=== PATIENT | male | born 1950 | race Caucasian/White ===

== ENCOUNTER 2019-04-22 17:09 | Inpatient (IN) | payer MEDICARE ==
[2019-04-22] MEDS ORDERED: ALBUTEROL NEBULIZED 2.5 MG/3 ML INHALATION STA (18:20)
[2019-04-22] MEDS ORDERED: IPRATROPIUM 0.5 MG/2.5 ML NEBU INHALATION STA (18:20)
[2019-04-22] MEDS ORDERED: methylPREDNISolone SOD SUCCI 125 MG/2 ML VIAL IV STA (18:20)
[2019-04-22] MEDS ORDERED: SODIUM CHLORIDE 0.9% 500 ML 500 ML IV STA (18:20)
--- NOTE | 2019-04-22 18:49 | ED ---
SOB HPI - General Chief Complaint: Shortness of Breath Stated Complaint: congestion Time Seen by Provider: 04/22/19 18:09 Source: patient Mode of arrival: ambulatory Limitations: no limitations - History of Present Illness Initial Comments: 68-year-old male patient presents to the emergency department today for evaluation of shortness of breath and congestion. Patient states his been sick with Thursday with cough, congestion, and nasal drainage. Patient states that he was seen and evaluated at urgent care on Thursday and was given prescriptions for Augmentin, prednisone, and Pro Air inhaler. Patient states that he has been taking the medications that he seems to be worsening. Patient states he is unable to ambulate without becoming extremely winded. States he is coughing up green sputum which was blood-tinged this afternoon. He denies any fever or chills. Denies any chest pain. Denies any dizziness or weakness. Patient has been smoking for 50 years. Has a pacer/defibrillator. Only daily medication is pacerone. Patient denies any recent rash, abdominal pain, nausea, vomiting, diarrhea, constipation, back pain, numbness, tingling, hematuria, dysuria, urinary urgency, urinary frequency, headache, visual changes, or any other complaints. Patient denies any recent travel, leg swelling, or history of DVT. - Related Data Home Medications Medication Instructions Recorded Confirmed Albuterol Inhaler [Ventolin Hfa 2 puff INHALATION RT-Q6H PRN 04/22/19 04/22/19 Inhaler] Amiodarone HCl [Pacerone] 100 mg PO DAILY 04/22/19 04/22/19 Amoxicillin/Potassium Clav 1 tab PO Q12HR 04/22/19 04/22/19 [Augmentin 875-125 Tablet] Ascorbic Acid [Vitamin C] 500 mg PO DAILY 04/22/19 04/22/19 Benzonatate [Tessalon Perles] 100 mg PO TID PRN 04/22/19 04/22/19 Calcium Carbonate [Calcium] 600 mg PO DAILY 04/22/19 04/22/19 Multivitamins, Thera [Multivitamin 1 tab PO DAILY 04/22/19 04/22/19 (formulary)] Vitamin E 100 unit PO DAILY 04/22/19 04/22/19 Zinc 50 mg PO DAILY 04/22/19 04/22/19 predniSONE 10 mg PO BID 04/22/19 04/22/19 Allergies Allergy/AdvReac Type Severity Reaction Status Date / Time No Known Allergies Allergy Verified 04/23/19 00:30 Review of Systems ROS Statement: Those systems with pertinent positive or pertinent negative responses have been documented in the HPI. ROS Other: All systems not noted in ROS Statement are negative. Past Medical History Past Medical History: Myocardial Infarction ([place]) History of Any Multi-Drug Resistant Organisms: None Reported Past Surgical History: Heart Catheterization, Hernia Repair, Pacemaker Additional Past Surgical History / Comment(s): defib 2001 Past Psychological History: No Psychological Hx Reported Smoking Status: Current every day smoker Past Alcohol Use History: Daily Past Drug Use History: None Reported - Past Family History Father Family Medical History: Congestive Heart Failure (CHF) General Exam Limitations: no limitations General appearance: alert, in no apparent distress, other (This is a well- developed, well-nourished elderly male patient in no acute distress. Vital signs upon presentation are temperature 97.9F, pulse 88, respirations 18, blood pressure 109/75, pulse ox 93% on room air.) Eye exam: Present: normal appearance, PERRL, EOMI. Absent: scleral icterus, conjunctival injection, periorbital swelling ENT exam: Present: normal exam, normal oropharynx, mucous membranes moist Respiratory exam: Present: wheezes (Tight expiratory wheezing in the posterior lung hendrix), accessory muscle use. Absent: normal lung sounds bilaterally, respiratory distress, rales, rhonchi, stridor Cardiovascular Exam: Present: regular rate, normal rhythm, normal heart sounds. Absent: systolic murmur, diastolic murmur, rubs, gallop, clicks GI/Abdominal exam: Present: soft, normal bowel sounds. Absent: distended, tenderness, guarding, rebound, rigid Neurological exam: Present: alert, oriented X3, CN II-XII intact Psychiatric exam: Present: normal affect, normal mood Skin exam: Present: warm, dry, intact, normal color. Absent: rash Course Vital Signs 04/22/19 04/22/19 04/22/19 17:14 18:20 19:37 Temperature 97.9 F Pulse Rate 88 88 Respiratory 18 23 Rate Blood Pressure 109/75 O2 Sat by Pulse 93 L Oximetry 04/22/19 04/22/19 04/22/19 19:51 20:07 21:42 Temperature Pulse Rate 86 84 84 Respiratory 18 Rate Blood Pressure 110/69 O2 Sat by Pulse 96 Oximetry 04/22/19 23:33 Temperature 98 F Pulse Rate 76 Respiratory 18 Rate Blood Pressure 104/67 O2 Sat by Pulse 96 Oximetry Medical Decision Making - Medical Decision Making 68-year-old male patient presents to the emergency department today for evaluation of shortness of breath or cough. Physical examination did reveal diffuse expiratory wheezing in the posterior lung hendrix. Oxygen saturation was decreased between 88 and 93% on room air. Labs reviewed and are unremarkable. A chest x-ray showed masslike density in the right upper lobe. CT with contrast was obtained and redemonstrated the masslike density, recommended follow-up tissue sampling her PET scan. Patient will be admitted for COPD exacerbation of evaluation of a mass. We will continue breathing treatments and steroid injections. We'll consult pulmonology. - Lab Data Result diagrams: 04/22/19 19:20 04/22/19 19:20 Lab Results 04/22/19 04/22/19 04/22/19 Range/Units 19:20 19:20 19:20 WBC 9.9 (3.8-10.6) k/uL RBC 5.07 (4.30-5.90) m/uL Hgb 15.7 (13.0-17.5) gm/dL Hct 47.4 (39.0-53.0) % MCV 93.4 (80.0-100.0) fL MCH 31.0 (25.0-35.0) pg MCHC 33.2 (31.0-37.0) g/dL RDW 15.4 (11.5-15.5) % Plt Count 145 L (150-450) k/uL Neutrophils % 82 % Lymphocytes % 10 % Monocytes % 4 % Eosinophils % 0 % Basophils % 2 % Neutrophils # 8.1 H (1.3-7.7) k/uL Lymphocytes # 1.0 (1.0-4.8) k/uL Monocytes # 0.4 (0-1.0) k/uL Eosinophils # 0.0 (0-0.7) k/uL Basophils # 0.2 (0-0.2) k/uL PT 10.3 (9.0-12.0) sec INR 1.0 (<1.2) APTT 27.5 (22.0-30.0) sec Sodium 139 (137-145) mmol/L Potassium 4.4 (3.5-5.1) mmol/L Chloride 103 (98-107) mmol/L Carbon Dioxide 27 (22-30) mmol/L Anion Gap 9 mmol/L BUN 14 (9-20) mg/dL Creatinine 0.76 (0.66-1.25) mg/dL Est GFR (CKD-EPI)AfAm >90 (>60 ml/min/1.73 sqM) Est GFR (CKD-EPI)NonAf >90 (>60 ml/min/1.73 sqM) Glucose 91 (74-99) mg/dL Calcium 9.1 (8.4-10.2) mg/dL Magnesium 2.2 (1.6-2.3) mg/dL Total Bilirubin 0.6 (0.2-1.3) mg/dL AST 36 (17-59) U/L ALT 38 (21-72) U/L Alkaline Phosphatase 130 H (38-126) U/L Troponin I (0.000-0.034) ng/mL Total Protein 6.8 (6.3-8.2) g/dL Albumin 3.9 (3.5-5.0) g/dL 04/22/19 Range/Units 19:20 WBC (3.8-10.6) k/uL RBC (4.30-5.90) m/uL Hgb (13.0-17.5) gm/dL Hct (39.0-53.0) % MCV (80.0-100.0) fL MCH (25.0-35.0) pg MCHC (31.0-37.0) g/dL RDW (11.5-15.5) % Plt Count (150-450) k/uL Neutrophils % % Lymphocytes % % Monocytes % % Eosinophils % % Basophils % % Neutrophils # (1.3-7.7) k/uL Lymphocytes # (1.0-4.8) k/uL Monocytes # (0-1.0) k/uL Eosinophils # (0-0.7) k/uL Basophils # (0-0.2) k/uL PT (9.0-12.0) sec INR (<1.2) APTT (22.0-30.0) sec Sodium (137-145) mmol/L Potassium (3.5-5.1) mmol/L Chloride (98-107) mmol/L Carbon Dioxide (22-30) mmol/L Anion Gap mmol/L BUN (9-20) mg/dL Creatinine (0.66-1.25) mg/dL Est GFR (CKD-EPI)AfAm (>60 ml/min/1.73 sqM) Est GFR (CKD-EPI)NonAf (>60 ml/min/1.73 sqM) Glucose (74-99) mg/dL Calcium (8.4-10.2) mg/dL Magnesium (1.6-2.3) mg/dL Total Bilirubin (0.2-1.3) mg/dL AST (17-59) U/L ALT (21-72) U/L Alkaline Phosphatase (38-126) U/L Troponin I 0.025 (0.000-0.034) ng/mL Total Protein (6.3-8.2) g/dL Albumin (3.5-5.0) g/dL - EKG Data -: EKG Interpreted by Vt EKG Comments: EKG obtained at 1908 shows sinus rhythm with occasional PVCs. Left bundle branch block. Ventricular rate is 82, MD interval 170, QRS duration 156, QT 458 , QTC 535. No evidence of ST elevation or depression. - Radiology Data Radiology results: report reviewed, image reviewed Two-view x-ray of the chest is obtained. Report was reviewed in its entirety. Impression by Dr. Lares shows right lower lobe masslike opacity, further evaluation with CT is recommended. Computed tomography scan of the chest with contrast was obtained. Report was reviewed in its entirety. Impression by Dr. Lares shows superior segment right upper lobe masslike lesion. Both neoplastic nonneoplastic considerations are in the differential, nonneoplastic including cystic lesion/mucoid impaction. Further workup was recommended, either pet/CT or tissue sampling. Disposition Clinical Impression: COPD exacerbation, Mass of right lung Disposition: ADMITTED IP TO THIS [facility] Condition: Serious Decision to Admit Reason: Admit from EC Decision Date: 04/22/19 Decision Time: 21:28
[2019-04-22 20:10] LABS: Basophils # (A) 0.2 k/uL (0-0.2); Basophils % (A) 2 %; Eosinophils % (A) 0 %; HCT 47.4 % (39.0-53.0); HGB 15.7 gm/dL (13.0-17.5); Lymphocytes % (A) 10 %; MCHC 33.2 g/dL (31.0-37.0); MCV 93.4 fL (80.0-100.0); Mean Platelet Volume 8.2; Monocytes # (A) 0.4 k/uL (0-1.0); Monocytes % (A) 4 %; Neutrophils # (A) 8.1 k/uL (1.3-7.7); Neutrophils % (A) 82 %; Platelet Count 145 k/uL (150-450); RBC 5.07 m/uL (4.30-5.90); RDW 15.4 % (11.5-15.5); WBC 9.9 k/uL (3.8-10.6)
[2019-04-22 20:16] LABS: ALT 38 U/L (21-72); AST 36 U/L (17-59); African American GFR (CKD) >90 (>60 ml/min/1.73 sqM); Albumin 3.9 g/dL (3.5-5.0); Alkaline Phosphatase 130 U/L (38-126); Anion Gap 9 mmol/L; Blood Urea Nitrogen 14 mg/dL (9-20); Calcium 9.1 mg/dL (8.4-10.2); Carbon Dioxide 27 mmol/L (22-30); Chloride 103 mmol/L (98-107); Glucose 91 mg/dL (74-99); Magnesium 2.2 mg/dL (1.6-2.3); Potassium 4.4 mmol/L (3.5-5.1); Sodium 139 mmol/L (137-145); Total Bilirubin 0.6 mg/dL (0.2-1.3); Total Protein 6.8 g/dL (6.3-8.2)
[2019-04-22 20:29] LABS: Partial Thromboplastin Time 27.5 sec (22.0-30.0); Prothrombin Time 10.3 sec (9.0-12.0)
[2019-04-22] MEDS ORDERED: RX INFO: IV CONTRAST WAS GIVEN 1 EACH MISC MISCELLANE PRN (21:11)
[2019-04-22] MEDS ORDERED: IPRATROPIUM-ALBUTEROL 3 ML NEB INHALATION PRN (21:25)
--- NOTE | 2019-04-22 23:19 | CT ---
EXAMINATION TYPE: CT chest w con DATE OF EXAM: 04/22/2019 COMPARISON: None HISTORY: Lung mass, c/o chest congestion CT DLP: 256.2 mGycm Automated exposure control for dose reduction was used. CONTRAST: CT scan of the chest is performed with IV Contrast, patient injected with 100 mL of Isovue 300. FINDINGS: Circumscribed superior segment right lower lobe mass measures 6.9 x 4.8 x 4.9 cm TR by AP by luzmaria shaji. The internal attenuation is 19 HU with areas of nodular wall thickening along its superior and lateral aspects with calcification present laterally. Possible a impacted bronchus is associated with the mass. There are centrilobular emphysematous changes, apical predominant. No focal airspace consolidation. N o pleural effusion or pneumothorax. No mediastinal adenopathy. Left ventricular enlargement noted. No pericardial effusion. Aorta is of normal course and caliber. No osseous destructive lesion. IMPRESSION: Superior segment right upper lobe masslike lesion. Both neoplastic and nonneoplastic considerations a re in the differential, nonneoplastic including cystic lesion/mucoid impaction. Further workup is rec ommended, either PET/CT or tissue sampling.
--- NOTE | 2019-04-22 23:43 | XR ---
EXAMINATION TYPE: XR chest 2V DATE OF EXAM: 04/22/2019 COMPARISON: NONE HISTORY: Difficulty breathing TECHNIQUE: Frontal and lateral views of the chest are obtained. FINDINGS: Superior segment right lower lobe circumscribed opacity spanning approximately 7.8 cm doran sverse by 5.7 cm cc dimension. Atelectasis or scarring at the lung bases bilaterally. Emphysematous c hanges present. Cardiac silhouette is within normal limits of size. Dual-lead cardiac AICD device present. IMPRESSION: Right lower lobe mass like opacity, further evaluation with CT is recommended.
[2019-04-23 00:44] VITALS: BMI 19.8
[2019-04-23] MEDS: methylPREDNISolone SOD SUCCI 125 MG/2 ML VIAL IV SCH ×3 (00:51→21:21)
[2019-04-23 08:28] LABS: Glucose,Whole Blood 273 mg/dL (75-99)
[2019-04-23] MEDS: INSULIN ASPART (NovoLOG) 100 UNIT/ML VIAL SQ SCH ×5 (08:38→21:23)
[2019-04-23] MEDS: IPRATROPIUM-ALBUTEROL 3 ML NEB INHALATION SCH ×4 (08:50→20:26)
[2019-04-23 12:24] LABS: Glucose,Whole Blood 58 mg/dL (75-99)
[2019-04-23] MEDS: AMIODARONE 100 MG TAB PO SCH (12:51)
--- NOTE | 2019-04-23 13:17 | P.CNPUL ---
History of Present Illness Consult date: 04/23/19 Requesting physician: Yumi Knapp Reason for consult: dyspnea, abnormal CXR/CT Chief complaint: Shortness of breath, dyspnea on exertion History of present illness: This is a pleasant 68-year-old gentleman who follows with Dr. Holbrook as his primary care physician. He has a history of myocardial infarction with ischemic cardiomyopathy status post AICD placement in 2001. He has a 50+ pack per day smoking history. Daily alcohol use. He presented here to the emergency room yesterday with increasing shortness of breath, cough and congestion. He had recently been seen at an urgent care and started on Augmentin prednisone and pro-air without much improvement. Had a productive cough of green blood-tinged sputum. No fever, chills or night sweats. No chest pain or palpitations. Chest x-ray revealed a right lower lobe masslike opacity. Some atelectasis or scarring in the lung bases. Emphysematous changes noted. Computed tomography scan reveals a circumscribed superior segment right lower lobe mass measuring 6.9 x 4.8 x 4.9. Possible impacted bronchus associated with the mass. Centrilobular emphysematous changes. No mediastinal adenopathy. Patient is seen in consultation on the regular medical floor. Currently he is awake and alert in no acute distress. He is breathing a bit easier today as compared to yesterday. No worsening shortness of breath, cough or congestion. No hemoptysis. States he has been having some gradual weight loss. No recent travels. White count 9.9. Hemoglobin 15.7. Creatinine 0.76. He's been initiated on DuoNeb inhalations, IV Solu-Medrol. Review of Systems REVIEW OF SYSTEMS: CONSTITUTIONAL: Positive for gradual weight loss. EYES: Denies change in vision. EARS, NOSE, MOUTH, THROAT: Denies headaches, denies sore throat. CARDIOVASCULAR: Denies chest pain, palpitations or syncopal episodes. RESPIRATORY: Positive for shortness of breath, cough, congestion no hemoptysis. GASTROINTESTINAL: Denies change in appetite, denies abdominal pain GENITOURINARY: Denies hematuria, denies infections. MUSKULOSKELETAL: Denies pain, denies swelling. INTEGUMENTARY: Denies rash, denies eczema. NEUROLOGICAL: Denies recent memory loss, no recent seizure activity. PSYCHIATRIC: Denies anxiety, denies depression. HEMATOLOGIC/LYMPHATIC: Denies anemia, denies enlarged lymph nodes. Past Medical History Past Medical History: Myocardial Infarction ([place]) Last Myocardial Infarction Date:: 2001 History of Any Multi-Drug Resistant Organisms: None Reported Past Surgical History: Heart Catheterization, Hernia Repair, Pacemaker Additional Past Surgical History / Comment(s): beverly 2001 Type of Cardiac Device: AICD Device Placement Date:: 2015 Past Psychological History: No Psychological Hx Reported Smoking Status: Current every day smoker Past Alcohol Use History: Daily Past Drug Use History: None Reported - Past Family History Father Family Medical History: Congestive Heart Failure (CHF), Diabetes Mellitus Medications and Allergies Home Medications Medication Instructions Recorded Confirmed Type Albuterol Inhaler [Ventolin Hfa 2 puff INHALATION RT-Q6H PRN 04/22/19 04/22/19 History Inhaler] Amiodarone HCl [Pacerone] 100 mg PO DAILY 04/22/19 04/22/19 History Amoxicillin/Potassium Clav 1 tab PO Q12HR 04/22/19 04/22/19 History [Augmentin 875-125 Tablet] Ascorbic Acid [Vitamin C] 500 mg PO DAILY 04/22/19 04/22/19 History Benzonatate [Tessalon Perles] 100 mg PO TID PRN 04/22/19 04/22/19 History Calcium Carbonate [Calcium] 600 mg PO DAILY 04/22/19 04/22/19 History Multivitamins, Thera [Multivitamin 1 tab PO DAILY 04/22/19 04/22/19 History (formulary)] Vitamin E 100 unit PO DAILY 04/22/19 04/22/19 History Zinc 50 mg PO DAILY 04/22/19 04/22/19 History predniSONE 10 mg PO BID 04/22/19 04/22/19 History Allergies Allergy/AdvReac Type Severity Reaction Status Date / Time No Known Allergies Allergy Verified 04/23/19 00:30 Physical Exam Vitals: Vital Signs Temp Pulse Pulse Resp BP BP Pulse Ox 04/23/19 11:51 97.6 F 83 17 111/70 95 04/23/19 09:01 78 04/23/19 08:50 80 94 L 04/23/19 04:31 97.5 F L 81 18 101/65 96 04/23/19 00:38 97.6 F 94 22 102/70 92 L 04/22/19 23:33 98 F 76 18 104/67 96 04/22/19 21:42 84 18 110/69 96 04/22/19 20:07 84 04/22/19 19:51 86 04/22/19 19:37 88 04/22/19 18:20 23 04/22/19 17:14 97.9 F 88 18 109/75 93 L Intake and Output 04/22/19 04/23/19 04/23/19 22:59 06:59 14:59 Other: Voiding Method Toilet Toilet # Voids 1 Weight 52.39 kg GENERAL EXAM: Pleasant 68-year-old gentleman. Alert, comfortable in no apparent distress. On 2 L nasal cannula. HEAD: Normocephalic. EYES: Normal reaction of pupils, equal size. NOSE: Clear with pink turbinates. THROAT: Poor dentition. No erythema or exudates. NECK: No masses, no JVD. CHEST: No chest wall deformity. LUNGS: Equal air entry with bilateral end expiratory wheeze, diminished. CVS: S1 and S2 normal with no audible murmur, regular rhythm. ABDOMEN: No hepatosplenomegaly, normal bowel sounds, no guarding or rigidity. SPINE: No scoliosis or deformity SKIN: No rashes CENTRAL NERVOUS SYSTEM: No focal deficits, tone is normal in all 4 extremities. EXTREMITIES: There is no peripheral edema. No clubbing, no cyanosis. Peripheral pulses are intact. Results - Laboratory Findings CBC and BMP: 04/22/19 19:20 04/22/19 19:20 PT/INR, D-dimer PT 10.3 sec (9.0-12.0) 04/22/19 19:20 INR 1.0 (<1.2) 04/22/19 19:20 Abnormal lab findings: Abnormal Labs 04/22/19 04/22/19 04/23/19 19:20 19:20 08:22 Plt Count 145 L Neutrophils # 8.1 H POC Glucose (mg/dL) 273 H Alkaline Phosphatase 130 H 04/23/19 12:23 Plt Count Neutrophils # POC Glucose (mg/dL) 58 L Alkaline Phosphatase - Diagnostic Findings Chest x-ray: image reviewed CT scan - chest: image reviewed Assessment and Plan Assessment: Impression: #1 Acute exacerbation of suspected chronic obstructive pulmonary disease. Pulmonary embolism ruled out. There is a 6.9 x 4.8 x 4.9 cm mass in the superi or segment of the right upper lobe. Neoplastic versus nonneoplastic which could include cystic lesion/mucoid impaction. #2 Chronic and ongoing tobacco dependence of greater than 50 years at 1 pack per day. #3 Daily alcohol use. #4 History of myocardial infarction. #5 Ischemic cardiomyopathy status post AICD placement in 2001. Plan: The patient was seen and evaluated by Dr. Ferrer. Chest x-ray, CAT scan and labs reviewed. He is recommended a CT-guided biopsy of the right lung mass and possibly bronchoscopy with BAL and biopsy. He would benefit from an outpatient workup including full pulmonary function testing to the [place] severity of his suspected COPD. We'll continue with IV Solu-Medrol and DuoNeb inhalations, add Pulmicort and Perforomist inhalations and empiric antibiotics in the form of azithromycin. He is educated regarding the importance of complete smoking cessation. NicoDerm patch will be offered. The patient will be observed for any signs of alcohol withdrawal as well. We will continue to follow and make further recommendations based on his clinical status. I, the cosigning physician, performed a history & physical examination of the patient. Lungs sounds with bilateral end expiratory wheeze, diminished Maintaining good O2 saturations in the 90s on 2 L/m per nasal cannula. I discussed the assessment and plan of care with my nurse practitioner, Cait Ye. I attest to the above consultation as dictated by her. Time with Patient: Greater than 30
--- NOTE | 2019-04-23 13:24 | P.HPIM ---
History of Present Illness 68-year-old pleasant gentleman with known history of COPD still smokes about one pack of cigarette per day came in with complains of shortness of breath has been going on for last 34 days and the patient is coughing unable to bring up anything patient has significant wheezing and exam was on oral prednisone at home was subsequently admitted here for COPD exacerbation was started on systemic steroids inhalational treatments. CAT scan of the chest was opted which showed a masslike lesion with in the right upper lobe. Pulmonology was consult.. May require a biopsy. patient is still wheezing on examThe patient and her and if you're just doesn't have any leukocytosis, patient has been losing weight for years but not more than usual recently. doesn't use any oxygen at home Review of Systems REVIEW OF SYSTEMS: CONSTITUTIONAL: No fever, no malaise, no fatigue. HEENT: No recent visual problems or hearing problems. Denied any sore throat. CARDIOVASCULAR: No chest pain, orthopnea, PND, no palpitations, no syncope. PULMONARY: no hemoptysis. GASTROINTESTINAL: No diarrhea, no nausea, no vomiting, no abdominal pain. NEUROLOGICAL: No headaches, no weakness, no numbness. HEMATOLOGICAL: Denies any bleeding or petechiae. GENITOURINARY: Denies any burning micturition, frequency, or urgency. MUSCULOSKELETAL/RHEUMATOLOGICAL: Denies any joint pain, swelling, or any muscle pain. ENDOCRINE: Denies any polyuria or polydipsia. The rest of the 14-point review of systems is negative. Past Medical History Past Medical History: Myocardial Infarction ([place]) Last Myocardial Infarction Date:: 2001 History of Any Multi-Drug Resistant Organisms: None Reported Past Surgical History: Heart Catheterization, Hernia Repair, Pacemaker Additional Past Surgical History / Comment(s): defib 2001 Type of Cardiac Device: AICD Device Placement Date:: 2015 Past Psychological History: No Psychological Hx Reported Smoking Status: Current every day smoker Past Alcohol Use History: Daily Past Drug Use History: None Reported - Past Family History Father Family Medical History: Congestive Heart Failure (CHF) Medications and Allergies Home Medications Medication Instructions Recorded Confirmed Type Albuterol Inhaler [Ventolin Hfa 2 puff INHALATION RT-Q6H PRN 04/22/19 04/22/19 History Inhaler] Amiodarone HCl [Pacerone] 100 mg PO DAILY 04/22/19 04/22/19 History Amoxicillin/Potassium Clav 1 tab PO Q12HR 04/22/19 04/22/19 History [Augmentin 875-125 Tablet] Ascorbic Acid [Vitamin C] 500 mg PO DAILY 04/22/19 04/22/19 History Benzonatate [Tessalon Perles] 100 mg PO TID PRN 04/22/19 04/22/19 History Calcium Carbonate [Calcium] 600 mg PO DAILY 04/22/19 04/22/19 History Multivitamins, Thera [Multivitamin 1 tab PO DAILY 04/22/19 04/22/19 History (formulary)] Vitamin E 100 unit PO DAILY 04/22/19 04/22/19 History Zinc 50 mg PO DAILY 04/22/19 04/22/19 History predniSONE 10 mg PO BID 04/22/19 04/22/19 History Allergies Allergy/AdvReac Type Severity Reaction Status Date / Time No Known Allergies Allergy Verified 04/23/19 00:30 Physical Exam Vitals: Vital Signs Temp Pulse Pulse Resp BP BP Pulse Ox 04/23/19 13:11 84 04/23/19 11:51 97.6 F 83 17 111/70 95 04/23/19 09:01 78 04/23/19 08:50 80 94 L 04/23/19 04:31 97.5 F L 81 18 101/65 96 04/23/19 00:38 97.6 F 94 22 102/70 92 L 04/22/19 23:33 98 F 76 18 104/67 96 04/22/19 21:42 84 18 110/69 96 04/22/19 20:07 84 04/22/19 19:51 86 04/22/19 19:37 88 04/22/19 18:20 23 04/22/19 17:14 97.9 F 88 18 109/75 93 L Intake and Output 04/22/19 04/23/19 04/23/19 22:59 06:59 14:59 Other: Voiding Method Toilet Toilet # Voids 1 Weight 52.39 kg PHYSICAL EXAMINATION: GENERAL: The patient is alert and oriented x3, not in any acute distress. Well developed, well nourished. HEENT: Pupils are round and equally reacting to light. EOMI. No scleral icterus. No conjunctival pallor. Normocephalic, atraumatic. No pharyngeal erythema. No thyromegaly. CARDIOVASCULAR: S1 and S2 present. No murmurs, rubs, or gallops. PULMONARY: Significant x-ray wheezing on exam fairly good air entry into bilateral lung hendrix.. ABDOMEN: Soft, nontender, nondistended, normoactive bowel sounds. No palpable organomegaly. MUSCULOSKELETAL: No joint swelling or deformity. EXTREMITIES: No cyanosis, clubbing, or pedal edema. NEUROLOGICAL: Gross neurological examination did not reveal any focal deficits. SKIN: No rashes. Results CBC & Chem 7: 04/22/19 19:20 04/22/19 19:20 Labs: Abnormal Lab Results - Last 24 Hours (Table) 04/22/19 04/22/19 04/23/19 Range/Units 19:20 19:20 08:22 Plt Count 145 L (150-450) k/uL Neutrophils # 8.1 H (1.3-7.7) k/uL POC Glucose (mg/dL) 273 H (75-99) mg/dL Alkaline Phosphatase 130 H (38-126) U/L 04/23/19 Range/Units 12:23 Plt Count (150-450) k/uL Neutrophils # (1.3-7.7) k/uL POC Glucose (mg/dL) 58 L (75-99) mg/dL Alkaline Phosphatase (38-126) U/L Thrombosis Risk Factor Assmnt - Choose All That Apply Any of the Below Risk Factors Present?: Yes Each Factor Represents 1 point: Abnormal pulmonary function (COPD) Other Risk Factors: No Other congenital or acquired thrombophilia - If yes, enter type in comment: No Thrombosis Risk Factor Assessment Total Risk Factor Score: 1 Thrombosis Risk Factor Assessment Level: Low Risk Assessment and Plan Plan: -Shortness of breath: Seconded to COPD exacerbation and uses some steroids inhalational treatments -Possible masslike lesion in the right upper lobe for which pulmonology evaluated the patient patient may need a biopsy -Continued nicotine use: Counseling was provided -History of what appears like ventricular arrhythmia in the past patient has a pacemaker and is on amiodarone which will be continued -Carotid disease -Alcohol abuse: Counseling was provided patient will watch for withdrawals Due to prophylaxis with subcutaneous heparin GI prophylaxis with Pepcid
[2019-04-23] MEDS ORDERED: AZITHROMYCIN 500 MG TAB PO SCH (13:30)
[2019-04-23] MEDS: DOXYCYCLINE 100 MG CAP PO SCH ×2 (14:58→21:25)
[2019-04-23 15:04] LABS: Glucose,Whole Blood 170 mg/dL (75-99)
[2019-04-23 17:30] LABS: Glucose,Whole Blood 159 mg/dL (75-99)
[2019-04-23] MEDS: BUDESONIDE 1 MG/2 ML NEBU INHALATION SCH (20:26)
[2019-04-23] MEDS: FORMOTEROL FUMARATE 20 MCG/2 ML NEBU INHALATION SCH (20:26)
[2019-04-23 21:10] LABS: Glucose,Whole Blood 123 mg/dL (75-99)
[2019-04-23] MEDS: FAMOTIDINE 20 MG TAB PO SCH (21:24)
[2019-04-23] MEDS: HEPARIN SODIUM,PORCINE 5,000 UNIT/ML 1 ML VIAL SQ SCH (21:27)
[2019-04-23] MEDS: methylPREDNISolone SOD SUCCI 40 MG/ML 1 ML VIAL IV SCH (21:27)
[2019-04-23] MEDS: BENZONATATE 100 MG CAP PO PRN (22:38)
[2019-04-24 07:13] LABS: Glucose,Whole Blood 113 mg/dL (75-99)
[2019-04-24] MEDS: INSULIN ASPART (NovoLOG) 100 UNIT/ML VIAL SQ SCH ×4 (07:14→21:10)
[2019-04-24] MEDS: AMIODARONE 100 MG TAB PO SCH (07:40)
[2019-04-24] MEDS: DOXYCYCLINE 100 MG CAP PO SCH ×2 (07:40→21:10)
[2019-04-24] MEDS: HEPARIN SODIUM,PORCINE 5,000 UNIT/ML 1 ML VIAL SQ SCH ×2 (07:41→21:10)
[2019-04-24] MEDS: methylPREDNISolone SOD SUCCI 40 MG/ML 1 ML VIAL IV SCH ×2 (07:41→17:20)
[2019-04-24] MEDS: FAMOTIDINE 20 MG TAB PO SCH ×2 (07:41→21:07)
[2019-04-24 07:47] LABS: Anisocytosis Slight; HCT 40.1 % (39.0-53.0); HGB 13.4 gm/dL (13.0-17.5); MCH 31.7 pg (25.0-35.0); MCHC 33.5 g/dL (31.0-37.0); MCV 94.7 fL (80.0-100.0); Mean Platelet Volume 8.1; Platelet Count 143 k/uL (150-450); RBC 4.24 m/uL (4.30-5.90); WBC 15.2 k/uL (3.8-10.6)
[2019-04-24] MEDS: IPRATROPIUM-ALBUTEROL 3 ML NEB INHALATION SCH ×4 (07:55→19:52)
[2019-04-24] MEDS: BUDESONIDE 1 MG/2 ML NEBU INHALATION SCH ×2 (07:55→19:52)
[2019-04-24] MEDS: FORMOTEROL FUMARATE 20 MCG/2 ML NEBU INHALATION SCH ×2 (07:55→19:52)
[2019-04-24 08:07] LABS: Calcium 9.3 mg/dL (8.4-10.2); Potassium 4.2 mmol/L (3.5-5.1)
--- NOTE | 2019-04-24 10:49 | P.PN ---
Subjective Progress Note Date: 04/24/19 Principal diagnosis: Acute exacerbation of suspected COPD On 04/24/2017 patient seen in follow-up on medical surgical floor. He is awake and alert, in no acute distress, denies any dyspnea, denies any cough or congestion, lung sounds are clear to auscultation, no rhonchi, no wheezing, room air pulse ox is 91% patient has been ambulating to the bathroom, tolerating activity well, no further episodes of unresponsiveness, vital signs have been stable, no acute events overnight, today's labs have been reviewed, showing white blood cell count of 15.2, hemoglobin of 13.4 electrolytes were within normal limits, BUN is 24 creatinine 0.99. No fever or chills. Objective - Vital Signs Vital signs: Vital Signs Temp 97.5 F L 04/24/19 04:46 Pulse 92 04/24/19 08:20 Resp 18 04/24/19 04:46 BP 98/65 04/24/19 04:46 Pulse Ox 91 L 04/24/19 07:55 Intake & Output 04/23/19 04/24/19 04/24/19 18:59 06:59 18:59 Intake Total 600 790 Balance 600 790 Weight 52.39 kg Intake: Oral 600 790 Other: Voiding Method Toilet Toilet Toilet # Voids 2 1 - Exam GENERAL EXAM: Alert, pleasant, 68-year-old white male dyspneic at rest, has just returned from the bathroom, moderate conversational dyspnea HEAD: Normocephalic/atraumatic. EYES: Normal reaction of pupils, equal size. Conjunctiva pink, sclera white. NOSE: Clear with pink turbinates. THROAT: No erythema or exudates. NECK: No masses, no JVD, no thyroid enlargement, no adenopathy. CHEST: No chest wall deformity. Symmetrical expansion. LUNGS: Equal air entry with diminished breath sounds and tight wheezes, and his respiratory crackles over right mid and lower lobes CVS: Regular rate and rhythm, normal S1 and S2, no gallops, no murmurs, no rubs ABDOMEN: Soft, nontender. No hepatosplenomegaly, normal bowel sounds, no guarding or rigidity. EXTREMITIES: No clubbing, no edema, no cyanosis, 2+ pulses and upper and lower extremities. MUSCULOSKELETAL: Muscle strength and tone normal. SPINE: No scoliosis or deformity SKIN: No rashes CENTRAL NERVOUS SYSTEM: Alert and oriented -3. No focal deficits, tone is normal in all 4 extremities. PSYCHIATRIC: Alert and oriented -3. Appropriate affect. Intact judgment and insight. - Labs CBC & Chem 7: 04/24/19 07:13 04/24/19 07:13 Labs: Abnormal Lab Results - Last 24 Hours (Table) 04/23/19 04/23/19 04/23/19 Range/Units 12:23 15:03 17:25 WBC (3.8-10.6) k/uL RBC (4.30-5.90) m/uL RDW (11.5-15.5) % Plt Count (150-450) k/uL BUN (9-20) mg/dL Glucose (74-99) mg/dL POC Glucose (mg/dL) 58 L 170 H 159 H (75-99) mg/dL 04/23/19 04/24/19 04/24/19 Range/Units 21:08 07:12 07:13 WBC 15.2 H (3.8-10.6) k/uL RBC 4.24 L (4.30-5.90) m/uL RDW 17.0 H (11.5-15.5) % Plt Count 143 L (150-450) k/uL BUN (9-20) mg/dL Glucose (74-99) mg/dL POC Glucose (mg/dL) 123 H 113 H (75-99) mg/dL 04/24/19 Range/Units 07:13 WBC (3.8-10.6) k/uL RBC (4.30-5.90) m/uL RDW (11.5-15.5) % Plt Count (150-450) k/uL BUN 24 H (9-20) mg/dL Glucose 117 H (74-99) mg/dL POC Glucose (mg/dL) (75-99) mg/dL Assessment and Plan Plan: Assessment: #1 Acute exacerbation of suspected chronic obstructive pulmonary disease. Pulmonary embolism ruled out. There is a 6.9 x 4.8 x 4.9 cm mass in the superior segment of the right upper lobe. Neoplastic versus nonneoplastic which could include cystic lesion/mucoid impaction. #2 Chronic and ongoing tobacco dependence of greater than 50 years at 1 pack per day. #3 Daily alcohol use. #4 History of myocardial infarction. #5 Ischemic cardiomyopathy status post AICD placement in 2001. Plan: Continue with current treatment, continue IV Medrol, nebulized bronchodilators, Pulmicort, Perforomist, and empiric antibiotics, we'll consult interventional radiology for CT-guided biopsy of the right lung mass. Still quite dyspneic and bronchospastic, continue current inpatient treatment I performed a history & physical examination of the patient and discussed their management with my nurse practitioner, Sally Conway. I reviewed the nurse practitioner's note and agree with the documented findings and plan of care. Lung sounds are positive for diffuse wheezes throughout the lung hendrix. The findings and the impression was discussed with the patient. I attest to the documentation by the nurse practitioner. Time with Patient: Less than 30
[2019-04-24 11:21] LABS: Glucose,Whole Blood 133 mg/dL (75-99)
--- NOTE | 2019-04-24 11:47 | P.PN ---
Subjective 68-year-old gentleman was admitted secondary to COPD exacerbation patient is on doxycycline and the systemic steroids inhalational treatments. Patient also has a right-sided cyst in the lung for which patient will undergo drainage and biopsy by interventional radiology. Pulmonology evaluated the patient. Patient has elevated white blood cell count due to systemic steroids. Patient respiratory status improved looks better today still have some wheezing and decreased air entry. Constitutional: Denied any fatigue denied any fever. Cardio vascular: denied any chest pain, palpitations Gastrointestinal denied any nausea vomiting Pulmonary: Denied any shortness of breath cough Neurologic denied any new focal deficits All inpatient medications were reviewed and appropriate changes in these medications as dictated in the interval history and assessment and plan. Objective - Vital Signs Vital signs: Vital Signs Temp 97.5 F L 04/24/19 04:46 Pulse 92 04/24/19 08:20 Resp 18 04/24/19 04:46 BP 98/65 04/24/19 04:46 Pulse Ox 91 L 04/24/19 07:55 Intake & Output 04/23/19 04/24/19 04/24/19 18:59 06:59 18:59 Intake Total 600 790 Balance 600 790 Weight 52.39 kg Intake: Oral 600 790 Other: Voiding Method Toilet Toilet Toilet # Voids 2 1 - Exam PHYSICAL EXAMINATION: GENERAL: The patient is alert and oriented x3, not in any acute distress. Well developed, well nourished. HEENT: Pupils are round and equally reacting to light. EOMI. No scleral icterus. No conjunctival pallor. Normocephalic, atraumatic. No pharyngeal erythema. No thyromegaly. CARDIOVASCULAR: S1 and S2 present. No murmurs, rubs, or gallops. PULMONARY: Decreased air entry wheezing did improve ABDOMEN: Soft, nontender, nondistended, normoactive bowel sounds. No palpable organomegaly. MUSCULOSKELETAL: No joint swelling or deformity. EXTREMITIES: No cyanosis, clubbing, or pedal edema. NEUROLOGICAL: Gross neurological examination did not reveal any focal deficits. SKIN: No rashes. - Labs CBC & Chem 7: 04/24/19 07:13 04/24/19 07:13 Labs: Abnormal Lab Results - Last 24 Hours (Table) 04/23/19 04/23/19 04/23/19 Range/Units 12:23 15:03 17:25 WBC (3.8-10.6) k/uL RBC (4.30-5.90) m/uL RDW (11.5-15.5) % Plt Count (150-450) k/uL BUN (9-20) mg/dL Glucose (74-99) mg/dL POC Glucose (mg/dL) 58 L 170 H 159 H (75-99) mg/dL 04/23/19 04/24/19 04/24/19 Range/Units 21:08 07:12 07:13 WBC 15.2 H (3.8-10.6) k/uL RBC 4.24 L (4.30-5.90) m/uL RDW 17.0 H (11.5-15.5) % Plt Count 143 L (150-450) k/uL BUN (9-20) mg/dL Glucose (74-99) mg/dL POC Glucose (mg/dL) 123 H 113 H (75-99) mg/dL 04/24/19 04/24/19 Range/Units 07:13 11:19 WBC (3.8-10.6) k/uL RBC (4.30-5.90) m/uL RDW (11.5-15.5) % Plt Count (150-450) k/uL BUN 24 H (9-20) mg/dL Glucose 117 H (74-99) mg/dL POC Glucose (mg/dL) 133 H (75-99) mg/dL Assessment and Plan Plan: -Shortness of breath: Seconded to COPD exacerbation and uses some steroids inhalational treatments -Possible cyst in the right lung intervention guided drainage and biopsy -Continued nicotine use: Counseling was provided -History of what appears like ventricular arrhythmia in the past patient has a pacemaker and is on amiodarone which will be continued -Carotid disease -Alcohol abuse: Counseling was provided patient, so far no alcohol withdrawals DVT prophylaxis with subcutaneous heparin GI prophylaxis with Pepcid
[2019-04-24] MEDS ORDERED: methylPREDNISolone SOD SUCCI 125 MG/2 ML VIAL IV SCH (12:00)
[2019-04-24] MEDS: BENZONATATE 100 MG CAP PO PRN ×2 (12:16→21:49)
[2019-04-24 18:06] LABS: Glucose,Whole Blood 134 mg/dL (75-99)
[2019-04-24 19:46] LABS: Glucose,Whole Blood 122 mg/dL (75-99)
[2019-04-25] MEDS: methylPREDNISolone SOD SUCCI 40 MG/ML 1 ML VIAL IV SCH ×4 (00:45→23:46)
[2019-04-25] MEDS: BUDESONIDE 1 MG/2 ML NEBU INHALATION SCH ×2 (07:07→21:19)
[2019-04-25] MEDS: IPRATROPIUM-ALBUTEROL 3 ML NEB INHALATION SCH ×4 (07:07→21:20)
[2019-04-25] MEDS: FORMOTEROL FUMARATE 20 MCG/2 ML NEBU INHALATION SCH ×2 (07:07→21:19)
[2019-04-25 07:08] LABS: Glucose,Whole Blood 112 mg/dL (75-99)
[2019-04-25] MEDS: INSULIN ASPART (NovoLOG) 100 UNIT/ML VIAL SQ SCH ×4 (08:39→20:30)
[2019-04-25] MEDS: HEPARIN SODIUM,PORCINE 5,000 UNIT/ML 1 ML VIAL SQ SCH ×2 (08:40→20:31)
[2019-04-25] MEDS: FAMOTIDINE 20 MG TAB PO SCH ×2 (08:42→20:30)
[2019-04-25] MEDS: DOXYCYCLINE 100 MG CAP PO SCH ×2 (08:42→20:30)
[2019-04-25] MEDS: AMIODARONE 100 MG TAB PO SCH (08:43)
[2019-04-25] MEDS: BENZONATATE 100 MG CAP PO PRN ×2 (09:21→20:32)
--- NOTE | 2019-04-25 11:54 | XR ---
EXAMINATION TYPE: XR chest 1V portable DATE OF EXAM: 04/25/2019 Comparison: 04/22/2019 Clinical History: 68-year-old male post right lung biopsy, pneumothorax Findings: Left anterior chest wall AICD generator with right atrial and right ventricular leads. Heart is mildl y enlarged. Mild hyperinflation. Redemonstrated right midlung mass at 7.6 x 5.8 cm. There is a small right apical pneumothorax measuring 1.2 cm. No pleural effusion. Impression: 1. Small right apical pneumothorax measuring 1.2 cm. 2. Mild cardiomegaly and COPD. 3. Known 7.6 cm right midlung mass.
[2019-04-25 11:56] LABS: Glucose,Whole Blood 100 mg/dL (75-99)
--- NOTE | 2019-04-25 12:05 | CT ---
EXAMINATION TYPE: CT biopsy lung RT DATE OF EXAM: 04/25/2019 HISTORY: Lung mass COMPARISON: CT 04/22/2019 Maximal barrier technique was utilized. The skin overlying a suitable path to the lesion was localiz ed using CT and the overlying skin was prepped and draped. Lidocaine used for local anesthesia. A s kin cynthia made with a scalpel. Using CT guidance, access was gained to the lesion with a 20-gauge cor e biopsy needle. Core specimen submitted to cytology. Single fine-needle aspiration performed with a 21-gauge needle. 4 passes were performed in all. Following the procedure minimal pneumothorax noted. The patient is discharged in stable condition. Hemostasis achieved. IMPRESSION: SUCCESSFUL CT GUIDED CORE AND FINE-NEEDLE ASPIRATION BIOPSY. PATHOLOGY PENDING. THIS PROCEDURE WAS PERFORMED BY THE UNDERSIGNED. Postprocedure chest x-ray is pending.
[2019-04-25] MEDS ORDERED: IBUPROFEN 600 MG TAB PO STA (14:07)
--- NOTE | 2019-04-25 14:24 | XR ---
EXAMINATION TYPE: XR chest 1V portable DATE OF EXAM: 04/25/2019 COMPARISON: Prior chest x-ray 04/25/2019 at earlier time HISTORY: Pneumothorax post lung biopsy TECHNIQUE: Single frontal view of the chest is obtained. FINDINGS: There is no significant interval change present. Minimal right apical pneumothorax persist s. Right lung mass again noted. No pleural effusion. IMPRESSION: Stable minimal right apical pneumothorax.
--- NOTE | 2019-04-25 15:54 | P.PN ---
Subjective Progress Note Date: 04/25/19 Principal diagnosis: Acute exacerbation of suspected COPD On 04/24/2019 patient seen in follow-up on medical surgical floor. He is awake and alert, in no acute distress, denies any dyspnea, denies any cough or congestion, lung sounds are clear to auscultation, no rhonchi, no wheezing, room air pulse ox is 91% patient has been ambulating to the bathroom, tolerating activity well, no further episodes of unresponsiveness, vital signs have been stable, no acute events overnight, today's labs have been reviewed, showing white blood cell count of 15.2, hemoglobin of 13.4 electrolytes were within normal limits, BUN is 24 creatinine 0.99. No fever or chills. On 04/25/2019 patient seen in follow-up. Today he underwent successful CT- guided core and fine-needle aspiration biopsy, pathology is pending. Follow-up chest x-ray showed minimal right apical pneumothorax, clinically patient is completely asymptomatic. He seen in follow-up on medical surgical floor, currently on 2 L of oxygen his pulse ox is 91%, he denies dyspnea. He states his breathing is actually better compared to yesterday, his lung sounds are diminished, with end expiratory wheezing, no rhonchi or rales. He is on IV steroids at 40 mg every 8 hours, nebulized bronchodilators, Pulmicort and Perforomist, and empiric antibiotics, clinically improving, awaiting final pathology results Objective - Vital Signs Vital signs: Vital Signs Temp 97.5 F L 04/25/19 15:12 Pulse 66 04/25/19 15:12 Resp 16 04/25/19 15:12 BP 97/62 04/25/19 15:12 Pulse Ox 97 04/25/19 15:12 Intake & Output 04/24/19 04/25/19 04/25/19 18:59 06:59 18:59 Intake Total 350 Balance 350 Intake: Oral 350 Other: Voiding Method Toilet Toilet Toilet # Voids 1 1 3 - Exam GENERAL EXAM: Alert, pleasant, 68-year-old white male on 3 L of oxygen with a pulse ox of 91% HEAD: Normocephalic/atraumatic. EYES: Normal reaction of pupils, equal size. Conjunctiva pink, sclera white. NOSE: Clear with pink turbinates. THROAT: No erythema or exudates. NECK: No masses, no JVD, no thyroid enlargement, no adenopathy. CHEST: No chest wall deformity. Symmetrical expansion. LUNGS: Equal air entry with diminished breath sounds and tight wheezes, and his insspiratory crackles over right mid and lower lobes CVS: Regular rate and rhythm, normal S1 and S2, no gallops, no murmurs, no rubs ABDOMEN: Soft, nontender. No hepatosplenomegaly, normal bowel sounds, no guarding or rigidity. EXTREMITIES: No clubbing, no edema, no cyanosis, 2+ pulses and upper and lower extremities. MUSCULOSKELETAL: Muscle strength and tone normal. SPINE: No scoliosis or deformity SKIN: No rashes CENTRAL NERVOUS SYSTEM: Alert and oriented -3. No focal deficits, tone is normal in all 4 extremities. PSYCHIATRIC: Alert and oriented -3. Appropriate affect. Intact judgment and insight. - Labs CBC & Chem 7: 04/24/19 07:13 04/24/19 07:13 Labs: Abnormal Lab Results - Last 24 Hours (Table) 04/24/19 04/24/19 04/25/19 Range/Units 17:14 19:45 07:07 POC Glucose (mg/dL) 134 H 122 H 112 H (75-99) mg/dL 04/25/19 Range/Units 11:54 POC Glucose (mg/dL) 100 H (75-99) mg/dL Microbiology - Last 24 Hours (Table) 04/24/19 21:00 Sputum Culture - Preliminary Sputum Assessment and Plan Plan: Assessment: #1 Acute exacerbation of suspected chronic obstructive pulmonary disease. Pulmonary embolism ruled out. There is a 6.9 x 4.8 x 4.9 cm mass in the superior segment of the right upper lobe. Neoplastic versus nonneoplastic which could include cystic lesion/mucoid impaction. #2 Chronic and ongoing tobacco dependence of greater than 50 years at 1 pack per day. #3 Daily alcohol use. #4 History of myocardial infarction. #5 Ischemic cardiomyopathy status post AICD placement in 2001. #6 tiny right apical pneumothorax, post procedural, secondary to CT-guided fine- needle biopsy of the right upper lobe mass, clinically stable, we'll obtain follow-up chest x-ray in the morning Plan: Continue with IV steroids, nebulized bronchodilators, empiric antibiotics, will await the final results of the pathology of the right upper lobe mass. We'll obtain a follow-up chest x-ray in the morning to follow-up on the tiny right ap ical pneumothorax, clinically patient is stable. Continue to follow I performed a history & physical examination of the patient and discussed their management with my nurse practitioner, Sally Conway. I reviewed the nurse practitioner's note and agree with the documented findings and plan of care. Lung sounds are positive for diffuse wheezes throughout the lung hendrix. The findings and the impression was discussed with the patient. I attest to the documentation by the nurse practitioner. Time with Patient: Less than 30
[2019-04-25 16:59] LABS: Glucose,Whole Blood 145 mg/dL (75-99)
[2019-04-25 20:18] LABS: Glucose,Whole Blood 138 mg/dL (75-99)
[2019-04-25] MEDS: IBUPROFEN 600 MG TAB PO PRN (20:33)
[2019-04-26 07:00] LABS: Glucose,Whole Blood 120 mg/dL (75-99)
[2019-04-26] MEDS: INSULIN ASPART (NovoLOG) 100 UNIT/ML VIAL SQ SCH ×4 (07:10→21:37)
[2019-04-26] MEDS: BUDESONIDE 1 MG/2 ML NEBU INHALATION SCH ×2 (07:15→21:41)
[2019-04-26] MEDS: FORMOTEROL FUMARATE 20 MCG/2 ML NEBU INHALATION SCH ×2 (07:15→21:37)
[2019-04-26] MEDS: IPRATROPIUM-ALBUTEROL 3 ML NEB INHALATION SCH ×4 (07:15→21:37)
[2019-04-26] MEDS: DOXYCYCLINE 100 MG CAP PO SCH ×2 (07:54→21:40)
[2019-04-26] MEDS: methylPREDNISolone SOD SUCCI 40 MG/ML 1 ML VIAL IV SCH ×3 (07:54→23:51)
[2019-04-26] MEDS: HEPARIN SODIUM,PORCINE 5,000 UNIT/ML 1 ML VIAL SQ SCH ×2 (07:54→21:36)
[2019-04-26] MEDS: FAMOTIDINE 20 MG TAB PO SCH ×2 (07:55→21:41)
[2019-04-26] MEDS: AMIODARONE 100 MG TAB PO SCH (07:55)
[2019-04-26] MEDS: IBUPROFEN 600 MG TAB PO PRN ×3 (08:46→23:53)
--- NOTE | 2019-04-26 09:25 | XR ---
EXAMINATION TYPE: XR chest 1V DATE OF EXAM: 04/26/2019 COMPARISON: 04/25/2019 HISTORY: 68-year-old male follow-up right pneumothorax TECHNIQUE: Single frontal view of the chest is obtained. FINDINGS: Heart upper limits of normal in size. Left anterior chest wall ICD generator with right at rial and right ventricular leads. Hyperinflation with interstitial prominence compatible with COPD. K nown right midlung mass. A small right apical pneumothorax enlarged in the interval currently measuri ng 2.2 cm versus 6 mm, previously. IMPRESSION: 1. Enlarging small right apical pneumothorax measuring 2.2 cm versus 6 mm, previously. 2. COPD and known right midlung mass.
[2019-04-26 11:11] LABS: Glucose,Whole Blood 124 mg/dL (75-99)
--- NOTE | 2019-04-26 14:15 | P.PN ---
Subjective Progress Note Date: 04/26/19 Principal diagnosis: Right midlung mass On 04/24/2019 patient seen in follow-up on medical surgical floor. He is awake and alert, in no acute distress, denies any dyspnea, denies any cough or congestion, lung sounds are clear to auscultation, no rhonchi, no wheezing, room air pulse ox is 91% patient has been ambulating to the bathroom, tolerating activity well, no further episodes of unresponsiveness, vital signs have been stable, no acute events overnight, today's labs have been reviewed, showing white blood cell count of 15.2, hemoglobin of 13.4 electrolytes were within normal limits, BUN is 24 creatinine 0.99. No fever or chills. On 04/25/2019 patient seen in follow-up. Today he underwent successful CT- guided core and fine-needle aspiration biopsy, pathology is pending. Follow-up chest x-ray showed minimal right apical pneumothorax, clinically patient is com pletely asymptomatic. He seen in follow-up on medical surgical floor, currently on 2 L of oxygen his pulse ox is 91%, he denies dyspnea. He states his breathing is actually better compared to yesterday, his lung sounds are diminished, with end expiratory wheezing, no rhonchi or rales. He is on IV steroids at 40 mg every 8 hours, nebulized bronchodilators, Pulmicort and Perforomist, and empiric antibiotics, clinically improving, awaiting final pathology results The patient is seen today 04/26/2019 in follow-up on the regular medical floor. He is currently awake and alert in no acute distress. He is maintaining O2 saturations in the 90s on 3 L/m per nasal cannula. He is afebrile. Hemod ynamically stable. Sputum cultures pending. He did undergo a successful CT- guided core and fine-needle aspiration biopsy yesterday. Pathology is pending. Today's chest x-ray reveals an enlarging small right apical pneumothorax measuring 2.2 cm versus 6 mm previously. He is maintained on DuoNeb inhalations, Pulmicort and Perforomist inhalations, IV Solu-Medrol. Objective - Vital Signs Vital signs: Vital Signs Temp 97.6 F 04/26/19 11:19 Pulse 80 04/26/19 13:25 Resp 16 04/26/19 11:19 BP 103/68 04/26/19 11:19 Pulse Ox 93 L 04/26/19 11:19 Intake & Output 04/25/19 04/26/19 04/26/19 18:59 06:59 18:59 Intake Total 1020 Balance 1020 Intake: Oral 1020 Other: Voiding Method Toilet Toilet # Voids 3 1 - Exam GENERAL EXAM: Alert, pleasant, 68-year-old white male on 3 L of oxygen with a pulse ox of 93% HEAD: Normocephalic/atraumatic. EYES: Normal reaction of pupils, equal size. Conjunctiva pink, sclera white. NOSE: Clear with pink turbinates. THROAT: No erythema or exudates. NECK: No masses, no JVD, no thyroid enlargement, no adenopathy. CHEST: No chest wall deformity. Symmetrical expansion. LUNGS: Equal air entry with diminished breath sounds and inspiratory crackles over right mid and lower lobes CVS: Regular rate and rhythm, normal S1 and S2, no gallops, no murmurs, no rubs ABDOMEN: Soft, nontender. No hepatosplenomegaly, normal bowel sounds, no guarding or rigidity. EXTREMITIES: No clubbing, no edema, no cyanosis, 2+ pulses and upper and lower extremities. MUSCULOSKELETAL: Muscle strength and tone normal. SPINE: No scoliosis or deformity SKIN: No rashes CENTRAL NERVOUS SYSTEM: No focal deficits, tone is normal in all 4 extremities. PSYCHIATRIC: Alert and oriented -3. Appropriate affect. Intact judgment and insight. - Labs CBC & Chem 7: 04/24/19 07:13 04/24/19 07:13 Labs: Abnormal Lab Results - Last 24 Hours (Table) 04/25/19 04/25/19 04/26/19 Range/Units 16:57 20:17 06:58 POC Glucose (mg/dL) 145 H 138 H 120 H (75-99) mg/dL 04/26/19 Range/Units 11:09 POC Glucose (mg/dL) 124 H (75-99) mg/dL Microbiology - Last 24 Hours (Table) 04/24/19 21:00 Gram Stain - Preliminary Sputum Sputum Culture - Preliminary Assessment and Plan Assessment: Impression: #1 Acute exacerbation of suspected chronic obstructive pulmonary disease. Pulmonary embolism ruled out. There is a 6.9 x 4.8 x 4.9 cm mass in the superior segment of the right upper lobe. Neoplastic versus nonneoplastic which could include cystic lesion/mucoid impaction. Status post fine-needle aspirate, CT-guided performed on 04/25/2019. Pathology pending. #2 Chronic and ongoing tobacco dependence of greater than 50 years at 1 pack per day. #3 Daily alcohol use. #4 History of myocardial infarction. #5 Ischemic cardiomyopathy status post AICD placement in 2001. Plan: The patient was seen and evaluated by Dr. Ugarte. Chest x-ray reviewed. Slightly enlarging right apical pneumothorax. Repeat chest x-ray in the a.m. We'll continue with IV Solu-Medrol and DuoNeb inhalations, Pulmicort and Perforomist inhalations and empiric antibiotics in the form of azithromycin. He is educated regarding the importance of complete smoking cessation. We will co david to follow and make further recommendations based on his clinical status. I, the cosigning physician, performed a history & physical examination of the patient. Lungs sounds with inspiratory crackles in the right lung, diminished Maintaining good O2 saturations in the 90s on 3 L/m per nasal cannula. I discussed the assessment and plan of care with my nurse practitioner, Cait Ye. I attest to the above consultation as dictated by her.
[2019-04-26 17:33] LABS: Glucose,Whole Blood 125 mg/dL (75-99)
[2019-04-26 20:16] LABS: Glucose,Whole Blood 146 mg/dL (75-99)
[2019-04-26] MEDS: BENZONATATE 100 MG CAP PO PRN (21:40)
--- NOTE | 2019-04-26 23:31 | P.PN ---
Subjective Progress Note Date: 04/25/19 Principal diagnosis: Acute COPD duration Lung mass status post biopsy. 68-year-old gentleman was admitted secondary to COPD exacerbation patient is on doxycycline and the systemic steroids inhalational treatments. Patient also has a right-sided cyst in the lung for which patient will undergo drainage and biopsy by interventional radiology. Pulmonology evaluated the patient. Patient has elevated white blood cell count due to systemic steroids. Patient respiratory status improved looks better today still have some wheezing and decreased air entry. 04/25/2019 Patient is status post lung CT-guided biopsy today. Complaining of right-sided chest pain and requesting Motrin. No complaints of shortness of breath. Breathing status is much improved. No nausea vomiting or abdominal pain. Chest x-ray showed mild pneumothorax. Repeat chest x-ray tomorrow. Pulmonary is following. Constitutional: Denied any fatigue denied any fever. Cardio vascular: denied any chest pain, palpitations Gastrointestinal denied any nausea vomiting Pulmonary: Denied any shortness of breath cough Neurologic denied any new focal deficits All inpatient medications were reviewed and appropriate changes in these medications as dictated in the interval history and assessment and plan. Objective - Vital Signs Vital signs: Vital Signs Temp 97.5 F L 04/25/19 21:07 Pulse 84 04/25/19 21:42 Resp 18 04/25/19 21:07 BP 106/70 04/25/19 21:07 Pulse Ox 95 04/25/19 21:07 Intake & Output 04/25/19 04/25/19 04/26/19 06:59 18:59 06:59 Intake Total 350 Balance 350 Intake: Oral 350 Other: Voiding Method Toilet Toilet # Voids 1 3 - Exam PHYSICAL EXAMINATION: GENERAL: The patient is alert and oriented x3, not in any acute distress. Well developed, well nourished. HEENT: Pupils are round and equally reacting to light. EOMI. No scleral icterus. No conjunctival pallor. Normocephalic, atraumatic. No pharyngeal erythema. No thyromegaly. CARDIOVASCULAR: S1 and S2 present. No murmurs, rubs, or gallops. PULMONARY: Decreased air entry wheezing did improve ABDOMEN: Soft, nontender, nondistended, normoactive bowel sounds. No palpable organomegaly. MUSCULOSKELETAL: No joint swelling or deformity. EXTREMITIES: No cyanosis, clubbing, or pedal edema. NEUROLOGICAL: Gross neurological examination did not reveal any focal deficits. SKIN: No rashes. - Labs CBC & Chem 7: 04/24/19 07:13 04/24/19 07:13 Labs: Abnormal Lab Results - Last 24 Hours (Table) 04/25/19 04/25/19 04/25/19 Range/Units 07:07 11:54 16:57 POC Glucose (mg/dL) 112 H 100 H 145 H (75-99) mg/dL 04/25/19 Range/Units 20:17 POC Glucose (mg/dL) 138 H (75-99) mg/dL Microbiology - Last 24 Hours (Table) 04/24/19 21:00 Sputum Culture - Preliminary Sputum Assessment and Plan Assessment: -Shortness of breath: Seconded to COPD exacerbation . Patient is being continued on IV steroids and Pulmicort and DuoNeb's. -Possible cyst in the right lung. Status post intervention guided drainage and biopsy. -Small right-sided pneumothorax post biopsy -Continued nicotine use: Counseling was provided -History of what appears like ventricular arrhythmia in the past patient has a pacemaker and is on amiodarone which will be continued -Carotid disease -Alcohol abuse: Counseling was provided patient, so far no alcohol withdrawals DVT prophylaxis with subcutaneous heparin GI prophylaxis with Pepcid Time with Patient: Greater than 30
--- NOTE | 2019-04-26 23:34 | P.PN ---
Subjective Progress Note Date: 04/26/19 Principal diagnosis: Acute COPD duration Lung mass status post biopsy. 68-year-old gentleman was admitted secondary to COPD exacerbation patient is on doxycycline and the systemic steroids inhalational treatments. Patient also has a right-sided cyst in the lung for which patient will undergo drainage and biopsy by interventional radiology. Pulmonology evaluated the patient. Patient has elevated white blood cell count due to systemic steroids. Patient respiratory status improved looks better today still have some wheezing and decreased air entry. 04/25/2019 Patient is status post lung CT-guided biopsy today. Complaining of right-sided chest pain and requesting Motrin. No complaints of shortness of breath. Breathing status is much improved. No nausea vomiting or abdominal pain. Chest x-ray showed mild pneumothorax. Repeat chest x-ray tomorrow. Pulmonary is following. 04/26/2019 Patient denied any complaints of shortness of breath, which is improving. Chest pain right-sided breath cough. Otherwise patient is saturating well on nasal cannula oxygen. Patient has been afebrile. Currently being continued on IV steroids and breathing treatments. Repeat chest x-ray showed enlarging small right apical pneumothorax measuring 2.2 cm versus 6 mm previously. COPD and right mid lung mass. Patient is status post biopsy and report is pending. Constitutional: Denied any fatigue denied any fever. Cardio vascular: denied any chest pain, palpitations Gastrointestinal denied any nausea vomiting Pulmonary: Denied any shortness of breath cough Neurologic denied any new focal deficits All inpatient medications were reviewed and appropriate changes in these medications as dictated in the interval history and assessment and plan. Objective - Vital Signs Vital signs: Vital Signs Temp 97.7 F 04/26/19 20:12 Pulse 79 04/26/19 20:12 Resp 16 04/26/19 20:12 BP 105/71 04/26/19 20:12 Pulse Ox 93 L 04/26/19 11:19 Intake & Output 04/26/19 04/26/19 04/27/19 06:59 18:59 06:59 Intake Total 1020 Balance 1020 Intake: Oral 1020 Other: Voiding Method Toilet # Voids 1 3 - Exam PHYSICAL EXAMINATION: GENERAL: The patient is alert and oriented x3, not in any acute distress. Well developed, well nourished. HEENT: Pupils are round and equally reacting to light. EOMI. No scleral icterus. No conjunctival pallor. Normocephalic, atraumatic. No pharyngeal erythema. No thyromegaly. CARDIOVASCULAR: S1 and S2 present. No murmurs, rubs, or gallops. PULMONARY: Decreased air entry wheezing did improve ABDOMEN: Soft, nontender, nondistended, normoactive bowel sounds. No palpable organomegaly. MUSCULOSKELETAL: No joint swelling or deformity. EXTREMITIES: No cyanosis, clubbing, or pedal edema. NEUROLOGICAL: Gross neurological examination did not reveal any focal deficits. SKIN: No rashes. - Labs CBC & Chem 7: 04/24/19 07:13 04/24/19 07:13 Labs: Abnormal Lab Results - Last 24 Hours (Table) 04/26/19 04/26/19 04/26/19 Range/Units 06:58 11:09 17:24 POC Glucose (mg/dL) 120 H 124 H 125 H (75-99) mg/dL 04/26/19 Range/Units 20:14 POC Glucose (mg/dL) 146 H (75-99) mg/dL Microbiology - Last 24 Hours (Table) 04/24/19 21:00 Gram Stain - Preliminary Sputum Sputum Culture - Preliminary Assessment and Plan Assessment: -Shortness of breath secondary to COPD exacerbation . Patient is being continued on IV steroids and Pulmicort and DuoNeb's. -Right mid lung mass. Status post intervention guided drainage and biopsy. P athology Report pending. -Small apical pneumothorax post biopsy -Continued nicotine use: Counseling was provided -History of what appears like ventricular arrhythmia in the past patient has a pacemaker and is on amiodarone which will be continued -Carotid disease -Alcohol abuse: Counseling was provided patient, so far no alcohol withdrawals DVT prophylaxis with subcutaneous heparin GI prophylaxis with Pepcid Time with Patient: Greater than 30
[2019-04-27] MEDS: IPRATROPIUM-ALBUTEROL 3 ML NEB INHALATION SCH ×3 (06:56→15:41)
[2019-04-27] MEDS: BUDESONIDE 1 MG/2 ML NEBU INHALATION SCH (06:58)
[2019-04-27] MEDS: FORMOTEROL FUMARATE 20 MCG/2 ML NEBU INHALATION SCH (06:58)
[2019-04-27 07:05] LABS: Glucose,Whole Blood 109 mg/dL (75-99)
[2019-04-27] MEDS: INSULIN ASPART (NovoLOG) 100 UNIT/ML VIAL SQ SCH ×2 (07:37→12:33)
[2019-04-27] MEDS: methylPREDNISolone SOD SUCCI 40 MG/ML 1 ML VIAL IV SCH (07:42)
[2019-04-27] MEDS: DOXYCYCLINE 100 MG CAP PO SCH (07:42)
[2019-04-27] MEDS: HEPARIN SODIUM,PORCINE 5,000 UNIT/ML 1 ML VIAL SQ SCH (07:43)
[2019-04-27] MEDS: IBUPROFEN 600 MG TAB PO PRN (07:43)
[2019-04-27] MEDS: FAMOTIDINE 20 MG TAB PO SCH (07:43)
--- NOTE | 2019-04-27 07:49 | XR ---
EXAMINATION TYPE: XR chest 2V DATE OF EXAM: 04/27/2019 COMPARISON: Chest x-ray from yesterday and older studies. CT chest April 22, 2019.. HISTORY: Right apical pneumothorax after biopsy. TECHNIQUE: Frontal and lateral views of the chest are obtained. FINDINGS: There is fairly stable small right apical pneumothorax. Stable right lower lobe mass. Back ground chronic emphysematous change. Left lung remains clear. No mediastinal shift is present. The ca rdiac silhouette size remains enlarged with dual lead pacemaker/AICD. The osseous structures are in tact. IMPRESSION: Stable small right apical pneumothorax on background chronic emphysematous change with k nown right lower lobe mass/neoplasm.
[2019-04-27] MEDS: AMIODARONE 100 MG TAB PO SCH (08:15)
[2019-04-27 11:41] LABS: Glucose,Whole Blood 173 mg/dL (75-99)
[2019-04-27 12:54] VITALS: BP 96/62; TEMP 97.6
--- NOTE | 2019-04-27 13:19 | P.PN ---
Subjective Progress Note Date: 04/27/19 Principal diagnosis: Right midlung mass On 04/24/2019 patient seen in follow-up on medical surgical floor. He is awake and alert, in no acute distress, denies any dyspnea, denies any cough or congestion, lung sounds are clear to auscultation, no rhonchi, no wheezing, room air pulse ox is 91% patient has been ambulating to the bathroom, tolerating activity well, no further episodes of unresponsiveness, vital signs have been stable, no acute events overnight, today's labs have been reviewed, showing white blood cell count of 15.2, hemoglobin of 13.4 electrolytes were within normal limits, BUN is 24 creatinine 0.99. No fever or chills. On 04/25/2019 patient seen in follow-up. Today he underwent successful CT- guided core and fine-needle aspiration biopsy, pathology is pending. Follow-up chest x-ray showed minimal right apical pneumothorax, clinically patient is com pletely asymptomatic. He seen in follow-up on medical surgical floor, currently on 2 L of oxygen his pulse ox is 91%, he denies dyspnea. He states his breathing is actually better compared to yesterday, his lung sounds are diminished, with end expiratory wheezing, no rhonchi or rales. He is on IV steroids at 40 mg every 8 hours, nebulized bronchodilators, Pulmicort and Perforomist, and empiric antibiotics, clinically improving, awaiting final pathology results The patient is seen today 04/26/2019 in follow-up on the regular medical floor. He is currently awake and alert in no acute distress. He is maintaining O2 saturations in the 90s on 3 L/m per nasal cannula. He is afebrile. Hemod ynamically stable. Sputum cultures pending. He did undergo a successful CT- guided core and fine-needle aspiration biopsy yesterday. Pathology is pending. Today's chest x-ray reveals an enlarging small right apical pneumothorax measuring 2.2 cm versus 6 mm previously. He is maintained on DuoNeb inhalations, Pulmicort and Perforomist inhalations, IV Solu-Medrol. The patient is seen today 04/27/2019 in follow-up on the regular medical floor. He is awake and alert in no acute distress. Resting quite comfortably in bed. No worsening shortness of breath, cough or congestion. Maintaining O2 saturations in the mid 90s on 2 L/m per nasal cannula. He is afebrile. Hemodynamic stable. Sputum culture reveals no growth. Fine-needle aspirate of the right upper lung mass is unsatisfactory for diagnosis due to lack of viable lesional material. Core biopsy is pending. Objective - Vital Signs Vital signs: Vital Signs Temp 97.6 F 04/27/19 12:54 Pulse 52 L 04/27/19 12:54 Resp 20 04/27/19 12:54 BP 96/62 04/27/19 12:54 Pulse Ox 95 04/27/19 12:54 Intake & Output 04/26/19 04/27/19 04/27/19 18:59 06:59 18:59 Intake Total 1070 Balance 1070 Intake: Oral 1070 Other: Voiding Method Toilet Toilet # Voids 3 2 2 # Bowel Movements 1 - Exam GENERAL EXAM: Alert, pleasant, 68-year-old gentleman on 2 L of oxygen with a pulse ox of 95% HEAD: Normocephalic/atraumatic. EYES: Normal reaction of pupils, equal size. Conjunctiva pink, sclera white. NOSE: Clear with pink turbinates. THROAT: No erythema or exudates. NECK: No masses, no JVD, no thyroid enlargement, no adenopathy. CHEST: No chest wall deformity. Symmetrical expansion. LUNGS: Equal air entry with diminished breath sounds and inspiratory crackles over right mid and lower lobes CVS: Regular rate and rhythm, normal S1 and S2, no gallops, no murmurs, no rubs ABDOMEN: Soft, nontender. No hepatosplenomegaly, normal bowel sounds, no guarding or rigidity. EXTREMITIES: No clubbing, no edema, no cyanosis, 2+ pulses and upper and lower extremities. MUSCULOSKELETAL: Muscle strength and tone normal. SPINE: No scoliosis or deformity SKIN: No rashes CENTRAL NERVOUS SYSTEM: No focal deficits, tone is normal in all 4 extremities. PSYCHIATRIC: Alert and oriented -3. Appropriate affect. Intact judgment and insight. - Labs CBC & Chem 7: 04/24/19 07:13 04/24/19 07:13 Labs: Abnormal Lab Results - Last 24 Hours (Table) 04/26/19 04/26/19 04/27/19 Range/Units 17:24 20:14 07:04 POC Glucose (mg/dL) 125 H 146 H 109 H (75-99) mg/dL 04/27/19 Range/Units 11:39 POC Glucose (mg/dL) 173 H (75-99) mg/dL Microbiology - Last 24 Hours (Table) 04/24/19 21:00 Gram Stain - Final Sputum Sputum Culture - Final Assessment and Plan Assessment: Impression: #1 Acute exacerbation of suspected chronic obstructive pulmonary disease. Pulmonary embolism ruled out. There is a 6.9 x 4.8 x 4.9 cm mass in the superior segment of the right upper lobe. Neoplastic versus nonneoplastic which could include cystic lesion/mucoid impaction. Status post fine-needle aspirate, CT-guided performed on 04/25/2019. FNA sample inadequate. Core biopsy results pending. #2 Chronic and ongoing tobacco dependence of greater than 50 years at 1 pack per day. #3 Daily alcohol use. #4 History of myocardial infarction. #5 Ischemic cardiomyopathy status post AICD placement in 2001. Plan: The patient was seen and evaluated by Dr. Ugarte. He is cleared for discharge from the pulmonary standpoint. He'll follow-up in our office in 1 week to review the biopsy results. He'll need full pulmonary function testing to evaluate the severity of his COPD. Home oxygen. Complete course of diuretics in the form of doxycycline. Home on DuoNeb inhalations, albuterol HFA, Symbicort. Complete a prednisone burst and taper starting at 40 mg daily for 4 days. He is educated regarding the importance of complete smoking cessation. We will continue to follow and make further recommendations based on his clinical status. I, the cosigning physician, performed a history & physical examination of the patient. Lungs sounds with inspiratory crackles in the right lung, diminished Maintaining good O2 saturations in the 90s on 2 L/m per nasal cannula. I discussed the assessment and plan of care with my nurse practitioner, Cait Ye. I attest to the above consultation as dictated by her.
[2019-04-27] MEDS ORDERED: predniSONE 20 MG TAB PO STA (14:44)
[2019-04-27 15:44] VITALS: RESP 16
[2019-04-27 15:55] VITALS: PULSE 90
== END 2019-04-27 16:45 | disposition home or self-care (01) | DRG 191 ==
LOC: EC 17:09 → 3NMEDONC 22:15
PROVIDERS: ADMIT Hospitalist; ATTEND Hospitalist
PROC: 0BBK3ZX Excision of Right Lung, Percutaneous Approach, Diagnostic (ICD-10-PCS; principal; 2019-04-25)
DX: J43.2 Centrilobular emphysema (principal); J93.9 Pneumothorax, unspecified; I25.5 Ischemic cardiomyopathy; I44.7 Left bundle-branch block, unspecified; I49.3 Ventricular premature depolarization; R91.8 Other nonspecific abnormal finding of lung field; F10.10 Alcohol abuse, uncomplicated; D72.829 Elevated white blood cell count, unspecified; T38.0X5A Adverse effect of glucocorticoids and synthetic analogues, initial encounter; I25.2 Old myocardial infarction; F17.210 Nicotine dependence, cigarettes, uncomplicated; Z71.6 Tobacco abuse counseling; Z79.52 Long term (current) use of systemic steroids; Z79.899 Other long term (current) drug therapy; Z95.810 Presence of automatic (implantable) cardiac defibrillator; Z98.890 Other specified postprocedural states; Z82.49 Family history of ischemic heart disease and other diseases of the circulatory system; Z83.3 Family history of diabetes mellitus
CPT/HCPCS: 10010; 36415; 71045; 71046; 71260; 77012; 80048; 80053; 83735; 84484; 85025; 85027; 85610; 85730; 87070; 87205; 88305; 93005; 94640; 94644; 94760; 96361; 96374; 99285

== ENCOUNTER → 2019-07-01 | Outpatient (CLI) | payer MEDICARE ==
--- NOTE | 2019-07-04 11:12 | PE ---
Nuclear medicine PET/CT HISTORY: Solitary pulmonary nodule Patient received 9.5 mCi F-18 FDG intravenously in delayed scanning was performed from skull base to the mid thighs. Localization and attenuation correction CT scan was performed. Correlation to chest CT 04/22/2019 Neck and chest: There is abnormal increased attenuation that has developed in the right upper lobe ex tending towards the pleural surface posteriorly from the hilum, there is associated hypermetabolic up take, SUVs 3.3. There is interval development of a right pleural effusion. The right lower lobe lung mass has increased in size and now measures approximately 7.8 cm in transverse dimension. There is ex tension from the pleural margin towards the right hilum. The hypermetabolic uptake is noted centrally towards the right hilum, SUV 9.6, the bulk of the lesion does not show associated hypermetabolic upt [place]. The heart is enlarged, intracardiac leads are present. There is no mediastinal, axillary, or hilar up take evident. No pericardial effusion. ABDOMEN: No evident adrenal mass or liver mass. No retroperitoneal adenopathy. The bladder shows a th ickened wall and is enlarged. Suspect there is a large Hutch diverticulum posterior laterally on the left. Prostate is enlarged, correlate for chronic bladder outlet obstruction. Osseous structures are within normal limits. IMPRESSION: Hypermetabolic uptake has developed in the interval, the hypermetabolic uptake is primari ly primarily centrally at the level of the patient's mass as described. Interval development of a rig ht pleural effusion.
== END | disposition home or self-care (01) ==
LOC: RADPETMAIN 13:53
PROVIDERS: ATTEND Internal Medicine Sleep Medicine
DX: J90 Pleural effusion, not elsewhere classified (principal); R91.8 Other nonspecific abnormal finding of lung field
CPT/HCPCS: 78815; A9552

== ENCOUNTER → 2019-08-18 | Outpatient (CLI) | payer MEDICARE ==
[2019-08-18 15:21] LABS: Basophils # (A) 0.1 k/uL (0-0.2); Basophils % (A) 1 %; Eosinophils # (A) 0.2 k/uL (0-0.7); Eosinophils % (A) 2 %; HCT 44.7 % (39.0-53.0); HGB 14.5 gm/dL (13.0-17.5); Lymphocytes # (A) 1.3 k/uL (1.0-4.8); Lymphocytes % (A) 12 %; MCH 30.8 pg (25.0-35.0); MCHC 32.4 g/dL (31.0-37.0); Monocytes # (A) 0.5 k/uL (0-1.0); Monocytes % (A) 4 %; Neutrophils # (A) 8.4 k/uL (1.3-7.7); Neutrophils % (A) 78 %; Platelet Count 181 k/uL (150-450); RBC 4.71 m/uL (4.30-5.90); RDW 14.4 % (11.5-15.5); WBC 10.7 k/uL (3.8-10.6)
[2019-08-18 15:25] LABS: African American GFR (CKD) >90 (>60 ml/min/1.73 sqM); Anion Gap 6 mmol/L; Blood Urea Nitrogen 16 mg/dL (9-20); Carbon Dioxide 28 mmol/L (22-30); Chloride 107 mmol/L (98-107); Glucose 104 mg/dL (74-99); Non-African American GFR(CKD) 81 (>60 ml/min/1.73 sqM); Potassium 4.8 mmol/L (3.5-5.1); Sodium 141 mmol/L (137-145)
[2019-08-18 16:05] LABS: Appearance,Urine Clear (Clear); Bilirubin,Urine Negative (Negative); Blood,Urine Negative (Negative); Color,Urine Yellow; Glucose,Urine (UA) Negative (Negative); Hyaline Casts,Urine 1 /lpf (0-2); Ketones,Urine Negative (Negative); Leukocyte Esterase,Urine Trace (Negative); Mucus,Urine Rare /hpf; Nitrite,Urine Negative (Negative); Protein,Urine Negative (Negative); RBC,Urine 1 /hpf (0-5); Specific Gravity,Urine 1.009 (1.001-1.035); Urobilinogen,Urine <2.0 mg/dL (<2.0); WBC,Urine 8 /hpf (0-5)
[2019-08-18 17:19] LABS: Partial Thromboplastin Time 27.1 sec (22.0-30.0); Prothrombin Time 10.3 sec (9.0-12.0)
== END ==
LOC: LABPAT 14:49
PROVIDERS: ATTEND Thoracic Surgery (Cardiothoracic Vascular Surgery)
DX: Z01.818 Encounter for other preprocedural examination (principal); C34.31 Malignant neoplasm of lower lobe, right bronchus or lung; E87.8 Other disorders of electrolyte and fluid balance, not elsewhere classified; R58 Hemorrhage, not elsewhere classified
CPT/HCPCS: 36415; 80051; 81001; 82565; 82947; 84520; 85025; 85610; 85730; 87086

== ENCOUNTER 2019-08-25 05:37 | Inpatient (IN) | payer MEDICARE ==
[2019-08-23 14:48] VITALS: BMI 20.7
[2019-08-25] MEDS ORDERED: MIDAZOLAM 2 MG/2 ML VIAL IV PRN (05:53)
[2019-08-25] MEDS ORDERED: DEXAMETHASONE SOD PHOSPHATE 10 MG/ML 1 ML VIAL IV ONE (05:53)
[2019-08-25] MEDS ORDERED: ONDANSETRON 4 MG/2 ML VIAL IVP ONE (05:53)
[2019-08-25] MEDS: LACTATED RINGERS 1,000 ML IV SCH ×2 (06:42→06:43)
[2019-08-25] MEDS ORDERED: LIDOCAINE 1% (10MG/ML) FOR IV START INTRADERMA ONE ×2 (06:43)
[2019-08-25] MEDS ORDERED: fentaNYL (PF) 50 MCG/ML 2 ML AMP ONE (07:28)
[2019-08-25] MEDS ORDERED: PROPOFOL 10 MG/ML 20 ML VIAL IV ONE (07:28)
[2019-08-25] MEDS ORDERED: GLYCOPYRROLATE 0.2 MG/ML 2 ML VIAL ONE (07:28)
[2019-08-25] MEDS ORDERED: SUCCINYLCHOLINE CHLORIDE 100 MG/5 ML SYR IV ONE (07:28)
[2019-08-25] MEDS ORDERED: ESMOLOL 100 MG/10 ML VIAL ONE (07:28)
[2019-08-25] MEDS ORDERED: MIDAZOLAM 2 MG/2 ML VIAL ONE (07:28)
[2019-08-25] MEDS ORDERED: HYDROmorphone (PF) 1 MG/ML ONE (07:28)
[2019-08-25] MEDS ORDERED: ROCURONIUM BROMIDE 10 MG/ML 5 ML VIAL IV ONE (07:28)
[2019-08-25] MEDS ORDERED: LIDOCAINE 1% INJ 10MG/ML (20 ML MDV) ONE (07:28)
[2019-08-25] MEDS ORDERED: NEOSTIGMINE 1 MG/ML 10 ML VIAL ONE (07:28)
[2019-08-25] MEDS ORDERED: BUPIVACAINE (PF) 0.5% 30 ML VIAL SQ ONE ×2 (08:34)
--- NOTE | 2019-08-25 11:30 | P.OP ---
Date of Procedure: 08/25/19 Preoperative Diagnosis: Right lower lobe mass, presumed carcinoma Postoperative Diagnosis: Same Procedure(s) Performed: Robotic-assisted thoracoscopic right lower lobectomy with mediastinal lymph node dissection Anesthesia: TOM Surgeon: Paco Mayfield Attendant [employer]: Adrian Stark Estimated Blood Loss (ml): 100 IV fluids (ml): 800 Urine output (ml): 200 Pathology: other (Right lower lobe for frozen section of primary tumor and of the bronchial margin. Bronchial margin was negative. 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 Lymph node stations R4, level 7, R8, R9, R 11 all for permanent section.) Condition: stable Disposition: PACU Indications for Procedure: 68-year-old male with 8 cm mass in the superior segment of the right lower lobe. PET scan was positive in a portion of the tumor well portion was negative. There was no evidence of metastasis. Needle biopsy showed necrotic tissue consistent with necrotic tumor. Patient was staged as T3 N0 and recommended to undergo lobectomy. Robotic approach was planned. Patient has a history of cardiomyopathy and cardiology clearance was obtained. Careful monitoring is warranted. Operative Findings: Fissures were incomplete. There is a large tumor in the right lower lobe. Hilar and mediastinal adenopathy was anthracotic in appearance. Frozen sections as noted above. Description of Procedure: Patient was brought to the operating room, placed supine on the operating table, anesthetized and intubated. Double lumen endotracheal tube was positioned with fiberoptic bronchoscopy. No endobronchial lesions were noted. Tube was secured and the patient turned in the left lateral decubitus position. He was appropriately positioned for robotic lobectomy. Right chest was sterilely prepped and draped. Initial incision was made in the ninth interspace in the anterior axillary line. An 8 mm robotic port was placed here. After confirming presence in the oral space CO2 insufflation was begun. A 12 port was placed in the 10th interspace in the posterior axillary line a second 12 port was placed in the eighth interspace anteriorly and a second 8 mm port was placed in the sixth interspace posteriorly. Working port was placed in the ninth interspace anteriorly. Dissection was begun in the inferior pulmonary ligament. The inferior pulmonary ligament was taken down. R8 and R9 lymph nodes were resected and sent for permanent section. The inferior pulmonary vein was encircled ligated and divided with a robotic stapler. Dissection was carried onto the bronchus. R 11 lymph nodes were resected in part and in part sent in continuity with the specimen. The lower lobe bronchus was encircled and ligated and divided with a robotic stapler. Then began dissection on the pulmonary artery. Branches of the pulmonary artery leading to the lower lobe were dissected out. Main portion of this was taken with a single firing of the robotic stapler and 2 smaller branches leading to the superior segment were then subsequently taken with 2 more firings of the robotic stapler. We now completed the fissure with several firings of a robotic medium stapler. Lobectomy specimen was now placed in an Endo Catch bag and retracted inferiorly. The level VII lymph nodes and R4 lymph nodes were now resected. The area of the R 10 lymph nodes was explored and no adenopathy was noted here. We now undocked the robot. The working port incision was extended posteriorly into the initial incision in the anterior axillary line and the intercostal muscles split at this level. This allowed us to safely remove the Endo Catch bag with the tumor intact. The tumor was sent for frozen section of the bronchial margin and frozen section of the primary tumor with findings as noted above. Chest was irrigated out with warm water. No air leak was noted from the bronchial stump. A 28-Czech chest tube was placed through the anteriormost incision and positioned posterior apically. Was secured with an 0 Ethibond suture. Incisions were then closed with layers of Vicryl suture. Skin glue and dry sterile dressings were applied. Patient was turned supine and extubated in the OR and transferred to recovery in stable hemodynamic condition. He did remain stable throughout.
--- NOTE | 2019-08-25 11:33 | XR ---
EXAMINATION TYPE: XR chest 1V portable DATE OF EXAM: 08/25/2019 Comparison: 04/27/2019 Clinical History: 68-year-old male status post RL lobectomy Findings: Left anterior chest wall AICD generator with right atrial and right ventricular leads. Heart is mildl y enlarged. Mild interstitial prominence and hyperinflation is unchanged. There seems to be a small r ight-sided pneumothorax with 5 mm apical component and trace basilar components. Corresponding trace right effusion and mild patchy right basilar opacity. Right-sided chest tube remains in place. Impression: 1. Mild cardiomegaly and COPD. 2. Right-sided chest tube in place status post right lower lobectomy. Very small right-sided pneumoth orax is suggested with trace 5 mm apical component and very small basilar component as well. Trace ri ght effusion.
[2019-08-25 11:58] LABS: Allen Test Performed? Yes
[2019-08-25 12:07] LABS: ABG Base Excess -6.7 mmol/L; ABG HCO3 24 mmol/L (21-25); ABG Oxygen Saturation 97.7 % (94-97); ABG PO2 147 mmHg (83-108)
[2019-08-25 12:13] LABS: ABG PCO2 73 mmHg (35-45); ABG PH 7.14 (7.35-7.45)
[2019-08-25] MEDS: HYDROmorphone 0.5 MG/0.5 ML SYRINGE IVP PRN ×2 (12:33→13:21)
[2019-08-25] MEDS ORDERED: ONDANSETRON 4 MG/2 ML VIAL IVP PRN (14:41)
[2019-08-25] MEDS ORDERED: ACETAMINOPHEN TAB 500 MG TAB PO PRN (14:41)
[2019-08-25] MEDS ORDERED: DEXTROSE 5%-0.45% NACL 1,000 ML IV SCH (14:41)
[2019-08-25] MEDS ORDERED: IPRATROPIUM-ALBUTEROL 3 ML NEB IH PRN (14:41)
[2019-08-25 14:58] LABS: Glucose,Whole Blood 150 mg/dL (75-99)
[2019-08-25 15:13] LABS: ABG Base Excess -3.4 mmol/L; ABG HCO3 24 mmol/L (21-25); ABG Oxygen Saturation 97.3 % (94-97); ABG PCO2 56 mmHg (35-45); ABG PH 7.24 (7.35-7.45); ABG PO2 108 mmHg (83-108); ABG TCO2 26 mmol/L (19-24)
[2019-08-25 15:22] LABS: Allen Test Performed? no
[2019-08-25] MEDS: traMADol 50 MG TAB PO PRN (16:37)
[2019-08-25] MEDS: HEPARIN SODIUM,PORCINE 5,000 UNIT/ML 1 ML VIAL SQ SCH (16:41)
[2019-08-25] MEDS: IPRATROPIUM-ALBUTEROL 3 ML NEB IH SCH ×2 (17:00→20:29)
--- NOTE | 2019-08-25 17:35 | P.CONS ---
History of Present Illness - Reason for Consult Consult date: 08/25/19 Medical management Requesting physician: Paco Mayfield - Chief Complaint Right lung lower lobe resection - History of Present Illness Consultation: This is a 68-year-old patient of Dr. Salazar. Long-standing smoker. Patient back in May [address]-guided biopsy and drainage of right lung mass. Pathology showed only necrotic tissue. A tissue diagnosis could not be obtained. Patient is continued to smoke. Patient did have a PET scan and June 2019. That showed hypermetabolic uptake centrally around the area of the mass. It also showed a right pleural effusion. Also showed enlarged prostate. Right pleural effusion. Patient long-standing smoker. Has a AICD/permanent pacemaker. Underlying COPD. Previous EKG showed left bulbar block. Patient today underwent right lower lobe resection. Post surgery patient was extubated. Did require a BiPAP. Blood gases did show elevated pCO2. Patient was sleepy lethargic. Patient was then brought to the ICU. at the bedside. Patient did not want to wear his BiPAP. Repeat blood gases were done. PCO2 is coming down. Patient more awake though sleepy. On a nasal cannula 3 L. Telemetry shows sinus rhythm. Denies any chest pain. Review of systems: GEN.: Tired sleepy EYES: None HEENT: None NECK: None RESPIRATORY: Baseline some shortness of breath and wheezing CARDIOVASCULAR: None GASTROINTESTINAL: None GENITOURINARY: None MUSCULOSKELETAL: Questionable joint pains LYMPHATICS: None HEMATOLOGICAL: None PSYCHIATRY: None NEUROLOGICAL: None Past medical history to include: AICD permanent pacemaker for arrhythmia, COPD, left bundle-branch block, smoker Social history: , smoked a pack a day for many is down to a few cigarettes a day. Was also drinking alcohol before. Physical examination: VITAL SIGNS: 96 8, 83, 20, 104/70, 97% on 3 L GENERAL: [BMI 20.2, sitting up tired sleepy but arousable. EYES: Pupils equal. Conjunctiva normal. HEENT: External appearance of nose and ears normal, oral cavity grossly normal. NECK: JVD not raised; masses not palpable. HEART: First and second heart sounds are normal; no edema. LUNGS: Respiratory rate increased, decreased breath sounds some wheezing. ABDOMEN: Soft, nontender, liver spleen not palpable, no masses palpable. PSYCH: Lethargic sleepy but arousable does answer questionsl. NEUROLOGICAL: Cranial nerves grossly intact; no facial asymmetry, power and sensation grossly intact. LYMPHATICS: No lymph nodes palpable in the axilla and neck MUSCULOSKELETAL evidence of some osteoarthritis in the hands INVESTIGATIONS, reviewed in the clinical context: EKG from previous admission shows left bundle-branch block, checks x-ray hyperinflation Previous PET scan showed increased activity in the area of the lung mass or pleural effusion, enlarged prostate Labs from 08/18/2019 White count 10.7 hemoglobin 14.5 platelet 187 potassium 4.8 creatinine 0.95 ABGs from earlier today showed a pH of 7.14 and a pCO2 73 and a pO2 of 147 Assessment: -Right lower lobe lung lobectomy for lung mass suspicious for underlying malignancy that was actually necrotic on previous biopsy -COPD in a current smoker -Nonicteric: Dependence patient cigarette smoker -Left bundle-branch block -AICD -Acute respiratory failure type II, with CO2 retention including that from decreased respiratory drive probably from anesthesia patient was requiring BiPAP now does not want to use the same on nasal cannula. Blood gases are improving -BPH -History of arrhythmia type unknown patient is on amiodarone. Plan: Care was discussed with the patient at the bedside. Patient is on bronchodilators. We will add a nicotine patch. Subcu heparin for DVT prophylaxis. Continue nasal cannula. Patient may require a BiPAP again. Patient be closely monitored for the same. Amiodarone to be continued. Thank you Dr. Mayfield Past Medical History Past Medical History: Myocardial Infarction ([place]) Additional Past Medical History / Comment(s): right lung mass Last Myocardial Infarction Date:: 2001 History of Any Multi-Drug Resistant Organisms: None Reported Past Surgical History: AICD, Heart Catheterization, Hernia Repair, Pacemaker Additional Past Surgical History / Comment(s): lung bx, defib 2001, has had total of 3 Past Anesthesia/Blood Transfusion Reactions: No Reported Reaction Type of Cardiac Device: AICD Device Placement Date:: 2015 Smoking Status: Current every day smoker - Past Family History Father Family Medical History: Congestive Heart Failure (CHF) Medications and Allergies Home Medications Medication Instructions Recorded Confirmed Type Albuterol Inhaler [Ventolin Hfa 2 puff INHALATION RT-Q6H PRN 04/22/19 08/25/19 History Inhaler] Amiodarone HCl [Pacerone] 100 mg PO DAILY 04/22/19 08/25/19 History Multivitamins, Thera [Multivitamin 1 tab PO DAILY 04/22/19 08/25/19 History (formulary)] Vitamin E 100 unit PO DAILY 04/22/19 08/25/19 History Budesonide-Formot 160-4.5 Mcg 2 puff INHALATION RT-BID PRN 08/23/19 08/25/19 History [Symbicort 160-4.5 Mcg Inhaler (Bulk)] Ipratropium-Albuterol Nebulize 3 ml INHALATION RT-QID PRN 08/23/19 08/25/19 History [Duoneb 0.5 mg-3 mg/3 ml Soln] Allergies Allergy/AdvReac Type Severity Reaction Status Date / Time No Known Allergies Allergy Verified 08/25/19 06:22 Physical Exam Vitals: Vital Signs Temp Pulse Pulse Resp BP Pulse Ox 08/25/19 14:00 83 12 104/70 98 08/25/19 13:30 77 14 104/71 97 08/25/19 13:01 82 12 103/69 97 08/25/19 12:31 83 12 102/68 96 08/25/19 12:16 83 12 119/68 99 08/25/19 12:01 94 12 128/68 97 08/25/19 11:46 82 10 L 152/80 94 L 08/25/19 11:31 88 8 L 138/82 100 08/25/19 11:15 94 8 L 137/85 89 L 08/25/19 10:55 96.8 F L 89 8 L 131/81 92 L 08/25/19 06:15 98.2 F 94 16 101/67 93 L Intake and Output 08/25/19 08/25/19 08/25/19 06:59 14:59 22:59 Intake Total 500 1350 Output Total 500 Balance 500 850 Intake: IV 500 1350 Output: Urine 400 Estimated Blood Loss 100 Other: Weight 55 kg Results Labs: Abnormal Lab Results - Last 24 Hours (Table) 08/25/19 08/25/19 08/25/19 Range/Units 11:50 14:56 15:07 ABG pH 7.14 L* 7.24 L (7.35-7.45) ABG pCO2 73 H* 56 H (35-45) mmHg ABG pO2 147 H (83-108) mmHg ABG Total CO2 26 H (19-24) mmol/L ABG O2 Saturation 97.7 H 97.3 H (94-97) % POC Glucose (mg/dL) 150 H (75-99) mg/dL
[2019-08-25] MEDS: NICOTINE 14MG/24HR PATCH TRANSDERM SCH (18:04)
[2019-08-25] MEDS: KETOROLAC 30 MG/ML 1 ML VIAL IVP SCH (18:04)
[2019-08-26] MEDS: KETOROLAC 30 MG/ML 1 ML VIAL IVP SCH ×5 (00:45→23:23)
[2019-08-26] MEDS: HEPARIN SODIUM,PORCINE 5,000 UNIT/ML 1 ML VIAL SQ SCH ×4 (00:47→23:23)
[2019-08-26] MEDS: traMADol 50 MG TAB PO PRN (02:41)
[2019-08-26 05:46] LABS: Basophils # (A) 0.2 k/uL (0-0.2); Basophils % (A) 1 %; Eosinophils % (A) 0 %; HCT 38.3 % (39.0-53.0); HGB 12.4 gm/dL (13.0-17.5); Lymphocytes # (A) 0.5 k/uL (1.0-4.8); Lymphocytes % (A) 3 %; MCH 31.1 pg (25.0-35.0); MCHC 32.4 g/dL (31.0-37.0); Mean Platelet Volume 8.6; Monocytes % (A) 6 %; Neutrophils # (A) 13.7 k/uL (1.3-7.7); Neutrophils % (A) 88 %; Platelet Count 141 k/uL (150-450); RBC 3.99 m/uL (4.30-5.90); RDW 14.4 % (11.5-15.5); WBC 15.6 k/uL (3.8-10.6)
[2019-08-26 05:49] LABS: Calcium 8.4 mg/dL (8.4-10.2); Potassium 5.5 mmol/L (3.5-5.1)
[2019-08-26] MEDS: PANTOPRAZOLE 40 MG TABLET PO SCH (07:17)
[2019-08-26] MEDS: IPRATROPIUM-ALBUTEROL 3 ML NEB IH SCH ×4 (07:25→21:37)
--- NOTE | 2019-08-26 08:28 | XR ---
EXAMINATION TYPE: XR chest 1V DATE OF EXAM: 08/26/2019 COMPARISON: 08/25/2019 INDICATION: Right upper lobectomy TECHNIQUE: Single frontal view of the chest is obtained. FINDINGS: The heart size is normal. The pulmonary vasculature is normal. Subcutaneous emphysema is present on the right. There is a right-sided chest tube present. Previous r ight apical pneumothorax is not as well visualized on the current exam. Minimal pneumothorax with ove rlying subcutaneous emphysematous change would be difficult to exclude. Right lower lobe infiltrate i s present. Previous right basilar pneumothorax is not clearly identified. Pacemaker overlies left chest. Left lung appears clear. IMPRESSION: 1. Post right upper lobectomy changes. Subcutaneous emphysema remains present. No sizable pneumothora x is identified. 2. Small infiltrate likely atelectasis at the right base.
[2019-08-26] MEDS: NICOTINE 14MG/24HR PATCH TRANSDERM SCH (09:02)
[2019-08-26] MEDS: MULTIVITAMINS, THERA 1 EACH TAB PO SCH (09:02)
[2019-08-26] MEDS: VITAMIN E (DL,TOCOPHERYL ACET) 400 UNIT CAP PO SCH (09:02)
[2019-08-26] MEDS: AMIODARONE 100 MG TAB PO SCH (09:03)
--- NOTE | 2019-08-26 14:36 | CDI ---
Documentation Clarification Form Date: 08/26/2019 02:26:53 PM From: Alejandrina Donald CCS, CCDS Admit Date: 08/25/2019 05:37:00 AM Patient Name: Javier Paniagua Visit Number: [id number] Discharge Date: ATTENTION: The Clinical Documentation Specialists (CDI) and [facility] Coding Staff appreciate your assistance in clarifying documentation. Please respond to the clarification below the line at the bottom and electronically sign. The CDI & [facility] Coding staff will review the response and follow-up if needed. Please note: Queries are made part of the Legal Health Record. If you have any questions, please contact the author of this message via ITS. Dr. Oscar Carroll: Per the 08/25 Medical Management consult on POD #0 status post right lower lobectomy for suspected malignancy: "Acute respiratory failure type II, with CO2 retention including that from decreased respiratory drive probably from anesthesia patient was requiring BiPAP now does not want to use the same on nasal cannula." History/Risk Factors: Long time smoker (cigarettes), COPD, LBBB per EKG, AICD & BPH. Clinical Indicators: Presented 08/25 for elective RLL lobectomy as above. Postop recovery in ICU. Vital signs: 08/25: RR 16 - 8 - 10 (labored) - 12 - 14 - 15 - 20 - 18; PO 93 RA - 92 8L - 89 8L - 100 8L - 94 4L - 97 3L - 98 BiPAP 40% - 93 3Lnc 0 95 3L. 08/25 ABG/CBG: pH 7/14 - 7.24*; pO2 147^ - (108); pCO2 73^^ - 56^; 08/25 Postop Treatment: IV Kefzol, IV Decadron, IV Dilaudid, IV lactated ringers rate 20, IV Zofran, INH Albuterol, Heparin sq, IV Toradol, (requires Bipap: refused) on O2 nc 4L. In your professional opinion, can you please clarify if these findings signify one of the following conditions? Acute Respiratory Failure o With: Hypoxia Hypercapnia Other, please specify: Unable to determine Specificity: If known, further specify (if known): With hypercapnia? (pCO2 >50 and pH <7.35) With hypoxia? (pO2 <60 mm Hg or SpO2 <91% on room air) (Last Query Form Revision: April 2019) MTDD
--- NOTE | 2019-08-26 14:42 | P.PN ---
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 Past medical history significant for myocardial infarction, nonischemic dilated cardiomyopathy, class C, stage II to III, status post AICD placement in 2001, daily alcohol use, chronic ongoing nicotine abuse with a 50+ pack per year smoking history and chronic obstructive lung disease. POD #1 robotic-assisted thoracoscopic right lower lobectomy with mediastinal lymph node dissection. The patient is laying in bed in the intensive care unit and is in no acute distress. He is complaining of surgical type pain to his chest tube insertion site. Denies any complaints of shortness of breath. Oxygen saturations are 96% on 3 L nasal cannula and he is achieving 1000 mL on his incentive spirometry. Right chest tube remains in place to low continuous wall suction -20 cm H2O with an intermittent air leak present. Draining thin serosanguineous drainage with 330 mL output in the last 8 hours, and 1000 mL out since surgery. He is alert and oriented 3 and remains hemodynamically stable. He has been afebrile in the last 24 hours. Objective - Vital Signs Vital signs: Vital Signs Temp 97.8 F 08/26/19 12:00 Pulse 86 08/26/19 12:00 Resp 29 H 08/26/19 12:00 BP 96/63 08/26/19 12:00 Pulse Ox 94 L 08/26/19 12:00 Intake & Output 08/25/19 08/26/19 08/26/19 18:59 06:59 18:59 Intake Total 2520 1570 490 Output Total 560 1090 395 Balance 1960 480 95 Weight 56.7 kg Intake: IV 1520 570 240 Dextrose 5%-0.45% NaCl 1, 120 520 240 000 ml @ 40 mls/hr IV . Q24H [facility] Rx#:[id number] ceFAZolin 2 gm In Sodium 50 50 Chloride 0.9% 50 ml @ 100 mls/hr IVPB ONCE ONE Rx# :[id number] Oral 1000 1000 250 Output: Chest Tube Drainage 620 60 Chest Tube Right Right 620 60 Pleural/Mediastinal Urine 460 470 335 Estimated Blood Loss 100 Other: Voiding Method Indwelling Catheter Indwelling Catheter Indwelling Catheter - Constitutional General appearance: Present: cooperative, no acute distress, thin - Respiratory Details: Lung sounds with coarse rhonchi throughout. Diminished to his right lower lobe. Respirations are symmetrical and nonlabored. Oxygen saturation are 96% on 3 L nasal cannula. Achieving 1000 mL on his incentive spirometry. Right pleural chest tube remains in place to low continuous wall suction -20 cm H2O. Intermittent air leak is present. Draining thin serosanguineous drainage. - Cardiovascular Details: Regular rhythm and rate. S1 and S2 present, negative for S3, gallop or murmur. Bedside telemetry showing normal sinus rhythm with bundle branch block heart rate 81. No edema present. Sequential compression devices in place to his bilateral lower extremities. - Gastrointestinal Gastrointestinal Comment(s): Abdomen is soft, nontender and nondistended. Hypoactive bowel sounds present in all 4 abdominal quadrants. No guarding or rigidity. No organomegaly appreciated. - Genitourinary Genitourinary Comment(s): Henson catheter for accurate I&O. Draining clear yellow urine. 335 mL output in the last 8 hours. - Integumentary Integumentary Comment(s): Skin is warm and dry. No clubbing or cyanosis is present. No rash or abnormal pigmentation is present. Dressings clean dry and intact to his right chest incisions. No drainage present. - Neurologic Neurologic Comment(s): No focal neurological deficits present. Neurologic: Present: CNII-XII intact - Musculoskeletal Musculoskeletal: Present: gait normal, generalized weakness, strength equal bilaterally - Psychiatric Psychiatric: Present: A&O x's 3, appropriate affect, intact judgment & insight - Allied health notes Allied health notes reviewed: nursing - Labs CBC & Chem 7: 08/26/19 04:57 08/26/19 04:57 Labs: Abnormal Lab Results - Last 24 Hours (Table) 08/25/19 08/25/19 08/26/19 Range/Units 14:56 15:07 04:57 WBC 15.6 H (3.8-10.6) k/uL RBC 3.99 L (4.30-5.90) m/uL Hgb 12.4 L (13.0-17.5) gm/dL Hct 38.3 L (39.0-53.0) % Plt Count 141 L (150-450) k/uL Neutrophils # 13.7 H (1.3-7.7) k/uL Lymphocytes # 0.5 L (1.0-4.8) k/uL ABG pH 7.24 L (7.35-7.45) ABG pCO2 56 H (35-45) mmHg ABG Total CO2 26 H (19-24) mmol/L ABG O2 Saturation 97.3 H (94-97) % Sodium (137-145) mmol/L Potassium (3.5-5.1) mmol/L Glucose (74-99) mg/dL POC Glucose (mg/dL) 150 H (75-99) mg/dL 08/26/19 Range/Units 04:57 WBC (3.8-10.6) k/uL RBC (4.30-5.90) m/uL Hgb (13.0-17.5) gm/dL Hct (39.0-53.0) % Plt Count (150-450) k/uL Neutrophils # (1.3-7.7) k/uL Lymphocytes # (1.0-4.8) k/uL ABG pH (7.35-7.45) ABG pCO2 (35-45) mmHg ABG Total CO2 (19-24) mmol/L ABG O2 Saturation (94-97) % Sodium 132 L (137-145) mmol/L Potassium 5.5 H (3.5-5.1) mmol/L Glucose 125 H (74-99) mg/dL POC Glucose (mg/dL) (75-99) mg/dL - Imaging and Cardiology Chest x-ray: report reviewed, image reviewed Assessment and Plan Assessment: 1. 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 History of myocardial infarction 3. Nonischemic dilated cardiomyopathy, class C, stage II to III, status post AICD placement in 2001 4. Daily alcohol use 5. Chronic ongoing nicotine abuse with a 50+ pack year smoking history 6. Chronic obstructive pulmonary disease Plan: 1. We will place his right pleural chest tube to waterseal and remove the wall suction. We will continue to monitor for resolution of his air leak. 2. Encourage use of his incentive spirometry every hour while awake. 3. Surgical pathology results remain pending. 4. We will transfer him to the cardiac stepdown unit when a bed is available. 5. Continue to monitor daily labs and chest x-rays. 6. Discussed with the patient the importance of smoking cessation. 7. Saline lock IV. 8. Discontinue Henson catheter. 9. Increase activity as tolerated. Out of bed for all meals. Physical therapy and occupational therapy have been consulted. 10. Pain control per current when necessary orders. 11. More recommendations to follow based on patient's clinical course. Time with Patient: Greater than 30
[2019-08-27] MEDS: PANTOPRAZOLE 40 MG TABLET PO SCH (06:15)
[2019-08-27] MEDS: KETOROLAC 30 MG/ML 1 ML VIAL IVP SCH ×4 (06:15→23:15)
[2019-08-27 06:23] LABS: Basophils % (A) 0 %; Eosinophils # (A) 0.1 k/uL (0-0.7); Eosinophils % (A) 1 %; HCT 34.5 % (39.0-53.0); HGB 11.6 gm/dL (13.0-17.5); Lymphocytes # (A) 0.7 k/uL (1.0-4.8); Lymphocytes % (A) 7 %; MCH 31.9 pg (25.0-35.0); MCHC 33.7 g/dL (31.0-37.0); MCV 94.8 fL (80.0-100.0); Mean Platelet Volume 8.4; Monocytes # (A) 0.5 k/uL (0-1.0); Monocytes % (A) 5 %; Neutrophils # (A) 9.6 k/uL (1.3-7.7); Neutrophils % (A) 86 %; Platelet Count 117 k/uL (150-450); RBC 3.64 m/uL (4.30-5.90); RDW 14.5 % (11.5-15.5); WBC 11.2 k/uL (3.8-10.6)
[2019-08-27 06:36] LABS: Calcium 8.9 mg/dL (8.4-10.2); Potassium 4.9 mmol/L (3.5-5.1)
--- NOTE | 2019-08-27 07:14 | XR ---
EXAMINATION TYPE: XR chest 1V portable DATE OF EXAM: 08/27/2019 HISTORY: Postoperative right lower lobectomy. REFERENCE: Previous study dated 08/26/2019. FINDINGS: There is a bipolar pacemaker place there is a mediastinal drain in place. There is worsening subcutaneous emphysema on the right. The heart is mildly enlarged. There is appare nt elevation right hemidiaphragm. There is atelectasis or consolidation at the right lung base. There is a right-sided effusion. No definite pneumothorax is seen. IMPRESSION: 1. MILD CARDIOMEGALY. 2. WORSENING SUBCUTANEOUS EMPHYSEMA. 3. WORSENING RIGHT BASILAR AIRSPACE DISEASE WITH A SMALL, CONCOMITANT EFFUSION.
[2019-08-27] MEDS: NICOTINE 14MG/24HR PATCH TRANSDERM SCH (08:25)
[2019-08-27] MEDS: VITAMIN E (DL,TOCOPHERYL ACET) 400 UNIT CAP PO SCH (08:25)
[2019-08-27] MEDS: AMIODARONE 100 MG TAB PO SCH (08:25)
[2019-08-27] MEDS: MULTIVITAMINS, THERA 1 EACH TAB PO SCH (08:25)
[2019-08-27] MEDS: HEPARIN SODIUM,PORCINE 5,000 UNIT/ML 1 ML VIAL SQ SCH ×3 (08:26→23:16)
[2019-08-27] MEDS: IPRATROPIUM-ALBUTEROL 3 ML NEB IH SCH ×4 (09:13→20:14)
--- NOTE | 2019-08-27 10:56 | P.PN ---
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 Past medical history significant for myocardial infarction, nonischemic dilated cardiomyopathy, class C, stage II to III, status post AICD placement in 2001, daily alcohol use, chronic ongoing nicotine abuse with a 50+ pack per year smoking history and chronic obstructive lung disease. POD #2 robotic-assisted thoracoscopic right lower lobectomy with mediastinal lymph node dissection. The patient is laying in bed on the cardiac stepdown unit and is in no acute distress. He currently denies any complaints of pain or shortness of breath. Oxygen saturations are 96% on 2 L nasal cannula and he is achieving 1000 mL on his incentive spirometry. Right chest tube remains in place to waterseal with no air leak present. Draining thin serosanguineous drainage with 600 mL output in the last 24 hours. He is alert and oriented 3 and remains hemodynamically stable. He has been afebrile in the last 24 hours. His surgical pathology results remain pending. Laboratory results this morning show a WBC count 11.2, hemoglobin 11.6, platelets 117, BUN 23, creatinine 1.12. He ambulated in the cardiac stepdown unit hallway this morning tolerating well and completing the craig of the cardiac stepdown unit. Objective - Vital Signs Vital signs: Vital Signs Temp 97.4 F L 08/27/19 08:00 Pulse 91 08/27/19 08:00 Resp 16 08/27/19 08:00 BP 87/51 08/27/19 08:00 Pulse Ox 88 L 08/27/19 08:00 Intake & Output 08/26/19 08/27/19 08/27/19 18:59 06:59 18:59 Intake Total 490 Output Total 595 1725 Balance -105 -1725 Weight 56.7 kg Intake: IV 240 Dextrose 5%-0.45% NaCl 1, 240 000 ml @ 40 mls/hr IV . Q24H [facility] Rx#:[id number] Oral 250 Output: Chest Tube Drainage 60 Chest Tube Right Right 60 Pleural/Mediastinal Urine 535 1725 Other: Voiding Method Indwelling Catheter Indwelling Catheter # Voids 1 - Constitutional General appearance: Present: cooperative, no acute distress, thin - Respiratory Details: Lung sounds with scattered rhonchi throughout, diminished to his bilateral bases right greater than left. Respirations are symmetrical and nonlabored. Oxygen saturation 96% on 2 L nasal cannula. Achieving 1000 mL on his incentive sp irometry with encouragement. Right pleural chest tube remains in place to water seal. No air leak is present. Draining thin serosanguineous drainage with 600 mL output in the last 24 hours. - Cardiovascular Details: Regular rhythm and rate. S1 and S2 present, negative for S3, gallop or murmur. No edema present. Remote telemetry showing normal sinus rhythm with bundle branch block heart rate 82. Knee-high sequential compression devices in place to his bilateral lower extremities. - Gastrointestinal Gastrointestinal Comment(s): Abdomen is soft, nontender and nondistended. Active bowel sounds present in all 4 abdominal quadrants. No guarding or rigidity. No organomegaly appreciated. - Genitourinary Genitourinary Comment(s): Voiding clear yellow urine. - Integumentary Integumentary Comment(s): Skin is warm and dry. No clubbing or cyanosis is present. Right chest incisions clean, dry and intact. Dressing is clean, dry and in place. No drainage or redness present. - Neurologic Neurologic: Present: CNII-XII intact - Musculoskeletal Musculoskeletal: Present: gait normal, generalized weakness, strength equal bilaterally - Psychiatric Psychiatric: Present: A&O x's 3, appropriate affect, intact judgment & insight - Allied health notes Allied health notes reviewed: nursing - Labs CBC & Chem 7: 08/27/19 05:51 08/27/19 05:51 Labs: Abnormal Lab Results - Last 24 Hours (Table) 08/27/19 08/27/19 Range/Units 05:51 05:51 WBC 11.2 H (3.8-10.6) k/uL RBC 3.64 L (4.30-5.90) m/uL Hgb 11.6 L (13.0-17.5) gm/dL Hct 34.5 L (39.0-53.0) % Plt Count 117 L (150-450) k/uL Neutrophils # 9.6 H (1.3-7.7) k/uL Lymphocytes # 0.7 L (1.0-4.8) k/uL BUN 23 H (9-20) mg/dL - Imaging and Cardiology Chest x-ray: report reviewed, image reviewed Assessment and Plan Assessment: 1. 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 History of myocardial infarction 3. Nonischemic dilated cardiomyopathy, class C, stage II to III, status post AICD placement in 2001 4. Daily alcohol use 5. Chronic ongoing nicotine abuse with a 50+ pack year smoking history 6. Chronic obstructive pulmonary disease Plan: 1. We keep his right pleural chest tube to waterseal for another 24 hours. 2. Encourage use of his incentive spirometry every hour while awake. 3. Surgical pathology results remain pending. 4. Continue to monitor daily labs and chest x-rays. 5. Continue to discuss and reinforce with the patient the importance of smoking cessation. 6. Increase activity as tolerated. Out of bed for all meals. Physical therapy and occupational therapy following. 7. Pain control per current when necessary orders. 8. More recommendations to follow based on patient's clinical course. Time with Patient: Greater than 30
[2019-08-27] MEDS ORDERED: FUROSEMIDE 10 MG/ML 2 ML VIAL IV ONE (13:24)
--- NOTE | 2019-08-27 22:41 | P.PN ---
Progress Note - Text Progress Note Date: 08/27/19 - Chief Complaint Right lung lower lobe resection Interval history: This is a 68-year-old patient of Dr. Salazar. Long-standing smoker. Patient back in May [address]-guided biopsy and drainage of right lung mass. Pathology showed only necrotic tissue. A tissue diagnosis could not be obtained. Patient is continued to smoke. Patient did have a PET scan and June 2019. That showed hypermetabolic uptake centrally around the area of the mass. It also showed a right pleural effusion. Also showed enlarged prostate. Right pleural effusion. Patient long-standing smoker. Has a AICD/permanent pacemaker. Underlying COPD. Previous EKG showed left bulbar block. underwent right lower lobe resection. Right-sided chest tube. Today-sitting up in bed. Chest tube to drain. Walking hallway. Did tolerate her diet. Has not had a bowel movement. Feels well otherwise. Review of systems: Was done for constitutional, cardiovascular, GI, pulmonary. relevant finding as above Active Medications Acetaminophen (Tylenol Tab) 1,000 mg PO Q6HR PRN PRN Reason: Fever and/ or Pain Last Admin: 08/26/19 04:19 Dose: 1,000 mg Documented by: Albuterol/Ipratropium (Duoneb 0.5 Mg-3 Mg/3 Ml Soln) 3 ml IH RT-Q1H PRN PRN Reason: Shortness Of Breath Or Wheezing Albuterol/Ipratropium (Duoneb 0.5 Mg-3 Mg/3 Ml Soln) 3 ml IH RT-QID [facility] Last Admin: 08/27/19 20:14 Dose: Not Given Documented by: Amiodarone HCl (Cordarone) 100 mg PO DAILY [facility] Last Admin: 08/27/19 08:25 Dose: 100 mg Documented by: Heparin Sodium (Porcine) (Heparin) 5,000 unit SQ Q8HR [facility] Last Admin: 08/27/19 17:06 Dose: 5,000 unit Documented by: Ketorolac Tromethamine (Toradol) 15 mg IVP Q6HR [facility] Stop: 08/30/19 18:01 Last Admin: 08/27/19 17:07 Dose: 15 mg Documented by: Multivitamins (Theragran) 1 each PO DAILY [facility] Last Admin: 08/27/19 08:25 Dose: 1 each Documented by: Nicotine (Habitrol 14mg/24hr Patch) 1 patch TRANSDERM DAILY [facility] Last Admin: 08/27/19 08:25 Dose: 1 patch Documented by: Ondansetron HCl (Zofran) 4 mg IVP Q8HR PRN PRN Reason: Nausea And Vomiting Pantoprazole Sodium (Protonix) 40 mg PO AC-BRKFST [facility] Last Admin: 08/27/19 06:15 Dose: 40 mg Documented by: Sodium Chloride (Saline Flush) 10 ml IV Q12H [facility] Last Admin: 08/27/19 20:01 Dose: Not Given Documented by: Tramadol HCl (Ultram) 50 mg PO QID PRN PRN Reason: Pain Last Admin: 08/26/19 02:41 Dose: 50 mg Documented by: Vitamin E (Vitamin E) 400 unit PO DAILY [facility] Last Admin: 08/27/19 08:25 Dose: 400 unit Documented by: Physical examination: VITAL SIGNS: 97.4, 91, 16, 1 11/62, 96% on 3 L GENERAL: Sitting on the bed, comfortable awake EYES: Pupils equal. Conjunctiva normal. HEENT: External appearance of nose and ears normal, oral cavity grossly normal. NECK: JVD not raised; masses not palpable. HEART: First and second heart sounds are normal; no edema. LUNGS: Respiratory rate increased, decreased breath sounds, chest tube on the right chest wall. ABDOMEN: Soft, nontender, liver spleen not palpable, no masses palpable. PSYCH: A ordered [place] affect normal MUSCULOSKELETAL evidence of some osteoarthritis in the hands INVESTIGATIONS, reviewed in the clinical context: White count 11.2 hemoglobin 11.6 platelets 17 progression 4.9 creatinine 1.12 Previous testing EKG from previous admission shows left bundle-branch block, checks x-ray hyperinflation Previous PET scan showed increased activity in the area of the lung mass or pleural effusion, enlarged prostate Labs from 08/18/2019 White count 10.7 hemoglobin 14.5 platelet 187 potassium 4.8 creatinine 0.95 ABGs from earlier today showed a pH of 7.14 and a pCO2 73 and a pO2 of 147 Assessment: -Right lower lobe lung lobectomy for lung mass suspicious for underlying malignancy that was actually necrotic on previous biopsy -COPD in a current smoker -Nicotine Dependence patient cigarette smoker -Left bundle-branch block -AICD -Acute respiratory failure type II, with CO2 retention including that from decreased respiratory drive probably from anesthesia patient was requiring BiPAP now does not want to use the same on nasal cannula. Blood gases are improving -BPH -History of arrhythmia type unknown patient is on amiodarone. Plan: Care discussed with the patient. No new issues. Continue current medication treatment plan. Thank you Dr. Mayfield
[2019-08-28] MEDS: KETOROLAC 30 MG/ML 1 ML VIAL IVP SCH ×4 (05:19→23:13)
[2019-08-28] MEDS: PANTOPRAZOLE 40 MG TABLET PO SCH (05:20)
[2019-08-28 06:36] LABS: HCT 34.5 % (39.0-53.0); HGB 11.5 gm/dL (13.0-17.5); MCH 31.5 pg (25.0-35.0); MCHC 33.4 g/dL (31.0-37.0); MCV 94.1 fL (80.0-100.0); Platelet Count 130 k/uL (150-450); RBC 3.66 m/uL (4.30-5.90); RDW 14.6 % (11.5-15.5); WBC 9.5 k/uL (3.8-10.6)
[2019-08-28 06:42] LABS: Calcium 8.6 mg/dL (8.4-10.2); Magnesium 2.1 mg/dL (1.6-2.3); Potassium 4.4 mmol/L (3.5-5.1)
--- NOTE | 2019-08-28 07:04 | XR ---
EXAMINATION TYPE: XR chest 1V portable DATE OF EXAM: 08/28/2019 HISTORY: postoperative right lower lobectomy. REFERENCE: Previous study dated 08/27/2019. FINDINGS: There is a bipolar pacemaker place on the left. There is been a previous right lower lobectomy. There is a right pleural drain in place. There is wor sening right-sided subcutaneous emphysema. There continues be some right basilar atelectasis or pneum onia. There is a small right effusion. Heart size is obscured. The left lung is clear. IMPRESSION: CONTINUING POSTOPERATIVE CHANGE.
[2019-08-28] MEDS: IPRATROPIUM-ALBUTEROL 3 ML NEB IH SCH ×4 (08:31→20:34)
[2019-08-28] MEDS: MULTIVITAMINS, THERA 1 EACH TAB PO SCH (08:35)
[2019-08-28] MEDS: VITAMIN E (DL,TOCOPHERYL ACET) 400 UNIT CAP PO SCH (08:35)
[2019-08-28] MEDS: NICOTINE 14MG/24HR PATCH TRANSDERM SCH (08:35)
[2019-08-28] MEDS: HEPARIN SODIUM,PORCINE 5,000 UNIT/ML 1 ML VIAL SQ SCH ×3 (08:36→23:13)
--- NOTE | 2019-08-28 09:57 | P.PN ---
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 Past medical history significant for myocardial infarction, nonischemic dilated cardiomyopathy, class C, stage II to III, status post AICD placement in 2001, daily alcohol use, chronic ongoing nicotine abuse with a 50+ pack per year smoking history and chronic obstructive lung disease. POD #3 robotic-assisted thoracoscopic right lower lobectomy with mediastinal lymph node dissection. The patient is laying in bed on the cardiac stepdown unit and is in no acute distress. He denies any complaints of pain or shortness of breath. Oxygen saturations are 95% on 2 L nasal cannula and he is achieving 1000 mL on his incentive spirometry. Right chest tube remains in place to waterseal with no air leak present. Draining thin serosanguineous drainage with 470 mL output in the last 24 hours. He is alert and oriented 3 and remains hemodynamically stable. He has been afebrile in the last 24 hours. His surgical pathology results remain pending. Laboratory results this morning show a WBC count 9.5, hemoglobin 11.5, platelets 130, BUN 24, creatinine 1.04. He reporsts ambulated in the cardiac stepdown unit hallway yesterday 3 times with minimal assistance from his . Objective - Vital Signs Vital signs: Vital Signs Temp 98 F 08/28/19 03:10 Pulse 90 08/28/19 03:10 Resp 18 08/28/19 03:10 BP 95/52 08/28/19 03:10 Pulse Ox 95 08/28/19 03:10 Intake & Output 08/27/19 08/28/19 08/28/19 18:59 06:59 18:59 Intake Total 1200 Output Total 1840 950 Balance -640 -950 Weight 54.3 kg Intake: Oral 1200 Output: Chest Tube Drainage 190 Chest Tube Right Right 190 Pleural/Mediastinal Urine 1650 950 Other: Voiding Method Indwelling Catheter # Voids 1 1 - Constitutional General appearance: Present: cooperative, no acute distress, thin - Respiratory Details: Lung sounds diminished to his right lower lobe, scattered expiratory wheezes throughout. Respirations are symmetrical and nonlabored. Oxygen saturation is 95% on 2 L nasal cannula. Achieving 1000 mL on his incentive spirometry. Right pleural chest tube remains to water seal. No air leak is present. Draining thin serosanguineous drainage. - Cardiovascular Details: Regular rhythm and rate. S1 and S2 present, negative for S3, gallop or murmur. No edema present. Remote telemetry showing normal sinus rhythm with bundle branch block heart rate 80. - Gastrointestinal Gastrointestinal Comment(s): Abdomen is soft, nontender and nondistended. Active bowel sounds present in all 4 abdominal quadrants. No guarding or rigidity. No organomegaly appreciated. Tolerating oral intake. - Genitourinary Genitourinary Comment(s): Voiding clear yellow urine. - Integumentary Integumentary Comment(s): Skin is warm and dry. No clubbing or cyanosis is present. Right chest thorascopic incisions clean, dry and approximated. Dressings are clean and dry. - Neurologic Neurologic: Present: CNII-XII intact - Musculoskeletal Musculoskeletal: Present: gait normal, generalized weakness, strength equal bilaterally - Psychiatric Psychiatric: Present: A&O x's 3, appropriate affect, intact judgment & insight - Allied health notes Allied health notes reviewed: nursing - Labs CBC & Chem 7: 08/28/19 05:30 08/28/19 05:30 Labs: Abnormal Lab Results - Last 24 Hours (Table) 08/28/19 08/28/19 Range/Units 05:30 05:30 RBC 3.66 L (4.30-5.90) m/uL Hgb 11.5 L (13.0-17.5) gm/dL Hct 34.5 L (39.0-53.0) % Plt Count 130 L (150-450) k/uL Carbon Dioxide 31 H (22-30) mmol/L BUN 24 H (9-20) mg/dL - Imaging and Cardiology Chest x-ray: report reviewed, image reviewed Assessment and Plan Assessment: 1. 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 History of myocardial infarction 3. Nonischemic dilated cardiomyopathy, class C, stage II to III, status post AICD placement in 2001 4. Daily alcohol use 5. Chronic ongoing nicotine abuse with a 50+ pack year smoking history 6. Chronic obstructive pulmonary disease Plan: 1. We discontinue his right pleural chest tube. 2. Continue to encourage use of his incentive spirometry every hour while awake. 3. Surgical pathology results remain pending. 4. Continue to monitor daily labs and chest x-rays. 5. Continue to discuss and reinforce with the patient the importance of smoking cessation. 6. Increase activity as tolerated. Out of bed for all meals. Physical therapy and occupational therapy following. 7. Pain control per current when necessary orders. 8. Lasix 20 mg IV 1 now. 9. More recommendations to follow based on patient's clinical course. Time with Patient: Greater than 30
[2019-08-28] MEDS ORDERED: FUROSEMIDE 10 MG/ML 2 ML VIAL IV ONE (09:58)
--- NOTE | 2019-08-28 16:21 | P.PN ---
Subjective Progress Note Date: 08/26/19 08/26/2019, Patient seen and evaluated examined during the rounds remains on suction status post to right lower lobe resection hemodynamically he remains stable still intermittent cough and congestion he is afebrile This patient was admitted for large right-sided necrotic mass involving the lower lobe, patient underwent robotic thoracoscopic right lower lobe resection with mediastinal lymph node, successfully weaned and extubated patient has some component of respiratory acidosis likely related to anesthesia and respiratory depression however repeat blood gas at shows a slow improvement of acidosis we'll keep on nasal cannula and use BiPAP as needed Objective - Vital Signs Vital signs: Vital Signs Temp 97.8 F 08/26/19 12:00 Pulse 82 08/26/19 15:54 Resp 23 08/26/19 15:00 BP 91/62 08/26/19 15:00 Pulse Ox 92 L 08/26/19 15:00 Intake & Output 08/25/19 08/26/19 08/26/19 18:59 06:59 18:59 Intake Total 2520 1570 490 Output Total 560 1090 595 Balance 1960 480 -105 Weight 56.7 kg Intake: IV 1520 570 240 Dextrose 5%-0.45% NaCl 1, 120 520 240 000 ml @ 40 mls/hr IV . Q24H LATRICIA Rx#:[id number] ceFAZolin 2 gm In Sodium 50 50 Chloride 0.9% 50 ml @ 100 mls/hr IVPB ONCE ONE Rx# :[id number] Oral 1000 1000 250 Output: Chest Tube Drainage 620 60 Chest Tube Right Right 620 60 Pleural/Mediastinal Urine 460 470 535 Estimated Blood Loss 100 Other: Voiding Method Indwelling Catheter Indwelling Catheter Indwelling Catheter - Exam - Constitutional General appearance: average body habitus, cooperative, disheveled - EENT Eyes: PERRLA, poor dentition Ears: bilateral: normal - Neck Neck: normal ROM Carotids: bilateral: upstroke normal Thyroid: bilateral: normal size - Respiratory Respiratory: bilateral: diminished, negative: dullness, rales, rhonchi, wheezing - Cardiovascular Rhythm: regular Heart sounds: normal: S1, S2 - Gastrointestinal General gastrointestinal: decreased bowel sounds, soft - Neurologic Neurologic: CNII-XII intact - Musculoskeletal Musculoskeletal: gait normal, generalized weakness, strength equal bilaterally - Psychiatric Psychiatric: A&O x's 3, appropriate affect, intact judgment & insight - Labs CBC & Chem 7: 08/28/19 05:30 08/28/19 05:30 Labs: Abnormal Lab Results - Last 24 Hours (Table) 08/26/19 08/26/19 Range/Units 04:57 04:57 WBC 15.6 H (3.8-10.6) k/uL RBC 3.99 L (4.30-5.90) m/uL Hgb 12.4 L (13.0-17.5) gm/dL Hct 38.3 L (39.0-53.0) % Plt Count 141 L (150-450) k/uL Neutrophils # 13.7 H (1.3-7.7) k/uL Lymphocytes # 0.5 L (1.0-4.8) k/uL Sodium 132 L (137-145) mmol/L Potassium 5.5 H (3.5-5.1) mmol/L Glucose 125 H (74-99) mg/dL Assessment and Plan Assessment: Large right-sided necrotic mass status post thoracoscopic resection Small residual right-sided pneumothorax Respiratory acidosis likely postoperative COPD Plan: Continue deep breathing sense incentive spirometry DVT and peptic ulcer disease prophylaxis Follow-up surgical pathology Okay with Hep-Lock and discontinuing Henson's catheter Increase activity as tolerated Time with Patient: Greater than 30
--- NOTE | 2019-08-28 16:24 | P.PN ---
Subjective Progress Note Date: 08/28/19 Principal diagnosis: End-stage COPD, right lower lobe mass uterus post resection 2019, patient seen eval reexamined during the rounds labs reviewed medications reviewed surgical path report still pending, today is postop day #3 of thoracoscopic right lower lobe biopsy and lymph node dissection, some discomfort at the operative site is present breathing well on 2 L oxygen, bob serrano is doing deep breathing sense incentive spirometry, IVS is more than liter, no air leak is present through the chest tube Ammann chest x-ray today revealed no pneumothorax, some right basal atelectasis small effusions seen 08/26/2019, Patient seen and evaluated examined during the rounds remains on suction status post to right lower lobe resection hemodynamically he remains stable still intermittent cough and congestion he is afebrile This patient was admitted for large right-sided necrotic mass involving the lower lobe, patient underwent robotic thoracoscopic right lower lobe resection with mediastinal lymph node, successfully weaned and extubated patient has some component of respiratory acidosis likely related to anesthesia and respiratory depression however repeat blood gas at shows a slow improvement of acidosis we'll keep on nasal cannula and use BiPAP as needed Objective - Vital Signs Vital signs: Vital Signs Temp 98 F 08/28/19 03:10 Pulse 90 08/28/19 12:00 Resp 16 08/28/19 14:24 BP 85/53 08/28/19 12:00 Pulse Ox 96 08/28/19 12:00 Intake & Output 08/27/19 08/28/19 08/28/19 18:59 06:59 18:59 Intake Total 1200 660 Output Total 3709 787 9162 Balance -640 -950 -740 Weight 54.3 kg Intake: Oral 1200 660 Output: Chest Tube Drainage 190 Chest Tube Right Right 190 Pleural/Mediastinal Urine 4688 620 3757 Other: Voiding Method Indwelling Catheter Indwelling Catheter # Voids 1 1 1 - Exam - Constitutional General appearance: average body habitus, cooperative, disheveled - EENT Eyes: PERRLA, poor dentition Ears: bilateral: normal - Neck Neck: normal ROM Carotids: bilateral: upstroke normal Thyroid: bilateral: normal size - Respiratory Respiratory: bilateral: diminished, negative: dullness, rales, rhonchi, wheezing - Cardiovascular Rhythm: regular Heart sounds: normal: S1, S2 - Gastrointestinal General gastrointestinal: decreased bowel sounds, soft - Neurologic Neurologic: CNII-XII intact - Musculoskeletal Musculoskeletal: gait normal, generalized weakness, strength equal bilaterally - Psychiatric Psychiatric: A&O x's 3, appropriate affect, intact judgment & insight - Labs CBC & Chem 7: 08/28/19 05:30 08/28/19 05:30 Labs: Abnormal Lab Results - Last 24 Hours (Table) 08/28/19 08/28/19 Range/Units 05:30 05:30 RBC 3.66 L (4.30-5.90) m/uL Hgb 11.5 L (13.0-17.5) gm/dL Hct 34.5 L (39.0-53.0) % Plt Count 130 L (150-450) k/uL Carbon Dioxide 31 H (22-30) mmol/L BUN 24 H (9-20) mg/dL Assessment and Plan Assessment: Large right-sided necrotic mass status post thoracoscopic resection Small residual right-sided pneumothorax Respiratory acidosis likely postoperative Right basal atelectasis Right-sided pleural effusion small COPD Plan: Continue deep breathing sense incentive spirometry DVT and peptic ulcer disease prophylaxis Follow-up surgical pathology Agree with discontinuing the chest tube Increase activity as tolerated Time with Patient: Greater than 30
[2019-08-28] MEDS: AMIODARONE 100 MG TAB PO SCH (16:59)
--- NOTE | 2019-08-28 20:25 | P.PN ---
Progress Note - Text Progress Note Date: 08/28/19 - Chief Complaint Right lung lower lobe resection Interval history: This is a 68-year-old patient of Dr. Salazar. Long-standing smoker. Patient back in May [address]-guided biopsy and drainage of right lung mass. Pathology showed only necrotic tissue. A tissue diagnosis could not be obtained. Patient is continued to smoke. Patient did have a PET scan and June 2019. That showed hypermetabolic uptake centrally around the area of the mass. It also showed a right pleural effusion. Also showed enlarged prostate. Right pleural effusion. Patient long-standing smoker. Has a AICD/permanent pacemaker. Underlying COPD. Previous EKG showed left bulbar block. underwent right lower lobe resection. Right-sided chest tube. Today-sitting up in bed. Chest tube taken out today. Breathing well. Up and about. Review of systems: Was done for constitutional, cardiovascular, GI, pulmonary. relevant finding as above Active Medications Acetaminophen (Tylenol Tab) 1,000 mg PO Q6HR PRN PRN Reason: Fever and/ or Pain Last Admin: 08/26/19 04:19 Dose: 1,000 mg Documented by: Albuterol/Ipratropium (Duoneb 0.5 Mg-3 Mg/3 Ml Soln) 3 ml IH RT-Q1H PRN PRN Reason: Shortness Of Breath Or Wheezing Albuterol/Ipratropium (Duoneb 0.5 Mg-3 Mg/3 Ml Soln) 3 ml IH RT-QID [facility] Last Admin: 08/28/19 16:19 Dose: 3 ml Documented by: Amiodarone HCl (Cordarone) 100 mg PO DAILY [facility] Last Admin: 08/28/19 16:59 Dose: 100 mg Documented by: Heparin Sodium (Porcine) (Heparin) 5,000 unit SQ Q8HR [facility] Last Admin: 08/28/19 17:00 Dose: 5,000 unit Documented by: Ketorolac Tromethamine (Toradol) 15 mg IVP Q6HR [facility] Stop: 08/30/19 18:01 Last Admin: 08/28/19 17:00 Dose: 15 mg Documented by: Multivitamins (Theragran) 1 each PO DAILY [facility] Last Admin: 08/28/19 08:35 Dose: 1 each Documented by: Nicotine (Habitrol 14mg/24hr Patch) 1 patch TRANSDERM DAILY [facility] Last Admin: 08/28/19 08:35 Dose: 1 patch Documented by: Ondansetron HCl (Zofran) 4 mg IVP Q8HR PRN PRN Reason: Nausea And Vomiting Pantoprazole Sodium (Protonix) 40 mg PO AC-BRKFST [facility] Last Admin: 08/28/19 05:20 Dose: Not Given Documented by: Sodium Chloride (Saline Flush) 10 ml IV Q12H [facility] Last Admin: 08/28/19 19:30 Dose: Not Given Documented by: Tramadol HCl (Ultram) 50 mg PO QID PRN PRN Reason: Pain Last Admin: 08/26/19 02:41 Dose: 50 mg Documented by: Vitamin E (Vitamin E) 400 unit PO DAILY [facility] Last Admin: 08/28/19 08:35 Dose: 400 unit Documented by: Physical examination: VITAL SIGNS: 98, 85, 18, 95/52, 95% on 2 L GENERAL: Sitting on the bed, comfortable EYES: Pupils equal. Conjunctiva normal. HEENT: External appearance of nose and ears normal, oral cavity grossly normal. NECK: JVD not raised; masses not palpable. HEART: First and second heart sounds are normal; no edema. LUNGS: Respiratory rate increased, decreased breath sounds, ABDOMEN: Soft, nontender, liver spleen not palpable, no masses palpable. PSYCH: A ordered [place] affect normal MUSCULOSKELETAL evidence of some osteoarthritis in the hands INVESTIGATIONS, reviewed in the clinical context: White count 11.2 hemoglobin 11.6 platelets 17 progression 4.9 creatinine 1.12 Previous testing EKG from previous admission shows left bundle-branch block, checks x-ray hyperinflation Previous PET scan showed increased activity in the area of the lung mass or pleural effusion, enlarged prostate Labs from 08/18/2019 White count 10.7 hemoglobin 14.5 platelet 187 potassium 4.8 creatinine 0.95 ABGs from earlier today showed a pH of 7.14 and a pCO2 73 and a pO2 of 147 Assessment: -Right lower lobe lung lobectomy for lung mass suspicious for underlying malignancy that was necrotic on previous biopsy -COPD in a current smoker -Nicotine Dependence patient cigarette smoker -Left bundle-branch block -AICD -Acute respiratory failure type II, with CO2 retention including that from decreased respiratory drive probably from anesthesia patient was requiring BiPAP now does not want to use the same on nasal cannula. Blood gases are improving -BPH -History of arrhythmia type unknown patient is on amiodarone. Plan: Chest tube removed today. Repeat checks x-ray in the morning. Other medications to continue. Patient is ambulating. Hopefully home tomorrow. Thank you Dr. Mayfield
[2019-08-29 03:56] VITALS: TEMP 97.9
[2019-08-29 05:49] LABS: HCT 35.4 % (39.0-53.0); HGB 11.9 gm/dL (13.0-17.5); MCH 31.5 pg (25.0-35.0); MCHC 33.5 g/dL (31.0-37.0); MCV 93.8 fL (80.0-100.0); Mean Platelet Volume 8.8; Platelet Count 151 k/uL (150-450); RBC 3.77 m/uL (4.30-5.90); RDW 14.6 % (11.5-15.5); WBC 9.6 k/uL (3.8-10.6)
[2019-08-29] MEDS: KETOROLAC 30 MG/ML 1 ML VIAL IVP SCH (05:53)
[2019-08-29] MEDS: PANTOPRAZOLE 40 MG TABLET PO SCH (05:54)
[2019-08-29 05:59] LABS: Calcium 8.6 mg/dL (8.4-10.2); Potassium 4.5 mmol/L (3.5-5.1)
--- NOTE | 2019-08-29 07:48 | XR ---
EXAMINATION TYPE: XR chest 2V DATE OF EXAM: 08/29/2019 COMPARISON: Chest x-ray from yesterday and older studies. CT chest April 22, 2019. HISTORY: Postoperative right-sided partial pneumonectomy progress study. TECHNIQUE: Frontal and lateral views of the chest are obtained. FINDINGS: The osseous structures remain demineralized. Cardiac silhouette size remains enlarged with multilead pacemaker/AICD. Overlying EKG leads redemonstrated. Background chronic emphysematous santana e with right-sided volume loss and persistent small right pleural effusion. Extensive right-sided sub cutaneous emphysema redemonstrated. No definitive pneumothorax. No new mediastinal shift. Interval re moval of right-sided chest tube noted. IMPRESSION: Interval removal of right-sided chest tube. No pneumothorax identified. Background chron ic emphysematous change and cardiomegaly with right-sided postsurgical change, small right pleural fl uid collection and associated right basilar atelectasis and/or infiltrate are all redemonstrated.
[2019-08-29] MEDS ORDERED: IBUPROFEN 600 MG TAB PO PRN (07:56)
[2019-08-29] MEDS: HEPARIN SODIUM,PORCINE 5,000 UNIT/ML 1 ML VIAL SQ SCH (08:11)
[2019-08-29] MEDS: VITAMIN E (DL,TOCOPHERYL ACET) 400 UNIT CAP PO SCH (08:12)
[2019-08-29] MEDS: NICOTINE 14MG/24HR PATCH TRANSDERM SCH (08:12)
[2019-08-29] MEDS: MULTIVITAMINS, THERA 1 EACH TAB PO SCH (08:12)
[2019-08-29] MEDS: AMIODARONE 100 MG TAB PO SCH (08:12)
--- NOTE | 2019-08-29 08:13 | CDI ---
Documentation Clarification Form Date: 08/29/2019 07:53:51 AM From: Alejandrina Donald CCS, CCDS Admit Date: 08/25/2019 05:37:00 AM Patient Name: Javier Paniagua Visit Number: [id number] Discharge Date: ATTENTION: The Clinical Documentation Specialists (CDI) and [facility] Coding Staff appreciate your assistance in clarifying documentation. Please respond to the clarification below the line at the bottom and electronically sign. The CDI & [facility] Coding staff will review the response and follow-up if needed. Please note: Queries are made part of the Legal Health Record. If you have any questions, please contact the author of this message via ITS. Dr. Oscar Carroll: Per the pulmonary progress notes on 08/26 & 08/28: "Small residual right-sided pneumothorax." and also "small basal atelectasis." Patients Admitting Diagnosis: Right lower lobe mass, presumed carcinoma Post-Operative Diagnosis 08/25: Same Procedure performed: Robotic assisted thoracoscopic right lower lobectomy with mediastinal lymph node dissection. History/Risk Factors: Long standing smoker, CT guided biopsy & drainage of the right lung mass in May 2019. PET scan in June 2019: right pleural effusion. AICD/permanent pacemaker, COPD, [place]. Clinical Indicators: Presented for elective lobectomy as above. RAD: 08/25 CXR: Right-sided chest tube in place. Very small right-sided pneumothorax with trace 5 mm apical component and very small basilar component as well. Trace right effusion. 08/26 CXR: No sizable pneumothorax is identified. Small infiltrate likely atelectasis at the right base. 08/27 CXR: Worsening right basilar airspace disease with a small, concomitant effusion. 08/28 CXR: continues be some right basilar atelectasis or pneumonia. small right effusion. Treatment: Right CT placed during surgery, removed on 08/28. Postop: IV Lasix, po Motrin. In order to accurately reflect this patients severity of illness, please clarify if the post-operative diagnoses of pneumothorax & atelectasis is: An expected post-procedural or post-surgical condition An unexpected post-procedural or post-surgical condition related to surgical care (a complication of care) An unexpected post-procedural or post-surgical condition, related to the patients underlying medical comorbidities Other, please specify ____ Unable to determine (Last Revision: November 2018) MTDD
[2019-08-29 08:21] VITALS: RESP 16
[2019-08-29] MEDS: IPRATROPIUM-ALBUTEROL 3 ML NEB IH SCH ×2 (10:14→10:17)
[2019-08-29 12:11] VITALS: BP 88/62; PULSE 87
--- NOTE | 2019-08-29 14:23 | P.DS ---
Providers Date of admission: 08/25/19 05:37 Expected date of discharge: 08/29/19 Attending physician: Paco Mayfield Consults: 08/25/19 14:33 Consult Physician Routine Consulting Provider: Oscar Carroll Consult Reason/Comments: post lobectomy Do you want consulting provider notified?: Yes 08/25/19 14:41 Consult Physician Routine Consulting Provider: Delano Cedeño Consult Reason/Comments: [facility] [place] patient Do you want consulting provider notified?: Yes Primary care physician: Kashif Salazar Hospital Course: FINAL DIAGNOSIS: 1. 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 History of myocardial infarction 3. Nonischemic dilated cardiomyopathy, class C, stage II to III, status post AICD placement in 2001 4. Daily alcohol use 5. Chronic ongoing nicotine abuse with 50+-pack-year smoking history 6. COPD PRINCIPAL PROCEDURE: 1. Robotic-assisted thoracoscopic right lower lobectomy with mediastinal lymph node dissection HISTORY OF PRESENT ILLNESS: This is a 68-year-old gentleman who follows on an outpatient basis with Dr. Salazar and Dr. Carroll. He has been followed on an outpatient basis for a large right lower lobe mass which had been increasing in size. He had a needle biopsy completed in April which was negative for viable tumor but which did show necrotic tissue consistent with probable necrotic tumor. Subsequently he had a bronchoscopy with resultant atypical cells in the bronchial washings, and PET scan which showed significant uptake in the large tumor with a large necrotic portion of it without uptake. There was some atelectatic changes in the posterior right upper lobe with mild uptake. There was no evidence of metastatic disease. A small pleural effusion was noted. There was no uptake in the pleural effusion or pleural. The patient was referred to Dr. Mayfield from cardiothoracic surgery. He was recommended to undergo robotic-assisted right lower lobectomy with mediastinal lymph node di ssection. The usual perioperative course was discussed in detail with the patient and his family, all risks and benefits were explained, all questions were answered, and consent was obtained to proceed with surgery. The patient was scheduled at the earliest possible date after obtaining cardiac clearance. He was encouraged to quit smoking. HOSPITAL COURSE: The patient was brought to the hospital on 08/25/2019, taken to the preoperative area, prepared in the usual fashion, and subsequently taken to the operating room where Dr. Mayfield performed a robotic-assisted thoracoscopic right lower lobectomy and mediastinal lymph node dissection. Upon completion of surgery the patient was extubated and taken to the recovery room for further monitoring. Eventually he was transferred to the cardiovascular intensive care unit for closer monitoring due to his cardiac history. He continued to recover, his oxygen was titrated down, he was tolerating oral diet, his pain was controlled, and he was transferred to [address] [place] [address] for further monitoring and recovery. His chest tube was ready to be discontinued on postoperative day #3, and follow-up chest x-ray was stable. He was ready to be discharged to home with [facility] on postoperative day #4. He received written and verbal instruction regarding his medications, activity restrictions, signs and symptoms requiring physician notification, and follow-up appointments. COMPLICATIONS: The patient experienced no postoperative complications. Patient Condition at Discharge: Stable Plan - Discharge Summary Discharge Rx Participant: Yes New Discharge Prescriptions: New Nicotine 14Mg/24Hr Patch [Habitrol] 1 patch TRANSDERM DAILY #7 patch Ibuprofen [Motrin] 600 mg PO Q6HR PRN tab PRN Reason: Mild Pain Acetaminophen Tab [Tylenol] 1,000 mg PO Q6HR PRN tab PRN Reason: Fever And/ Or Pain Continue Albuterol Inhaler [Ventolin Hfa Inhaler] 2 puff INHALATION RT-Q6H PRN PRN Reason: Shortness Of Breath Multivitamins, Thera [Multivitamin (formulary)] 1 tab PO DAILY Amiodarone HCl [Pacerone] 100 mg PO DAILY Vitamin E 100 unit PO DAILY Ipratropium-Albuterol Nebulize [Duoneb 0.5 mg-3 mg/3 ml Soln] 3 ml INHALATION RT-QID PRN PRN Reason: Shortness Of Breath Budesonide-Formot 160-4.5 Mcg [Symbicort 160-4.5 Mcg Inhaler (Bulk)] 2 puff INHALATION RT-BID PRN PRN Reason: Shortness Of Breath Discharge Medication List Albuterol Inhaler [Ventolin Hfa Inhaler] 2 puff INHALATION RT-Q6H PRN 04/22/19 [History] Amiodarone HCl [Pacerone] 100 mg PO DAILY 04/22/19 [History] Multivitamins, Thera [Multivitamin (formulary)] 1 tab PO DAILY 04/22/19 [History] Vitamin E 100 unit PO DAILY 04/22/19 [History] Budesonide-Formot 160-4.5 Mcg [Symbicort 160-4.5 Mcg Inhaler (Bulk)] 2 puff INHALATION RT-BID PRN 08/23/19 [History] Ipratropium-Albuterol Nebulize [Duoneb 0.5 mg-3 mg/3 ml Soln] 3 ml INHALATION RT-QID PRN 08/23/19 [History] Acetaminophen Tab [Tylenol] 1,000 mg PO Q6HR PRN tab 08/29/19 [Rx] Ibuprofen [Motrin] 600 mg PO Q6HR PRN tab 08/29/19 [Rx] Nicotine 14Mg/24Hr Patch [Habitrol] 1 patch TRANSDERM DAILY #7 patch 08/29/19 [Rx] Follow up Appointment(s)/Referral(s): Kashif Salazar MD [Primary Care Provider] - 08/31/19 12:00 pm (Thursday) Paco Mayfield MD [STAFF PHYSICIAN] - 09/01/19 1:00 pm () Oscar Carroll MD [STAFF PHYSICIAN] - 1 Week (Office is closed. Please call to schedule appointment) [facility] Nurse, [NON-STAFF] - 1-2 Days Patient Instructions/Handouts: Lung Lobectomy (DC) Activity/Diet/Wound Care/Special Instructions: DISCHARGE INSTRUCTIONS: 1. No driving for 2 weeks, or until physician gives their ok. 2. No lifting, pushing, or pulling more than 10 pounds for 2 weeks. The physician will advise of any restriction changes. 3. Continue pain control per as needed orders. Alternate acetaminophen (Tylenol) and ibuprofen (Motrin/Advil) for pain. 4. Continue with incentive spirometry and splinting until otherwise directed by the physician. 5. Leave chest tube dressing for 48 hours. After that, remove all dressings and shower daily. 6. Routine incision care. No powders, lotions, ointments on incisions. 7. Please call surgeon/TISSUE INSERTER for temp greater than 101 F or purulent drainage from incisions. For any questions or concerns please call TISSUE INSERTER's Keren @ or Don @ Discharge Disposition: HOME WITH HOME HEALTH SERVICES
--- NOTE | 2019-08-30 00:12 | P.PN ---
Progress Note - Text Progress Note Date: 08/29/19 - Chief Complaint Right lung lower lobe resection Interval history: This is a 68-year-old patient of Dr. Salazar. Long-standing smoker. Patient back in May [address]-guided biopsy and drainage of right lung mass. Pathology showed only necrotic tissue. A tissue diagnosis could not be obtained. Patient is continued to smoke. Patient did have a PET scan and June 2019. That showed hypermetabolic uptake centrally around the area of the mass. It also showed a right pleural effusion. Also showed enlarged prostate. Right pleural effusion. Patient long-standing smoker. Has a AICD/permanent pacemaker. Underlying COPD. Previous EKG showed left bulbar block. underwent right lower lobe resection. Right-sided chest tube. Today-Chest tube was pulled out yesterday. Feeling well. Breathing stable. Up and about.. Review of systems: Was done for constitutional, cardiovascular, GI, pulmonary. relevant finding as above Current medications are reviewed and today's electronic records Physical examination: VITAL SIGNS: 97.9, 86, 18, 88/62, 91% room air GENERAL: Sitting on the bed, comfortable EYES: Pupils equal. Conjunctiva normal. HEENT: External appearance of nose and ears normal, oral cavity grossly normal. NECK: JVD not raised; masses not palpable. HEART: First and second heart sounds are normal; no edema. LUNGS: Respiratory rate increased, decreased breath sounds, ABDOMEN: Soft, nontender, liver spleen not palpable, no masses palpable. PSYCH: A ordered [place] affect normal MUSCULOSKELETAL evidence of some osteoarthritis in the hands INVESTIGATIONS, reviewed in the clinical context: White count 11.2 hemoglobin 11.6 platelets 17 progression 4.9 creatinine 1.12 Previous testing EKG from previous admission shows left bundle-branch block, checks x-ray hyperinflation Previous PET scan showed increased activity in the area of the lung mass or pleural effusion, enlarged prostate Labs from 08/18/2019 White count 10.7 hemoglobin 14.5 platelet 187 potassium 4.8 creatinine 0.95 ABGs from earlier today showed a pH of 7.14 and a pCO2 73 and a pO2 of 147 Assessment: -Right lower lobe lung lobectomy for lung mass suspicious for underlying malignancy that was necrotic on previous biopsy -COPD in a current smoker -Nicotine Dependence patient cigarette smoker -Left bundle-branch block -AICD -Acute respiratory failure type II, with CO2 retention including that from decreased respiratory drive probably from anesthesia patient was requiring BiPAP . Status post-improved -BPH -History of arrhythmia type unknown patient is on amiodarone. Plan: Patient told to take a laxative. Other medications to continue. Follow with his PCP. Otherwise patient doing well. Thank you Dr. Mayfield
== END 2019-08-29 13:07 | disposition home health service (06) | DRG 163 ==
LOC: 2ORMAIN 05:37 → 2SICU 11:30 → 3SCARD 08-26 17:58
PROVIDERS: ADMIT Thoracic Surgery (Cardiothoracic Vascular Surgery); ATTEND Thoracic Surgery (Cardiothoracic Vascular Surgery)
PROC: 5A09457 Assistance with Respiratory Ventilation, 24-96 Consecutive Hours, Continuous Positive Airway Pressure (ICD-10-PCS; 2019-08-25)
PROC: 8E0W4CZ Robotic Assisted Procedure of Trunk Region, Percutaneous Endoscopic Approach (ICD-10-PCS; principal; 2019-08-25 07:30)
PROC: 07B74ZX Excision of Thorax Lymphatic, Percutaneous Endoscopic Approach, Diagnostic (ICD-10-PCS; principal; 2019-08-25 07:30)
PROC: 0BTF4ZZ Resection of Right Lower Lung Lobe, Percutaneous Endoscopic Approach (ICD-10-PCS; principal; 2019-08-25 07:30)
DX: C34.31 Malignant neoplasm of lower lobe, right bronchus or lung (principal); J96.02 Acute respiratory failure with hypercapnia; J96.01 Acute respiratory failure with hypoxia; I42.0 Dilated cardiomyopathy; J93.9 Pneumothorax, unspecified; E87.2 Acidosis; J98.11 Atelectasis; T88.59XA Other complications of anesthesia, initial encounter; F17.210 Nicotine dependence, cigarettes, uncomplicated; I44.7 Left bundle-branch block, unspecified; J44.9 Chronic obstructive pulmonary disease, unspecified; N40.0 Benign prostatic hyperplasia without lower urinary tract symptoms; Z82.49 Family history of ischemic heart disease and other diseases of the circulatory system; I25.2 Old myocardial infarction; Z95.810 Presence of automatic (implantable) cardiac defibrillator; Z79.899 Other long term (current) drug therapy; Z79.51 Long term (current) use of inhaled steroids
CPT/HCPCS: 71045; 71046; 80048; 82805; 83735; 85025; 85027; 86850; 86900; 86901; 88305; 88309; 88331; 88332; 88341; 88342; 94640; 94660; 94760

== ENCOUNTER 2019-09-12 11:57 | Emergency (ER) | payer MEDICARE ==
[2019-09-12 12:08] VITALS: TEMP 97.8
[2019-09-12] MEDS ORDERED: IPRATROPIUM-ALBUTEROL 3 ML NEB INHALATION STA (12:20)
--- NOTE | 2019-09-12 12:22 | ED ---
General Adult HPI - General Chief complaint: Shortness of Breath Stated complaint: SOB, post surgery Time Seen by Provider: 09/12/19 12:14 Source: patient, RN notes reviewed Mode of arrival: ambulatory Limitations: no limitations - History of Present Illness Initial comments: Patient is a pleasant 68-year-old male presenting to the emergency Department with difficulty in breathing. Onset of symptoms was yesterday. Patient does have cough with yellow sputum. Patient does have some mild discomfort right lower chest however states that is postoperative discomfort and is not getting any worse. Patient is 2 weeks postop right lower lung removal. Patient states they removed approximately one third of the lung. Patient denies any fever. No leg pain or leg swelling. - Related Data Home Medications Medication Instructions Recorded Confirmed Albuterol Inhaler [Ventolin Hfa 2 puff INHALATION RT-Q6H PRN 04/22/19 08/25/19 Inhaler] Amiodarone HCl [Pacerone] 100 mg PO DAILY 04/22/19 08/25/19 Multivitamins, Thera [Multivitamin 1 tab PO DAILY 04/22/19 08/25/19 (formulary)] Vitamin E 100 unit PO DAILY 04/22/19 08/25/19 Budesonide-Formot 160-4.5 Mcg 2 puff INHALATION RT-BID PRN 08/23/19 08/25/19 [Symbicort 160-4.5 Mcg Inhaler (Bulk)] Ipratropium-Albuterol Nebulize 3 ml INHALATION RT-QID PRN 08/23/19 08/25/19 [Duoneb 0.5 mg-3 mg/3 ml Soln] Previous Rx's Medication Instructions Recorded Acetaminophen Tab [Tylenol] 1,000 mg PO Q6HR PRN tab 08/29/19 Ibuprofen [Motrin] 600 mg PO Q6HR PRN tab 08/29/19 Nicotine 14Mg/24Hr Patch [Habitrol] 1 patch TRANSDERM DAILY #7 patch 08/29/19 Allergies Allergy/AdvReac Type Severity Reaction Status Date / Time No Known Allergies Allergy Verified 09/12/19 12:05 Review of Systems ROS Statement: Those systems with pertinent positive or pertinent negative responses have been documented in the HPI. ROS Other: All systems not noted in ROS Statement are negative. Constitutional: Denies: fever Eyes: Denies: eye pain ENT: Denies: ear pain Respiratory: Reports: cough, dyspnea Cardiovascular: Reports: as per HPI Endocrine: Denies: fatigue Gastrointestinal: Denies: abdominal pain Genitourinary: Denies: dysuria Musculoskeletal: Denies: back pain Skin: Denies: rash Neurological: Denies: weakness Past Medical History Past Medical History: Myocardial Infarction (DE) Additional Past Medical History / Comment(s): right lung mass Last Myocardial Infarction Date:: 2001 History of Any Multi-Drug Resistant Organisms: None Reported Past Surgical History: Heart Catheterization, Hernia Repair, Pacemaker Additional Past Surgical History / Comment(s): defib 2001 Past Anesthesia/Blood Transfusion Reactions: No Reported Reaction Type of Cardiac Device: AICD Device Placement Date:: 2015 Past Psychological History: No Psychological Hx Reported Smoking Status: Current some day smoker Past Alcohol Use History: None Reported Past Drug Use History: None Reported - Past Family History Father Family Medical History: Congestive Heart Failure (CHF) General Exam Limitations: no limitations General appearance: alert, in no apparent distress Head exam: Present: normocephalic Eye exam: Present: normal appearance, PERRL ENT exam: Present: normal oropharynx Neck exam: Present: normal inspection Respiratory exam: Present: wheezes, rhonchi Cardiovascular Exam: Present: tachycardia GI/Abdominal exam: Present: soft. Absent: tenderness Extremities exam: Present: normal inspection. Absent: pedal edema, calf tenderness Neurological exam: Present: alert Psychiatric exam: Present: normal affect, normal mood Skin exam: Present: normal color Course Vital Signs 09/12/19 09/12/19 09/12/19 12:06 12:27 12:43 Temperature 97.8 F Pulse Rate 107 H 101 H 101 H Respiratory 22 20 Rate Blood Pressure 112/70 116/82 O2 Sat by Pulse 97 95 Oximetry 09/12/19 13:52 Temperature 97.8 F Pulse Rate 96 Respiratory 18 Rate Blood Pressure 100/70 O2 Sat by Pulse 93 L Oximetry EKG Findings - EKG Comments: EKG Findings:: Normal sinus rhythm 96. [place] 160. QRS 158. QT 426. QTc 538. Left axis. Left bundle branch block. Nonspecific ST-T. Medical Decision Making - Medical Decision Making Patient seen by practitioner Keren with cardiothoracic surgery who felt comfortable with discharge of patient and states they can follow-up with him. Patient reevaluated and is resting comfortably in bed. Patient is requesting discharge home. Patient and family updated on results and need for follow-up. Pulse ox is 96% on room air - Lab Data Result diagrams: 09/12/19 12:37 09/12/19 12:37 Lab Results 09/12/19 09/12/19 09/12/19 Range/Units 12:37 12:37 13:10 WBC 12.7 H (3.8-10.6) k/uL RBC 4.42 (4.30-5.90) m/uL Hgb 13.4 (13.0-17.5) gm/dL Hct 41.2 (39.0-53.0) % MCV 93.1 (80.0-100.0) fL MCH 30.4 (25.0-35.0) pg MCHC 32.7 (31.0-37.0) g/dL RDW 15.3 (11.5-15.5) % Plt Count 322 D (150-450) k/uL Neutrophils % 87 % Lymphocytes % 5 % Monocytes % 3 % Eosinophils % 2 % Basophils % 2 % Neutrophils # 11.0 H (1.3-7.7) k/uL Lymphocytes # 0.7 L (1.0-4.8) k/uL Monocytes # 0.4 (0-1.0) k/uL Eosinophils # 0.2 (0-0.7) k/uL Basophils # 0.2 (0-0.2) k/uL PT 10.1 (9.0-12.0) sec INR 1.0 (<1.2) APTT 23.4 (22.0-30.0) sec Sodium 139 (137-145) mmol/L Potassium 4.7 (3.5-5.1) mmol/L Chloride 105 (98-107) mmol/L Carbon Dioxide 24 (22-30) mmol/L Anion Gap 10 mmol/L BUN 14 (9-20) mg/dL Creatinine 0.88 (0.66-1.25) mg/dL Est GFR (CKD-EPI)AfAm >90 (>60 ml/min/1.73 sqM) Est GFR (CKD-EPI)NonAf 87 (>60 ml/min/1.73 sqM) Glucose 98 (74-99) mg/dL Calcium 9.5 (8.4-10.2) mg/dL Total Bilirubin 0.6 (0.2-1.3) mg/dL AST 27 (17-59) U/L ALT 21 (4-49) U/L Alkaline Phosphatase 157 H (38-126) U/L Total Protein 6.5 (6.3-8.2) g/dL Albumin 3.7 (3.5-5.0) g/dL - Radiology Data Radiology results: image reviewed (Chest x-ray shows small right effusion and at electasis with improving aeration at the right lung base.) Disposition Clinical Impression: COPD exacerbation Disposition: HOME SELF-CARE Condition: Stable Is patient prescribed a controlled substance at d/c from ED?: No Referrals: Kashif Salazar MD [Primary Care Provider] - 1-2 days Paco Mayfield MD [STAFF PHYSICIAN] - 09/22/19 1:00 pm Oscar Carroll MD [STAFF PHYSICIAN] - 1-2 days Time of Disposition: 14:00
[2019-09-12 13:18] LABS: ALT 21 U/L (4-49); AST 27 U/L (17-59); African American GFR (CKD) >90 (>60 ml/min/1.73 sqM); Albumin 3.7 g/dL (3.5-5.0); Alkaline Phosphatase 157 U/L (38-126); Anion Gap 10 mmol/L; Blood Urea Nitrogen 14 mg/dL (9-20); Calcium 9.5 mg/dL (8.4-10.2); Carbon Dioxide 24 mmol/L (22-30); Chloride 105 mmol/L (98-107); Glucose 98 mg/dL (74-99); Non-African American GFR(CKD) 87 (>60 ml/min/1.73 sqM); Potassium 4.7 mmol/L (3.5-5.1); Sodium 139 mmol/L (137-145); Total Bilirubin 0.6 mg/dL (0.2-1.3); Total Protein 6.5 g/dL (6.3-8.2)
[2019-09-12 13:23] LABS: Basophils # (A) 0.2 k/uL (0-0.2); Basophils % (A) 2 %; Eosinophils # (A) 0.2 k/uL (0-0.7); Eosinophils % (A) 2 %; HCT 41.2 % (39.0-53.0); HGB 13.4 gm/dL (13.0-17.5); Lymphocytes # (A) 0.7 k/uL (1.0-4.8); Lymphocytes % (A) 5 %; MCH 30.4 pg (25.0-35.0); MCHC 32.7 g/dL (31.0-37.0); MCV 93.1 fL (80.0-100.0); Mean Platelet Volume 8.7; Monocytes # (A) 0.4 k/uL (0-1.0); Monocytes % (A) 3 %; Neutrophils % (A) 87 %; RBC 4.42 m/uL (4.30-5.90); RDW 15.3 % (11.5-15.5); WBC 12.7 k/uL (3.8-10.6)
[2019-09-12 13:26] LABS: Platelet Count 322 k/uL (150-450)
--- NOTE | 2019-09-12 13:26 | XR ---
EXAMINATION TYPE: XR chest 2V DATE OF EXAM: 09/12/2019 COMPARISON: 08/29/2019 HISTORY: Shortness of breath TECHNIQUE: Frontal and lateral views of the chest are obtained. FINDINGS: Scattered senescent parenchymal changes noted. Hyperinflation compatible with COPD. Right basilar small pleural effusions and linear atelectasis with improving aeration noted at the rig ht lung base. Heart size is stable. Mediastinal structures are stable and grossly unremarkable. No evidence for hilar prominence. Degenerative changes dorsal spine. IMPRESSION: 1. Small Right basilar small pleural effusions and linear atelectasis with improving aeration noted a t the right lung base.
[2019-09-12 13:39] LABS: Partial Thromboplastin Time 23.4 sec (22.0-30.0); Prothrombin Time 10.1 sec (9.0-12.0)
[2019-09-12 13:54] VITALS: BP 100/70; PULSE 96; RESP 18
== END 2019-09-12 14:16 | disposition home or self-care (01) ==
LOC: EC 11:57
DX: J44.1 Chronic obstructive pulmonary disease with (acute) exacerbation (principal); I25.2 Old myocardial infarction; F17.200 Nicotine dependence, unspecified, uncomplicated; Z79.899 Other long term (current) drug therapy; Z95.0 Presence of cardiac pacemaker
CPT/HCPCS: 36415; 71046; 80053; 85025; 85610; 85730; 87040; 93005; 94640; 99285

== ENCOUNTER 2019-11-03 21:21 | Inpatient (IN) | payer MEDICARE ==
[2019-11-03] MEDS ORDERED: SODIUM CHLORIDE 0.9% 1,000 ML IV STA ×2 (21:32)
--- NOTE | 2019-11-03 21:57 | ED ---
SOB HPI - General Chief Complaint: Shortness of Breath Stated Complaint: SOB-had partial lung removal Time Seen by Provider: 11/03/19 21:30 Source: patient, RN notes reviewed, old records reviewed Mode of arrival: wheelchair Limitations: no limitations - History of Present Illness Initial Comments: This is a 68-year-old male DF for evaluation, patient has known COPD and breathing treatments with hospital admissions in the past for COPD. Denying current chest pain, no fevers no travel history patient states he never leave his house. Patient states that he does have cough and congestion no runny nose no sore throat and again denies leaving his house and quite some time. is at bedside has no complaints feels fine. MD Complaint: shortness of breath, cough -: days(s) Severity: moderate Severity scale (1-10): 4 Quality: other (no pain) Consistency: constant Improves With: oxygen Worsens With: exertion Known History Of: COPD, asthma Context: recent URI Associated Symptoms: cough, sputum production Treatments Prior to Arrival: none - Related Data Home Medications Medication Instructions Recorded Confirmed Albuterol Inhaler [Ventolin Hfa 2 puff INHALATION RT-Q6H PRN 04/22/19 11/04/19 Inhaler] Amiodarone HCl [Pacerone] 100 mg PO DAILY 04/22/19 11/04/19 Multivitamins, Thera [Multivitamin 1 tab PO DAILY 04/22/19 11/04/19 (formulary)] Vitamin E 100 unit PO DAILY 04/22/19 11/04/19 Budesonide-Formot 160-4.5 Mcg 2 puff INHALATION RT-BID PRN 08/23/19 11/04/19 [Symbicort 160-4.5 Mcg Inhaler (Bulk)] Ipratropium-Albuterol Nebulize 3 ml INHALATION RT-QID PRN 08/23/19 11/04/19 [Duoneb 0.5 mg-3 mg/3 ml Soln] Ibuprofen [Motrin Ib] 600 mg PO Q8H PRN 11/04/19 11/04/19 Levothyroxine Sodium 25 mcg PO DAILY 11/04/19 11/04/19 Previous Rx's Medication Instructions Recorded Nicotine 14Mg/24Hr Patch [Habitrol] 1 patch TRANSDERM DAILY #7 patch 08/29/19 Allergies Allergy/AdvReac Type Severity Reaction Status Date / Time No Known Allergies Allergy Verified 11/04/19 09:19 Review of Systems ROS Statement: Those systems with pertinent positive or pertinent negative responses have been documented in the HPI. ROS Other: All systems not noted in ROS Statement are negative. 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 defib 2001 Past Anesthesia/Blood Transfusion Reactions: No Reported Reaction Type of Cardiac Device: AICD Device Placement Date:: 2015 Past Psychological History: No Psychological Hx Reported Smoking Status: Former smoker Past Alcohol Use History: None Reported Past Drug Use History: None Reported - Past Family History Father Family Medical History: Congestive Heart Failure (CHF) General Exam Limitations: no limitations General appearance: alert, in no apparent distress, anxious Head exam: Present: atraumatic, normocephalic, normal inspection Eye exam: Present: normal appearance, PERRL, EOMI. Absent: scleral icterus, conjunctival injection, periorbital swelling ENT exam: Present: normal exam, mucous membranes moist Neck exam: Present: normal inspection. Absent: tenderness, meningismus, lymphadenopathy Respiratory exam: Present: respiratory distress, wheezes, accessory muscle use, decreased breath sounds, prolonged expiratory. Absent: rales, rhonchi, stridor Cardiovascular Exam: Present: regular rate, normal rhythm, normal heart sounds. Absent: systolic murmur, diastolic murmur, rubs, gallop, clicks GI/Abdominal exam: Present: soft, normal bowel sounds. Absent: distended, tenderness, guarding, rebound, rigid Extremities exam: Present: normal inspection, full ROM, normal capillary refill. Absent: tenderness, pedal edema, joint swelling, calf tenderness Back exam: Present: normal inspection Neurological exam: Present: alert, oriented X3, CN II-XII intact Psychiatric exam: Present: normal affect, normal mood Skin exam: Present: warm, dry, intact, normal color. Absent: rash Course Vital Signs 11/03/19 11/03/19 11/03/19 21:23 21:56 22:30 Temperature 97.3 F L 98.0 F Pulse Rate 55 L 96 97 Pulse Rate [ Pulse Oximetery ] Respiratory 18 18 22 Rate Blood Pressure 88/50 100/86 103/55 Blood Pressure [Right Arm] O2 Sat by Pulse 94 L 98 98 Oximetry 11/03/19 11/03/19 11/04/19 22:58 23:50 00:00 Temperature 97.3 F L 97.2 F L Pulse Rate 96 94 Pulse Rate [ 98 Pulse Oximetery ] Respiratory 24 22 20 Rate Blood Pressure 89/76 109/82 Blood Pressure 112/69 [Right Arm] O2 Sat by Pulse 96 94 L 97 Oximetry - Reevaluation(s) Reevaluation #1: Medical record is reviewed Patient's feels minimal improvement here in the ER but is complaining of chest pain and anxiety oxygenation has improved Patient's family updated and results, questions answered Medical Decision Making - Medical Decision Making 68 male DF for evaluation patient with us today for evaluation regards to severe shortness of breath cough and congestion patient has history of COPD showing also comorbid CHF currently. Patient placed on diaphoresis breathing treatments and steroids, admitted for cardiopulmonary resuscitation - Lab Data Result diagrams: 11/04/19 06:37 11/04/19 06:37 Lab Results 11/03/19 11/03/19 11/03/19 Range/Units 21:55 21:55 21:55 WBC 10.8 H (3.8-10.6) k/uL RBC 4.23 L (4.30-5.90) m/uL Hgb 13.1 (13.0-17.5) gm/dL Hct 39.5 (39.0-53.0) % MCV 93.4 (80.0-100.0) fL MCH 31.0 (25.0-35.0) pg MCHC 33.2 (31.0-37.0) g/dL RDW 14.7 (11.5-15.5) % Plt Count 172 (150-450) k/uL Neutrophils % 85 % Lymphocytes % 7 % Monocytes % 4 % Eosinophils % 1 % Basophils % 0 % Neutrophils # 9.1 H (1.3-7.7) k/uL Lymphocytes # 0.7 L (1.0-4.8) k/uL Monocytes # 0.5 (0-1.0) k/uL Eosinophils # 0.2 (0-0.7) k/uL Basophils # 0.0 (0-0.2) k/uL PT 10.8 (9.0-12.0) sec INR 1.1 (<1.2) APTT 24.1 (22.0-30.0) sec Sample Site ABG pH (7.35-7.45) ABG pCO2 (35-45) mmHg ABG pO2 (83-108) mmHg ABG HCO3 (21-25) mmol/L ABG Total CO2 (19-24) mmol/L ABG O2 Saturation (94-97) % ABG Base Excess mmol/L Julius Test FiO2 % Sodium 131 L (137-145) mmol/L Potassium 4.2 (3.5-5.1) mmol/L Chloride 96 L (98-107) mmol/L Carbon Dioxide 25 (22-30) mmol/L Anion Gap 10 mmol/L BUN 10 (9-20) mg/dL Creatinine 0.92 (0.66-1.25) mg/dL Est GFR (CKD-EPI)AfAm >90 (>60 ml/min/1.73 sqM) Est GFR (CKD-EPI)NonAf 84 (>60 ml/min/1.73 sqM) Glucose 111 H (74-99) mg/dL POC Glucose (mg/dL) (75-99) mg/dL POC Glu Fingerprint Expert ID Calcium 9.5 (8.4-10.2) mg/dL Magnesium 1.9 (1.6-2.3) mg/dL Total Bilirubin 0.9 (0.2-1.3) mg/dL AST 62 H (17-59) U/L ALT 54 H (4-49) U/L Alkaline Phosphatase 98 (38-126) U/L Creatine Kinase 471 H (55-170) U/L Troponin I (0.000-0.034) ng/mL NT-Pro-B Natriuret Pep pg/mL Total Protein 6.5 (6.3-8.2) g/dL Albumin 3.9 (3.5-5.0) g/dL 11/03/19 11/03/19 11/04/19 Range/Units 21:55 21:55 02:58 WBC (3.8-10.6) k/uL RBC (4.30-5.90) m/uL Hgb (13.0-17.5) gm/dL Hct (39.0-53.0) % MCV (80.0-100.0) fL MCH (25.0-35.0) pg MCHC (31.0-37.0) g/dL RDW (11.5-15.5) % Plt Count (150-450) k/uL Neutrophils % % Lymphocytes % % Monocytes % % Eosinophils % % Basophils % % Neutrophils # (1.3-7.7) k/uL Lymphocytes # (1.0-4.8) k/uL Monocytes # (0-1.0) k/uL Eosinophils # (0-0.7) k/uL Basophils # (0-0.2) k/uL PT (9.0-12.0) sec INR (<1.2) APTT (22.0-30.0) sec Sample Site ABG pH (7.35-7.45) ABG pCO2 (35-45) mmHg ABG pO2 (83-108) mmHg ABG HCO3 (21-25) mmol/L ABG Total CO2 (19-24) mmol/L ABG O2 Saturation (94-97) % ABG Base Excess mmol/L Julius Test FiO2 % Sodium (137-145) mmol/L Potassium (3.5-5.1) mmol/L Chloride (98-107) mmol/L Carbon Dioxide (22-30) mmol/L Anion Gap mmol/L BUN (9-20) mg/dL Creatinine (0.66-1.25) mg/dL Est GFR (CKD-EPI)AfAm (>60 ml/min/1.73 sqM) Est GFR (CKD-EPI)NonAf (>60 ml/min/1.73 sqM) Glucose (74-99) mg/dL POC Glucose (mg/dL) 219 H (75-99) mg/dL POC Glu Fingerprint Expert ID Belle Vasquez Calcium (8.4-10.2) mg/dL Magnesium (1.6-2.3) mg/dL Total Bilirubin (0.2-1.3) mg/dL AST (17-59) U/L ALT (4-49) U/L Alkaline Phosphatase (38-126) U/L Creatine Kinase (55-170) U/L Troponin I 0.053 H* (0.000-0.034) ng/mL NT-Pro-B Natriuret Pep 6790 pg/mL Total Protein (6.3-8.2) g/dL Albumin (3.5-5.0) g/dL 11/04/19 11/04/19 Range/Units 05:39 06:02 WBC (3.8-10.6) k/uL RBC (4.30-5.90) m/uL Hgb (13.0-17.5) gm/dL Hct (39.0-53.0) % MCV (80.0-100.0) fL MCH (25.0-35.0) pg MCHC (31.0-37.0) g/dL RDW (11.5-15.5) % Plt Count (150-450) k/uL Neutrophils % % Lymphocytes % % Monocytes % % Eosinophils % % Basophils % % Neutrophils # (1.3-7.7) k/uL Lymphocytes # (1.0-4.8) k/uL Monocytes # (0-1.0) k/uL Eosinophils # (0-0.7) k/uL Basophils # (0-0.2) k/uL PT (9.0-12.0) sec INR (<1.2) APTT (22.0-30.0) sec Sample Site Right Radial ABG pH 7.25 L (7.35-7.45) ABG pCO2 49 H (35-45) mmHg ABG pO2 52 L* (83-108) mmHg ABG HCO3 21 (21-25) mmol/L ABG Total CO2 23 (19-24) mmol/L ABG O2 Saturation 79.5 L (94-97) % ABG Base Excess -6.1 mmol/L Julius Test Yes FiO2 50 % Sodium (137-145) mmol/L Potassium (3.5-5.1) mmol/L Chloride (98-107) mmol/L Carbon Dioxide (22-30) mmol/L Anion Gap mmol/L BUN (9-20) mg/dL Creatinine (0.66-1.25) mg/dL Est GFR (CKD-EPI)AfAm (>60 ml/min/1.73 sqM) Est GFR (CKD-EPI)NonAf (>60 ml/min/1.73 sqM) Glucose (74-99) mg/dL POC Glucose (mg/dL) 146 H (75-99) mg/dL POC Glu Fingerprint Expert ID Lorenza Mattson Calcium (8.4-10.2) mg/dL Magnesium (1.6-2.3) mg/dL Total Bilirubin (0.2-1.3) mg/dL AST (17-59) U/L ALT (4-49) U/L Alkaline Phosphatase (38-126) U/L Creatine Kinase (55-170) U/L Troponin I (0.000-0.034) ng/mL NT-Pro-B Natriuret Pep pg/mL Total Protein (6.3-8.2) g/dL Albumin (3.5-5.0) g/dL - EKG Data -: EKG Interpreted by Me (EKG shows sinus tachycardia 104, WA 142, QRS 158, QTC 526) - Radiology Data Radiology results: report reviewed (CXR shows pulm edema,chf), image reviewed Critical Care Time Critical Care Time: Yes Total Critical Care Time: 31 Disposition Clinical Impression: COPD exacerbation, Congestive heart failure, Hypoxia, Acute pulmonary edema Narrative: s/p Lung Resection Disposition: ADMITTED IP TO THIS HOSP Condition: Fair Is patient prescribed a controlled substance at d/c from ED?: No
[2019-11-03 22:12] LABS: Basophils % (A) 0 %; Eosinophils # (A) 0.2 k/uL (0-0.7); Eosinophils % (A) 1 %; HCT 39.5 % (39.0-53.0); HGB 13.1 gm/dL (13.0-17.5); Lymphocytes # (A) 0.7 k/uL (1.0-4.8); Lymphocytes % (A) 7 %; MCHC 33.2 g/dL (31.0-37.0); MCV 93.4 fL (80.0-100.0); Mean Platelet Volume 8.2; Monocytes # (A) 0.5 k/uL (0-1.0); Monocytes % (A) 4 %; Neutrophils # (A) 9.1 k/uL (1.3-7.7); Neutrophils % (A) 85 %; Platelet Count 172 k/uL (150-450); RBC 4.23 m/uL (4.30-5.90); RDW 14.7 % (11.5-15.5); WBC 10.8 k/uL (3.8-10.6)
[2019-11-03 22:18] LABS: INR 1.1 (<1.2); Partial Thromboplastin Time 24.1 sec (22.0-30.0); Prothrombin Time 10.8 sec (9.0-12.0)
[2019-11-03 22:27] LABS: ALT 54 U/L (4-49); AST 62 U/L (17-59); African American GFR (CKD) >90 (>60 ml/min/1.73 sqM); Albumin 3.9 g/dL (3.5-5.0); Alkaline Phosphatase 98 U/L (38-126); Anion Gap 10 mmol/L; Blood Urea Nitrogen 10 mg/dL (9-20); Calcium 9.5 mg/dL (8.4-10.2); Carbon Dioxide 25 mmol/L (22-30); Chloride 96 mmol/L (98-107); Creatine Kinase 471 U/L (55-170); Glucose 111 mg/dL (74-99); Magnesium 1.9 mg/dL (1.6-2.3); Non-African American GFR(CKD) 84 (>60 ml/min/1.73 sqM); Potassium 4.2 mmol/L (3.5-5.1); Sodium 131 mmol/L (137-145); Total Bilirubin 0.9 mg/dL (0.2-1.3); Total Protein 6.5 g/dL (6.3-8.2)
--- NOTE | 2019-11-03 22:53 | XR ---
EXAMINATION TYPE: XR chest 2V DATE OF EXAM: 11/03/2019 COMPARISON: 09/12/2019 HISTORY: Short of breath TECHNIQUE: FINDINGS: There is blunting right costophrenic angle. Heart is enlarged. There is mild congestion. Th ere is left axillary pacemaker. The bony thorax is intact. IMPRESSION: Right pleural effusion slightly increased compared to last exam. There is mild pulmonary congestion but no overt heart failure. Pulmonary congestion increased slightly compared to last exam.
[2019-11-03] MEDS ORDERED: IPRATROPIUM 0.5 MG/2.5 ML NEBU INHALATION STA (23:01)
[2019-11-03] MEDS ORDERED: methylPREDNISolone SOD SUCCI 125 MG/2 ML VIAL IV STA (23:01)
[2019-11-03] MEDS ORDERED: ALBUTEROL NEBULIZED 2.5 MG/3 ML INHALATION STA (23:01)
[2019-11-03] MEDS ORDERED: LORazepam 2 MG/ML INJ IV STA (23:39)
[2019-11-03] MEDS ORDERED: LORazepam 2 MG/ML INJ IV PRN (23:39)
[2019-11-03] MEDS: FUROSEMIDE 10 MG/ML 4 ML VIAL IV SCH (23:53)
[2019-11-03] MEDS: SODIUM CHLORIDE 0.9% 1,000 ML IV SCH (23:53)
[2019-11-04] MEDS: methylPREDNISolone SOD SUCCI 125 MG/2 ML VIAL IV SCH ×5 (00:42→23:06)
[2019-11-04] MEDS ORDERED: FLUMAZENIL 0.1 MG/ML 5 ML VIAL IVP PRN (03:03)
[2019-11-04 03:05] LABS: Glucose,Whole Blood 219 mg/dL (75-99)
[2019-11-04 05:50] LABS: ABG Base Excess -6.1 mmol/L; ABG HCO3 21 mmol/L (21-25); ABG Oxygen Saturation 79.5 % (94-97); ABG PCO2 49 mmHg (35-45); ABG PH 7.25 (7.35-7.45); ABG TCO2 23 mmol/L (19-24); Allen Test Performed? Yes
[2019-11-04 05:53] LABS: ABG PO2 52 mmHg (83-108)
[2019-11-04 06:03] LABS: Glucose,Whole Blood 146 mg/dL (75-99)
[2019-11-04 07:10] LABS: Calcium 8.9 mg/dL (8.4-10.2); Potassium 4.9 mmol/L (3.5-5.1)
[2019-11-04 07:12] LABS: Basophils % (A) 0 %; Eosinophils % (A) 0 %; HCT 41.5 % (39.0-53.0); HGB 13.7 gm/dL (13.0-17.5); Lymphocytes # (A) 0.3 k/uL (1.0-4.8); Lymphocytes % (A) 2 %; MCH 31.1 pg (25.0-35.0); MCHC 32.9 g/dL (31.0-37.0); MCV 94.4 fL (80.0-100.0); Mean Platelet Volume 8.8; Monocytes # (A) 0.3 k/uL (0-1.0); Monocytes % (A) 2 %; Neutrophils # (A) 11.6 k/uL (1.3-7.7); Neutrophils % (A) 95 %; Platelet Count 165 k/uL (150-450); RDW 14.7 % (11.5-15.5); WBC 12.2 k/uL (3.8-10.6)
[2019-11-04] MEDS: IPRATROPIUM-ALBUTEROL 3 ML NEB INHALATION SCH ×4 (07:38→19:08)
--- NOTE | 2019-11-04 08:28 | XR ---
EXAMINATION TYPE: XR chest 1V DATE OF EXAM: 11/04/2019 COMPARISON: 11/03/2019 HISTORY: Shortness of breath. Follow-up exam. TECHNIQUE: Single frontal view of the chest is obtained. FINDINGS: Slightly worsened right mabvx-av-zhlyvizz pleural effusion and right basilar airspace dise ase. Worsening right midlung airspace disease. Underlying COPD. Multilead left-sided cardiac device w ith enlarged cardiac mediastinal silhouette. Diffuse osseous demineralization. Diffuse interstitial p rominence appears unchanged. IMPRESSION: 1. Worsening small to moderate right pleural effusion and associated right basilar airspace disease. 2. Worsening multifocal right midlung airspace disease concerning for pneumonia. 3. Background COPD.
[2019-11-04 09:00] VITALS: BMI 21.6
--- NOTE | 2019-11-04 10:46 | ECHOF ---
Referral Reason:Heart Failure MEASUREMENTS -------- HEIGHT: 165.1 cm WEIGHT: 59.0 kg BP: 108/82 IVSd: 1.1 cm (0.6 - 1.1) LVIDd: 8.0 cm (3.9 - 5.3) LVPWd: 1.1 cm (0.6 - 1.1) IVSs: 1.0 cm LVIDs: 8.1 cm LVPWs: 1.0 cm LAESV Index (A-L): 36.79 ml/m Ao Diam: 2.9 cm (2.0 - 3.7) AV Cusp: 1.3 cm (1.5 - 2.6) MV EXCURSION: 10.738 mm (> 18.000) MV EF SLOPE: 39 mm/s (70 - 150) EPSS: 2.8 cm RAP: 20.00 mmHg RVSP: 83.85 mmHg FINDINGS -------- Sinus rhythm. This was a technically difficult study with suboptimal views. The left ventricle is severely dilated. Left ventricular wall thickness is normal. There is sever e global hypokinesis of LV . Overall left ventricular systolic function is severely impaired with, an EF < 20%. Mitral Doppler inflow pattern suggests diastolic filling abnormality {E/E'}. The right ventricle is normal in size. LA is moderately dilated 34-39 ml/m2 The right atrium was not well visualized. Electronic pacemaker lead seen in the right atrial cavity . Interatrial and interventricular septum intact. The aortic valve was not well visualized. There is no evidence of aortic regurgitation. There is no evidence of aortic stenosis. Mild mitral annular calcification present. Jbzexmym-tb-loztec mitral regurgitation is present. Severe tricuspid regurgitation present. There is severe pulmonary hypertension. The right ventric ular systolic pressure, as measured by Doppler, is 83.85mmHg. The pulmonic valve was not well visualized. The aortic root size is normal. The inferior vena cava is dilated with poor inspiratory collapse which is consistent with estimated r ight atrial pressure of 20 mmHg. There is no pericardial effusion. CONCLUSIONS -------- 1. Sinus rhythm. 2. This was a technically difficult study with suboptimal views. 3. The left ventricle is severely dilated. 4. Left ventricular wall thickness is normal. 5. There is severe global hypokinesis of LV . 6. Overall left ventricular systolic function is severely impaired with, an EF < 20%. 7. Mitral Doppler inflow pattern suggest diastolic filling abnormality {E/E'}. 8. The right ventricle is normal in size. 9. LA is moderately dilated 34-39 ml/m2 10. The right atrium was not well visualized. 11. Electronic pacemaker lead seen in the right atrial cavity. 12. Interatrial and interventricular septum intact. 13. The aortic valve was not well visualized. 14. There is no evidence of aortic regurgitation. 15. There is no evidence of aortic stenosis. 16. Mild mitral annular calcification present. 17. Xtmurrrs-hg-lddkqg mitral regurgitation is present. 18. Severe tricuspid regurgitation present. 19. There is severe pulmonary hypertension. 20. The right ventricular systolic pressure, as measured by Doppler, is 83.85mmHg. 21. The pulmonic valve was not well visualized. 22. The aortic root size is normal. 23. The inferior vena cava is dilated with poor inspiratory collapse which is consistent with estimat ed right atrial pressure of 20 mmHg. 24. There is no pericardial effusion. [employer]: Karis Ramírez RDCS
--- NOTE | 2019-11-04 11:50 | CONS ---
CONSULTATION PULMONARY/CRITICAL CARE CONSULTATION: DATE OF CONSULTATION: November 04, 2019 REASON FOR CONSULTATION: Shortness of breath. This is a 68-year-old male who apparently was seen in the emergency department on November 02 at 21:21. He apparently came in because of increasing shortness of breath and difficulty breathing. The patient apparently has had multiple admissions in the past for COPD exacerbations. He apparently denied any chest pain or chest discomfort. There was no fever or chills. No travel history. The patient apparently did complain of a cough and congestion, but no evidence of sore throat or runny nose. The patient apparently has been home quarantine for some time. He has not had any recent travel. Has not been around anybody with a known case of COVID-19 infection. The patient was admitted to the floor for COPD exacerbation. Initially, apparently the patient was quite agitated and he received a couple doses of Ativan. An A-team was called. Initially we kept him on the floor and gave him some Romazicon to reverse the benzodiazepine and it seemed to help. Eventually, though, his gases deteriorated. He became more short of breath and I gave the order for our night nurse on the A-team, Suzanne Hartman, to move the patient to the ICU. We placed him on BiPAP therapy at 12 and 5 and 40% FiO2. Doing much better. He is awake and alert. The patient is able to respond appropriately. In addition to the BiPAP at the above settings, he is getting saline at 10 mL an hour. We discontinued the Ativan. His gases showed a pO2 of 52, a pCO2 of 49, and a pH of 7.25. This is consistent with alveolar hypoventilation. Chest x-ray showed changes of mild CHF and a loculated right-sided effusion. We told the nurses that they could pivel his IV. Again, currently doing much better. MEDICATIONS: His home medications are reviewed. He is currently on albuterol inhaler, amiodarone, multivitamins, vitamin E, Symbicort, and DuoNeb. Also takes Tylenol, ibuprofen and a nicotine patch. ALLERGIES: Allergies are denied. MEDICAL HISTORY: His medical history is positive for COPD and previous myocardial infarction. He apparently also has a history of right lung mass. SURGICAL HISTORY: His surgical history includes hernia repair, pacemaker insertion, and heart catheterization. The patient also had a tumor removed from the right lung in the lower lobe. His device is actually a defibrillator pacemaker. SOCIAL HISTORY: Positive for previous tobacco use. He denies currently smoking. Denies any alcohol use or illicit drug use. FAMILY HISTORY: Positive for a father with heart failure. REVIEW OF SYSTEMS: CONSTITUTIONAL: Negative. NEUROLOGIC: Negative. HEENT: Negative. CARDIOVASCULAR: Negative. PULMONARY: Shortness of breath, nonproductive cough, chest congestion, chest tightness and wheezing. GI: Negative. : Negative. RHEUMATOLOGIC: Negative. IMMUNOLOGIC: Negative. ENDOCRINOLOGIC: Negative. DERMATOLOGIC: Negative. PHYSICAL EXAMINATION: VITAL SIGNS: Current vital signs are reviewed. Temperature is 98.5, heart rate 92, respiratory rate 17, blood pressure 113/85, mean 94 and saturations are 97% on the BiPAP at 12, 5 and 40%. GENERAL: He appears in no acute distress. He is awake and alert. BiPAP mask in place. HEENT: Examination is grossly unremarkable. NECK: Supple. Full range of motion. No adenopathy or thyromegaly. Neck veins are flat. CARDIOVASCULAR: Examination reveals regular rhythm and rate. S1, S2 normal. LUNGS: Reveal expiratory wheezes and rhonchi. Breath sounds are diminished throughout. Slight prolongation. No crackles. ABDOMEN: Soft. Bowel sounds are heard. EXTREMITIES: Are intact. No cyanosis, clubbing, or significant edema. SKIN: Without rash. NEUROLOGIC: Examination is brief but nonfocal. LABS: Labs are reviewed. White count 12.2, hemoglobin 13.7, hematocrit 41.5, platelet count 165,000. Blood gases have been noted. Sodium 133, potassium 4.9, chloride 102, CO2 of 21. Anion gap is 10. BUN and creatinine were 14 and 1.0. Troponins were 0.053 and 0.052. N terminal proBNP 6790. Microbiologic studies are negative. Chest x-ray done on the suggests a small to moderate right-sided pleural effusion with right basilar airspace disease and worsening multifocal right mid lung airspace abnormalities consistent with pneumonia. MEDICATIONS: Medications are reviewed. From the pulmonary standpoint, he is on Zithromax, DuoNeb, Solu-Medrol, and usual medications. ASSESSMENT: 1. Chronic obstructive pulmonary disease exacerbation complicated by possible right- sided pneumonia. 2. Loculated right-sided effusion. 3. History of underlying chronic obstructive pulmonary disease. 4. Mental status changes with alveolar hypoventilation, likely related to underlying Ativan administration. 5. Previous history of lung mass, status post surgery to the right lower lobe. 6. Status post AICD placement. 7. History of myocardial infarction. 8. History of previous heavy tobacco use. 9. History of multiple other medical problems and comorbidities. PLAN: Currently, the patient seems to be doing relatively well on the BiPAP therapy. I will review his medications. We will likely add back some Pulmicort and Perforomist. Additional recommendations and suggestions are forthcoming. Prognosis is guarded. Will discontinue any additional benzodiazepines. MMODL / IJN: [id number] /
[2019-11-04] MEDS: FUROSEMIDE 10 MG/ML 4 ML VIAL IV SCH ×2 (11:55→23:07)
[2019-11-04] MEDS: AZITHROMYCIN 500 MG TAB PO SCH (11:55)
[2019-11-04] MEDS ORDERED: IBUPROFEN 200 MG TAB PO PRN (18:19)
[2019-11-04] MEDS ORDERED: BUDESONIDE FORMOT INHALATION PRN (18:19)
--- NOTE | 2019-11-04 18:44 | P.HPIM ---
History of Present Illness H&P Date: 11/04/19 Chief Complaint: Short of breath, cough History of presenting complaint This is a 68-year-old patient of Dr. Salazar. Chronic stable medical conditions include (left bundle branch block, AICD, BPH, right lower lobe lobectomy. Patient stopped smoking in August of this year. 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 Small amount of sputum a bit yellow. No fever slight headache. Decreased appetite. Was rather significant short of breath and had report of BiPAP and moved to the ICU. This morning breathing is a bit better. Still short of breath slight cough. Decreased appetite. Review of systems: GEN.: Tired EYES: None HEENT: None NECK: None RESPIRATORY: Baseline some shortness of breath and wheezing CARDIOVASCULAR: None GASTROINTESTINAL: None GENITOURINARY: None MUSCULOSKELETAL: Some joint pains LYMPHATICS: None HEMATOLOGICAL: None PSYCHIATRY: None NEUROLOGICAL: None Past medical history to include: AICD permanent pacemaker for arrhythmia, COPD, left bundle-branch block, smoker- adenocarcinoma of the lung with right lower lobe lobectomy Social history: , smoked a pack a day for many years, stopped in August 2019 Was also drinking alcohol before. Physical examination: VITAL SIGNS: 97.3, 55, 18, 88/50, 94% on room air GENERAL: [BMI 21.6, propped up in bed, tired is the short of breath at rest EYES: Pupils equal. Conjunctiva normal. HEENT: External appearance of nose and ears normal, oral cavity grossly normal. NECK: JVD not raised; masses not palpable. HEART: First and second heart sounds are normal; no edema. LUNGS: Respiratory rate increased, some accessory muscles overworking: Not able to speak in full sentences, diminished breath sounds prolonged expiration ABDOMEN: Soft, nontender, liver spleen not palpable, no masses palpable. PSYCH: AAO 3, motor factor bit anxious NEUROLOGICAL: Cranial nerves grossly intact; no facial asymmetry, power and sensation grossly intact. 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 -History of Right lower lobe lobectomy, biopsy showing adenocarcinoma. Plan: Patient started on nebulized bronchodilators, IV Solu-Medrol, inhaled steroids and long-acting beta agonist. Home medications resumed. Pulmonary was consulted. Patient required BiPAP overnight. Now nasal cannula. Care was disc ussed with the patient. Past Medical History Past Medical History: Myocardial Infarction ([place]) Additional Past Medical History / Comment(s): right lung mass Last Myocardial Infarction Date:: 2001 History of Any Multi-Drug Resistant Organisms: None Reported Past Surgical History: Heart Catheterization, Hernia Repair, Pacemaker Additional Past Surgical History / Comment(s): reomoval of tumor from right lung, lower lobe removed. defib 2001 Past Anesthesia/Blood Transfusion Reactions: No Reported Reaction Type of Cardiac Device: AICD Device Placement Date:: 2015 Past Psychological History: No Psychological Hx Reported Smoking Status: Former smoker Past Alcohol Use History: None Reported Additional Past Alcohol Use History / Comment(s): 1 pack a day Past Drug Use History: None Reported - Past Family History Father Family Medical History: Congestive Heart Failure (CHF) Medications and Allergies Home Medications Medication Instructions Recorded Confirmed Type Albuterol Inhaler [Ventolin Hfa 2 puff INHALATION RT-Q6H PRN 04/22/19 11/04/19 History Inhaler] Amiodarone HCl [Pacerone] 100 mg PO DAILY 04/22/19 11/04/19 History Multivitamins, Thera [Multivitamin 1 tab PO DAILY 04/22/19 11/04/19 History (formulary)] Vitamin E 100 unit PO DAILY 04/22/19 11/04/19 History Budesonide-Formot 160-4.5 Mcg 2 puff INHALATION RT-BID PRN 08/23/19 11/04/19 History [Symbicort 160-4.5 Mcg Inhaler (Bulk)] Ipratropium-Albuterol Nebulize 3 ml INHALATION RT-QID PRN 08/23/19 11/04/19 History [Duoneb 0.5 mg-3 mg/3 ml Soln] Nicotine 14Mg/24Hr Patch [Habitrol] 1 patch TRANSDERM DAILY #7 patch 08/29/19 0 11/04/19 Rx Ibuprofen [Motrin Ib] 600 mg PO Q8H PRN 11/04/19 11/04/19 History Levothyroxine Sodium 25 mcg PO DAILY 11/04/19 11/04/19 History Allergies Allergy/AdvReac Type Severity Reaction Status Date / Time No Known Allergies Allergy Verified 11/04/19 09:19 Physical Exam Vitals: Vital Signs Temp Pulse Pulse Resp BP BP Pulse Ox 11/04/19 10:00 92 12 113/85 97 11/04/19 09:00 93 17 101/70 96 11/04/19 08:00 98.5 F 90 12 101/74 98 11/04/19 07:50 93 11/04/19 07:39 91 11/04/19 07:00 93 12 108/82 97 11/04/19 06:30 95 11 L 108/82 98 11/04/19 06:06 96 11/04/19 04:00 96.4 F L 106 H 26 H 133/58 93 L 11/04/19 00:00 97.2 F L 98 20 112/69 97 11/03/19 23:50 97.3 F L 94 22 109/82 94 L 11/03/19 22:58 96 24 89/76 96 11/03/19 22:30 97 22 103/55 98 11/03/19 21:56 98.0 F 96 18 100/86 98 11/03/19 21:23 97.3 F L 55 L 18 88/50 94 L Intake and Output 11/03/19 11/04/19 11/04/19 22:59 06:59 14:59 Intake Total 30 Output Total 400 185 Balance -400 -155 Intake: IV 30 Sodium Chloride 0.9% 1, 30 000 ml @ 20 mls/hr IV . Q24H [facility] Rx#:[id number] Output: Urine 400 185 Other: Voiding Method Indwelling Catheter # Voids 1 Weight 56.699 kg 59 kg 59 kg Results CBC & Chem 7: 11/04/19 06:37 11/04/19 06:37 Labs: Abnormal Lab Results - Last 24 Hours (Table) 11/03/19 11/03/19 11/03/19 Range/Units 21:55 21:55 21:55 WBC 10.8 H (3.8-10.6) k/uL RBC 4.23 L (4.30-5.90) m/uL Neutrophils # 9.1 H (1.3-7.7) k/uL Lymphocytes # 0.7 L (1.0-4.8) k/uL ABG pH (7.35-7.45) ABG pCO2 (35-45) mmHg ABG pO2 (83-108) mmHg ABG O2 Saturation (94-97) % Sodium 131 L (137-145) mmol/L Chloride 96 L (98-107) mmol/L Carbon Dioxide (22-30) mmol/L Glucose 111 H (74-99) mg/dL POC Glucose (mg/dL) (75-99) mg/dL AST 62 H (17-59) U/L ALT 54 H (4-49) U/L Creatine Kinase 471 H (55-170) U/L Troponin I 0.053 H* (0.000-0.034) ng/mL 11/04/19 11/04/19 11/04/19 Range/Units 02:58 05:39 06:02 WBC (3.8-10.6) k/uL RBC (4.30-5.90) m/uL Neutrophils # (1.3-7.7) k/uL Lymphocytes # (1.0-4.8) k/uL ABG pH 7.25 L (7.35-7.45) ABG pCO2 49 H (35-45) mmHg ABG pO2 52 L* (83-108) mmHg ABG O2 Saturation 79.5 L (94-97) % Sodium (137-145) mmol/L Chloride (98-107) mmol/L Carbon Dioxide (22-30) mmol/L Glucose (74-99) mg/dL POC Glucose (mg/dL) 219 H 146 H (75-99) mg/dL AST (17-59) U/L ALT (4-49) U/L Creatine Kinase (55-170) U/L Troponin I (0.000-0.034) ng/mL 11/04/19 11/04/19 11/04/19 Range/Units 06:37 06:37 06:37 WBC 12.2 H (3.8-10.6) k/uL RBC (4.30-5.90) m/uL Neutrophils # 11.6 H (1.3-7.7) k/uL Lymphocytes # 0.3 L (1.0-4.8) k/uL ABG pH (7.35-7.45) ABG pCO2 (35-45) mmHg ABG pO2 (83-108) mmHg ABG O2 Saturation (94-97) % Sodium 133 L (137-145) mmol/L Chloride (98-107) mmol/L Carbon Dioxide 21 L (22-30) mmol/L Glucose 132 H (74-99) mg/dL POC Glucose (mg/dL) (75-99) mg/dL AST (17-59) U/L ALT (4-49) U/L Creatine Kinase (55-170) U/L Troponin I 0.052 H* (0.000-0.034) ng/mL Thrombosis Risk Factor Assmnt - Choose All That Apply Each Factor Represents 1 point: Medical pt on bed rest Each Risk Factor Represents 2 Points: Age 61-74 years Thrombosis Risk Factor Assessment Total Risk Factor Score: 3 Thrombosis Risk Factor Assessment Level: Moderate Risk
[2019-11-04] MEDS: BUDESONIDE 1 MG/2 ML NEBU INHALATION SCH (19:08)
[2019-11-04] MEDS: FORMOTEROL FUMARATE 20 MCG/2 ML NEBU INHALATION SCH (19:08)
[2019-11-04] MEDS: ENOXAPARIN 40 MG/0.4 ML SYRINGE SQ SCH (20:29)
[2019-11-04] MEDS: MULTIVITAMINS, THERA 1 EACH TAB PO SCH (20:30)
[2019-11-04] MEDS: AMIODARONE 100 MG TAB PO SCH (20:30)
[2019-11-04] MEDS: LEVOTHYROXINE 25 MCG TAB PO SCH (20:30)
[2019-11-04] MEDS: SODIUM CHLORIDE 0.9% 1,000 ML IV SCH (23:13)
[2019-11-05 05:04] LABS: Basophils % (A) 0 %; Eosinophils % (A) 0 %; HCT 38.2 % (39.0-53.0); HGB 12.7 gm/dL (13.0-17.5); Lymphocytes # (A) 0.4 k/uL (1.0-4.8); Lymphocytes % (A) 4 %; MCH 30.6 pg (25.0-35.0); MCHC 33.2 g/dL (31.0-37.0); MCV 92.2 fL (80.0-100.0); Mean Platelet Volume 8.9; Monocytes # (A) 0.3 k/uL (0-1.0); Monocytes % (A) 3 %; Neutrophils # (A) 8.5 k/uL (1.3-7.7); Neutrophils % (A) 92 %; Platelet Count 153 k/uL (150-450); RBC 4.14 m/uL (4.30-5.90); RDW 14.7 % (11.5-15.5); WBC 9.2 k/uL (3.8-10.6)
[2019-11-05 05:17] LABS: African American GFR (CKD) >90 (>60 ml/min/1.73 sqM); Anion Gap 6 mmol/L; Blood Urea Nitrogen 25 mg/dL (9-20); Calcium 8.4 mg/dL (8.4-10.2); Carbon Dioxide 31 mmol/L (22-30); Chloride 92 mmol/L (98-107); Glucose 115 mg/dL (74-99); Non-African American GFR(CKD) 86 (>60 ml/min/1.73 sqM); Potassium 4.4 mmol/L (3.5-5.1); Sodium 129 mmol/L (137-145)
--- NOTE | 2019-11-05 06:43 | XR ---
EXAMINATION TYPE: XR chest 1V DATE OF EXAM: 11/05/2019 HISTORY: COPD. REFERENCE: Previous study dated 11/04/2019. FINDINGS: There is a bipolar pacemaker in place on the left side of the chest. The heart is enlarged. There continues to be right-sided airspace disease. There is an enlarging right pleural effusion. Lef t lung appears clear. There is underlying COPD. IMPRESSION: 1. CONTINUING RIGHT BASILAR AIRSPACE DISEASE. 2. WORSENING RIGHT EFFUSION. 3. COPD.
[2019-11-05] MEDS: LEVOTHYROXINE 25 MCG TAB PO SCH (07:00)
[2019-11-05] MEDS: methylPREDNISolone SOD SUCCI 125 MG/2 ML VIAL IV SCH ×2 (07:01→13:33)
[2019-11-05] MEDS: IPRATROPIUM-ALBUTEROL 3 ML NEB INHALATION SCH ×4 (07:34→19:36)
[2019-11-05] MEDS: FORMOTEROL FUMARATE 20 MCG/2 ML NEBU INHALATION SCH ×2 (07:36→19:36)
[2019-11-05] MEDS: BUDESONIDE 1 MG/2 ML NEBU INHALATION SCH ×2 (07:36→19:36)
[2019-11-05] MEDS: AZITHROMYCIN 500 MG TAB PO SCH (09:39)
[2019-11-05] MEDS: AMIODARONE 100 MG TAB PO SCH (09:40)
[2019-11-05] MEDS: MULTIVITAMINS, THERA 1 EACH TAB PO SCH (09:40)
[2019-11-05] MEDS: ENOXAPARIN 40 MG/0.4 ML SYRINGE SQ SCH (09:41)
[2019-11-05] MEDS: FUROSEMIDE 40 MG TAB PO SCH (11:30)
--- NOTE | 2019-11-05 13:45 | PN ---
PROGRESS NOTE PULMONARY/CRITICAL CARE PROGRESS NOTE: DATE OF SERVICE: 11/05/2019 This is a 68-year-old male who was admitted back on November 03 for a COPD exacerbation complicated by possible right-sided pneumonia and a loculated right-sided effusion. The patient is doing very well. He was transferred to the general medical floor today. He does have a history of underlying COPD, some mental status changes initially, likely related to Ativan administration, previous lung mass in the right lower lobe, status post right lower lobectomy, status post AICD placement, myocardial infarction, previous heavy tobacco use, and multiple other medical problems. The right lower lobe was removed because of cancer. It is apparently early stage cancer and the patient did not require any chemo or radiation. Current vital signs include a temperature 97.7. heart rate 96, respiratory rate 23, blood pressure 91/70 mean 77, saturations are 96% on 1 L nasal cannula. HEENT: Examination is grossly unremarkable. Nasal O2 noted. NECK: Supple, full range of motion. No adenopathy. Neck veins are flat. CARDIOVASCULAR: Examination reveals regular rhythm and rate. Heart rate in the mid 90s. S1, S2 normal. There is no murmur. LUNGS: Reveal severely diminished breath sounds. A few scattered mild rhonchi. No wheezes or crackles. Breath sounds equal. There is prolongation on forced maneuver. ABDOMEN: Soft, bowel sounds are heard. EXTREMITIES: Intact. No cyanosis or clubbing, There is mild edema. SKIN: Without rash. NEUROLOGIC: Examination is brief but nonfocal. Microbiologic studies are negative. LABS: Reviewed. White count 9.2, hemoglobin 12.7, hematocrit 38.2, platelet count 183,000, sodium 129, potassium 4.4, chloride 92, CO2 is 31, anion gap is 6. BUN and creatinine 25 and 0.9. Troponins were 0.052 and 0.058. CHEST X-RAY: Done today shows right basilar airspace disease and a right-sided effusion. The effusion is a bit larger. There are changes of COPD. Medications are reviewed. From the pulmonary standpoint, he remains on Zithromax, Pulmicort, formoterol, DuoNeb, and Solu-Medrol. ASSESSMENT: 1. Chronic obstructive pulmonary disease exacerbation, complicated by possible right- sided pneumonia. 2. Loculated right-sided effusion. 3. History of underlying chronic obstructive pulmonary disease. 4. Mental status change with alveolar hypoventilation and acute on chronic respiratory acidosis, likely related to underlying Ativan administration. 5. Previous history of lung mass, status post surgery to the right lower lobe/right lower lobectomy. It was an early stage lung cancer. The patient did not require any chemo or radiation therapy. 6. Status post AICD placement. 7. History of myocardial infarction. 8. History of previous heavy tobacco use. 9. History of multiple other medical problems and comorbidities. PLAN: The patient will be transferred out of the unit today up to the floor. He seems to be doing relatively well. Has not used BiPAP in some time. The patient will have his Lasix changed from twice a day IV to Lasix 40 mg p.o. daily. He will be transferred to the general medical floor without telemetry. Will DC the IV Lasix and we will DC the BiPAP device. Additional recommendations and suggestions are forthcoming. Prognosis is guarded. MMODL / IJN: [id number] /
--- NOTE | 2019-11-05 15:15 | P.PN ---
Progress Note - Text Progress Note Date: 11/05/19 Chief Complaint: Short of breath, cough History of presenting complaint This is a 68-year-old patient of Dr. Salazar. Chronic stable medical conditions include (left bundle branch block, AICD, BPH, right lower lobe lobectomy. Patient stopped smoking in August of this year. 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 Small amount of sputum a bit yellow. No fever slight headache. Decreased appetite. Was rather significant short of breath and had report of BiPAP and moved to the ICU. This morning breathing is a bit better. Still short of breath slight cough. Decreased appetite. Admitted with right lobe pneumonia, COPD exacerbation, acute hypoxic respiratory failure. Required BiPAP. Initially admitted to the ICU. Today-feeling much better. Moved to the medical floor. On nasal cannula. Oral intake improved. Slight cough. No sputum. Review of systems: Was done for constitutional, cardiovascular, GI, pulmonary. relevant finding as above Active Medications Albuterol/Ipratropium (Duoneb 0.5 Mg-3 Mg/3 Ml Soln) 3 ml INHALATION RT-QID [facility] Last Admin: 11/05/19 11:09 Dose: 3 ml Documented by: Albuterol/Ipratropium (Duoneb 0.5 Mg-3 Mg/3 Ml Soln) 3 ml INHALATION RT-Q2H PRN PRN Reason: Shortness Of Breath Or Wheezing Amiodarone HCl (Cordarone) 100 mg PO DAILY [facility] Last Admin: 11/05/19 09:40 Dose: 100 mg Documented by: Azithromycin (Zithromax) 500 mg PO DAILY [facility] Last Admin: 11/05/19 09:39 Dose: 500 mg Documented by: Budesonide (Pulmicort) 1 mg INHALATION RT-BID [facility] Last Admin: 11/05/19 07:36 Dose: 1 mg Documented by: Enoxaparin Sodium (Lovenox) 40 mg SQ DAILY [facility] Last Admin: 11/05/19 09:41 Dose: 40 mg Documented by: Flumazenil (Romazicon) 0.2 mg IVP ONCE PRN PRN Reason: reversal Last Admin: 11/04/19 03:10 Dose: 0.2 mg Documented by: Formoterol Fumarate (Perforomist) 20 mcg INHALATION RT-BID [facility] Last Admin: 11/05/19 07:36 Dose: 20 mcg Documented by: Furosemide (Lasix) 40 mg PO DAILY [facility] Last Admin: 11/05/19 11:30 Dose: 40 mg Documented by: Sodium Chloride (Saline 0.9%) 1,000 mls @ 20 mls/hr IV .Q24H [facility] Last Admin: 11/04/19 23:13 Dose: Not Given Documented by: Ibuprofen (Advil) 600 mg PO Q8H PRN PRN Reason: Pain Last Admin: 11/05/19 09:40 Dose: 600 mg Documented by: Levothyroxine Sodium (Synthroid) 25 mcg PO DAILY@0630 [facility] Last Admin: 11/05/19 07:00 Dose: 25 mcg Documented by: Methylprednisolone Sodium Succinate (Solu-Medrol) 60 mg IV Q6HR [facility] Last Admin: 11/05/19 13:33 Dose: 60 mg Documented by: Multivitamins (Theragran) 1 each PO DAILY [facility] Last Admin: 11/05/19 09:40 Dose: 1 each Documented by: Physical examination: VITAL SIGNS: 97.6, 86, 16, 82/57, 99% on 6 L GENERAL: Sitting upon a chair, awake, breathing better EYES: Pupils equal. Conjunctiva normal. HEENT: External appearance of nose and ears normal, oral cavity grossly normal. NECK: JVD not raised; masses not palpable. HEART: First and second heart sounds are normal; no edema. LUNGS: Respiratory rate increased, , diminished breath sounds prolonged expiration ABDOMEN: Soft, nontender, liver spleen not palpable, no masses palpable. 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 -Left bundle-branch block -AICD -BPH -History of arrhythmia type unknown patient is on amiodarone. -History of Right lower lobe lobectomy, biopsy showing adenocarcinoma. Plan: Continue patient on bronchodilators. On Zithromax. Cut back on IV Solu-Medrol. Decrease FiO2
[2019-11-05] MEDS: methylPREDNISolone SOD SUCCI 40 MG/ML 1 ML VIAL IV SCH ×2 (16:45→23:44)
[2019-11-05 20:40] LABS: Appearance,Urine Clear (Clear); Bilirubin,Urine Negative (Negative); Blood,Urine Trace (Negative); Color,Urine Yellow; Glucose,Urine (UA) Negative (Negative); Hyaline Casts,Urine 1 /lpf (0-2); Ketones,Urine Negative (Negative); Leukocyte Esterase,Urine Trace (Negative); Mucus,Urine Rare /hpf; Nitrite,Urine Negative (Negative); PH, Urine 5.5 (5.0-8.0); Protein,Urine Negative (Negative); RBC,Urine 3 /hpf (0-5); Urobilinogen,Urine <2.0 mg/dL (<2.0); WBC,Urine 5 /hpf (0-5)
[2019-11-05] MEDS: IBUPROFEN 600 MG TAB PO PRN (20:52)
[2019-11-05] MEDS ORDERED: DIAZEPAM 2 MG TAB PO STA (23:56)
[2019-11-06] MEDS: SODIUM CHLORIDE 0.9% 1,000 ML IV SCH (00:08)
[2019-11-06] MEDS: IPRATROPIUM-ALBUTEROL 3 ML NEB INHALATION SCH ×5 (02:52→18:45)
[2019-11-06] MEDS: IBUPROFEN 600 MG TAB PO PRN ×2 (05:03→19:54)
[2019-11-06] MEDS: LEVOTHYROXINE 25 MCG TAB PO SCH (05:03)
[2019-11-06] MEDS: IPRATROPIUM-ALBUTEROL 3 ML NEB INHALATION PRN ×2 (05:14→22:38)
[2019-11-06 06:16] LABS: Basophils % (A) 0 %; Eosinophils % (A) 0 %; HCT 41.8 % (39.0-53.0); Lymphocytes # (A) 0.4 k/uL (1.0-4.8); Lymphocytes % (A) 3 %; MCH 31.3 pg (25.0-35.0); MCHC 33.5 g/dL (31.0-37.0); MCV 93.4 fL (80.0-100.0); Mean Platelet Volume 9.4; Monocytes # (A) 0.6 k/uL (0-1.0); Monocytes % (A) 4 %; Neutrophils # (A) 14.6 k/uL (1.3-7.7); Neutrophils % (A) 92 %; Platelet Count 185 k/uL (150-450); RBC 4.47 m/uL (4.30-5.90); RDW 14.6 % (11.5-15.5); WBC 15.8 k/uL (3.8-10.6)
[2019-11-06 06:26] LABS: Calcium 9.3 mg/dL (8.4-10.2); Potassium 4.7 mmol/L (3.5-5.1)
[2019-11-06] MEDS ORDERED: DIAZEPAM 5 MG/ML 2 ML INJ IM STA (06:48)
[2019-11-06 07:14] LABS: ABG Base Excess -1.2 mmol/L; ABG HCO3 24 mmol/L (21-25); ABG Oxygen Saturation 98.4 % (94-97); ABG PCO2 38 mmHg (35-45); ABG PO2 120 mmHg (83-108); ABG TCO2 25 mmol/L (19-24); Allen Test Performed? Yes
[2019-11-06] MEDS: BUDESONIDE 1 MG/2 ML NEBU INHALATION SCH ×2 (07:39→18:45)
[2019-11-06] MEDS: FORMOTEROL FUMARATE 20 MCG/2 ML NEBU INHALATION SCH ×2 (07:39→18:45)
[2019-11-06] MEDS: AZITHROMYCIN 500 MG TAB PO SCH (08:29)
[2019-11-06] MEDS: FUROSEMIDE 40 MG TAB PO SCH (08:29)
[2019-11-06] MEDS: methylPREDNISolone SOD SUCCI 40 MG/ML 1 ML VIAL IV SCH (08:29)
[2019-11-06] MEDS: MULTIVITAMINS, THERA 1 EACH TAB PO SCH (08:29)
[2019-11-06] MEDS: AMIODARONE 100 MG TAB PO SCH (08:29)
[2019-11-06] MEDS: ENOXAPARIN 40 MG/0.4 ML SYRINGE SQ SCH (08:30)
--- NOTE | 2019-11-06 14:25 | P.CN ---
Psychiatric Consult - . Consult date: 11/06/19 Consult:: IDENTIFYING DATA: The patient is a 68-year-old male with multiple medical problems. He was admitted to medicine for increased shortness of breath and cough. The hospitalist consult to psychiatry for anxiety. HISTORY OF PRESENT ILLNESS: I reviewed the medical record and interviewed the patient. He complained that he becomes extremely anxious wwhenever he feels that he cannot breathe. When he feels that he cannot "get enough air" he "panics" and becomes extremely frightened and distressed. Earlier today he experienced an episode when he could not catch his breath and found some relief after receiving 2.5 mg of diazepam IM. He denied feeling persistent anxiety that he is unable to control. The anxiety only builds up when he is unable to breathe sufficiently. Specifically, he denied that he feels persistently restless or keyed up, fatigued, irritable or tense. He denied experiences periods of increased anxiety outside of a hypoxic episode. He denied obsessions or compulsions. He denied feeling depressed or having thoughts of or suicide. He denied periods of elevated mood or sustained irritability consistent with cirilo or hypomania. He denied experiencing such psychotic symptoms as hallucinations, delusions or thought disturbances. PAST PSYCHIATRIC HISTORY: He denied a history of psychiatric treatment or psychiatric hospitalizations.. PAST MEDICAL HISTORY: He has a complicated medical history of atherosclerotic heart disease and a permanent pacemaker for reviewed, COPD, left bundle branch block, adenocarcinoma along with right lower lobe lobectomy. ALLERGIES: No known ALLERGIES. SUBSTANCE USE HISTORY: He denied history of alcohol or drug use problems. He denied a family or friends have complained him about his alcohol use.. FAMILY PSYCHIATRIC/SUBSTANCE USE HISTORY: He is unaware of family history of mental health problems. 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 He lives with his of 3 years. They have 4 children and 6 grandchildren.. MENTAL STATUS EXAM: He presented as a thin elderly male who became easily short of breath. He made eye contact and attended to the interview. He had a distressed facial expression. He was alert and oriented to person, place and time. He showed psychomotor retardation but no abnormal goal is. His speech was spontaneous with decreased rate and rhythm. His affect was anxious but stable and appropriate. He denied suicidal ideation, wishes or homicidal ideation. He denied feeling hopeless or helpless. He ruminated about his breathing and difficulty has at times with finding of breath. He did not express ideas reference, paranoid ideation or delusions. His thinking was concrete but his associations were coherent and logical. He denied hallucinations and did not appear to be responding to internal stimuli.. We attempted to complete the [employer] Memory and Concentration Test. He did not show strong effort uncertain whether his performance is a true reflection of his current cognitive functioning. His total weighted error score was 10; "total weighted error score greater than 10 inches consistent with dementia. Once and the year. He was able to retain the memory phrase "Quang Carr, [address] [facility]. He accurately estimated the current time and, backwards from 20-1. He would not try to name the months reverse order and cannot remember "Quang Carr" from the memory phrase. IMPRESSIONS: He is a 68-year-old male with no history of psychiatric illness. He presented to [facility] for management of chronic dyspnea. He has multiple medical problems including a partial lobectomy secondary to adenocarcinoma with long. He described periods of anxiety only related to periods of dyspnea. He denied persistent anxiety suggestive of a major p sychiatric syndrome. His anxiety complaints should be treated symptomatically. I concur with the when necessary use of a benzodiazepine since he does not appear to be a CO2 retainer. PLAN: Continue Valium 2.5-5 mg by mouth every 6 hours when necessary for anxiety. There is no indication for transfer the psychiatric unit. There is no indication for referral for outpatient mental health services. Thank you for this consult. Psychiatry will sign off the case.. 11/06/19 14:12
[2019-11-06] MEDS ORDERED: DIAZEPAM 5 MG TAB PO PRN ×2 (15:22→15:32)
[2019-11-06] MEDS ORDERED: DIAZEPAM 2 MG TAB PO PRN (15:22)
--- NOTE | 2019-11-06 16:18 | P.PN ---
Subjective Progress Note Date: 11/06/19 Principal diagnosis: Acute exacerbation of chronic obstructive pulmonary disease, complicated by a right-sided pneumonia and loculated right-sided effusion The patient is seen today 11/06/2019 in follow-up on the regular medical floor. He is currently sitting up at the bedside. Awake and alert in no acute distress. Earlier this morning he was having difficulty in breathing. He was on Arava at 60 L and 100% FiO2. Arterial blood gases revealed a PaO2 of 120, pCO2 38 and a pH of 7.40. He was given Ativan and his anxiety subsided and he was breathing easier. He is currently back down to 6 L high flow nasal cannula. White count 15.8. Hemoglobin 14.0. Sodium 124. Potassium 4.7. Bicarb 28. Creatinine 1.06. Objective - Vital Signs Vital signs: Vital Signs Temp 97.9 F 11/06/19 06:32 Pulse 78 11/06/19 15:24 Resp 18 11/06/19 15:24 BP 113/88 11/06/19 11:10 Pulse Ox 96 11/06/19 15:18 Intake & Output 11/05/19 11/06/19 11/06/19 18:59 06:59 18:59 Intake Total 880 Output Total 525 200 Balance -525 680 Intake: Oral 880 Output: Urine 525 200 Other: Voiding Method Indwelling Catheter Toilet Toilet # Voids 1 2 3 # Bowel Movements 1 0 - Exam GENERAL EXAM: Alert, 68-year-old gentleman, disheveled, on 6 L high flow nasal cannula comfortable in no apparent distress. HEAD: Normocephalic. EYES: Normal reaction of pupils, equal size. NOSE: Clear with pink turbinates. THROAT: No erythema or exudates. NECK: No masses, no JVD. CHEST: No chest wall deformity. LUNGS: Equal air entry with crackles in the right base him a diminished CVS: S1 and S2 normal with no audible murmur, regular rhythm. ABDOMEN: No hepatosplenomegaly, normal bowel sounds, no guarding or rigidity. SPINE: No scoliosis or deformity SKIN: No rashes CENTRAL NERVOUS SYSTEM: No focal deficits, tone is normal in all 4 extremities. EXTREMITIES: There is no peripheral edema. No clubbing, no cyanosis. Peripheral pulses are intact. - Labs CBC & Chem 7: 11/06/19 05:40 11/06/19 05:40 Labs: Abnormal Lab Results - Last 24 Hours (Table) 11/05/19 11/06/19 11/06/19 Range/Units 19:55 05:40 05:40 WBC 15.8 H (3.8-10.6) k/uL Neutrophils # 14.6 H (1.3-7.7) k/uL Lymphocytes # 0.4 L (1.0-4.8) k/uL ABG pO2 (83-108) mmHg ABG Total CO2 (19-24) mmol/L ABG O2 Saturation (94-97) % Sodium 124 L (137-145) mmol/L Chloride 82 L (98-107) mmol/L BUN 33 H (9-20) mg/dL Glucose 155 H (74-99) mg/dL Urine Blood Trace H (Negative) Ur Leukocyte Esterase Trace H (Negative) Urine Mucus Rare H (None) /hpf 11/06/19 Range/Units 07:01 WBC (3.8-10.6) k/uL Neutrophils # (1.3-7.7) k/uL Lymphocytes # (1.0-4.8) k/uL ABG pO2 120 H (83-108) mmHg ABG Total CO2 25 H (19-24) mmol/L ABG O2 Saturation 98.4 H (94-97) % Sodium (137-145) mmol/L Chloride (98-107) mmol/L BUN (9-20) mg/dL Glucose (74-99) mg/dL Urine Blood (Negative) Ur Leukocyte Esterase (Negative) Urine Mucus (None) /hpf Assessment and Plan Assessment: 1 Acute exacerbation of chronic obstructive pulmonary disease, treated by right- sided pneumonia/effusion. 2 Chronic loculated right-sided effusion 3 Altered mental status secondary to alveolar hypoventilation acute on chronic respiratory acidosis secondary to Ativan administration 4 Previous history of lung mass status post surgery to the right lower lobe right lower lobectomy. This was an early stage cancer and did not require chemo or radiation according to the patient 5 Status post AICD placement 6 History of myocardial infarction 7 History of previous heavy tobacco dependence 1 The patient was seen and evaluated by Dr. Ugarte. He is currently stable from the pulmonary standpoint. On 6 L high flow nasal cannula He did receive Ativan for anxiety this morning. Psychiatric consultation We'll continue to follow I, the cosigning physician, performed a history & physical examination of the patient. Lungs sounds with crackles in the right base, diminished. Maintaining good O2 saturations in the 90s on 6 L high flow nasal cannula. I discussed the assessment and plan of care with my nurse practitioner, Cait Ye. I attest to the above note as dictated by her.
--- NOTE | 2019-11-06 17:22 | P.PN ---
Progress Note - Text Progress Note Date: 11/06/19 Chief Complaint: Short of breath, cough History of presenting complaint This is a 68-year-old patient of Dr. Salazar. Chronic stable medical conditions include (left bundle branch block, AICD, BPH, right lower lobe lobectomy. Patient stopped smoking in August of this year. 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 Small amount of sputum a bit yellow. No fever slight headache. Decreased appetite. Was rather significant short of breath and had report of BiPAP and moved to the ICU. This morning breathing is a bit better. Still short of breath slight cough. Decreased appetite. Admitted with right lobe pneumonia, COPD exacerbation, acute hypoxic respiratory failure. Required BiPAP. Initially admitted to the ICU. Today-very anxious today. Given Valium earlier today. More short of breath and wheezing. Sitting at the edge of the bed. Decreased appetite. Review of systems: Was done for constitutional, cardiovascular, GI, pulmonary. relevant finding as above Active Medications Albuterol/Ipratropium (Duoneb 0.5 Mg-3 Mg/3 Ml Soln) 3 ml INHALATION RT-QID [facility] Last Admin: 11/06/19 15:18 Dose: 3 ml Documented by: Albuterol/Ipratropium (Duoneb 0.5 Mg-3 Mg/3 Ml Soln) 3 ml INHALATION RT-Q2H PRN PRN Reason: Shortness Of Breath Or Wheezing Last Admin: 11/06/19 05:14 Dose: 3 ml Documented by: Amiodarone HCl (Cordarone) 100 mg PO DAILY [facility] Last Admin: 11/06/19 08:29 Dose: 100 mg Documented by: Azithromycin (Zithromax) 500 mg PO DAILY [facility] Last Admin: 11/06/19 08:29 Dose: 500 mg Documented by: Budesonide (Pulmicort) 1 mg INHALATION RT-BID [facility] Last Admin: 11/06/19 07:39 Dose: 1 mg Documented by: Diazepam (Valium) 2.5 mg PO Q6H PRN PRN Reason: Anxiety Diazepam (Valium) 5 mg PO Q6H PRN PRN Reason: Anxiety Enoxaparin Sodium (Lovenox) 40 mg SQ DAILY [facility] Last Admin: 11/06/19 08:30 Dose: 40 mg Documented by: Flumazenil (Romazicon) 0.2 mg IVP ONCE PRN PRN Reason: reversal Last Admin: 11/04/19 03:10 Dose: 0.2 mg Documented by: Formoterol Fumarate (Perforomist) 20 mcg INHALATION RT-BID [facility] Last Admin: 11/06/19 07:39 Dose: 20 mcg Documented by: Furosemide (Lasix) 40 mg PO DAILY [facility] Last Admin: 11/06/19 08:29 Dose: 40 mg Documented by: Sodium Chloride (Saline 0.9%) 1,000 mls @ 20 mls/hr IV .Q24H [facility] Last Admin: 11/06/19 00:08 Dose: Not Given Documented by: Ibuprofen (Motrin) 600 mg PO Q8H PRN PRN Reason: Pain Last Admin: 11/06/19 05:03 Dose: 600 mg Documented by: Levothyroxine Sodium (Synthroid) 25 mcg PO DAILY@0630 [facility] Last Admin: 11/06/19 05:03 Dose: 25 mcg Documented by: Methylprednisolone Sodium Succinate (Solu-Medrol) 60 mg IV Q6HR [facility] Multivitamins (Theragran) 1 each PO DAILY [facility] Last Admin: 11/06/19 08:29 Dose: 1 each Documented by: Physical examination: VITAL SIGNS: 97.9, 88,24, 113/88, 94% on 6 L GENERAL: city of the edge of the bed, short of breath anxious EYES: Pupils equal. Conjunctiva normal. HEENT: External appearance of nose and ears normal, oral cavity grossly normal. NECK: JVD not raised; masses not palpable. HEART: First and second heart sounds are normal; no edema. LUNGS: Respiratory rate increased, , some right basilar crackles, decreased breath soundsn ABDOMEN: Soft, nontender, liver spleen not palpable, no masses palpable. 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 -Left bundle-branch block -AICD -BPH -History of arrhythmia type unknown patient is on amiodarone. -History of Right lower lobe lobectomy, biopsy showing adenocarcinoma. -generalized anxiety disorder, acute flareup -Chronic insomnia Plan: dose Solu-Medrol was propped up. Psychiatry was consulted. Patient was given Valium orally today. Patient ankle should increase oral intake.we'll also add melatonin night.
[2019-11-06] MEDS: DIAZEPAM 5 MG TAB PO PRN (17:49)
[2019-11-06] MEDS: methylPREDNISolone SOD SUCCI 125 MG/2 ML VIAL IV SCH ×2 (17:50→23:35)
[2019-11-06] MEDS: MELATONIN 3 MG TABLET PO SCH (21:47)
[2019-11-07] MEDS: DIAZEPAM 5 MG TAB PO PRN ×2 (00:26→18:36)
[2019-11-07] MEDS: SODIUM CHLORIDE 0.9% 1,000 ML IV SCH ×2 (00:33→13:27)
[2019-11-07] MEDS: methylPREDNISolone SOD SUCCI 125 MG/2 ML VIAL IV SCH ×4 (05:55→23:48)
[2019-11-07] MEDS: LEVOTHYROXINE 25 MCG TAB PO SCH (05:55)
[2019-11-07] MEDS: IPRATROPIUM-ALBUTEROL 3 ML NEB INHALATION SCH ×5 (08:10→20:25)
[2019-11-07] MEDS: BUDESONIDE 1 MG/2 ML NEBU INHALATION SCH ×2 (08:10→20:25)
[2019-11-07] MEDS: FORMOTEROL FUMARATE 20 MCG/2 ML NEBU INHALATION SCH ×2 (08:10→20:25)
[2019-11-07] MEDS: ENOXAPARIN 40 MG/0.4 ML SYRINGE SQ SCH (08:52)
[2019-11-07] MEDS: FUROSEMIDE 40 MG TAB PO SCH (08:52)
[2019-11-07] MEDS: AZITHROMYCIN 500 MG TAB PO SCH (08:52)
[2019-11-07] MEDS: MULTIVITAMINS, THERA 1 EACH TAB PO SCH (08:52)
[2019-11-07] MEDS: AMIODARONE 100 MG TAB PO SCH (08:52)
[2019-11-07 11:33] LABS: Glucose,Whole Blood 150 mg/dL (75-99)
[2019-11-07] MEDS ORDERED: RX INFO: IV CONTRAST WAS GIVEN 1 EACH MISC MISCELLANE PRN (12:20)
--- NOTE | 2019-11-07 13:33 | P.PN ---
Subjective Progress Note Date: 11/07/19 Principal diagnosis: Acute exacerbation of chronic obstructive pulmonary disease, complicated by a right-sided pneumonia and loculated right-sided effusion The patient is seen today 11/06/2019 in follow-up on the regular medical floor. He is currently sitting up at the bedside. Awake and alert in no acute distress. Earlier this morning he was having difficulty in breathing. He was on Arava at 60 L and 100% FiO2. Arterial blood gases revealed a PaO2 of 120, pCO2 38 and a pH of 7.40. He was given Ativan and his anxiety subsided and he was breathing easier. He is currently back down to 6 L high flow nasal cannula. White count 15.8. Hemoglobin 14.0. Sodium 124. Potassium 4.7. Bicarb 28. Creatinine 1.06. The patient is seen today 11/07/2019 in follow-up on the regular medical floor. He is more calm and cooperative today. Sitting up in the chair at the bedside. Denies any shortness of breath, cough or congestion. Still requiring 6 L high flow nasal cannula to maintain O2 saturations in the 90s. He's been afebrile. He remains on azithromycin, bronchodilators and IV Solu-Medrol. His sodium has been trending down. Today's labs are pending. Objective - Vital Signs Vital signs: Vital Signs Temp 96.9 F L 11/07/19 11:52 Pulse 89 11/07/19 11:52 Resp 18 11/07/19 11:52 BP 100/70 11/07/19 11:52 Pulse Ox 96 11/07/19 11:52 Intake & Output 11/06/19 11/07/19 11/07/19 18:59 06:59 18:59 Intake Total 480 Output Total 200 Balance 280 Intake: Oral 480 Output: Urine 200 Other: Voiding Method Toilet Toilet # Voids 3 3 # Bowel Movements 1 - Exam GENERAL EXAM: Alert, 68-year-old gentleman, disheveled, on 6 L high flow nasal cannula comfortable in no apparent distress. HEAD: Normocephalic. EYES: Normal reaction of pupils, equal size. NOSE: Clear with pink turbinates. THROAT: No erythema or exudates. NECK: No masses, no JVD. CHEST: No chest wall deformity. LUNGS: Equal air entry with crackles in the right base him a diminished CVS: S1 and S2 normal with no audible murmur, regular rhythm. ABDOMEN: No hepatosplenomegaly, normal bowel sounds, no guarding or rigidity. SPINE: No scoliosis or deformity SKIN: No rashes CENTRAL NERVOUS SYSTEM: No focal deficits, tone is normal in all 4 extremities. EXTREMITIES: There is no peripheral edema. No clubbing, no cyanosis. P eripheral pulses are intact. - Labs CBC & Chem 7: 11/06/19 05:40 11/06/19 05:40 Labs: Abnormal Lab Results - Last 24 Hours (Table) 11/07/19 Range/Units 11:32 POC Glucose (mg/dL) 150 H (75-99) mg/dL Assessment and Plan Assessment: 1 Acute exacerbation of chronic obstructive pulmonary disease, treated by right- sided pneumonia/effusion. 2 Chronic loculated right-sided effusion 3 Altered mental status secondary to alveolar hypoventilation acute on chronic respiratory acidosis secondary to Ativan administration. May need to rule out metastasis due to his history of lung cancer. The patient also was having hyponatremia. 4 Previous history of lung mass status post surgery to the right lower lobe right lower lobectomy. This was an early stage cancer and did not require chemo or radiation according to the patient 5 Status post AICD placement 6 History of myocardial infarction 7 History of previous heavy tobacco dependence 8 Hyponatremia Plan The patient was seen and evaluated by Dr. Eldridge We'll obtain a computed tomography scan of the chest to rule out any recurrence or progression We'll obtain a computed tomography scan of the brain to rule out metastasis due to his altered mental status Obtain a BMP to check his sodium level Add 0.9 normal saline at 75 ML's per hour We'll continue to follow I, the cosigning physician, performed a history & physical examination of the patient. Lungs sounds with crackles in the right base, diminished. Maintaining good O2 saturations in the 90s on 6 L high flow nasal cannula. I discussed the assessment and plan of care with my nurse practitioner, Cait Ye. I attest to the above note as dictated by her.
--- NOTE | 2019-11-07 14:12 | CDI ---
Documentation Clarification Form Date: 11/07/2019 01:22:48 PM From: Robyn Corcoran RN, CCDS Admit Date: 11/04/2019 06:14:00 AM Patient Name: Javier Paniagua Visit Number: [id number] Discharge Date: ATTENTION: The Clinical Documentation Specialists (CDI) and [facility] Coding Staff appreciate your assistance in clarifying documentation. Please respond to the clarification below the line at the bottom and electronically sign. The CDI & [facility] Coding staff will review the response and follow-up if needed. Please note: Queries are made part of the Legal Health Record. If you have any questions, please contact the author of this message via ITS. Dr. Silvino Ugarte Altered Mental Status change with alveolar hypoventilation, likely related to underlying Ativan administration was documented in the consult and ongoing progress notes starting on 11/03 and additional clarification is requested. History/Risk Factors: COPD, Anxiety Clinical Indicators: 68-year-old male present to ED on 11/02 with complaints of shortness of breath, cough and congestion. He was admitted for COPD exacerbation. Initially, apparently (per documentation 11/03) he was agitated and received a couple doses of Ativan. An A-team was called treated with Romazicon to reverse the benzodiazepine. He deteriorated and was moved to ICU placed on BiBAP. Labs: pO2 of 52, pCO2 49, pH of 7.25 11/03 Chest X Ray: mild CHF and loculated right-sided effusion, with right basilar airspace disease and worsening multifocal right mid lung airspace abnormalities consistent with pneumonia 11/03 Vital signs 113/85 92 17 98.5 97 % on the BiPAP at 12, 5 and 40 % Treatment: Neurological assessment per protocol DC Ativan BiPAP per orders Solu-Medrol IV Q 6 HRS Zithromax 500 PO Daily DuoNeb per orders In your professional opinion, please clarify the mental status change with alveolar hypoventilation, likely related to underlying Ativan administration are you treating? Toxic Encephalopathy due to Ativan administration Other condition (please specify) Unable to determine (Last Revision: November 2017) Encephalopathy secondary to Ativan and elevated carbon dioxide. MTDD
--- NOTE | 2019-11-07 14:50 | CDI ---
Documentation Clarification Form Date: 11/07/2019 02:16:19 PM From: Robyn Corcoran RN, CCDS Admit Date: 11/04/2019 06:14:00 AM Patient Name: Javier Paniagua Visit Number: [id number] Discharge Date: ATTENTION: The Clinical Documentation Specialists (CDI) and [facility] Coding Staff appreciate your assistance in clarifying documentation. Please respond to the clarification below the line at the bottom and electronically sign. The CDI & [facility] Coding staff will review the response and follow-up if needed. Please note: Queries are made part of the Legal Health Record. If you have any questions, please contact the author of this message via ITS. Dr. Delano Cedeño CHF is documented in the ED clinical impression on 11/02 and further specificity is requested. History/Risk Factors: COPD, myocardial Infarction 2001, Pneumonia Clinical Indicators: 68-year-old male who had partial right lower lobe removal present on 11/02 with complaints of shortness of breath, cough, congestion. ED respiratory exam has respiratory distress, wheezes, accessory muscle use, decreased breath sounds, prolonged expiratory. 11/02 at 21:23 VS/Pulse OX: 88/50 55 18 94 % RA 11/02 BNP: 6790 11/02 Chest x-ray: Right pleural effusion slightly increased compared to last exam. There is mild pulmonary congestion but no overt heart failure. Pulmonary congestion increased lightly compared to last exam. 11/04 Chest x-ray: continuing right basilar airspace disease. worsening right effusion. COPD 11/03 Echocardiogram Results: Severe global hyypokinesis of LV. Overall left ventricular systolic function is severely impaired with, an EF <20 % Treatment: Lasix 20 MG IV Q 12 11/04 change to 40 mg PO Daily Monitor O2 Sat's (Titrate) In your professional opinion, can you please clarify the acuity and type of CHF if known? Systolic Heart Failure: Acute Chronic Acute on Chronic Diastolic Heart Failure: Acute Chronic Acute on Chronic Systolic & Diastolic Heart Failure: Acute Chronic Acute on Chronic Heart Failure Unable to Determine Other, please specify (Last Revision: November 2017) Acute on chronic congestive heart failure from systolic dysfunction EF less than 20% MTDD
--- NOTE | 2019-11-07 14:51 | CT ---
EXAMINATION TYPE: CT brain wo/w con DATE OF EXAM: 11/07/2019 COMPARISON: Correlation PET/CT 07/01/2019 HISTORY: 68 year-old male history of Lung cancer, rule out mets. Patient appears confused. TECHNIQUE: Examination was done in axial plane without intravenous contrast. Coronal and sagittal r econstructions performed. CT DLP: 2072.7 mGycm Automated exposure control for dose reduction was used. FINDINGS: There is no evidence of acute intracranial hemorrhage, acute ischemic changes, mass, mass-effect, or extra-axial fluid collection. There is no effacement of cerebral sulci or basal subarachnoid cister ns. There is no hydrocephalus. There is no midline shift. Villanueva-white matter distinction is preserv ed. Mild generalized cerebral cortical atrophy, age related change. No enhancing intracranial lesions. Dural venous sinuses are patent. Leftward nasal septal deviation. Mild lobulated mucosal thickening left sphenoid sinus. Mastoid air c ells are well pneumatized. Focal sclerosis inferior left mastoid air cell unchanged from 07/01/2019 where no uptake was present, compatible with benign sclerosis. IMPRESSION: No acute intracranial abnormality seen. No CT evidence for intracranial metastases/abnormal enhanceme nt.
--- NOTE | 2019-11-07 15:03 | CT ---
EXAMINATION TYPE: CT chest w con DATE OF EXAM: 11/07/2019 COMPARISON: 07/01/2019 HISTORY: 68-year-old male History of mass. TECHNIQUE: Contiguous axial scanning of the chest after the administration of 100 mL of Isovue 300. Coronal/sagittal reconstructions performed. CT DLP: 637.4mGycm. Automatic exposure control utilized for a dose reduction. FINDINGS: Left anterior chest wall AICD generator with right atrial and right ventricular leads. Large amount of high density material seen along the medial aspect of the right arm, possible contras t extravasation at the injection site. Clinically correlate. Heart moderately enlarged. No pericardial effusion. Aorta normal caliber with mild atherosclerotic arch calcifications. No thoracic lymphadenopathy by CT size criteria. Moderate centrilobular emphysema. Some septal thickening in the upper and mid lungs. Mild groundglass left upper lobe and left hilar region. Trace left effusion. There is a moderate right pleural effusion. Some slight loculation is suggested posteromedially. Ther e may have been basilar right lower lobectomy in the interval. This should be correlated with patient 's history. Some mild patchy posterior right basilar opacity. Reflux of contrast into the hepatic veins. Moderate stool in the visualized colon. Bones: No osseous destructive process seen. IMPRESSION: 1. Basilar right lower lobectomy performed in the interval. No residual mass or suspicious nodules/ly mphadenopathy seen. 2. Cardiomegaly, reflux of contrast into the hepatic veins, septal thickening, and mild patchy areas of groundglass. Correlate for CHF with early interstitial pulmonary edema. 3. Moderate right pleural effusion with possible areas of loculation. Trace left effusion. Some patch y right basilar opacity likely represents atelectasis rather than infiltrate.
[2019-11-07 15:41] LABS: Calcium 8.1 mg/dL (8.4-10.2); Potassium 4.2 mmol/L (3.5-5.1)
[2019-11-07] MEDS: IBUPROFEN 600 MG TAB PO PRN (18:32)
--- NOTE | 2019-11-07 20:42 | P.PN ---
Progress Note - Text Progress Note Date: 11/07/19 Chief Complaint: Short of breath, cough History of presenting complaint This is a 68-year-old patient of Dr. Salazar. Chronic stable medical conditions include (left bundle branch block, AICD, BPH, right lower lobe lobectomy. Patient stopped smoking in August of this year. 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 Small amount of sputum a bit yellow. No fever slight headache. Decreased appetite. Was rather significant short of breath and had report of BiPAP and moved to the ICU. This morning breathing is a bit better. Still short of breath slight cough. Decreased appetite. Admitted with right lobe pneumonia, COPD exacerbation, acute hypoxic respiratory failure. Required BiPAP. Initially admitted to the ICU. Today-rather tired. Hardly been eating. Breathing improved. Review of systems: Was done for constitutional, cardiovascular, GI, pulmonary. relevant finding as above Active Medications Albuterol/Ipratropium (Duoneb 0.5 Mg-3 Mg/3 Ml Soln) 3 ml INHALATION RT-QID [facility] Last Admin: 11/07/19 20:25 Dose: 3 ml Documented by: Albuterol/Ipratropium (Duoneb 0.5 Mg-3 Mg/3 Ml Soln) 3 ml INHALATION RT-Q2H PRN PRN Reason: Shortness Of Breath Or Wheezing Last Admin: 11/06/19 22:38 Dose: 3 ml Documented by: Amiodarone HCl (Cordarone) 100 mg PO DAILY [facility] Last Admin: 11/07/19 08:52 Dose: 100 mg Documented by: Azithromycin (Zithromax) 500 mg PO DAILY [facility] Last Admin: 11/07/19 08:52 Dose: 500 mg Documented by: Budesonide (Pulmicort) 1 mg INHALATION RT-BID [facility] Last Admin: 11/07/19 20:25 Dose: 1 mg Documented by: Diazepam (Valium) 2.5 mg PO Q6H PRN PRN Reason: Anxiety Last Admin: 11/07/19 18:36 Dose: 2.5 mg Documented by: Diazepam (Valium) 5 mg PO Q6H PRN PRN Reason: Anxiety Last Admin: 11/07/19 08:55 Dose: 5 mg Documented by: Enoxaparin Sodium (Lovenox) 40 mg SQ DAILY [facility] Last Admin: 11/07/19 08:52 Dose: 40 mg Documented by: Flumazenil (Romazicon) 0.2 mg IVP ONCE PRN PRN Reason: reversal Last Admin: 11/04/19 03:10 Dose: 0.2 mg Documented by: Formoterol Fumarate (Perforomist) 20 mcg INHALATION RT-BID [facility] Last Admin: 11/07/19 20:25 Dose: 20 mcg Documented by: Furosemide (Lasix) 40 mg PO DAILY [facility] Last Admin: 11/07/19 08:52 Dose: 40 mg Documented by: Sodium Chloride (Saline 0.9%) 1,000 mls @ 20 mls/hr IV .Q24H [facility] Last Admin: 11/07/19 00:33 Dose: Not Given Documented by: Sodium Chloride (Saline 0.9%) 1,000 mls @ 75 mls/hr IV .[id number] [facility] Last Admin: 11/07/19 13:27 Dose: 75 mls/hr Documented by: Ibuprofen (Motrin) 600 mg PO Q8H PRN PRN Reason: Pain Last Admin: 11/07/19 18:32 Dose: 600 mg Documented by: Levothyroxine Sodium (Synthroid) 25 mcg PO DAILY@0630 [facility] Last Admin: 11/07/19 05:55 Dose: 25 mcg Documented by: Melatonin (Melatonin) 3 mg PO HS [facility] Last Admin: 11/06/19 21:47 Dose: 3 mg Documented by: Methylprednisolone Sodium Succinate (Solu-Medrol) 60 mg IV Q6HR [facility] Last Admin: 11/07/19 18:33 Dose: 60 mg Documented by: Miscellaneous Information (Rx Info: Iv Contrast Was Given) 1 each MISCELLANE DAILY PRN PRN Reason: Per Protocol Stop: 11/09/19 12:20 Multivitamins (Theragran) 1 each PO DAILY [facility] Last Admin: 11/07/19 08:52 Dose: 1 each Documented by: Physical examination: VITAL SIGNS: 96.9, 89, 18, 100/70, 96% on 6 L GENERAL: Sitting up in a chair, tired EYES: Pupils equal. Conjunctiva normal. HEENT: External appearance of nose and ears normal, oral cavity grossly normal. NECK: JVD not raised; masses not palpable. HEART: First and second heart sounds are normal; no edema. LUNGS: Respiratory rate increased, , some right basilar crackles, decreased breath soundsn ABDOMEN: Soft, nontender, liver spleen not palpable, no masses palpable. 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 -Left bundle-branch block -AICD -BPH -History of arrhythmia type unknown patient is on amiodarone. -History of Right lower lobe lobectomy, biopsy showing adenocarcinoma. -generalized anxiety disorder, acute flareup -Chronic insomnia -Acute kidney injury, prerenal from diabetic -Hyponatremia from decreased solute intake, patient also received Lasix.-New diagnosis Plan: Decreased the dose of Valium to 1 mg every 6 when necessary. DC by mouth Lasix. Add normal saline. Encourage oral intake.
[2019-11-07] MEDS: MELATONIN 3 MG TABLET PO SCH (23:53)
[2019-11-08] MEDS: SODIUM CHLORIDE 0.9% 1,000 ML IV SCH ×2 (01:40→05:13)
[2019-11-08] MEDS: methylPREDNISolone SOD SUCCI 125 MG/2 ML VIAL IV SCH (05:05)
[2019-11-08] MEDS: LEVOTHYROXINE 25 MCG TAB PO SCH (05:11)
[2019-11-08] MEDS: DIAZEPAM 2 MG TAB PO PRN ×3 (05:24→22:43)
[2019-11-08 06:15] LABS: Calcium 7.6 mg/dL (8.4-10.2); Potassium 4.2 mmol/L (3.5-5.1)
[2019-11-08] MEDS: BUDESONIDE 1 MG/2 ML NEBU INHALATION SCH (07:58)
[2019-11-08] MEDS: FORMOTEROL FUMARATE 20 MCG/2 ML NEBU INHALATION SCH ×2 (07:58→08:15)
[2019-11-08] MEDS: IPRATROPIUM-ALBUTEROL 3 ML NEB INHALATION SCH ×4 (07:58→19:58)
[2019-11-08] MEDS: ENOXAPARIN 40 MG/0.4 ML SYRINGE SQ SCH (08:40)
[2019-11-08] MEDS: MULTIVITAMINS, THERA 1 EACH TAB PO SCH (08:40)
[2019-11-08] MEDS: AZITHROMYCIN 500 MG TAB PO SCH (08:40)
[2019-11-08] MEDS: AMIODARONE 100 MG TAB PO SCH (08:40)
[2019-11-08] MEDS: predniSONE 20 MG TAB PO SCH (13:35)
--- NOTE | 2019-11-08 13:48 | P.PN ---
Subjective Progress Note Date: 11/08/19 Principal diagnosis: Acute exacerbation of chronic obstructive pulmonary disease, complicated by a right-sided pneumonia and loculated right-sided effusion The patient is seen today 11/06/2019 in follow-up on the regular medical floor. He is currently sitting up at the bedside. Awake and alert in no acute distress. Earlier this morning he was having difficulty in breathing. He was on Arava at 60 L and 100% FiO2. Arterial blood gases revealed a PaO2 of 120, pCO2 38 and a pH of 7.40. He was given Ativan and his anxiety subsided and he was breathing easier. He is currently back down to 6 L high flow nasal cannula. White count 15.8. Hemoglobin 14.0. Sodium 124. Potassium 4.7. Bicarb 28. Creatinine 1.06. The patient is seen today 11/07/2019 in follow-up on the regular medical floor. He is more calm and cooperative today. Sitting up in the chair at the bedside. Denies any shortness of breath, cough or congestion. Still requiring 6 L high flow nasal cannula to maintain O2 saturations in the 90s. He's been afebrile. He remains on azithromycin, bronchodilators and IV Solu-Medrol. His sodium has been trending down. Today's labs are pending. The patient is seen today 11/08/2019 in follow-up on the regular medical floor. He sitting up in a chair at the bedside. Awake and alert in no acute distress. Cooperative. Oriented 3 today. Hoping to go home. Denies any worsening shortness of breath, cough or congestion. Continues on 6 L high flow nasal cannula to maintain O2 saturations in the 90s. Computed tomography scan of the brain revealed no evidence of metastasis or acute pulmonary process. Computed tomography scan of the chest revealed basilar right lower lobectomy. No residual mass or suspicious nodule/lymphadenopathy seen. There is a moderate right pleural effusion and loculation. Sodium 124. Potassium 4.2. Creatinine 1.38. C. difficile screen was negative. He remains on bronchodilators, steroids, azithromycin. Objective - Vital Signs Vital signs: Vital Signs Temp 97.5 F L 11/08/19 04:54 Pulse 82 11/08/19 11:50 Resp 20 11/08/19 11:36 BP 90/62 11/08/19 11:36 Pulse Ox 93 L 11/08/19 11:36 Intake & Output 11/07/19 11/08/19 11/08/19 18:59 06:59 18:59 Intake Total 900 Output Total 2 Balance -2 900 Intake: Intake, IV Titration 900 Amount Sodium Chloride 0.9% 1, 900 000 ml @ 75 mls/hr IV . [id number] [facility] Rx#:[id number] Output: Stool 2 Other: Voiding Method Toilet Toilet # Voids 3 3 1 # Bowel Movements 1 - Exam GENERAL EXAM: Alert, oriented 3, 68-year-old gentleman, disheveled, on 6 L high flow nasal cannula comfortable in no apparent distress. HEAD: Normocephalic. EYES: Normal reaction of pupils, equal size. NOSE: Clear with pink turbinates. THROAT: No erythema or exudates. NECK: No masses, no JVD. CHEST: No chest wall deformity. LUNGS: Equal air entry with crackles in the right base him a diminished CVS: S1 and S2 normal with no audible murmur, regular rhythm. ABDOMEN: No hepatosplenomegaly, normal bowel sounds, no guarding or rigidity. SPINE: No scoliosis or deformity SKIN: No rashes CENTRAL NERVOUS SYSTEM: No focal deficits, tone is normal in all 4 extremities. EXTREMITIES: There is no peripheral edema. No clubbing, no cyanosis. Peripheral pulses are intact. - Labs CBC & Chem 7: 11/06/19 05:40 11/08/19 05:37 Labs: Abnormal Lab Results - Last 24 Hours (Table) 11/07/19 11/08/19 Range/Units 15:11 05:37 Sodium 123 L 124 L (137-145) mmol/L Chloride 85 L 88 L (98-107) mmol/L BUN 59 H 56 H (9-20) mg/dL Creatinine 1.66 H 1.38 H (0.66-1.25) mg/dL Glucose 108 H (74-99) mg/dL Calcium 8.1 L 7.6 L (8.4-10.2) mg/dL Assessment and Plan Assessment: 1 Acute exacerbation of chronic obstructive pulmonary disease, complicated by right-sided pneumonia/effusion. 2 Chronic loculated right-sided effusion 3 Altered mental status secondary to alveolar hypoventilation acute on chronic respiratory acidosis secondary to Ativan administration. Computed tomography scan of the brain did not reveal any evidence of metastasis or acute process. 4 Previous history of lung mass status post surgery to the right lower lobe right lower lobectomy. This was an early stage cancer and did not require chemo or radiation according to the patient 5 Status post AICD placement 6 History of myocardial infarction 7 History of previous heavy tobacco dependence 8 Hyponatremia, slightly improved to 124 today Plan The patient was seen and evaluated by Dr. Eldridge CT of the brain showed no acute process or metastases Computed tomography scan of the chest reviewed Continue to monitor sodium level Add 0.9 normal saline at 75 ML's per hour We'll continue to follow I, the cosigning physician, performed a history & physical examination of the patient. Lungs sounds with crackles in the right base, diminished. Maintaining good O2 saturations in the 90s on 6 L high flow nasal cannula. I discussed the assessment and plan of care with my nurse practitioner, Cait Ye. I attest to the above note as dictated by her.
--- NOTE | 2019-11-08 19:36 | P.PN ---
Progress Note - Text Progress Note Date: 11/08/19 Chief Complaint: Short of breath, cough History of presenting complaint This is a 68-year-old patient of Dr. Salazar. Chronic stable medical conditions include (left bundle branch block, AICD, BPH, right lower lobe lobectomy. Patient stopped smoking in August of this year. 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 Small amount of sputum a bit yellow. No fever slight headache. Decreased appetite. Was rather significant short of breath and had report of BiPAP and moved to the ICU. This morning breathing is a bit better. Still short of breath slight cough. Decreased appetite. Admitted with right lobe pneumonia, COPD exacerbation, acute hypoxic respiratory failure. Required BiPAP. Initially admitted to the ICU. Patient is very anxious. Seen by psychiatry. Put on Valium 2.5 mg every 6 when necessary. Had received Lasix went into acute renal failure. Lasix discontinued. Per on IV fluids. Today-because patient was drowsy yesterday dose of Valium was decreased to 1 mg every 6 when necessary. Looking better. Breathing better. More awake. Decreased appetite. On normal saline. Review of systems: Was done for constitutional, cardiovascular, GI, pulmonary. relevant finding as above Active Medications Albuterol/Ipratropium (Duoneb 0.5 Mg-3 Mg/3 Ml Soln) 3 ml INHALATION RT-QID [facility] Last Admin: 11/08/19 16:04 Dose: 3 ml Documented by: Albuterol/Ipratropium (Duoneb 0.5 Mg-3 Mg/3 Ml Soln) 3 ml INHALATION RT-Q2H PRN PRN Reason: Shortness Of Breath Or Wheezing Last Admin: 11/06/19 22:38 Dose: 3 ml Documented by: Amiodarone HCl (Cordarone) 100 mg PO DAILY [facility] Last Admin: 11/08/19 08:40 Dose: 100 mg Documented by: Azithromycin (Zithromax) 500 mg PO DAILY [facility] Last Admin: 11/08/19 08:40 Dose: 500 mg Documented by: Diazepam (Valium) 1 mg PO Q6H PRN PRN Reason: Anxiety Last Admin: 11/08/19 17:10 Dose: 1 mg Documented by: Enoxaparin Sodium (Lovenox) 40 mg SQ DAILY [facility] Last Admin: 11/08/19 08:40 Dose: 40 mg Documented by: Flumazenil (Romazicon) 0.2 mg IVP ONCE PRN PRN Reason: reversal Last Admin: 11/04/19 03:10 Dose: 0.2 mg Documented by: Sodium Chloride (Saline 0.9%) 1,000 mls @ 20 mls/hr IV .Q24H [facility] Last Admin: 11/08/19 01:40 Dose: Not Given Documented by: Sodium Chloride (Saline 0.9%) 1,000 mls @ 75 mls/hr IV .[id number] [facility] Last Admin: 11/08/19 05:13 Dose: 75 mls/hr Documented by: Ibuprofen (Motrin) 600 mg PO Q8H PRN PRN Reason: Pain Last Admin: 11/07/19 18:32 Dose: 600 mg Documented by: Levothyroxine Sodium (Synthroid) 25 mcg PO DAILY@0630 [facility] Last Admin: 11/08/19 05:11 Dose: 25 mcg Documented by: Melatonin (Melatonin) 3 mg PO HS [facility] Last Admin: 11/07/19 23:53 Dose: 3 mg Documented by: Miscellaneous Information (Rx Info: Iv Contrast Was Given) 1 each MISCELLANE DAILY PRN PRN Reason: Per Protocol Stop: 11/09/19 12:20 Multivitamins (Theragran) 1 each PO DAILY [facility] Last Admin: 11/08/19 08:40 Dose: 1 each Documented by: Prednisone () 40 mg PO DAILY [facility] Last Admin: 11/08/19 13:35 Dose: 40 mg Documented by: Physical examination: VITAL SIGNS: Afebrile, 93, 20, 90/62, 93% on 6 L GENERAL: Sitting up in a chair, more relaxed and awake today EYES: Pupils equal. Conjunctiva normal. HEENT: External appearance of nose and ears normal, oral cavity grossly normal. NECK: JVD not raised; masses not palpable. HEART: First and second heart sounds are normal; no edema. LUNGS: Respiratory rate increased, , some right basilar crackles, decreased breath soundsn ABDOMEN: Soft, nontender, liver spleen not palpable, no masses palpable. 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 Cardiomegaly. Moderate right pleural effusion -Computed tomography scan of the brain-no metastasis Previous testing White count 9.6 hemoglobin 11.9 potassium 4.5 creatinine 1.05 Chest x-ray film personally reviewed by me-possible right lower lobe infiltrate versus and/or fluid Assessment: -Probable right lower lobe pneumonia, suspect gram-negative organism, POA -Acute COPD exacerbation and an ex-smoker, POA, -Acute hypoxic respiratory failure requiring BiPAP initially, POA 6 L of nasal cannula. -Chronic loculated right-sided effusion -Left bundle-branch block -AICD -BPH -History of arrhythmia type unknown patient is on amiodarone. -History of Right lower lobe lobectomy, biopsy showing adenocarcinoma. -generalized anxiety disorder, acute flareup -Chronic insomnia -Acute kidney injury, prerenal from diabetic, slowly improving -Hyponatremia from decreased solute intake, patient also received Lasix.-New diagnosis Plan: Continue with saline at 75 mL an hour. Repeat BMP in the morning. Oral prognosis guarded. Doing better. Encourage oral intake. Follow with pulmonary.
[2019-11-08] MEDS: MELATONIN 3 MG TABLET PO SCH (19:44)
[2019-11-09] MEDS: SODIUM CHLORIDE 0.9% 1,000 ML IV SCH ×3 (04:11→20:40)
[2019-11-09] MEDS: LEVOTHYROXINE 25 MCG TAB PO SCH (04:35)
[2019-11-09] MEDS: DIAZEPAM 2 MG TAB PO PRN ×3 (04:36→17:16)
[2019-11-09 07:11] LABS: African American GFR (CKD) >90 (>60 ml/min/1.73 sqM); Anion Gap 7 mmol/L; Blood Urea Nitrogen 32 mg/dL (9-20); Carbon Dioxide 29 mmol/L (22-30); Chloride 92 mmol/L (98-107); Glucose 104 mg/dL (74-99); Non-African American GFR(CKD) 87 (>60 ml/min/1.73 sqM); Potassium 4.4 mmol/L (3.5-5.1); Sodium 128 mmol/L (137-145)
[2019-11-09] MEDS: AZITHROMYCIN 500 MG TAB PO SCH (07:58)
[2019-11-09] MEDS: AMIODARONE 100 MG TAB PO SCH (07:58)
[2019-11-09] MEDS: predniSONE 20 MG TAB PO SCH (07:58)
[2019-11-09] MEDS: ENOXAPARIN 40 MG/0.4 ML SYRINGE SQ SCH (07:58)
[2019-11-09] MEDS: MULTIVITAMINS, THERA 1 EACH TAB PO SCH (07:58)
[2019-11-09] MEDS: IPRATROPIUM-ALBUTEROL 3 ML NEB INHALATION SCH ×4 (08:07→19:37)
--- NOTE | 2019-11-09 13:55 | P.PN ---
Subjective Progress Note Date: 11/09/19 Principal diagnosis: Acute exacerbation of chronic obstructive pulmonary disease, complicated by a right-sided pneumonia and loculated right-sided effusion The patient is seen today 11/06/2019 in follow-up on the regular medical floor. He is currently sitting up at the bedside. Awake and alert in no acute distress. Earlier this morning he was having difficulty in breathing. He was on Arava at 60 L and 100% FiO2. Arterial blood gases revealed a PaO2 of 120, pCO2 38 and a pH of 7.40. He was given Ativan and his anxiety subsided and he was breathing easier. He is currently back down to 6 L high flow nasal cannula. White count 15.8. Hemoglobin 14.0. Sodium 124. Potassium 4.7. Bicarb 28. Creatinine 1.06. The patient is seen today 11/07/2019 in follow-up on the regular medical floor. He is more calm and cooperative today. Sitting up in the chair at the bedside. Denies any shortness of breath, cough or congestion. Still requiring 6 L high flow nasal cannula to maintain O2 saturations in the 90s. He's been afebrile. He remains on azithromycin, bronchodilators and IV Solu-Medrol. His sodium has been trending down. Today's labs are pending. The patient is seen today 11/08/2019 in follow-up on the regular medical floor. He sitting up in a chair at the bedside. Awake and alert in no acute distress. Cooperative. Oriented 3 today. Hoping to go home. Denies any worsening shortness of breath, cough or congestion. Continues on 6 L high flow nasal cannula to maintain O2 saturations in the 90s. Computed tomography scan of the brain revealed no evidence of metastasis or acute pulmonary process. Computed tomography scan of the chest revealed basilar right lower lobectomy. No residual mass or suspicious nodule/lymphadenopathy seen. There is a moderate right pleural effusion and loculation. Sodium 124. Potassium 4.2. Creatinine 1.38. C. difficile screen was negative. He remains on bronchodilators, steroids, azithromycin. The patient is seen today in 11/09/2019 in follow-up on the regular medical floor. He is currently sitting up in a chair at the bedside. Awake and alert in no acute distress. Oriented 3. Cooperative. Sodium improved to 128. Potassium 4.4. Chloride 92. Bicarb 29. Creatinine 0.88. He is continued on DuoNeb inhalations, azithromycin, prednisone taper. Objective - Vital Signs Vital signs: Vital Signs Temp 97.4 F L 11/09/19 04:20 Pulse 82 11/09/19 08:19 Resp 18 11/09/19 04:20 BP 97/56 11/09/19 04:20 Pulse Ox 92 L 11/09/19 04:20 Intake & Output 11/08/19 11/09/19 11/09/19 18:59 06:59 18:59 Intake Total 600 Balance 600 Intake: Intake, IV Titration 600 Amount Sodium Chloride 0.9% 1, 600 000 ml @ 75 mls/hr IV . [id number] [facility] Rx#:[id number] Other: Voiding Method Toilet Toilet Bedside Commode # Voids 1 4 1 # Bowel Movements 2 1 - Exam GENERAL EXAM: Alert, oriented 3, 68-year-old gentleman, disheveled, on 6 L high flow nasal cannula comfortable in no apparent distress. HEAD: Normocephalic. EYES: Normal reaction of pupils, equal size. NOSE: Clear with pink turbinates. THROAT: No erythema or exudates. NECK: No masses, no JVD. CHEST: No chest wall deformity. LUNGS: Equal air entry with crackles in the right base him a diminished CVS: S1 and S2 normal with no audible murmur, regular rhythm. ABDOMEN: No hepatosplenomegaly, normal bowel sounds, no guarding or rigidity. SPINE: No scoliosis or deformity SKIN: No rashes CENTRAL NERVOUS SYSTEM: No focal deficits, tone is normal in all 4 extremities. EXTREMITIES: There is no peripheral edema. No clubbing, no cyanosis. Peripheral pulses are intact. - Labs CBC & Chem 7: 11/06/19 05:40 11/09/19 05:43 Labs: Abnormal Lab Results - Last 24 Hours (Table) 11/09/19 Range/Units 05:43 Sodium 128 L (137-145) mmol/L Chloride 92 L (98-107) mmol/L BUN 32 H (9-20) mg/dL Glucose 104 H (74-99) mg/dL Calcium 8.0 L (8.4-10.2) mg/dL Assessment and Plan Assessment: 1 Acute exacerbation of chronic obstructive pulmonary disease, complicated by right-sided pneumonia/effusion. 2 Chronic loculated right-sided effusion. Computed tomography scan of 11/07/2019 revealed basilar right lower lobectomy, no residual mass or suspicious nodules/lymphadenopathy seen. There is some mild patchy areas of groundglass with early interstitial pulmonary edema. He has been receiving diuretics. 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 Computed tomography scan of the brain did not reveal any evidence of metastasis or acute process. 4 Previous history of lung mass status post surgery to the right lower lobe, right lower lobectomy. This was an early stage cancer and did not require chemo or radiation according to the patient 5 Status post AICD placement 6 History of myocardial infarction 7 History of previous heavy tobacco dependence 8 Hyponatremia, slightly improved to 128 today Plan The patient was seen and evaluated by Dr. Eldridge The patient is anxious to go home Will need to be evaluated for home oxygen States he has a nebulizer at home Sodium levels improving Follow-up with Dr. Carroll in the outpatient setting I, the cosigning physician, performed a history & physical examination of the patient. Lungs sounds with crackles in the right base, diminished. Maintaining good O2 saturations in the 90s on 6 L high flow nasal cannula. I discussed the assessment and plan of care with my nurse practitioner, Cait Ye. I attest to the above note as dictated by her.
--- NOTE | 2019-11-09 14:59 | P.CRDCN ---
History of Present Illness History of present illness: HISTORY OF PRESENTING ILLNESS This is a pleasant 68-year-old male past medical history significant for cardiomyopathy s/p AICD placement, chronic systolic heart failure, left bundle branch block, right lung mass s/p resection, COPD and chronic nicotine dependence. According to the patient he has never had any documented coronary artery disease or myocardial infarction. He recently established in the office with Dr. Waters due to increase exertional shortness of breath. He has undergone a stress test and echocardiogram revealing a primarily fixed defect of the inferior wall with no evidence of reversibility, severely impaired LV systolic function with ejection fraction less than 15%, mild aortic insufficiency, moderate to severe mitral regurgitation, moderate tricuspid regurgitation and mild pulmonary hypertension. He is scheduled to undergo a left heart cath indicated on November 13. He presented to the hospital 5 days ago with symptoms of shortness of breath and anxiety. The patient states his anxiety was prompted by his inability to breathe. On arrival he was treated in the intensive care unit and required BiPAP assist. He has since been transferred to the medical floor and his requiring 8 L of oxygen to maintain his oxygen saturations. He denies symptoms of chest discomfort, dizziness or palpitations. He states his breathing does feel back to baseline. He is not active physically. He requires assistance with ambulation. He is currently receiving oral antibiotics, oral steroids and updraft treatments for lobe pneumonia. Pulmonology is also follow ing. DIAGNOSTICS EKG reveals left bundle branch block. Chest xray performed November 04 right basilar airspace disease, worsening right effusion and COPD. Chest CT reveals right basilar lower lobectomy, no residual mass or suspicious nodules. Cardiomegaly, reflux of contrast into the hepatic veins, septal thickening and mild patchy areas of groundglass opacity, moderate right pleural effusion with possible areas of loculation. Laboratory reviewed, sodium 128, potassium 4.4, creatinine 0.88, WBC 15.8, hemoglobin 14, platelets 185, pH 7.4, PC O2 38, bicarb 24 and pO2 120, troponins on admission 0.053, 0.052.058, NT proBNP on admission 6790. Current cardiac medications include amiodarone 100 mg daily. REVIEW OF SYSTEMS At the time of my exam: CONSTITUTIONAL: Denies fever or chills. CARDIOVASCULAR: Complains of shortness of breath. Denies chest pain, orthopnea, PND or palpitations. RESPIRATORY: Complains of cough. GASTROINTESTINAL: Denies abdominal pain, diarrhea, constipation, nausea or vomiting. MUSCULOSKELETAL: Denies myalgias. NEUROLOGIC: Denies numbness, tingling or weakness. ENDOCRINE: Denies fatigue, weight change, polydipsia or polyurina. GENITOURINARY: Denies burning, hematuria or urgency with micturation. HEMATOLOGIC: Denies history of anemia or bleeding. PHYSICAL EXAMINATION Blood pressure 91/66 heart rate 84 afebrile and maintaining oxygen saturation on I flow nasal cannula. CONSTITUTIONAL: No apparent distress. HEENT: Head is normocephalic. Pupils are equal, round. Sclerae anicteric. Mucous membranes of the mouth are moist. No JVD. No carotid bruit. CHEST EXAMINATION: Scattered rhonchi in the right lobe. Lungs are clear to auscultation. No chest wall tenderness is noted on palpation or with deep breathing. Diminished bilaterally. HEART EXAMINATION: Regular rate and rhythm. S1, S2 heard. Systolic ejection murmur at the apex, no gallops or rub. ABDOMEN: Soft, nontender. Positive bowel sounds. EXTREMITIES: 2+ peripheral pulses, no lower extremity edema and no calf tenderness. NEUROLOGIC EXAMINATION: Patient is awake, alert and oriented x3. ASSESSMENT Acute exacerbation of COPD Pneumonia Hyponatremia Elevated troponin, flat with no rise and fall suggestive of ACS Non-ischemic cardiomyopathy status post AICD placement Valvular heart disease Chronic systolic heart failure Left bundle branch block Chronic nicotine dependence PLAN The patient himself is unsure why he takes amiodarone, there is no documented arrhythmia. Suspect likely VT given his poor LV function and other cardiac history. Blood pressures have been running low since admission. Currently 91/66. Ideally he should be on a beta bryant along with SOFIYA or ARB. He likely will not tolerate these medications at this time. Initiate aspirin 81 mg daily and atorvastatin 40 mg at HS. Thank you kindly for this consultation. Nurse Practitioner note has been reviewed, I agree with a documented findings and plan of care. Patient was seen and examined. Past Medical History Past Medical History: Myocardial Infarction (AL) Additional Past Medical History / Comment(s): right lung mass Last Myocardial Infarction Date:: 2001 History of Any Multi-Drug Resistant Organisms: None Reported Past Surgical History: Heart Catheterization, Hernia Repair, Pacemaker Additional Past Surgical History / Comment(s): reomoval of tumor from right lung, lower lobe removed. defib 2001 Past Anesthesia/Blood Transfusion Reactions: No Reported Reaction Type of Cardiac Device: AICD Device Placement Date:: 2015 Past Psychological History: No Psychological Hx Reported Smoking Status: Former smoker Past Alcohol Use History: None Reported Additional Past Alcohol Use History / Comment(s): 1 pack a day Past Drug Use History: None Reported - Past Family History Father Family Medical History: Congestive Heart Failure (CHF) Medications and Allergies Home Medications Medication Instructions Recorded Confirmed Type Albuterol Inhaler [Ventolin Hfa 2 puff INHALATION RT-Q6H PRN 04/22/19 11/04/19 History Inhaler] Amiodarone HCl [Pacerone] 100 mg PO DAILY 04/22/19 11/04/19 History Multivitamins, Thera [Multivitamin 1 tab PO DAILY 04/22/19 11/04/19 History (formulary)] Vitamin E 100 unit PO DAILY 04/22/19 11/04/19 History Budesonide-Formot 160-4.5 Mcg 2 puff INHALATION RT-BID PRN 08/23/19 11/04/19 History [Symbicort 160-4.5 Mcg Inhaler (Bulk)] Ipratropium-Albuterol Nebulize 3 ml INHALATION RT-QID PRN 08/23/19 11/04/19 History [Duoneb 0.5 mg-3 mg/3 ml Soln] Nicotine 14Mg/24Hr Patch [Habitrol] 1 patch TRANSDERM DAILY #7 patch 08/29/19 11/04/19 Rx Ibuprofen [Motrin Ib] 600 mg PO Q8H PRN 11/04/19 11/04/19 History Levothyroxine Sodium 25 mcg PO DAILY 11/04/19 11/04/19 History Allergies Allergy/AdvReac Type Severity Reaction Status Date / Time No Known Allergies Allergy Verified 11/04/19 09:19 Physical Exam Vitals: Vital Signs Temp Pulse Pulse Resp BP Pulse Ox 11/09/19 13:00 97.6 F 84 16 91/66 93 L 11/09/19 08:19 82 11/09/19 08:07 78 11/09/19 04:20 97.4 F L 87 18 97/56 92 L 11/08/19 21:00 97.5 F L 54 L 18 105/76 92 L 03/31/20 20:08 82 11/08/19 19:59 80 11/08/19 16:17 80 11/08/19 16:05 80 Intake and Output 11/08/19 11/09/19 11/09/19 22:59 06:59 14:59 Other: Voiding Method Toilet Bedside Commode # Voids 2 4 1 # Bowel Movements 1 Results 11/06/19 05:40 11/09/19 05:43 Comprehensive Metabolic Panel 11/09/19 Range/Units 05:43 Sodium 128 L (137-145) mmol/L Potassium 4.4 (3.5-5.1) mmol/L Chloride 92 L (98-107) mmol/L Carbon Dioxide 29 (22-30) mmol/L BUN 32 H (9-20) mg/dL Creatinine 0.88 (0.66-1.25) mg/dL Glucose 104 H (74-99) mg/dL Calcium 8.0 L (8.4-10.2) mg/dL Current Medications Generic Name Dose Route Start Last Admin Trade Name Freq PRN Reason Stop Dose Admin Albuterol/Ipratropium 3 ml 11/04/19 08:00 11/09/19 10:59 Duoneb 0.5 Mg-3 Mg/3 Ml Soln INHALATION Not Given RT-QID LATRICIA Albuterol/Ipratropium 3 ml 11/03/19 23:52 11/06/19 22:38 Duoneb 0.5 Mg-3 Mg/3 Ml Soln INHALATION 3 ml RT-Q2H PRN Administration Shortness Of Breath Or Wheezing Amiodarone HCl 100 mg 11/04/19 18:30 11/09/19 07:58 Cordarone PO 100 mg DAILY LATRICIA Administration Azithromycin 500 mg 11/04/19 09:00 11/09/19 07:58 Zithromax PO 500 mg DAILY LATRICIA Administration Diazepam 1 mg 11/07/19 20:38 11/09/19 11:42 Valium PO 1 mg Q6H PRN Administration Anxiety Enoxaparin Sodium 40 mg 11/04/19 18:30 11/09/19 07:58 Lovenox SQ 40 mg DAILY LATRICIA Administration Flumazenil 0.2 mg 11/04/19 03:03 11/04/19 03:10 Romazicon IVP 0.2 mg ONCE PRN Administration reversal Sodium Chloride 1,000 mls @ 50 mls/hr 11/07/19 12:30 11/09/19 07:59 Saline 0.9% IV 75 mls/hr .Q20H LATRICIA Administration Ibuprofen 600 mg 11/05/19 20:19 11/07/19 18:32 Motrin PO 600 mg Q8H PRN Administration Pain Levothyroxine Sodium 25 mcg 11/04/19 18:30 11/09/19 04:35 Synthroid PO 25 mcg DAILY@0630 LATRICIA Administration Melatonin 3 mg 11/06/19 21:00 11/08/19 19:44 Melatonin PO 3 mg HS LATRICIA Administration Multivitamins 1 each 11/04/19 18:30 11/09/19 07:58 Theragran PO 1 each DAILY LATRICIA Administration Prednisone 40 mg 11/08/19 11:30 11/09/19 07:58 PO 40 mg DAILY LATRICIA Administration Intake and Output 11/08/19 11/09/19 11/09/19 22:59 06:59 14:59 Other: Voiding Method Toilet Bedside Commode # Voids 2 4 1 # Bowel Movements 1 11/06/19 05:40 11/09/19 05:43
[2019-11-09] MEDS: ASPIRIN 81 MG PO SCH (17:16)
[2019-11-09] MEDS: IBUPROFEN 600 MG TAB PO PRN (20:39)
[2019-11-09] MEDS: MELATONIN 3 MG TABLET PO SCH (20:39)
[2019-11-09 20:40] VITALS: RESP 18
[2019-11-09] MEDS: METOPROLOL TARTRATE 12.5 MG TAB PO SCH (20:50)
[2019-11-09] MEDS ORDERED: ATORVASTATIN 40 MG TAB PO SCH (21:00)
[2019-11-09] MEDS ORDERED: DIAZEPAM 2 MG TAB PO PRN (22:44)
--- NOTE | 2019-11-09 22:49 | P.PN ---
Subjective This is a 68-year-old patient of Dr. Salazar. Chronic stable medical conditions include (left bundle branch block, AICD, BPH, right lower lobe lobectomy. Patient stopped smoking in August of this year. 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 Small amount of sputum a bit yellow. No fever slight headache. Decreased appetite. Was rather significant short of breath and had report of BiPAP and moved to the ICU. This morning breathing is a bit better. Still short of breath slight cough. Decreased appetite. Admitted with right lobe pneumonia, COPD exacerbation, acute hypoxic respiratory failure. Required BiPAP. Initially admitted to the ICU. Patient is very anxious. Seen by psychiatry. Put on Valium 2.5 mg every 6 when necessary. Had received Lasix went into acute renal failure. Lasix discontinued. Per on IV fluids. Today-because patient was drowsy yesterday dose of Valium was decreased to 1 mg every 6 when necessary. Looking better. Breathing better. More awake. Decreased appetite. On normal saline. 11/09/19 Patient is fully awake and oriented, he denies chest pain or dyspnea however he was noticed a little bit tachypneic, his vitals are stable and he is saturating 99% on 5 L of oxygen via nasal cannula home he is afebrile, blood pressure 93/62, showing improvement hyponatremia to 128, creatinine came back to normal at 0.8 while he is on normal saline at 75 mL/h, he is also has leukocytosis of 15.8 K while he is on steroids, patient himself feels better and he was asking if he could be discharged home today. Patient is from home and probably he will need to be evaluated for home oxygen upon discharge On admission he has elevated troponin, he has low ejection fraction about 20% status post AICD, industrial plant custodian evaluated the patient and recommended aspirin 81 mg and Lipitor 40 Review of systems CONSTITUTIONAL: No fever, no malaise, no fatigue. HEENT: No recent visual problems or hearing problems. Denied any sore throat. GASTROINTESTINAL: No diarrhea, no nausea, no vomiting, no abdominal pain. No rmoactive bowel sounds. NEUROLOGICAL: No headaches, no weakness, no numbness. HEMATOLOGICAL: Denies any bleeding or petechiae. GENITOURINARY: Denies any burning micturition, frequency, or urgency. MUSCULOSKELETAL/RHEUMATOLOGICAL: Denies any joint pain, swelling, or any muscle pain. ENDOCRINE: Denies any polyuria or polydipsia. Active Medications Generic Name Dose Route Start Last Admin Trade Name Freq PRN Reason Stop Dose Admin Albuterol/Ipratropium 3 ml 11/04/19 08:00 11/09/19 19:37 Duoneb 0.5 Mg-3 Mg/3 Ml Soln INHALATION Not Given RT-QID LATRICIA Albuterol/Ipratropium 3 ml 11/03/19 23:52 11/06/19 22:38 Duoneb 0.5 Mg-3 Mg/3 Ml Soln INHALATION 3 ml RT-Q2H PRN Administration Shortness Of Breath Or Wheezing Amiodarone HCl 100 mg 11/04/19 18:30 11/09/19 07:58 Cordarone PO 100 mg DAILY LATRICIA Administration Aspirin 81 mg 11/09/19 15:00 11/09/19 17:16 Aspirin PO 81 mg DAILY LATRICIA Administration Atorvastatin Calcium 40 mg 11/09/19 21:00 11/09/19 20:38 Lipitor PO 40 mg HS LATRICIA Administration Azithromycin 500 mg 11/04/19 09:00 11/09/19 07:58 Zithromax PO 500 mg DAILY LATRICIA Administration Diazepam 1 mg 11/09/19 22:44 Valium PO Q12H PRN Anxiety Enoxaparin Sodium 40 mg 11/04/19 18:30 11/09/19 07:58 Lovenox SQ 40 mg DAILY LATRICIA Administration Flumazenil 0.2 mg 11/04/19 03:03 11/04/19 03:10 Romazicon IVP 0.2 mg ONCE PRN Administration reversal Furosemide 20 mg 11/10/19 09:00 Lasix PO DAILY LATRICIA Sodium Chloride 1,000 mls @ 50 mls/hr 11/07/19 12:30 11/09/19 20:40 Saline 0.9% IV 50 mls/hr .Q20H LATRICIA Administration Ibuprofen 600 mg 11/05/19 20:19 11/09/19 20:39 Motrin PO 600 mg Q8H PRN Administration Pain Levothyroxine Sodium 25 mcg 11/04/19 18:30 11/09/19 04:35 Synthroid PO 25 mcg DAILY@0630 LATRICIA Administration Melatonin 3 mg 11/06/19 21:00 11/09/19 20:39 Melatonin PO 3 mg HS LATRICIA Administration Metoprolol Tartrate 12.5 mg 11/09/19 21:00 11/09/19 20:50 Lopressor PO Not Given BID [facility] Multivitamins 1 each 11/04/19 18:30 11/09/19 07:58 Theragran PO 1 each DAILY LATRICIA Administration Pantoprazole Sodium 40 mg 11/09/19 23:00 Protonix PO AC-BRKFST [facility] Prednisone 40 mg 11/08/19 11:30 11/09/19 07:58 PO 40 mg DAILY LATRICIA Administration Objective - Vital Signs Vital signs: Vital Signs Temp 97.6 F 11/09/19 13:00 Pulse 84 11/09/19 13:00 Resp 16 11/09/19 13:00 BP 91/66 11/09/19 13:00 Pulse Ox 93 L 11/09/19 13:00 Intake & Output 11/08/19 11/09/19 11/09/19 18:59 06:59 18:59 Intake Total 600 400 Balance 600 400 Intake: Intake, IV Titration 600 400 Amount Sodium Chloride 0.9% 1, 600 400 000 ml @ 50 mls/hr IV . Q20H [facility] Rx#:[id number] Other: Voiding Method Toilet Toilet Bedside Commode # Voids 1 4 1 # Bowel Movements 2 1 - Exam GENERAL: The patient is alert and oriented x3, not in any acute distress. Well developed, well nourished. HEENT: Pupils are round and equally reacting to light. EOMI. No scleral icterus. No conjunctival pallor. Normocephalic, atraumatic. No pharyngeal erythema. No thyromegaly. CARDIOVASCULAR: S1 and S2 present. No murmurs, rubs, or gallops. -PULMONARY: Chest is clear to auscultation, no wheezing , mild basilar crepitations ABDOMEN: Soft, nontender, nondistended, normoactive bowel sounds. No palpable organomegaly. MUSCULOSKELETAL: No joint swelling or deformity. EXTREMITIES: No cyanosis, clubbing, or pedal edema. NEUROLOGICAL: Gross neurological examination did not reveal any focal deficits. SKIN: No rashes. no petechiae. - Labs CBC & Chem 7: 11/06/19 05:40 11/09/19 05:43 Labs: Abnormal Lab Results - Last 24 Hours (Table) 11/09/19 Range/Units 05:43 Sodium 128 L (137-145) mmol/L Chloride 92 L (98-107) mmol/L BUN 32 H (9-20) mg/dL Glucose 104 H (74-99) mg/dL Calcium 8.0 L (8.4-10.2) mg/dL Assessment and Plan Assessment: -Probable right lower lobe pneumonia, suspect gram-negative organism, POA -Acute COPD exacerbation and an ex-smoker, POA, -Acute hypoxic respiratory failure -Elevated troponin -Nonischemic cardiomyopathy with ejection fraction about 20% status post AICD -Chronic loculated right-sided effusion -Left bundle-branch block -AICD -BPH -History of arrhythmia type unknown patient is on amiodarone. -History of Right lower lobe lobectomy, biopsy showing adenocarcinoma. -generalized anxiety disorder, acute flareup -Chronic insomnia -Acute kidney injury, prerenal from diabetic, slowly improving -Hyponatremia from decreased solute intake, patient also received Lasix.-New diagnosis Plan: This is a pleasant 68 years old male who presents with COPD, pneumonia and elevated troponin. Continue with prednisone and Zithromax and bronchodilator, continue with normal saline and while monitoring sodium level, patient was started on aspirin, Lipitor, metoprolol and Lasix by industrial plant custodian. Also has been followed by pulmonology service. Keep monitoring labs including sodium and creatinine Labs and medication were reviewed.. Continue same treatment. Continue with symptomatic treatment. Resume home medication. Monitor lytes and vitals. DVT and GI prophylaxis. Further recommendations of the clinical course of the patient DVT prophylaxis: Subcutaneous lovenox GI Prophylaxis: Ppi Prognosis is guarded given his advanced heart failure with hyponatremia, besides other complicated medical problem
[2019-11-09] MEDS: PANTOPRAZOLE 40 MG TABLET PO SCH (23:33)
[2019-11-09 23:54] LABS: African American GFR (CKD) >90 (>60 ml/min/1.73 sqM); Anion Gap 7 mmol/L; Blood Urea Nitrogen 32 mg/dL (9-20); Carbon Dioxide 28 mmol/L (22-30); Chloride 93 mmol/L (98-107); Glucose 97 mg/dL (74-99); Non-African American GFR(CKD) 81 (>60 ml/min/1.73 sqM); Potassium 4.5 mmol/L (3.5-5.1); Sodium 128 mmol/L (137-145)
[2019-11-10 05:00] VITALS: BP 99/63; TEMP 97.9
[2019-11-10] MEDS: LEVOTHYROXINE 25 MCG TAB PO SCH (05:59)
[2019-11-10 06:25] LABS: Basophils % (A) 0 %; Eosinophils % (A) 0 %; HCT 43.6 % (39.0-53.0); HGB 14.1 gm/dL (13.0-17.5); Lymphocytes # (A) 0.5 k/uL (1.0-4.8); Lymphocytes % (A) 3 %; MCH 30.6 pg (25.0-35.0); MCHC 32.4 g/dL (31.0-37.0); MCV 94.5 fL (80.0-100.0); Mean Platelet Volume 8.8; Monocytes # (A) 0.9 k/uL (0-1.0); Monocytes % (A) 6 %; Neutrophils # (A) 14.2 k/uL (1.3-7.7); Neutrophils % (A) 89 %; Platelet Count 122 k/uL (150-450); RBC 4.62 m/uL (4.30-5.90); RDW 14.8 % (11.5-15.5)
[2019-11-10] MEDS: IPRATROPIUM-ALBUTEROL 3 ML NEB INHALATION SCH ×3 (07:26→15:44)
[2019-11-10] MEDS ORDERED: FUROSEMIDE 20 MG TAB PO SCH (09:00)
--- NOTE | 2019-11-10 09:48 | P.PN ---
Subjective HISTORY OF PRESENTING ILLNESS This is a pleasant 68-year-old male past medical history significant for cardiomyopathy s/p AICD placement, chronic systolic heart failure, left bundle branch block, right lung mass s/p resection, COPD and chronic nicotine dependence. According to the patient he has never had any documented coronary artery disease or myocardial infarction. 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 Discussed with Dr. Waters and has decided to cancel his planned heart cath and MYLES. The patient is seen and examined sitting up in bed in no acute distress. He continues to feel short of breath however coughing has improved. No chest pain, dizziness or palpitations. Blood pressure 99/63 heart rate 90 afebrile and continues to require high flow oxygen to maintain oxygen saturations. Laboratory data reviewed, WBC 16, hgb 14.1, plt 122. Low dose beta bryant and lasix initiated yesterday and his blood pressure seems to be tolerating. PHYSICAL EXAMINATION CONSTITUTIONAL: No apparent distress. HEENT: Head is normocephalic. Pupils are equal, round. Sclerae anicteric. Mucous membranes of the mouth are moist. No JVD. No carotid bruit. CHEST EXAMINATION: Scattered rhonchi in the right lobe. Lungs are clear to auscultation. No chest wall tenderness is noted on palpation or with deep breathing. Diminished bilaterally. HEART EXAMINATION: Regular rate and rhythm. S1, S2 heard. Systolic ejection mu rmur at the apex, no gallops or rub. EXTREMITIES: 2+ peripheral pulses, no lower extremity edema and no calf tenderness. ASSESSMENT Acute exacerbation of COPD Pneumonia Hyponatremia Pulmonary carcinoma Non-sustained ventricular tachycardia Elevated troponin, flat with no rise and fall suggestive of ACS Non-ischemic cardiomyopathy status post AICD placement Valvular heart disease Chronic systolic heart failure Left bundle branch block Chronic nicotine dependence PLAN Continue current medical regimen. Hold off on SOFIYA or ARB due to low blood pressure. Catheterization and MYLES will be cancelled due to lung carcinoma. Follow up in the office with Dr. Waters upon discharge. Nurse Practitioner note has been reviewed, I agree with a documented findings and plan of care. Patient was seen and examined. Objective - Vital Signs Vital signs: Vital Signs Temp 97.9 F 11/10/19 04:59 Pulse 90 11/10/19 04:59 Resp 18 11/10/19 04:59 BP 99/63 11/10/19 04:59 Pulse Ox 96 11/10/19 04:59 Intake & Output 11/09/19 11/10/19 11/10/19 18:59 06:59 18:59 Intake Total 400 Output Total 2 Balance 400 -2 Intake: Intake, IV Titration 400 Amount Sodium Chloride 0.9% 1, 400 000 ml @ 50 mls/hr IV . Q20H [facility] Rx#:[id number] Output: Urine 2 Other: Voiding Method Bedside Commode Bedside Commode # Voids 1 6 - Labs CBC & Chem 7: 11/10/19 05:55 11/09/19 22:49 Labs: Abnormal Lab Results - Last 24 Hours (Table) 11/09/19 11/10/19 Range/Units 22:49 05:55 WBC 16.0 H (3.8-10.6) k/uL Plt Count 122 L (150-450) k/uL Neutrophils # 14.2 H (1.3-7.7) k/uL Lymphocytes # 0.5 L (1.0-4.8) k/uL Sodium 128 L (137-145) mmol/L Chloride 93 L (98-107) mmol/L BUN 32 H (9-20) mg/dL Calcium 8.0 L (8.4-10.2) mg/dL
[2019-11-10] MEDS: AZITHROMYCIN 500 MG TAB PO SCH (10:16)
[2019-11-10] MEDS: ASPIRIN 81 MG PO SCH (10:16)
[2019-11-10] MEDS: predniSONE 20 MG TAB PO SCH (10:16)
[2019-11-10] MEDS: AMIODARONE 100 MG TAB PO SCH (10:16)
[2019-11-10] MEDS: METOPROLOL TARTRATE 12.5 MG TAB PO SCH (10:16)
[2019-11-10] MEDS: MULTIVITAMINS, THERA 1 EACH TAB PO SCH (10:17)
[2019-11-10] MEDS: ENOXAPARIN 40 MG/0.4 ML SYRINGE SQ SCH (10:17)
[2019-11-10] MEDS: PANTOPRAZOLE 40 MG TABLET PO SCH (10:19)
[2019-11-10 11:48] LABS: Calcium 8.4 mg/dL (8.4-10.2); Potassium 4.9 mmol/L (3.5-5.1)
[2019-11-10 13:54] VITALS: PULSE 81
--- NOTE | 2019-11-10 14:44 | P.PN ---
Subjective Progress Note Date: 11/10/19 Principal diagnosis: Exacerbation of COPD The patient is seen today 11/06/2019 in follow-up on the regular medical floor. He is currently sitting up at the bedside. Awake and alert in no acute distress. Earlier this morning he was having difficulty in breathing. He was on Arava at 60 L and 100% FiO2. Arterial blood gases revealed a PaO2 of 120, pCO2 38 and a pH of 7.40. He was given Ativan and his anxiety subsided and he was breathing easier. He is currently back down to 6 L high flow nasal cannula. White count 15.8. Hemoglobin 14.0. Sodium 124. Potassium 4.7. Bicarb 28. Creatinine 1.06. The patient is seen today 11/07/2019 in follow-up on the regular medical floor. He is more calm and cooperative today. Sitting up in the chair at the bedside. Denies any shortness of breath, cough or congestion. Still requiring 6 L high flow nasal cannula to maintain O2 saturations in the 90s. He's been afebrile. He remains on azithromycin, bronchodilators and IV Solu-Medrol. His sodium has been trending down. Today's labs are pending. The patient is seen today 11/08/2019 in follow-up on the regular medical floor. He sitting up in a chair at the bedside. Awake and alert in no acute distress. Cooperative. Oriented 3 today. Hoping to go home. Denies any worsening shortness of breath, cough or congestion. Continues on 6 L high flow nasal cannula to maintain O2 saturations in the 90s. Computed tomography scan of the brain revealed no evidence of metastasis or acute pulmonary process. Computed tomography scan of the chest revealed basilar right lower lobectomy. No residual mass or suspicious nodule/lymphadenopathy seen. There is a moderate right pleural effusion and loculation. Sodium 124. Potassium 4.2. Creatinine 1.38. C. difficile screen was negative. He remains on bronchodilators, steroids, azithromycin. The patient is seen today in 11/09/2019 in follow-up on the regular medical floor. He is currently sitting up in a chair at the bedside. Awake and alert in no acute distress. Oriented 3. Cooperative. Sodium improved to 128. Potassium 4.4. Chloride 92. Bicarb 29. Creatinine 0.88. He is continued on DuoNeb inhalations, azithromycin, prednisone taper. On 11/10/2019 patient seen in follow-up on medical surgical floor, he is calm and comfortable, he sitting up in a recliner, in no acute distress, his breathin g has improved, he is on 2 L of oxygen and the pulse ox of 94%, his been afebrile, hemodynamically patient has been stable. His FiO2 is currently at 2 L, we will check home oxygen assessment, and there is possibly the patient will probably qualify for home oxygen. Today's labs have been reviewed, white blood cell count is relatively stable at 16.0, hemoglobin is 14.1, sodium stable at 128, potassium is 4.9, B1 is 36, creatinine 1.07. C. difficile was negative, no nausea, no vomiting, C. difficile test was negative, and the patient had some runs of VT, cardiology has been following the patient, episodes of nonsustained. Patient is on oral amiodarone. No acute events overnight. We'll ambulate the patient, he is clinically improved, and the attending physician was to discharge him home today Objective - Vital Signs Vital signs: Vital Signs Temp 97.9 F 11/10/19 04:59 Pulse 81 11/10/19 13:53 Resp 18 11/10/19 04:59 BP 99/63 11/10/19 04:59 Pulse Ox 87 L 11/10/19 13:53 Intake & Output 11/09/19 11/10/19 11/10/19 18:59 06:59 18:59 Intake Total 400 500 Output Total 2 Balance 400 -2 500 Intake: Intake, IV Titration 400 Amount Sodium Chloride 0.9% 1, 400 000 ml @ 50 mls/hr IV . Q20H [facility] Rx#:[id number] Oral 500 Output: Urine 2 Other: Voiding Method Bedside Commode Bedside Commode Bedside Commode # Voids 1 6 3 # Bowel Movements 1 - Exam GENERAL EXAM: Alert, very pleasant, 68-year-old elderly white male, on 2 L of oxygen with pulse ox of 94%, set up in the recliner, in no acute distress comfortable in no apparent distress. HEAD: Normocephalic/atraumatic. EYES: Normal reaction of pupils, equal size. Conjunctiva pink, sclera white. NOSE: Clear with pink turbinates. THROAT: No erythema or exudates. NECK: No masses, no JVD, no thyroid enlargement, no adenopathy. CHEST: No chest wall deformity. Symmetrical expansion. LUNGS: Equal air entry with no crackles, wheeze, rhonchi or dullness. CVS: Regular rate and rhythm, normal S1 and S2, no gallops, no murmurs, no rubs ABDOMEN: Soft, nontender. No hepatosplenomegaly, normal bowel sounds, no guarding or rigidity. EXTREMITIES: No clubbing, no edema, no cyanosis, 2+ pulses and upper and lower extremities. MUSCULOSKELETAL: Muscle strength and tone normal. SPINE: No scoliosis or deformity SKIN: No rashes CENTRAL NERVOUS SYSTEM: Alert and oriented -3. No focal deficits, tone is normal in all 4 extremities. PSYCHIATRIC: Alert and oriented -3. Appropriate affect. Intact judgment and insight. - Labs CBC & Chem 7: 11/10/19 05:55 11/10/19 05:55 Labs: Abnormal Lab Results - Last 24 Hours (Table) 11/09/19 11/10/19 11/10/19 Range/Units 22:49 05:55 05:55 WBC 16.0 H (3.8-10.6) k/uL Plt Count 122 L (150-450) k/uL Neutrophils # 14.2 H (1.3-7.7) k/uL Lymphocytes # 0.5 L (1.0-4.8) k/uL Sodium 128 L 128 L (137-145) mmol/L Chloride 93 L 93 L (98-107) mmol/L BUN 32 H 36 H (9-20) mg/dL Glucose 106 H (74-99) mg/dL Calcium 8.0 L (8.4-10.2) mg/dL Assessment and Plan Plan: Assessment: 1 Acute exacerbation of chronic obstructive pulmonary disease, complicated by right-sided pneumonia/effusion, improved 2 Chronic loculated right-sided effusion. Computed tomography scan of 11/07/2019 revealed basilar right lower lobectomy, no residual mass or suspicious nodules/lymphadenopathy seen. There is some mild patchy areas of gr oundglass with early interstitial pulmonary edema. He has been receiving diuretics. 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 Computed tomography scan of the brain did not reveal any evidence of metastasis or acute process. 4 Previous history of lung mass status post surgery to the right lower lobe, ri ght lower lobectomy. This was an early stage cancer and did not require chemo or radiation according to the patient 5 Status post AICD placement 6 History of myocardial infarction 7 History of previous heavy tobacco dependence 8 Hyponatremia, slightly improved to 128 today Plan: Patient is clinically stable for discharge home today, FiO2 is down to 2 L, home oxygen assessment has been obtained, and patient does qualify for home oxygen, as he desaturated down to 87% on room air, breathing easier, his last CT scan of the chest on 11/07/2019 showed a loculated right pleural effusion, and early interstitial pulmonary edema, patient continues on oral diuretics. Cardiology has been following the patient, no compressive worsening shortness of breath, no significant cough or congestion, patient is tolerating ablation, stable for discharge home today and follow-up with Dr. Carroll in the outpatient setting I performed a history & physical examination of the patient and discussed their management with my nurse practitioner, Sally Conway. I reviewed the nurse practitioner's note and agree with the documented findings and plan of care. Lung sounds are positive for diminished breath sounds at the bases. The findings and the impression was discussed with the patient. I attest to the documentation by the nurse practitioner. Time with Patient: Less than 30
== END 2019-11-10 16:20 | disposition home or self-care (01) | DRG 177 ==
LOC: EC 21:21 → 3SCARD 23:10 → 2SICU 11-04 06:14 → OBSVTOIN 11-04 06:14 → 5NMEDONC 11-05 12:22
PROVIDERS: ADMIT Hospitalist; ATTEND Hospitalist
PROC: 5A09457 Assistance with Respiratory Ventilation, 24-96 Consecutive Hours, Continuous Positive Airway Pressure (ICD-10-PCS; principal; 2019-11-04)
DX: J15.6 Pneumonia due to other Gram-negative bacteria (principal); I50.23 Acute on chronic systolic (congestive) heart failure; J96.01 Acute respiratory failure with hypoxia; G92 Toxic encephalopathy; J44.0 Chronic obstructive pulmonary disease with (acute) lower respiratory infection; J44.1 Chronic obstructive pulmonary disease with (acute) exacerbation; C34.31 Malignant neoplasm of lower lobe, right bronchus or lung; I47.2 Ventricular tachycardia; E87.1 Hypo-osmolality and hyponatremia; I42.8 Other cardiomyopathies; N17.9 Acute kidney failure, unspecified; E87.2 Acidosis; J90 Pleural effusion, not elsewhere classified; I27.20 Pulmonary hypertension, unspecified; I44.7 Left bundle-branch block, unspecified; I08.3 Combined rheumatic disorders of mitral, aortic and tricuspid valves; N40.0 Benign prostatic hyperplasia without lower urinary tract symptoms; E11.9 Type 2 diabetes mellitus without complications; F51.04 Psychophysiologic insomnia; F41.1 Generalized anxiety disorder; T42.4X5A Adverse effect of benzodiazepines, initial encounter; Y92.230 Patient room in hospital as the place of occurrence of the external cause; I25.2 Old myocardial infarction; Z79.51 Long term (current) use of inhaled steroids; Z79.890 Hormone replacement therapy; Z79.899 Other long term (current) drug therapy; Z87.891 Personal history of nicotine dependence; Z90.2 Acquired absence of lung [part of]; Z95.810 Presence of automatic (implantable) cardiac defibrillator; Z98.890 Other specified postprocedural states; Z82.49 Family history of ischemic heart disease and other diseases of the circulatory system
CPT/HCPCS: 36415; 36600; 70470; 71045; 71046; 71260; 80048; 80053; 81001; 82550; 82805; 83735; 83880; 84484; 85025; 85610; 85730; 87324; 93005; 93306; 94640; 94660; 94760; 96361; 96374; 96375; 99291

== ENCOUNTER 2019-11-22 06:35 | Inpatient (IN) | payer MEDICARE ==
[2019-11-22] MEDS ORDERED: ASPIRIN 81 MG PO STA (07:08)
[2019-11-22] MEDS ORDERED: SODIUM CHLORIDE 0.9% 1,000 ML IV STA (07:08)
[2019-11-22] MEDS ORDERED: SODIUM CHLORIDE 0.9% 500 ML 500 ML IV STA (07:08)
[2019-11-22 07:18] LABS: Basophils % (A) 0 %; Eosinophils # (A) 0.1 k/uL (0-0.7); Eosinophils % (A) 1 %; HCT 44.7 % (39.0-53.0); HGB 14.4 gm/dL (13.0-17.5); Lymphocytes # (A) 0.5 k/uL (1.0-4.8); Lymphocytes % (A) 4 %; MCH 30.6 pg (25.0-35.0); MCHC 32.3 g/dL (31.0-37.0); MCV 94.7 fL (80.0-100.0); Mean Platelet Volume 7.4; Monocytes # (A) 0.5 k/uL (0-1.0); Monocytes % (A) 4 %; Neutrophils # (A) 10.8 k/uL (1.3-7.7); Neutrophils % (A) 89 %; Platelet Count 132 k/uL (150-450); RBC 4.72 m/uL (4.30-5.90); RDW 15.1 % (11.5-15.5); WBC 12.3 k/uL (3.8-10.6)
[2019-11-22 07:27] LABS: ALT 303 U/L (4-49); AST 68 U/L (17-59); African American GFR (CKD) >90 (>60 ml/min/1.73 sqM); Albumin 3.6 g/dL (3.5-5.0); Alkaline Phosphatase 127 U/L (38-126); Amylase 100 U/L (30-110); Anion Gap 3 mmol/L; Blood Urea Nitrogen 26 mg/dL (9-20); Calcium 9.3 mg/dL (8.4-10.2); Carbon Dioxide 36 mmol/L (22-30); Chloride 97 mmol/L (98-107); Glucose 78 mg/dL (74-99); Magnesium 2.3 mg/dL (1.6-2.3); Non-African American GFR(CKD) 79 (>60 ml/min/1.73 sqM); Potassium 4.1 mmol/L (3.5-5.1); Sodium 136 mmol/L (137-145); Total Bilirubin 1.7 mg/dL (0.2-1.3); Total Protein 6.2 g/dL (6.3-8.2)
[2019-11-22 07:32] LABS: Partial Thromboplastin Time 22.8 sec (22.0-30.0); Prothrombin Time 10.7 sec (9.0-12.0)
--- NOTE | 2019-11-22 07:45 | XR ---
EXAMINATION TYPE: XR chest 2V DATE OF EXAM: 11/22/2019 COMPARISON: 11/05/2019 TECHNIQUE: PA and lateral views submitted. HISTORY: Chest pain FINDINGS: There is an interstitial pattern. No pneumothorax. Cardiac device and cardiomegaly seen with right lo wer lobe solid aeration and pleural effusion. Arthropathy of the shoulders and degenerative change sp ine. IMPRESSION: 1. Right lower lobe infiltrate and moderate-sized pleural effusion. Correlate for underlying mild davonte ous congestion
--- NOTE | 2019-11-22 07:45 | ED ---
Chest Pain HPI - General Source: patient, RN notes reviewed, old records reviewed Mode of arrival: ambulatory Limitations: no limitations <Estelle Mcintosh - Last Filed: 11/22/19 10:11> <Indra Telles - Last Filed: 11/22/19 10:50> - General Chief Complaint: Chest Pain Stated Complaint: chest pain Time Seen by Provider: 11/22/19 06:46 - History of Present Illness Initial Comments: 69-year-old male presents emergency department today for evaluation with concern for chest pain and shortness of breath for the past 2 days,. Evening complaining of some pain shooting down his left arm. Patient was recently discharged from the hospital on 11/09 with a diagnosis of COPD exacerbation and possible lower lobe pneumonia. Patient's practice architect is Dr. Carroll. He was started on Augmentin by Dr. Carroll 2 days ago and they called with complaints of worsening shortness of breath and chest pain. Patient also has a history of low EF 20% and is status post AICD. Chronic medical conditions also include right lower lobectomy with a history of right lung mass. Patient's reportedly putting icy hot and heating pads over his left chest wall. Patient has blisters over L chest wall. (Estelle Mcintosh) - Related Data Home Medications Medication Instructions Recorded Confirmed Albuterol Inhaler (Bulk) [Ventolin 2 puff INHALATION RT-Q6H PRN 04/22/19 11/22/19 Hfa Inhaler (Bulk)] Levothyroxine Sodium 25 mcg PO DAILY 11/04/19 11/22/19 ALPRAZolam [Xanax] 0.25 mg PO BID PRN 11/22/19 11/22/19 Acetaminophen Tab [Tylenol Tab] 1,000 mg PO Q6H PRN 11/22/19 11/22/19 Amiodarone [Cordarone] 200 mg PO DAILY 11/22/19 11/22/19 Amoxic-Pot Clav 875-125Mg 1 tab PO BID 11/22/19 11/22/19 [Augmentin 875-125] Aspirin EC [Ecotrin Low Dose] 81 mg PO DAILY 11/22/19 11/22/19 Ibuprofen [Motrin Ib] 800 mg PO Q8H PRN MDD N 11/22/19 11/22/19 Metoprolol Tartrate [Lopressor] 12.5 mg PO BID 11/22/19 11/22/19 Potassium Chloride ER [K-Dur 10] 10 meq PO DAILY 11/22/19 11/22/19 predniSONE [Deltasone] See Taper PO DAILY 11/22/19 11/22/19 Previous Rx's Medication Instructions Recorded Atorvastatin [Lipitor] 40 mg PO HS #30 tab 11/10/19 Budesonide-Formot 160-4.5 Mcg 2 puff INHALATION RT-BID PRN #1 11/10/19 [Symbicort 160-4.5 Mcg Inhaler puff (Bulk)] Furosemide [Lasix] 20 mg PO DAILY #30 tab 11/10/19 Ipratropium-Albuterol Nebulize 3 ml INHALATION RT-QID PRN #1 neb 11/10/19 [Duoneb 0.5 mg-3 mg/3 ml Soln] Pantoprazole [Protonix] 40 mg PO AC-BRKFST #30 tablet. 11/10/19 Allergies Allergy/AdvReac Type Severity Reaction Status Date / Time lorazepam [From Ativan] Allergy Anaphylaxis Verified 11/22/19 10:16 Review of Systems ROS Other: All systems not noted in ROS Statement are negative. <Estelle Mcintosh - Last Filed: 11/22/19 10:11> ROS Other: All systems not noted in ROS Statement are negative. <Indra Telles - Last Filed: 11/22/19 10:50> ROS Statement: Those systems with pertinent positive or pertinent negative responses have been documented in the HPI. EKG Findings - EKG Comments: EKG Findings:: EKG performed at 658 shows sinus rhythm with premature atrial complex is. Left axis deviation. Left bundle-branch block. Ventricular rate of 91 beats were minute. Pulse 172 ms. QRS duration is 162 ms. QT QTc is 440/541 ms. Repeat EKG performed at 8:42 AM shows normal sinus rhythm with occasional PVCs and PACs. Left bundle branch block. Abnormal EKG. 2. A 7 bpm. Was 180 ms. Care instructions 160 ms. QT QTc is 442/531 ms. <Estelle Mcintosh - Last Filed: 11/22/19 10:11> Past Medical History Past Medical History: Myocardial Infarction ([place]) Additional Past Medical History / Comment(s): right lung mass Last Myocardial Infarction Date:: 2001 History of Any Multi-Drug Resistant Organisms: None Reported Past Surgical History: Heart Catheterization, Hernia Repair, Pacemaker Additional Past Surgical History / Comment(s): reomoval of tumor from right lung, lower lobe removed. defib 2001 Past Anesthesia/Blood Transfusion Reactions: No Reported Reaction Type of Cardiac Device: AICD Device Placement Date:: 2015 Past Psychological History: No Psychological Hx Reported Smoking Status: Former smoker Past Alcohol Use History: None Reported Past Drug Use History: None Reported - Past Family History Father Family Medical History: Congestive Heart Failure (CHF) <Estelle Mcintosh - Last Filed: 11/22/19 10:11> General Exam Limitations: no limitations General appearance: alert, in no apparent distress Head exam: Present: atraumatic, normocephalic, normal inspection Eye exam: Present: normal appearance, PERRL, EOMI. Absent: scleral icterus, conjunctival injection, periorbital swelling ENT exam: Present: normal exam, mucous membranes moist Neck exam: Present: normal inspection. Absent: tenderness, meningismus, lymphadenopathy Respiratory exam: Present: normal lung sounds bilaterally, other (blisters over L chest wall and neck). Absent: respiratory distress, wheezes, rales, rhonchi, stridor Cardiovascular Exam: Present: regular rate, normal rhythm, normal heart sounds. Absent: systolic murmur, diastolic murmur, rubs, gallop, clicks GI/Abdominal exam: Present: soft, normal bowel sounds. Absent: distended, tenderness, guarding, rebound, rigid Extremities exam: Present: normal inspection, full ROM, normal capillary refill. Absent: tenderness, pedal edema, joint swelling, calf tenderness Back exam: Present: normal inspection Neurological exam: Present: alert, oriented X3, CN II-XII intact Psychiatric exam: Present: normal affect, normal mood Skin exam: Present: warm, dry, intact, normal color. Absent: rash <Estelle Mcintosh - Last Filed: 11/22/19 10:11> - General Exam Comments Initial Comments: Weak and ill-appearing 69-year-old male. (Estelle Mcintosh) Course <Indra Telles - Last Filed: 11/22/19 10:50> Vital Signs 11/22/19 11/22/19 06:40 08:38 Temperature 97.5 F L Pulse Rate 66 100 Respiratory 18 22 Rate Blood Pressure 97/56 93/76 O2 Sat by Pulse 100 100 Oximetry - Reevaluation(s) Reevaluation #1: 11/22/19 10:49 Patient reevaluated by myself, Dr. Telles. Patient resting comfortably in bed. Patient significantly improved and comfortable. Patient and family updated on results and plan. Case was discussed in detail with Dr. Cedeño, who will admit covering for Dr. Salazar. Pulmonary and cardiology will be placed on consult. Patient was reevaluated and reexamined. I do agree with PA findings. This incl udes diagnostic interpretation and treatment plan. (Indra Telles) Chest Pain MDM <Estelle Mcintosh - Last Filed: 11/22/19 10:11> - MDM 69-year-old male with history of COPD and CHF. He presents today with complaints of 2 days of intermittent and worsening chest pain with some radiation down the left arm. Patient's EKG reviewed. No ST changes. Patient was given morphine, blood pressure was low 90s over 60, held on nitro. He is applying heating pads and ice the had overstressed of swelling resulted in some blisterlike lesions over his left chest wall. This does not appear to be shingles. At this time patient's given aspirin. Lab work was reviewed. Elevated BNP at 10,000. He does have a mildly elevated troponin as well. He does have known EF of 20%. Patient case was assessed Dr. Telles also examined the Patient. Patient will be admitted at this time under Dr. Cedeño. Consult to cardiology. Was placed on heart failure protocol. Patient CXR shows R lower lobe infiltarte and moderatea size pleural effusion. This is stable and, and patient is currently on Augmentin from Dr. Carroll. Blood culture obtained. Clinical picture is more ACS and CHF exacerbation, as patient is afebrile and denies worsening cough. CXR shows a lower lobe infiltrate and moderate size pleural effusion. Correlat ing borderlining mild venous congestion. CT shwos No evidence of pulmonary embolism.. Basilar right lower lobe lobectomy. Cardiomegaly reflex contrast hepatic veins. Reading for CHF early interstitial pulmonary edema. Moderate right pleural effusion and possible areas of loculation. Trace left effusion. Some patchy right basilar opacity represents atelectasis rather than infiltrate. (Estelle Mcintosh) Disposition Is patient prescribed a controlled substance at d/c from ED?: No Time of Disposition: 10:17 <Estelle Mcintosh - Last Filed: 11/22/19 10:11> <Indra Telles - Last Filed: 11/22/19 10:50> Clinical Impression: COPD exacerbation, Congestive heart failure, Elevated troponin, Pleural effusion Disposition: ADMITTED IP TO THIS HOSP Condition: Stable Referrals: Kashif Salazar MD [Primary Care Provider] - 1-2 days
[2019-11-22] MEDS ORDERED: NITROGLYCERIN SL TABS 0.4 MG TAB SUBLINGUAL STA (08:18)
[2019-11-22] MEDS ORDERED: MORPHINE SULFATE 4 MG/ML SYRINGE IVP STA (08:18)
[2019-11-22] MEDS ORDERED: RX INFO: IV CONTRAST WAS GIVEN 1 EACH MISC MISCELLANE PRN (08:38)
[2019-11-22] MEDS ORDERED: MORPHINE SULFATE 2 MG/ML SYRINGE IVP ONE (08:40)
--- NOTE | 2019-11-22 09:25 | CT ---
EXAMINATION TYPE: CT chest angio for PE DATE OF EXAM: 11/22/2019 COMPARISON: 11/07/2019 HISTORY: Chest pain, possible PE or aortic pathology CT DLP: 250.2 mGycm Automated exposure control for dose reduction was used. CONTRAST: CT Chest for pulmonary embolism performed with with IV Contrast, patient injected with 100 mL of Isov ue 370. FINDINGS: Left anterior chest wall AICD generator with right atrial and right ventricular leads. Heart markedly enlarged. Coronary artery calcification noted. Assessment of the proximal aorta limited by artifact. Grossly no evidence of aneurysm. Reduced contrast is seen due to pulmonary embolism protocol. This limits asses sment of the aorta. Heart markedly enlarged. No pericardial effusion. Aorta normal caliber with mild atherosclerotic arch calcifications. No thoracic lymphadenopathy by CT size criteria. Moderate centrilobular emphysema. S ome septal thickening in the upper and mid lungs. Mild groundglass bilateral findings. There is a moderate right pleural effusion. Some slight loculation is suggested posteromedially. Ther e may have been basilar right lower lobectomy in the interval. This should be correlated with patient 's history. Some mild patchy posterior right basilar opacity. Reflux of contrast into the hepatic vei ns. Moderate stool in the visualized colon. Bones: No osseous destructive process seen. IMPRESSION: 1. No diagnostic evidence of pulmonary embolism. Basilar right lower lobectomy . No residual mass or suspicious nodules/lymphadenopathy seen. 2. Cardiomegaly, reflux of contrast into the hepatic veins, septal thickening, and mild patchy areas of groundglass. Correlate for CHF with early interstitial pulmonary edema. 3. Moderate right pleural effusion with possible areas of loculation. Trace left effusion. Some patch y right basilar opacity likely represents atelectasis rather than infiltrate.
[2019-11-22] MEDS ORDERED: SYMBICORT 160-4.5 MCG INHALER INHALATION PRN (10:17)
[2019-11-22] MEDS ORDERED: IPRATROPIUM-ALBUTEROL 3 ML NEB INHALATION PRN (10:17)
[2019-11-22] MEDS ORDERED: DIAZEPAM 2 MG TAB PO PRN (10:17)
[2019-11-22] MEDS: FUROSEMIDE 10 MG/ML 4 ML VIAL IV SCH ×2 (11:09→20:23)
[2019-11-22] MEDS ORDERED: ALPRAZolam 0.25 MG TAB PO PRN (11:55)
[2019-11-22] MEDS ORDERED: ALBUTEROL NEBULIZED 2.5 MG/3 ML INHALATION PRN (11:55)
[2019-11-22] MEDS ORDERED: ENOXAPARIN 40 MG/0.4 ML SYRINGE SQ SCH (12:00)
[2019-11-22] MEDS ORDERED: AMIODARONE 200 MG TAB PO SCH (12:00)
[2019-11-22] MEDS: AMOXIC-POT CLAV 875-125MG 1 EACH TAB PO SCH ×2 (12:44→20:22)
[2019-11-22] MEDS ORDERED: NITROGLYCERIN OINT 1 INCH/GM PACKET TOPICAL SCH (13:00)
--- NOTE | 2019-11-22 13:31 | P.CRDCN ---
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 4 benign hilar lymph nodes., COPD and chronic nicotine dependence. According to the patient he has never had any documented coronary artery disease or myocardial infarction. He recently established in the office with Dr. Waters due to increase exertional shortness of breath. He has undergone a stress test and echocardiogram revealing a primarily fixed defect of the inferior wall with no evidence of reversibility, severely impaired LV systolic function with ejection fraction less than 15%, mild aortic insufficiency, moderate to severe mitral regurgitation, moderate tricuspid regurgitation and mild pulmonary hypertension. He is scheduled to undergo a left heart cath indicated on November 13, which was canceled. Patient just had a recent hospitalization, treated for COPD exacerbation and was discharged home. He presented again to the hospital with symptoms of progressively worsening shortness of breath. CT of the chest did not reveal any evidence of pulmonary embolism. Showed right lower lobectomy, no residual mass or suspicious nodules seen. Cardiomegaly, reflux of contrast into hepatic veins, septal thickening, and mild patchy areas of groundglass appearance. Correlate for CHF with early interstitial pulmonary edema. Moderate right pleural effusion with possible areas of loculation. This appears to be chronic for the patient. Laboratory data was reviewed, white blood cell count 12.3, hemoglobin 14.4, platelet count 132. Sodium 136, potassium 4.1, BUN 26, creatinine 0.9. Sodium 136, potassium 4.1, BUN 26, creatinine 0.9. Total bilirubin 1.7, AST 68, ALT 303, alk phos 127 . Troponin 0.068. BNP level 10,500. Patient feels extremely weak at the time of my examination. Complaints of feeling short of breath. EKG shows a normal sinus rhythm with a left bundle-branch block pattern. Past Medical History Past Medical History: Myocardial Infarction ([place]) Additional Past Medical History / Comment(s): right lung mass Last Myocardial Infarction Date:: 2001 History of Any Multi-Drug Resistant Organisms: None Reported Past Surgical History: Heart Catheterization, Hernia Repair, Pacemaker Additional Past Surgical History / Comment(s): reomoval of tumor from right lung, lower lobe removed. defib 2001 Past Anesthesia/Blood Transfusion Reactions: No Reported Reaction Type of Cardiac Device: AICD Device Placement Date:: 2015 Past Psychological History: No Psychological Hx Reported Smoking Status: Former smoker Past Alcohol Use History: None Reported Past Drug Use History: None Reported - Past Family History Father Family Medical History: Congestive Heart Failure (CHF) Medications and Allergies Home Medications Medication Instructions Recorded Confirmed Type Albuterol Inhaler (Bulk) [Ventolin 2 puff INHALATION RT-Q6H PRN 04/22/19 11/22/19 History Hfa Inhaler (Bulk)] Levothyroxine Sodium 25 mcg PO DAILY 11/04/19 11/22/19 History Atorvastatin [Lipitor] 40 mg PO HS #30 tab 11/10/19 11/22/19 Rx Budesonide-Formot 160-4.5 Mcg 2 puff INHALATION RT-BID PRN #1 11/10/19 11/22/19 Rx [Symbicort 160-4.5 Mcg Inhaler puff (Bulk)] Furosemide [Lasix] 20 mg PO DAILY #30 tab 11/10/19 11/22/19 Rx Ipratropium-Albuterol Nebulize 3 ml INHALATION RT-QID PRN #1 neb 11/10/19 11/22/19 Rx [Duoneb 0.5 mg-3 mg/3 ml Soln] Pantoprazole [Protonix] 40 mg PO AC-BRKFST #30 tablet.dr 11/10/19 11/22/19 Rx ALPRAZolam [Xanax] 0.25 mg PO BID PRN 11/22/19 11/22/19 History Acetaminophen Tab [Tylenol Tab] 1,000 mg PO Q6H PRN 11/22/19 11/22/19 History Amiodarone [Cordarone] 200 mg PO DAILY 11/22/19 11/22/19 History Amoxic-Pot Clav 875-125Mg 1 tab PO BID 11/22/19 11/22/19 History [Augmentin 875-125] Aspirin EC [Ecotrin Low Dose] 81 mg PO DAILY 11/22/19 11/22/19 History Ibuprofen [Motrin Ib] 800 mg PO Q8H PRN MDD N 11/22/19 11/22/19 History Metoprolol Tartrate [Lopressor] 12.5 mg PO BID 11/22/19 11/22/19 History Potassium Chloride ER [K-Dur 10] 10 meq PO DAILY 11/22/19 11/22/19 History predniSONE [Deltasone] See Taper PO DAILY 11/22/19 11/22/19 History Allergies Allergy/AdvReac Type Severity Reaction Status Date / Time lorazepam [From Ativan] Allergy Anaphylaxis Verified 11/22/19 10:16 Physical Exam Vitals: Vital Signs Temp Pulse Pulse Resp BP BP Pulse Ox 11/22/19 12:00 97.6 F 88 93/71 11/22/19 11:07 97.5 F L 98 18 91/74 98 11/22/19 11:00 92 22 98/77 100 11/22/19 10:30 100 20 118/83 99 11/22/19 10:00 90 20 87/62 100 11/22/19 09:30 92 20 87/64 100 11/22/19 08:38 100 22 93/76 100 11/22/19 06:40 97.5 F L 66 18 97/56 100 Intake and Output 11/21/19 11/22/19 11/22/19 22:59 06:59 14:59 Other: Weight 52.163 kg PHYSICAL EXAMINATION: GENERAL: 69-year-old gentleman in no acute distress at the time of my examination HEENT: Head is atraumatic, normocephalic. Pupils equal, round. Sclera anicteric. Conjunctiva are clear. Mucous membranes of the mouth are moist. Neck is supple. There is no elevated jugular venous pressure. No carotid bruit is heard. HEART EXAMINATION: Heart S1 and S2 systolic ejection murmur is CHEST EXAMINATION: Lungs reveal diminished air entry bilaterally, right greater than left ABDOMEN: Soft, mild generalized tenderness on palpation . Bowel sounds are heard. No organomegaly noted. EXTREMITIES: 2+ peripheral pulses with evidence of peripheral edema and no calf tenderness noted. NEUROLOGIC patient is awake, alert and oriented 3 . . Results 11/23/19 03:53 11/23/19 10:02 Cardiac Enzymes 11/22/19 11/22/19 Range/Units 06:58 06:58 AST 68 H (17-59) U/L Troponin I 0.068 H* (0.000-0.034) ng/mL Coagulation 11/22/19 Range/Units 06:58 PT 10.7 (9.0-12.0) sec APTT 22.8 (22.0-30.0) sec CBC 11/22/19 Range/Units 06:58 WBC 12.3 H (3.8-10.6) k/uL RBC 4.72 (4.30-5.90) m/uL Hgb 14.4 (13.0-17.5) gm/dL Hct 44.7 (39.0-53.0) % Plt Count 132 L (150-450) k/uL Comprehensive Metabolic Panel 11/22/19 Range/Units 06:58 Sodium 136 L (137-145) mmol/L Potassium 4.1 (3.5-5.1) mmol/L Chloride 97 L (98-107) mmol/L Carbon Dioxide 36 H (22-30) mmol/L BUN 26 H (9-20) mg/dL Creatinine 0.97 (0.66-1.25) mg/dL Glucose 78 (74-99) mg/dL Calcium 9.3 (8.4-10.2) mg/dL AST 68 H (17-59) U/L ALT 303 H (4-49) U/L Alkaline Phosphatase 127 H (38-126) U/L Total Protein 6.2 L (6.3-8.2) g/dL Albumin 3.6 (3.5-5.0) g/dL Current Medications Generic Name Dose Route Start Last Admin Trade Name Freq PRN Reason Stop Dose Admin Acetaminophen 1,000 mg 11/22/19 11:55 Tylenol Tab PO Q6H PRN Mild Pain Albuterol/Ipratropium 3 ml 11/22/19 10:17 Duoneb 0.5 Mg-3 Mg/3 Ml Soln INHALATION RT-QID PRN Shortness Of Breath Alprazolam 0.25 mg 11/22/19 11:55 Xanax PO BID PRN Anxiety Amiodarone HCl 200 mg 11/22/19 12:00 11/22/19 12:44 Cordarone PO 200 mg DAILY LATRICIA Administration Amoxicillin/Clavulanate Potassium 1 each 11/22/19 12:00 11/22/19 12:44 Augmentin 875-125 PO 1 each BID LATRICIA Administration Aspirin 325 mg 11/23/19 09:00 Aspirin PO DAILY [facility] Atorvastatin Calcium 40 mg 11/22/19 21:00 Lipitor PO HS [facility] Budesonide/Formoterol Fumarate 2 puff 11/22/19 10:17 Symbicort 160-4.5 Mcg Inhaler INHALATION RT-BID PRN Shortness Of Breath Diazepam 1 mg 11/22/19 10:17 Valium PO BID PRN Anxiety Enoxaparin Sodium 40 mg 11/22/19 12:00 11/22/19 12:44 Lovenox SQ 40 mg DAILY LATRICIA Administration Furosemide 40 mg 11/22/19 10:15 11/22/19 11:09 Lasix IV 40 mg Q12H LATRICIA Administration Sodium Chloride 1,000 mls @ 100 mls/hr 11/22/19 07:08 11/22/19 07:17 Saline 0.9% IV 11/22/19 17:07 100 mls/hr .Q10H STA Administration Levothyroxine Sodium 25 mcg 11/23/19 06:30 Synthroid PO DAILY@0630 [facility] Metoprolol Tartrate 12.5 mg 11/22/19 21:00 Lopressor PO BID [facility] Miscellaneous Information 1 each 11/22/19 08:38 Rx Info: Iv Contrast Was Given MISCELLANE 11/24/19 08:39 DAILY PRN Per Protocol Multivitamins 1 each 11/23/19 09:00 Theragran PO DAILY [facility] Nitroglycerin 0.5 inch 11/22/19 13:00 11/22/19 12:44 Nitro-Bid Oint TOPICAL Not Given QID [facility] Pantoprazole Sodium 40 mg 11/23/19 07:30 Protonix PO AC-BRKFST [facility] Vitamin E 400 unit 11/23/19 09:00 Vitamin E PO DAILY [facility] Intake and Output 11/21/19 11/22/19 11/22/19 22:59 06:59 14:59 Other: Weight 52.163 kg 11/22/19 06:58 11/22/19 06:58 EKG Interpretations (text) EKG shows a normal sinus rhythm with a left bundle-branch block pattern. Assessment and Plan Plan: Assessment and plan: #1 systolic congestive heart failure acute on chronic, BNP level 10,500, #2 Chronic loculated right-sided effusion. Computed tomography scan of 11/07/2019 revealed basilar right lower lobectomy, no residual mass or suspicious nodules/lymphadenopathy seen. There is some mild patchy areas of groundglass with early interstitial pulmonary edema. He has been receiving diuretics. #3 recent hospitalization for COPD exacerbation #4 Previous history of lung mass status post surgery to the right lower lobe, right lower lobectomy. This was an early stage cancer and did not require chemo or radiation according to the patient #5 nonischemic cardiomyopathy, Status post AICD placement, recent echo was performed in the office which revealed an ejection fraction of less than 15%, mild aortic insufficiency, moderate to severe MR, moderate TR and mild pulmonary hypertension #6 abnormality in troponin, we will get 2 subsequent troponins however it does appear that the patient had abnormality in this range on his most recent a dmission, with no significant rise and fall pattern #7 history of nicotine dependence #8 abnormal liver functions Plan We will not repeat an echocardiogram with Doppler study as the patient just recently had one performed in the office as mentioned above. We will continue IV Lasix, continue to monitor the patient's intake and output along with daily weights and daily lytes BUN and creatinine. Patient also has significant abnormality in his liver function, we will discontinue the amiodarone. The patient is on a low-dose beta bryant which we will continue, he is also hypotensive with a blood pressure in the 90 range. If his blood pressure can tolerate we may consider the addition of an SOFIYA inhibitor. We will also continue to monitor the patient closely, it is documented that the patient had been on amiodarone because of nonsustained ventricular tachycardia. Further recommendations to follow. DNP note has been reviewed, I agree with a documented findings and plan of care. Patient was seen and examined.
--- NOTE | 2019-11-22 14:14 | US ---
EXAMINATION TYPE: US gallbladder DATE OF EXAM: 11/22/2019 COMPARISON: NONE CLINICAL HISTORY: 69-year-old male transaminitis, pain. TECHNIQUE: Multiple sonographic images of the right upper quadrant are obtained. FINDINGS: Sonography notes: Difficult and limited exam due to overlying bowel gas EXAM MEASUREMENTS: Liver Length: 12.7 cm Gallbladder Wall: 0.2 cm CBD: 0.3 cm Right Kidney: 4.3 cm Pancreas: Obscured by bowel gas Liver: Relatively homogeneous appearance without focal lesion. Gallbladder: wnl Evidence for sonographic Blake's sign: No CBD: wnl as visualized Right Kidney: No obvious hydronephrosis. Unable to visualize entire length in long due to overlying b owel gas Psychologist Developmental notes: Midline at the level of the umbilicus, there is a large anechoic area visualized t hat may represent a markedly distended bladder vs other etiology. IMPRESSION: 1. Technically limited exam due to excessive bowel gas. Only a small portion of the right kidney coul d be seen. Pancreas suboptimally visualized. 2. No biliary ductal dilatation or cholelithiasis. 3. Scanning at the midline near the level of the umbilicus shows a very large cystic structure. A mar kedly distended urinary bladder is possible. Correlate for urinary retention. Consider either post ca theterization ultrasound or contrast enhanced CT as indicated.
[2019-11-22] MEDS ORDERED: HEPARIN SODIUM,PORCINE 5,000 UNIT/ML 1 ML VIAL IV PRN (16:02)
[2019-11-22] MEDS ORDERED: HEPARIN SODIUM,PORCINE 5,000 UNIT/ML 1 ML VIAL IV ONE (16:02)
--- NOTE | 2019-11-22 16:02 | P.HPIM ---
History of Present Illness H&P Date: 11/22/19 Chief Complaint: Chest pain History of presenting complaint This is a 69-year-old patient of Dr. Salazar. Chronic stable medical conditions include (left bundle branch block, AICD, BPH, right lower lobe lobectomy. Patient stopped smoking in August 2019. 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 Patient has chronic loculated right-sided pneumonia. Patient now presents with significant pain that he had yesterday. Her chest rather severe going to the shoulder arm. Last inguinal practically all morning. Patient also has AICD in a program pacemaker. Does no dizziness no lightheaded ness no perspiration. More short of breath. Patient's did did put a heating pad and resulted is some redness on the skin. Patient does not have a cough no fever. Per cardiology consultation patient recently had a stress test that showed a fixed defect of the inferior wall with no evidence of reversibility. EF less than 15%, [id number] MR, moderate TR Review of systems: GEN.: Tired EYES: None HEENT: None NECK: None RESPIRATORY: Baseline some shortness of breath CARDIOVASCULAR: As above GASTROINTESTINAL: None GENITOURINARY: None MUSCULOSKELETAL: Some joint pains LYMPHATICS: None HEMATOLOGICAL: None PSYCHIATRY: Slightly anxiety NEUROLOGICAL: None Past medical history to include: AICD permanent pacemaker for arrhythmia, COPD, left bundle-branch block, smoker-adenocarcinoma of the lung with right lower lobe lobectomy Social history: , smoked a pack a day for many years, stopped in August 2019 Was also drinking alcohol before. Physical examination: VITAL: 97.5, 66, 18, 97/56, 100% on room air GENERAL: [BMI 19.1, propped up in bed, anxious EYES: Pupils equal. Conjunctiva normal. HEENT: External appearance of nose and ears normal, oral cavity grossly normal. NECK: JVD not raised; masses not palpable. HEART: First and second heart sounds are normal; no edema. LUNGS: Respiratory rate increased, diminished breath sounds ABDOMEN: Soft, nontender, liver spleen not palpable, no masses palpable. PSYCH: AO 3, motor affect slightly anxious NEUROLOGICAL: Cranial nerves grossly intact; no facial asymmetry, power and sensation grossly intact. 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 INVESTIGATIONS, reviewed in the clinical context: White count 12.3 hemoglobin 14.4 potassium 4.1 creatinine 0.97 Bilirubin 1.7 AST 68 ALT 303 troponin I 0.068 proBNP 10,500 Chest x-ray film personally reviewed by me-right located effusion from before; infiltrate CT angiogram of the chest for PE-cardiomegaly, emphysema moderate right pleural effusion evidence of right lower lobectomy, mild groundglass bilateral findings, no PE Assessment: -Acute on chronic congestive heart exacerbation from systolic dysfunction EF less than 15%, POA -Acute COPD exacerbation in an ex-smoker, POA, -Anterior chest wall pain with some cardiac features and positive troponin strongly suggestive of acute non-Q-wave [place], POA -Moderate mitral and, moderate tricuspid regurgitation, nontraumatic -Chronic loculated right-sided effusion -Left bundle-branch block -AICD -BPH -History of arrhythmia type unknown patient is on amiodarone. -History of Right lower lobe lobectomy, biopsy showing adenocarcinoma. -Early-stage not requiring any chemoradiation treatment. Recent workup and Dr. Eldridge during hospitalization did not show any progression of the same. -generalized anxiety disorder -Chronic insomnia Plan: Cardiology was consulted. Patient started on IV Lasix. Home medications be continued. DC IV fluids. Consult pulmonary. Care was discussed with the patient and . Start the patient on IV heparin. Check pro calcitonin. Currently no clinical evidence of infection. Past Medical History Past Medical History: Myocardial Infarction ([place]) Additional Past Medical History / Comment(s): right lung mass Last Myocardial Infarction Date:: 2001 History of Any Multi-Drug Resistant Organisms: None Reported Past Surgical History: Heart Catheterization, Hernia Repair, Pacemaker Additional Past Surgical History / Comment(s): reomoval of tumor from right lung, lower lobe removed. defib 2001 Past Anesthesia/Blood Transfusion Reactions: No Reported Reaction Type of Cardiac Device: AICD Device Placement Date:: 2015 Past Psychological History: No Psychological Hx Reported Smoking Status: Former smoker Past Alcohol Use History: None Reported Past Drug Use History: None Reported - Past Family History Father Family Medical History: Congestive Heart Failure (CHF) Medications and Allergies Home Medications Medication Instructions Recorded Confirmed Type Albuterol Inhaler (Bulk) [Ventolin 2 puff INHALATION RT-Q6H PRN 04/22/19 11/22/19 History Hfa Inhaler (Bulk)] Levothyroxine Sodium 25 mcg PO DAILY 11/04/19 11/22/19 History Atorvastatin [Lipitor] 40 mg PO HS #30 tab 11/10/19 11/22/19 Rx Budesonide-Formot 160-4.5 Mcg 2 puff INHALATION RT-BID PRN #1 11/10/19 11/22/19 Rx [Symbicort 160-4.5 Mcg Inhaler puff (Bulk)] Furosemide [Lasix] 20 mg PO DAILY #30 tab 11/10/19 11/22/19 Rx Ipratropium-Albuterol Nebulize 3 ml INHALATION RT-QID PRN #1 neb 11/10/19 11/22/19 Rx [Duoneb 0.5 mg-3 mg/3 ml Soln] Pantoprazole [Protonix] 40 mg PO AC-BRKFST #30 tablet. 11/10/19 11/22/19 Rx ALPRAZolam [Xanax] 0.25 mg PO BID PRN 11/22/19 11/22/19 History Acetaminophen Tab [Tylenol Tab] 1,000 mg PO Q6H PRN 11/22/19 11/22/19 History Amiodarone [Cordarone] 200 mg PO DAILY 11/22/19 11/22/19 History Amoxic-Pot Clav 875-125Mg 1 tab PO BID 11/22/19 11/22/19 History [Augmentin 875-125] Aspirin EC [Ecotrin Low Dose] 81 mg PO DAILY 11/22/19 11/22/19 History Ibuprofen [Motrin Ib] 800 mg PO Q8H PRN MDD N 11/22/19 11/22/19 History Metoprolol Tartrate [Lopressor] 12.5 mg PO BID 11/22/19 11/22/19 History Potassium Chloride ER [K-Dur 10] 10 meq PO DAILY 11/22/19 11/22/19 History predniSONE [Deltasone] See Taper PO DAILY 11/22/19 11/22/19 History Allergies Allergy/AdvReac Type Severity Reaction Status Date / Time lorazepam [From Ativan] Allergy Anaphylaxis Verified 11/22/19 10:16 Physical Exam Vitals: Vital Signs Temp Pulse Pulse Resp BP BP Pulse Ox 11/22/19 12:00 97.6 F 88 93/71 11/22/19 11:07 97.5 F L 98 18 91/74 98 11/22/19 11:00 92 22 98/77 100 11/22/19 10:30 100 20 118/83 99 11/22/19 10:00 90 20 87/62 100 11/22/19 09:30 92 20 87/64 100 11/22/19 08:38 100 22 93/76 100 11/22/19 06:40 97.5 F L 66 18 97/56 100 Intake and Output 11/22/19 11/22/19 11/22/19 06:59 14:59 22:59 Intake Total 150 Balance 150 Intake: Oral 150 Other: Weight 52.163 kg 52.163 kg Results CBC & Chem 7: 11/22/19 06:58 11/22/19 06:58 Labs: Abnormal Lab Results - Last 24 Hours (Table) 11/22/19 11/22/19 11/22/19 Range/Units 06:58 06:58 06:58 WBC 12.3 H (3.8-10.6) k/uL Plt Count 132 L (150-450) k/uL Neutrophils # 10.8 H (1.3-7.7) k/uL Lymphocytes # 0.5 L (1.0-4.8) k/uL Sodium 136 L (137-145) mmol/L Chloride 97 L (98-107) mmol/L Carbon Dioxide 36 H (22-30) mmol/L BUN 26 H (9-20) mg/dL Total Bilirubin 1.7 H (0.2-1.3) mg/dL AST 68 H (17-59) U/L ALT 303 H (4-49) U/L Alkaline Phosphatase 127 H (38-126) U/L Troponin I 0.068 H* (0.000-0.034) ng/mL Total Protein 6.2 L (6.3-8.2) g/dL Thrombosis Risk Factor Assmnt - Choose All That Apply Any of the Below Risk Factors Present?: Yes Each Factor Represents 1 point: Abnormal pulmonary function (COPD), Heart failure (<1month) Other Risk Factors: Yes Each Risk Factor Represents 2 Points: Age 61-74 years Other congenital or acquired thrombophilia - If yes, enter type in comment: No Thrombosis Risk Factor Assessment Total Risk Factor Score: 4 Thrombosis Risk Factor Assessment Level: Moderate Risk
[2019-11-22] MEDS: HEPARIN SOD,PORK IN 0.45% NACL 25,000 UNIT in 0.45% NACL 1 250ML.BAG IV SCH (16:44)
[2019-11-22] MEDS ORDERED: NITROGLYCERIN SL TABS 0.4 MG TAB SUBLINGUAL ONE (16:53)
[2019-11-22] MEDS ORDERED: MORPHINE SULFATE 2 MG/ML SYRINGE IVP STA (17:08)
[2019-11-22] MEDS: SYMBICORT 160-4.5 MCG INHALER INHALATION SCH (19:41)
[2019-11-22] MEDS: IPRATROPIUM-ALBUTEROL 3 ML NEB INHALATION SCH (19:42)
[2019-11-22] MEDS: ATORVASTATIN 40 MG TAB PO SCH (20:22)
[2019-11-22] MEDS: METOPROLOL TARTRATE 12.5 MG TAB PO SCH (20:22)
[2019-11-22] MEDS: ACETAMINOPHEN TAB 500 MG TAB PO PRN (20:22)
[2019-11-22] MEDS: NITROGLYCERIN SL TABS 0.4 MG TAB SUBLINGUAL PRN (21:14)
[2019-11-23] MEDS: FUROSEMIDE 10 MG/ML 4 ML VIAL IV SCH ×2 (02:26→12:27)
[2019-11-23] MEDS: NITROGLYCERIN SL TABS 0.4 MG TAB SUBLINGUAL PRN (03:52)
[2019-11-23 04:50] LABS: Basophils % (A) 0 %; Eosinophils # (A) 0.1 k/uL (0-0.7); Eosinophils % (A) 2 %; HCT 41.7 % (39.0-53.0); HGB 13.5 gm/dL (13.0-17.5); Lymphocytes # (A) 0.4 k/uL (1.0-4.8); Lymphocytes % (A) 5 %; MCH 30.8 pg (25.0-35.0); MCHC 32.3 g/dL (31.0-37.0); MCV 95.2 fL (80.0-100.0); Monocytes # (A) 0.4 k/uL (0-1.0); Monocytes % (A) 5 %; Neutrophils # (A) 7.7 k/uL (1.3-7.7); Neutrophils % (A) 86 %; Platelet Count 103 k/uL (150-450); RBC 4.38 m/uL (4.30-5.90); RDW 15.4 % (11.5-15.5); WBC 8.9 k/uL (3.8-10.6)
[2019-11-23 04:59] LABS: Cholesterol 122 mg/dL (<200); HDL Cholesterol 79 mg/dL (40-60); LDL Cholesterol,Calculated 28 mg/dL (0-99); Triglycerides 74 mg/dL (<150)
[2019-11-23] MEDS: LEVOTHYROXINE 25 MCG TAB PO SCH (06:25)
[2019-11-23] MEDS: PANTOPRAZOLE 40 MG TABLET PO SCH (06:25)
[2019-11-23] MEDS: IPRATROPIUM-ALBUTEROL 3 ML NEB INHALATION SCH ×5 (07:37→21:22)
[2019-11-23] MEDS: SYMBICORT 160-4.5 MCG INHALER INHALATION SCH ×2 (07:37→19:25)
[2019-11-23] MEDS: VITAMIN E (DL,TOCOPHERYL ACET) 400 UNIT CAP PO SCH (08:41)
[2019-11-23] MEDS: ASPIRIN 81 MG PO SCH (08:41)
[2019-11-23] MEDS: AMOXIC-POT CLAV 875-125MG 1 EACH TAB PO SCH ×2 (08:41→19:36)
[2019-11-23] MEDS: MULTIVITAMINS, THERA 1 EACH TAB PO SCH (08:41)
[2019-11-23] MEDS: METOPROLOL TARTRATE 12.5 MG TAB PO SCH ×3 (08:42→19:36)
[2019-11-23] MEDS ORDERED: ASPIRIN 81 MG PO SCH (09:00)
[2019-11-23] MEDS ORDERED: ASPIRIN 325 MG TAB PO SCH (09:00)
[2019-11-23 10:35] LABS: African American GFR (CKD) >90 (>60 ml/min/1.73 sqM); Anion Gap 3 mmol/L; Blood Urea Nitrogen 21 mg/dL (9-20); Calcium 8.5 mg/dL (8.4-10.2); Carbon Dioxide 34 mmol/L (22-30); Chloride 95 mmol/L (98-107); Glucose 184 mg/dL (74-99); Non-African American GFR(CKD) >90 (>60 ml/min/1.73 sqM); Potassium 3.7 mmol/L (3.5-5.1); Sodium 132 mmol/L (137-145)
--- NOTE | 2019-11-23 11:08 | P.PN ---
Subjective Progress Note Date: 11/23/19 11/23/2019 Patient seen and examined this morning, overall states that his breathing is significantly improved today. Blood pressure 94/60 with a heart rate in the 60s. White blood cell count 8.9, hemoglobin 13.5, platelet count 103. Sodium 132, potassium 3.7, BUN 21, creatinine 0.7. Continues at this point in time to be on IV Lasix. From this evening we will discontinue the IV Lasix, increase his home dose of Lasix. Check lytes BUN and creatinine today and daily. Objective - Vital Signs Vital signs: Vital Signs Temp 97.5 F L 11/23/19 08:35 Pulse 58 L 11/23/19 08:35 Resp 18 11/23/19 08:35 BP 81/53 11/23/19 08:35 Pulse Ox 97 11/23/19 08:35 Intake & Output 11/22/19 11/23/19 11/23/19 18:59 06:59 18:59 Intake Total 150 30.674 360 Output Total 500 Balance 150 -469.326 360 Weight 52.163 kg 51.6 kg Intake: Intake, IV Titration 30.674 Amount Heparin Sod,Pork in 0.45% 30.674 NaCl 25,000 unit In 0.45 % NaCl 1 250ml.bag @ 12 UNITS/KG/HR 6.26 mls/hr IV .Q24H [facility] Rx#: [id number] Oral 150 360 Output: Urine 500 Other: Voiding Method Toilet Toilet Toilet # Voids 1 - Exam PHYSICAL EXAMINATION: GENERAL: 69-year-old gentleman in no acute distress at the time of my examination HEENT: Head is atraumatic, normocephalic. Pupils equal, round. Sclera a nicteric. Conjunctiva are clear. Mucous membranes of the mouth are moist. Neck is supple. There is no elevated jugular venous pressure. No carotid bruit is heard. HEART EXAMINATION: Heart S1 and S2 systolic ejection murmur is CHEST EXAMINATION: Lungs reveal diminished air entry bilaterally, right greater than left ABDOMEN: Soft, mild generalized tenderness on palpation . Bowel sounds are heard. No organomegaly noted. EXTREMITIES: 2+ peripheral pulses with evidence of peripheral edema and no calf tenderness noted. NEUROLOGIC patient is awake, alert and oriented 3 . - Labs CBC & Chem 7: 11/23/19 03:53 11/23/19 10:02 Labs: Abnormal Lab Results - Last 24 Hours (Table) 11/22/19 11/22/19 11/22/19 Range/Units 06:58 15:52 17:23 Plt Count (150-450) k/uL Lymphocytes # (1.0-4.8) k/uL APTT (22.0-30.0) sec Sodium (137-145) mmol/L Chloride (98-107) mmol/L Carbon Dioxide (22-30) mmol/L BUN (9-20) mg/dL Glucose (74-99) mg/dL Troponin I 0.052 H* 0.057 H* (0.000-0.034) ng/mL HDL Cholesterol (40-60) mg/dL Procalcitonin 0.17 H (0.02-0.09) ng/mL 11/22/19 11/23/19 11/23/19 Range/Units 20:30 03:53 03:53 Plt Count 103 L (150-450) k/uL Lymphocytes # 0.4 L (1.0-4.8) k/uL APTT 79.1 H (22.0-30.0) sec Sodium (137-145) mmol/L Chloride (98-107) mmol/L Carbon Dioxide (22-30) mmol/L BUN (9-20) mg/dL Glucose (74-99) mg/dL Troponin I (0.000-0.034) ng/mL HDL Cholesterol 79 H (40-60) mg/dL Procalcitonin (0.02-0.09) ng/mL 11/23/19 11/23/19 11/23/19 Range/Units 03:53 10:02 10:02 Plt Count (150-450) k/uL Lymphocytes # (1.0-4.8) k/uL APTT 64.7 H 51.3 H (22.0-30.0) sec Sodium 132 L (137-145) mmol/L Chloride 95 L (98-107) mmol/L Carbon Dioxide 34 H (22-30) mmol/L BUN 21 H (9-20) mg/dL Glucose 184 H (74-99) mg/dL Troponin I (0.000-0.034) ng/mL HDL Cholesterol (40-60) mg/dL Procalcitonin (0.02-0.09) ng/mL Assessment and Plan Plan: Assessment and plan: #1 systolic congestive heart failure acute on chronic, BNP level 10,500, #2 Chronic loculated right-sided effusion. Computed tomography scan of 11/07/2019 revealed basilar right lower lobectomy, no residual mass or suspicious nodules/lymphadenopathy seen. There is some mild patchy areas of groundglass with early interstitial pulmonary edema. He has been receiving diuretics. #3 recent hospitalization for COPD exacerbation #4 Previous history of lung mass status post surgery to the right lower lobe, right lower lobectomy. 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 #5 nonischemic cardiomyopathy, Status post AICD placement, recent echo was performed in the office which revealed an ejection fraction of less than 15%, mild aortic insufficiency, moderate to severe MR, moderate TR and mild pulmonary hypertension #6 abnormality in troponin, we will get 2 subsequent troponins however it does appear that the patient had abnormality in this range on his most recent admission, with no significant rise and fall pattern #7 history of nicotine dependence #8 abnormal liver functions Plan We will discontinue the IV Lasix from this afternoon and start the patient on 40 mg of Lasix in the morning and 20 in the evening. Check lytes BUN and creatinine daily. DNP note has been reviewed, I agree with a documented findings and plan of care. Patient was seen and examined.
--- NOTE | 2019-11-23 15:09 | P.CNPUL ---
History of Present Illness Consult date: 11/23/19 Reason for consult: dyspnea, cough, hypoxemia, pneumonia, pleural effusion Chief complaint: Shortness of breath, right pleural effusion History of present illness: 77-year-old male seen and evaluated examined, patient has been short of breath recently hospitalized in October for pneumonia, has been treated and subsequently was discharged, patient is status post right lower lobe resection for pleomorphic carcinoma patient came into the hospital with ongoing shortness of breath, his echocardiogram latest suggests ejection fraction 15% he has small to moderate pleural effusion mostly present in posterior lateral and medial aspect it appears that fluid is not enough to tap, patient has pericardial effusion on arrival he was noted to have BNP over 10,000, patient is being diuresed with some stable lady in condition Review of Systems All systems: negative Past Medical History Past Medical History: Myocardial Infarction ([place]) Additional Past Medical History / Comment(s): right lung mass Last Myocardial Infarction Date:: 2001 History of Any Multi-Drug Resistant Organisms: None Reported Past Surgical History: Heart Catheterization, Hernia Repair, Pacemaker Additional Past Surgical History / Comment(s): reomoval of tumor from right lung, lower lobe removed. defib 2001 Past Anesthesia/Blood Transfusion Reactions: No Reported Reaction Type of Cardiac Device: AICD Device Placement Date:: 2015 Past Psychological History: No Psychological Hx Reported Smoking Status: Former smoker Past Alcohol Use History: None Reported Past Drug Use History: None Reported - Past Family History Father Family Medical History: Congestive Heart Failure (CHF) Medications and Allergies Home Medications Medication Instructions Recorded Confirmed Type Albuterol Inhaler (Bulk) [Ventolin 2 puff INHALATION RT-Q6H PRN 04/22/19 11/22/19 History Hfa Inhaler (Bulk)] Levothyroxine Sodium 25 mcg PO DAILY 11/04/19 11/22/19 History Atorvastatin [Lipitor] 40 mg PO HS #30 tab 11/10/19 11/22/19 Rx Budesonide-Formot 160-4.5 Mcg 2 puff INHALATION RT-BID PRN #1 11/10/19 11/22/19 Rx [Symbicort 160-4.5 Mcg Inhaler puff (Bulk)] Furosemide [Lasix] 20 mg PO DAILY #30 tab 11/10/19 11/22/19 Rx Ipratropium-Albuterol Nebulize 3 ml INHALATION RT-QID PRN #1 neb 11/10/19 11/22/19 Rx [Duoneb 0.5 mg-3 mg/3 ml Soln] Pantoprazole [Protonix] 40 mg PO AC-BRKFST #30 tablet. 11/10/19 11/22/19 Rx ALPRAZolam [Xanax] 0.25 mg PO BID PRN 11/22/19 11/22/19 History Acetaminophen Tab [Tylenol Tab] 1,000 mg PO Q6H PRN 11/22/19 11/22/19 History Amiodarone [Cordarone] 200 mg PO DAILY 11/22/19 11/22/19 History Amoxic-Pot Clav 875-125Mg 1 tab PO BID 11/22/19 11/22/19 History [Augmentin 875-125] Aspirin EC [Ecotrin Low Dose] 81 mg PO DAILY 11/22/19 11/22/19 History Ibuprofen [Motrin Ib] 800 mg PO Q8H PRN MDD N 11/22/19 11/22/19 History Metoprolol Tartrate [Lopressor] 12.5 mg PO BID 11/22/19 11/22/19 History Potassium Chloride ER [K-Dur 10] 10 meq PO DAILY 11/22/19 11/22/19 History predniSONE [Deltasone] See Taper PO DAILY 11/22/19 11/22/19 History Allergies Allergy/AdvReac Type Severity Reaction Status Date / Time lorazepam [From Ativan] Allergy Anaphylaxis Verified 11/22/19 10:16 Physical Exam Vitals: Vital Signs Temp Pulse Resp BP Pulse Ox 11/23/19 11:20 98.0 F 47 L 18 87/54 93 L 11/23/19 08:35 97.5 F L 58 L 18 81/53 97 11/23/19 03:57 97.7 F 61 18 94/65 11/23/19 00:00 97.5 F L 58 L 16 82/60 11/22/19 21:17 90 12 80/48 97 11/22/19 20:00 93 12 90/49 94 L 11/22/19 18:07 90/53 11/22/19 17:23 76/50 11/22/19 17:02 90 20 83/57 90 L 11/22/19 16:41 98.3 F 77 18 94/70 94 L Intake and Output 11/22/19 11/23/19 11/23/19 22:59 06:59 14:59 Intake Total 30.674 360 Output Total 100 400 Balance -69.326 -400 360 Intake: Intake, IV Titration 30.674 Amount Heparin Sod,Pork in 0.45% 30.674 NaCl 25,000 unit In 0.45 % NaCl 1 250ml.bag @ 12 UNITS/KG/HR 6.26 mls/hr IV .Q24H [facility] Rx#: [id number] Oral 360 Output: Urine 100 400 Other: Voiding Method Toilet Toilet Toilet # Voids 1 1 2 Weight 51.6 kg - Constitutional General appearance: disheveled, mild distress - EENT Eyes: EOMI, PERRLA ENT: hard of hearing Ears: bilateral: normal - Neck Thyroid: bilateral: normal size - Respiratory Respiratory: right: diminished, negative: rhonchi, wheezing, prolonged expiration - Cardiovascular Rhythm: regular Heart sounds: normal: S1, S2 - Gastrointestinal General gastrointestinal: normal bowel sounds, soft - Neurologic Neurologic: CNII-XII intact - Musculoskeletal Musculoskeletal: gait normal, generalized weakness, strength equal bilaterally - Psychiatric Psychiatric: A&O x's 3, appropriate affect, intact judgment & insight Results - Laboratory Findings CBC and BMP: 11/23/19 03:53 11/23/19 10:02 PT/INR, D-dimer PT 10.7 sec (9.0-12.0) 11/22/19 06:58 INR 1.0 (<1.2) 11/22/19 06:58 Abnormal lab findings: Abnormal Labs 11/22/19 11/22/19 11/22/19 06:58 06:58 06:58 WBC 12.3 H Plt Count 132 L Neutrophils # 10.8 H Lymphocytes # 0.5 L APTT Sodium 136 L Chloride 97 L Carbon Dioxide 36 H BUN 26 H Glucose Total Bilirubin 1.7 H AST 68 H ALT 303 H Alkaline Phosphatase 127 H Troponin I 0.068 H* Total Protein 6.2 L HDL Cholesterol Procalcitonin 11/22/19 11/22/19 11/22/19 06:58 15:52 17:23 WBC Plt Count Neutrophils # Lymphocytes # APTT Sodium Chloride Carbon Dioxide BUN Glucose Total Bilirubin AST ALT Alkaline Phosphatase Troponin I 0.052 H* 0.057 H* Total Protein HDL Cholesterol Procalcitonin 0.17 H 11/22/19 11/23/19 11/23/19 20:30 03:53 03:53 WBC Plt Count 103 L Neutrophils # Lymphocytes # 0.4 L APTT 79.1 H Sodium Chloride Carbon Dioxide BUN Glucose Total Bilirubin AST ALT Alkaline Phosphatase Troponin I Total Protein HDL Cholesterol 79 H Procalcitonin 11/23/19 11/23/19 11/23/19 03:53 10:02 10:02 WBC Plt Count Neutrophils # Lymphocytes # APTT 64.7 H 51.3 H Sodium 132 L Chloride 95 L Carbon Dioxide 34 H BUN 21 H Glucose 184 H Total Bilirubin AST ALT Alkaline Phosphatase Troponin I Total Protein HDL Cholesterol Procalcitonin - Diagnostic Findings Chest x-ray: report reviewed, image reviewed CT scan - chest: report reviewed, image reviewed (Finding on CT as noted above) Assessment and Plan Assessment: Acute exacerbation of CHF likely acute on chronic systolic heart failure Right-sided pleural effusion early loculation appears to be combination of postoperative related to right lower lobe resection as well as heart failure Recent pneumonia 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
--- NOTE | 2019-11-23 15:11 | CONS ---
CONSULTATION PULMONARY/CRITICAL CARE CONSULTATION: DATE OF SERVICE: November 23, 2019 REASON FOR CONSULTATION: Chest pain. This is a 69-year-old male, well known to our service. He presented to the emergency department on November 21 at 6:30 in the morning with complaints of chest pain and shortness of breath for two days prior to admission. The patient apparently had some pain that is shooting down the left arm. He was recently discharged from this hospital on November 14 with a diagnosis of COPD exacerbation and possible lower lobe pneumonia. Apparently, his cleaner industrial is Dr. Carroll. He was apparently started on Augmentin by Dr. Carroll two days ago and the patient called to complain that he was having worsening shortness of breath and chest pain. He does have evidence of significant cardiomyopathy with ejection fraction of only 20%. He is status post AICD placement. He also has a previous history of lung cancer involving the right lower lobe. He has had a previous right lower lobectomy. I believe it was a non-small cell lung cancer. The patient seems to be reasonably comfortable today. He is lying in bed. He is not quite flat. He has a couple liters of O2 on. The patient is on IV heparin. He is asking to go home. He states that he is he is not having any problems with his breathing at this time. Denies any cough or wheezing. He is not coughing up any phlegm. There is no fever or chills. He denies any chest pain at this time. HOME MEDICATIONS: Include Ventolin HFA inhaler, levothyroxine, Xanax, Tylenol, amiodarone, Augmentin, aspirin, ibuprofen, metoprolol, potassium chloride replacement, prednisone with a taper, Lipitor Symbicort, Lasix, DuoNeb, and Protonix. ALLERGIES: Include ATIVAN. MEDICAL HISTORY: Positive for COPD, hypothyroidism, lung cancer, status post right lower lobectomy, GERD, myocardial infarction, hypertension, and cardiomyopathy. The patient also has a history of hyperlipidemia. SURGICAL HISTORY: Includes pacemaker insertion, heart catheterization, and hernia repair. The patient has also had a right lower lobectomy for non-small cell lung cancer. SOCIAL HISTORY: Positive for previous tobacco use. Denies any alcohol or illicit drug use. FAMILY HISTORY: Positive for father with congestive heart failure. REVIEW OF SYSTEMS: CONSTITUTIONAL: Weakness. NEUROLOGIC: Negative. HEENT: Negative. CARDIOVASCULAR: Chest pain. PULMONARY: Shortness of breath. GI: Negative. : Negative. RHEUMATOLOGIC: Negative. IMMUNOLOGIC: Negative. ENDOCRINOLOGIC: Negative. DERMATOLOGIC: Negative. Current vital signs are reviewed. Temperature 97.5, pulse rate 58, respiratory rate 18, blood pressure 87/54 mean 65, 3 L saturation 93%. Appears in no acute distress. He is lying in bed. There is no audible wheezing, use of accessory muscles, or conversational dyspnea. HEENT: Examination is grossly unremarkable. Nasal O2 in place. NECK: Supple full range of motion. No adenopathy, thyromegaly or neck vein distention. CARDIOVASCULAR: Examination reveals regular rhythm and rate. Heart rate about 60 beats per minute. S1, S2 normal. There is a soft systolic murmur. LUNGS: Reveal mostly clear breath sounds. A few scattered rhonchi. No wheezes or crackles. Breath sounds equal bilaterally but severely diminished throughout. ABDOMEN: Soft, bowel sounds are heard. EXTREMITIES: Intact. No edema. SKIN: Without rash. NEUROLOGIC: Examination is brief but nonfocal. White count 8.9, hemoglobin 13.5, hematocrit 41.7, platelet 103,000. Sodium 132, potassium 3.7, chloride 95, CO2 is 34, anion gap is 3. BUN and creatinine were 21 and 0.78. The patient's AST was 68, ALT 303. Troponin 0.057. N terminal proBNP 10,500. Procalcitonin 0.17. Lipase is 199. A gallbladder ultrasound was ordered. It showed no biliary duct dilatation or cholelithiasis. A chest CT was done on November 21. It shows no evidence of pulmonary embolism. There is evidence of right lower lobectomy without any residual mass or suspicious nodules or lymphadenopathy. In addition, there is cardiomegaly with changes that were consistent with CHF/interstitial edema. There is also moderate right-sided pleural effusion. Chest x-ray had similar findings. ASSESSMENT: 1. Chest pain, shortness of breath, most likely related to his underlying cardiac disease and cardiomyopathy. 2. Rule out non ST-segment elevation myocardial infarction. 3. Chronic obstructive pulmonary disease. 4. Lung cancer, status post right lower lobectomy. 5. Recent chronic obstructive pulmonary disease exacerbation, treated by his primary cleaner industrial. 6. Residual right-sided pleural effusion. 7. Previous history of myocardial infarction. 8. Cardiomyopathy, status post AICD placement. 9. History of hypothyroidism. 10.History of anxiety. 11.Previous myocardial infarction. 12.Hyperlipidemia. 13.Previous tobacco use. 14.Gastroesophageal reflux disease. PLAN: The patient will be placed on Symbicort and DuoNeb. No additional recommendations are made. Medications are reviewed. I do not believe his COPD is particularly active at this time. Will continue to follow. Medications are reviewed. MMODL / IJN: [id number] /
[2019-11-23] MEDS: ACETAMINOPHEN TAB 500 MG TAB PO PRN (16:20)
[2019-11-23] MEDS: FUROSEMIDE 20 MG TAB PO SCH (16:20)
[2019-11-23] MEDS: HEPARIN SOD,PORK IN 0.45% NACL 25,000 UNIT in 0.45% NACL 1 250ML.BAG IV SCH (16:22)
--- NOTE | 2019-11-23 17:28 | P.PN ---
Progress Note - Text Progress Note Date: 11/23/19 Chief Complaint: Chest pain History of presenting complaint This is a 69-year-old patient of Dr. Salazar. Chronic stable medical conditions include (left bundle branch block, AICD, BPH, right lower lobe lobectomy. Patient stopped smoking in August 2019. 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 Patient has chronic loculated right-sided pneumonia. Patient now presents with significant pain that he had yesterday. Her chest rather severe going to the shoulder arm. Last inguinal practically all morning. Patient also has AICD in a program pacemaker. Does no dizziness no lighth eadedness no perspiration. More short of breath. Patient's did did put a heating pad and resulted is some redness on the skin. Patient does not have a cough no fever. Per cardiology consultation patient recently had a stress test that showed a fixed defect of the inferior wall with no evidence of reversibility. EF less than 15%, [id number] MR, moderate TR Admitted with-acute CHF exacerbation and acute non-Q-wave RI. Started and IV Lasix. Today-breathing much better. Switched over to by mouth Lasix. No further chest pain. Patient wanting to go home. Review of systems: Was done for constitutional, cardiovascular, GI, pulmonary. relevant finding as above Active Medications Acetaminophen (Tylenol Tab) 1,000 mg PO Q6H PRN PRN Reason: Mild Pain Last Admin: 11/23/19 16:20 Dose: 1,000 mg Documented by: Albuterol/Ipratropium (Duoneb 0.5 Mg-3 Mg/3 Ml Soln) 3 ml INHALATION RT-QID [facility] Last Admin: 11/23/19 15:45 Dose: Not Given Documented by: Amoxicillin/Clavulanate Potassium (Augmentin 875-125) 1 each PO BID [facility] Last Admin: 11/23/19 08:41 Dose: 1 each Documented by: Aspirin (Aspirin) 81 mg PO DAILY [facility] Last Admin: 11/23/19 08:41 Dose: 81 mg Documented by: Atorvastatin Calcium (Lipitor) 40 mg PO HS [facility] Last Admin: 11/22/19 20:22 Dose: 40 mg Documented by: Budesonide/Formoterol Fumarate (Symbicort 160-4.5 Mcg Inhaler) 2 puff INHALATION RT-BID [facility] Last Admin: 11/23/19 07:37 Dose: 2 puff Documented by: Diazepam (Valium) 1 mg PO BID PRN PRN Reason: Anxiety Furosemide (Lasix) 40 mg PO DAILY@0800 [place] Furosemide (Lasix) 20 mg PO DAILY@1500 [facility] Last Admin: 11/23/19 16:20 Dose: 20 mg Documented by: Heparin Sodium (Porcine) (Heparin) 0 unit IV PER PROTOCOL PRN; Protocol PRN Reason: Low PTT Heparin Sodium/Sodium Chloride (25,000 unit/ Sodium Chloride) 250 mls @ 6.26 mls/hr IV .Q24H [facility]; Protocol Last Admin: 11/23/19 16:22 Dose: Not Given Documented by: Levothyroxine Sodium (Synthroid) 25 mcg PO DAILY@0630 [facility] Last Admin: 11/23/19 06:25 Dose: 25 mcg Documented by: Metoprolol Tartrate (Lopressor) 12.5 mg PO BID [facility] Last Admin: 11/23/19 12:27 Dose: Not Given Documented by: Miscellaneous Information (Rx Info: Iv Contrast Was Given) 1 each MISCELLANE DAILY PRN PRN Reason: Per Protocol Stop: 11/24/19 08:39 Multivitamins (Theragran) 1 each PO DAILY [facility] Last Admin: 11/23/19 08:41 Dose: 1 each Documented by: Nitroglycerin (Nitrostat) 0.4 mg SUBLINGUAL Q5M PRN PRN Reason: Chest Pain Last Admin: 11/23/19 03:52 Dose: 0.4 mg Documented by: Pantoprazole Sodium (Protonix) 40 mg PO AC-BRKFST [facility] Last Admin: 11/23/19 06:25 Dose: 40 mg Documented by: Vitamin E (Vitamin E) 400 unit PO DAILY [facility] Last Admin: 11/23/19 08:41 Dose: 400 unit Documented by: Physical examination: VITAL: 97.5, 58, 18, 81/53, 97% on 4 L GENERAL: Sitting up in bed, more comfortable EYES: Pupils equal. Conjunctiva normal. HEENT: External appearance of nose and ears normal, oral cavity grossly normal. NECK: JVD not raised; masses not palpable. HEART: First and second heart sounds are normal; no edema. LUNGS: Respiratory rate increased, diminished breath sounds ABDOMEN: Soft, nontender, liver spleen not palpable, no masses palpable. PSYCH: AO 3, motor affect slightly anxious INVESTIGATIONS, reviewed in the clinical context: Potassium 3.7 creatinine 0.78 Previous testing White count 12.3 hemoglobin 14.4 potassium 4.1 creatinine 0.97 Bilirubin 1.7 AST 68 ALT 303 troponin I 0.068 0.052, 0.057 proBNP 10,500 Chest x-ray film personally reviewed by me-right located effusion from before; infiltrate CT angiogram of the chest for PE-cardiomegaly, emphysema moderate right pleural effusion evidence of right lower lobectomy, mild groundglass bilateral findings, no PE Assessment: -Acute on chronic congestive heart exacerbation from systolic dysfunction EF less than 15%, POA, improving -Acute COPD exacerbation in an ex-smoker, POA, better -Anterior chest wall pain with some cardiac features and positive troponin suggestive of acute non-Q-wave RI, POA -Moderate mitral and, moderate tricuspid regurgitation, nontraumatic -Chronic loculated right-sided effusion -Left bundle-branch block -AICD -BPH -History of arrhythmia type unknown patient is on amiodarone. -History of Right lower lobe lobectomy, biopsy showing adenocarcinoma.-Early-stage not requiring any chemoradiation treatment. Recent workup and Dr. Eldridge during hospitalization did not show any progression of the same. -generalized anxiety disorder -Chronic insomnia Plan: Lasix changed over to by mouth Lasix. Other medications to continue. Discussed with the patient. Eager to go home We'll follow for another 24 hours.
[2019-11-23] MEDS: ATORVASTATIN 40 MG TAB PO SCH (19:36)
[2019-11-24 06:29] LABS: Basophils % (A) 0 %; Eosinophils # (A) 0.1 k/uL (0-0.7); Eosinophils % (A) 1 %; HGB 13.6 gm/dL (13.0-17.5); Lymphocytes # (A) 0.6 k/uL (1.0-4.8); Lymphocytes % (A) 6 %; MCH 30.5 pg (25.0-35.0); MCHC 32.4 g/dL (31.0-37.0); MCV 94.2 fL (80.0-100.0); Mean Platelet Volume 8.4; Monocytes # (A) 0.3 k/uL (0-1.0); Monocytes % (A) 3 %; Neutrophils # (A) 7.6 k/uL (1.3-7.7); Neutrophils % (A) 87 %; RBC 4.46 m/uL (4.30-5.90); RDW 15.1 % (11.5-15.5); WBC 8.8 k/uL (3.8-10.6)
[2019-11-24] MEDS: PANTOPRAZOLE 40 MG TABLET PO SCH (06:29)
[2019-11-24] MEDS: LEVOTHYROXINE 25 MCG TAB PO SCH (06:29)
[2019-11-24 06:43] LABS: African American GFR (CKD) >90 (>60 ml/min/1.73 sqM); Anion Gap 4 mmol/L; Blood Urea Nitrogen 18 mg/dL (9-20); Calcium 8.3 mg/dL (8.4-10.2); Carbon Dioxide 35 mmol/L (22-30); Chloride 95 mmol/L (98-107); Glucose 79 mg/dL (74-99); Non-African American GFR(CKD) >90 (>60 ml/min/1.73 sqM); Sodium 134 mmol/L (137-145)
[2019-11-24 06:55] LABS: Platelet Count 83 k/uL (150-450)
[2019-11-24] MEDS: SYMBICORT 160-4.5 MCG INHALER INHALATION SCH ×2 (08:21→19:48)
[2019-11-24] MEDS: IPRATROPIUM-ALBUTEROL 3 ML NEB INHALATION SCH ×4 (08:28→19:48)
[2019-11-24] MEDS: AMOXIC-POT CLAV 875-125MG 1 EACH TAB PO SCH ×2 (08:46→20:32)
[2019-11-24] MEDS: FUROSEMIDE 40 MG TAB PO SCH (08:46)
[2019-11-24] MEDS: VITAMIN E (DL,TOCOPHERYL ACET) 400 UNIT CAP PO SCH (08:47)
[2019-11-24] MEDS: ASPIRIN 81 MG PO SCH (08:47)
[2019-11-24] MEDS: METOPROLOL TARTRATE 12.5 MG TAB PO SCH ×2 (08:47→20:33)
[2019-11-24] MEDS: MULTIVITAMINS, THERA 1 EACH TAB PO SCH (08:47)
--- NOTE | 2019-11-24 10:49 | P.PN ---
Subjective Progress Note Date: 11/24/19 11/23/2019 Patient seen and examined this morning, overall states that his breathing is significantly improved today. Blood pressure 94/60 with a heart rate in the 60s. White blood cell count 8.9, hemoglobin 13.5, platelet count 103. Sodium 132, potassium 3.7, BUN 21, creatinine 0.7. Continues at this point in time to be on IV Lasix. From this evening we will discontinue the IV Lasix, increase his home dose of Lasix. Check lytes BUN and creatinine today and daily. 11/24/2019 Patient seen and examined this morning, breathing seems to be improving overall. Blood pressure 90/60, heart rate in the 90s. White blood cell count 8.8, hemoglobin 13.6, platelet count 83. Sodium 134, potassium 4.0, BUN 18, creatinine 0.7. Objective - Vital Signs Vital signs: Vital Signs Temp 97.3 F L 11/24/19 08:05 Pulse 94 11/24/19 08:05 Resp 18 11/24/19 08:05 BP 90/61 11/24/19 08:05 Pulse Ox 95 11/24/19 08:05 Intake & Output 11/23/19 11/24/19 11/24/19 18:59 06:59 18:59 Intake Total 960 236 Balance 960 236 Weight 51.3 kg Intake: Oral 960 236 Other: Voiding Method Toilet Toilet # Voids 3 1 1 - Exam PHYSICAL EXAMINATION: GENERAL: 69-year-old gentleman in no acute distress at the time of my examination HEENT: Head is atraumatic, normocephalic. Pupils equal, round. Sclera anicteric. Conjunctiva are clear. Mucous membranes of the mouth are moist. Neck is supple. There is no elevated jugular venous pressure. No carotid bruit is heard. HEART EXAMINATION: Heart S1 and S2 systolic ejection murmur is CHEST EXAMINATION: Lungs reveal improvement in air entry bilaterally, right greater than left ABDOMEN: Soft, mild generalized tenderness on palpation . Bowel sounds are heard. No organomegaly noted. EXTREMITIES: 2+ peripheral pulses with evidence of peripheral edema and no calf tenderness noted. NEUROLOGIC patient is awake, alert and oriented 3 . - Labs CBC & Chem 7: 11/24/19 06:01 11/24/19 06:01 Labs: Abnormal Lab Results - Last 24 Hours (Table) 11/24/19 11/24/19 Range/Units 06:01 06:01 Plt Count 83 L (150-450) k/uL Lymphocytes # 0.6 L (1.0-4.8) k/uL Sodium 134 L (137-145) mmol/L Chloride 95 L (98-107) mmol/L Carbon Dioxide 35 H (22-30) mmol/L Calcium 8.3 L (8.4-10.2) mg/dL Microbiology - Last 24 Hours (Table) 11/22/19 15:52 Blood Culture - Preliminary Blood No Growth after 24 hours Assessment and Plan Plan: Assessment and plan: #1 systolic congestive heart failure acute on chronic, BNP level 10,500, #2 Chronic loculated right-sided effusion. Computed tomography scan of 11/07/2019 revealed basilar right lower lobectomy, no residual mass or suspicious nodules/lymphadenopathy seen. There is some mild patchy areas of groundglass with early interstitial pulmonary edema. He has been receiving diuretics. #3 recent hospitalization for COPD exacerbation #4 Previous history of lung mass status post surgery to the right lower lobe, right lower lobectomy. 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 #5 nonischemic cardiomyopathy, Status post AICD placement, recent echo was performed in the office which revealed an ejection fraction of less than 15%, mild aortic insufficiency, moderate to severe MR, moderate TR and mild pulmonary hypertension #6 abnormality in troponin, we will get 2 subsequent troponins however it does appear that the patient had abnormality in this range on his most recent admission, with no significant rise and fall pattern #7 history of nicotine dependence #8 abnormal liver functions Plan From cardiology's perspective, we will continue the patient's current medication, we will also add a small dose of Cozaar 12-1/2 mg one tablet at at bedtime. Check lytes BUN and creatinine in the morning. DNP note has been reviewed, I agree with a documented findings and plan of care. Patient was seen and examined.
[2019-11-24 14:53] VITALS: BMI 18.8
--- NOTE | 2019-11-24 15:56 | P.PN ---
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 COPD exacerbation 11/24/2019, patient seen eval examined during the rounds, respiratory status remains stable, denies any chest pain and some shortness of breath activity and exertion is present, patient remains afebrile with fairly stable hemodynamics oxygen saturation is 97% on 3 L Ammann blood cultures no growth 77-year-old male seen and evaluated examined, patient has been short of breath recently hospitalized in October for pneumonia, has been treated and subsequently was discharged, patient is status post right lower lobe resection for pleomorphic carcinoma patient came into the hospital with ongoing shortness of breath, his echocardiogram latest suggests ejection fraction 15% he has small to moderate pleural effusion mostly present in posterior lateral and medial aspect it appears that fluid is not enough to tap, patient has pericardial effusion on arrival he was noted to have BNP over 10,000, patient is being diuresed with some stable condition Objective - Vital Signs Vital signs: Vital Signs Temp 98.7 F 11/24/19 11:05 Pulse 74 11/24/19 11:05 Resp 18 11/24/19 11:05 BP 101/63 11/24/19 11:05 Pulse Ox 97 11/24/19 11:05 Intake & Output 11/23/19 11/24/19 11/24/19 18:59 06:59 18:59 Intake Total 960 472 Balance 960 472 Weight 51.3 kg 51.3 kg Intake: Oral 960 472 Other: Voiding Method Toilet Toilet # Voids 3 1 3 - Exam - Constitutional General appearance: disheveled, mild distress - EENT Eyes: EOMI, PERRLA ENT: hard of hearing Ears: bilateral: normal - Neck Thyroid: bilateral: normal size - Respiratory Respiratory: right: diminished, negative: rhonchi, wheezing, prolonged expiration - Cardiovascular Rhythm: regular Heart sounds: normal: S1, S2 - Gastrointestinal General gastrointestinal: normal bowel sounds, soft - Neurologic Neurologic: CNII-XII intact - Musculoskeletal Musculoskeletal: gait normal, generalized weakness, strength equal bilaterally - Psychiatric Psychiatric: A&O x's 3, appropriate affect, intact judgment & insight - Labs CBC & Chem 7: 11/24/19 06:01 11/24/19 06:01 Labs: Abnormal Lab Results - Last 24 Hours (Table) 11/24/19 11/24/19 Range/Units 06:01 06:01 Plt Count 83 L (150-450) k/uL Lymphocytes # 0.6 L (1.0-4.8) k/uL Sodium 134 L (137-145) mmol/L Chloride 95 L (98-107) mmol/L Carbon Dioxide 35 H (22-30) mmol/L Calcium 8.3 L (8.4-10.2) mg/dL Microbiology - Last 24 Hours (Table) 11/22/19 15:52 Blood Culture - Preliminary Blood No Growth after 24 hours Assessment and Plan Assessment: Acute exacerbation of CHF likely acute on chronic systolic heart failure Right-sided pleural effusion early loculation appears to be combination of postoperative related to right lower lobe resection as well as heart failure Recent pneumonia 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
--- NOTE | 2019-11-24 16:35 | P.PN ---
Progress Note - Text Progress Note Date: 11/24/19 Chief Complaint: Chest pain History of presenting complaint This is a 69-year-old patient of Dr. Salazar. Chronic stable medical conditions include (left bundle branch block, AICD, BPH, right lower lobe lobectomy. Patient stopped smoking in August 2019. 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 Patient has chronic loculated right-sided pneumonia. Patient now presents with significant pain that he had yesterday. Her chest rather severe going to the shoulder arm. Last inguinal practically all morning. Patient also has AICD in a program pacemaker. Does no dizziness no lighth eadedness no perspiration. More short of breath. Patient's did did put a heating pad and resulted is some redness on the skin. Patient does not have a cough no fever. Per cardiology consultation patient recently had a stress test that showed a fixed defect of the inferior wall with no evidence of reversibility. EF less than 15%, [id number] MR, moderate TR Admitted with-acute CHF exacerbation and acute non-Q-wave OK. Started and IV Lasix. Today-breathing better. Did tolerate some diet. Cozaar added by cardiology. Had a bowel movement. Review of systems: Was done for constitutional, cardiovascular, GI, pulmonary. relevant finding as above Active Medications Acetaminophen (Tylenol Tab) 1,000 mg PO Q6H PRN PRN Reason: Mild Pain Last Admin: 11/23/19 16:20 Dose: 1,000 mg Documented by: Albuterol/Ipratropium (Duoneb 0.5 Mg-3 Mg/3 Ml Soln) 3 ml INHALATION RT-QID [facility] Last Admin: 11/24/19 15:18 Dose: Not Given Documented by: Amoxicillin/Clavulanate Potassium (Augmentin 875-125) [address] [facility] Last Admin: 11/24/19 08:46 Dose: 1 each Documented by: Aspirin (Aspirin) [address] [facility] Last Admin: 11/24/19 08:47 Dose: 81 mg Documented by: Atorvastatin Calcium (Lipitor) [address] [facility] Last Admin: 11/23/19 19:36 Dose: 40 mg Documented by: Budesonide/Formoterol Fumarate (Symbicort 160-4.5 Mcg Inhaler) 2 puff INHAL ATION RT-BID [facility] Last Admin: 11/24/19 08:21 Dose: 2 puff Documented by: Diazepam (Valium) 1 mg PO BID PRN PRN Reason: Anxiety Furosemide (Lasix) 40 mg PO DAILY@0800 [facility] Last Admin: 11/24/19 08:46 Dose: 40 mg Documented by: Furosemide (Lasix) 20 mg PO DAILY@1500 [facility] Last Admin: 11/23/19 16:20 Dose: 20 mg Documented by: Heparin Sodium (Porcine) (Heparin) 0 unit IV PER PROTOCOL PRN; Protocol PRN Reason: Low PTT Heparin Sodium/Sodium Chloride (25,000 unit/ Sodium Chloride) 250 mls @ 6.26 mls/hr IV .Q24H [facility]; Protocol Last Admin: 11/23/19 16:22 Dose: Not Given Documented by: Levothyroxine Sodium (Synthroid) 25 mcg PO DAILY@0630 [facility] Last Admin: 11/24/19 06:29 Dose: 25 mcg Documented by: Losartan Potassium (Cozaar) 12.[address] [facility] Metoprolol Tartrate (Lopressor) 12.[address] [facility] Last Admin: 11/24/19 08:47 Dose: 12.5 mg Documented by: Multivitamins (Theragran) [address] [facility] Last Admin: 11/24/19 08:47 Dose: 1 each Documented by: Nitroglycerin (Nitrostat) 0.4 mg SUBLINGUAL Q5M PRN PRN Reason: Chest Pain Last Admin: 11/23/19 03:52 Dose: 0.4 mg Documented by: Pantoprazole Sodium (Protonix) 40 mg PO AC-BRKFST [facility] Last Admin: 11/24/19 06:29 Dose: 40 mg Documented by: Vitamin E (Vitamin E) [address] [facility] Last Admin: 11/24/19 08:47 Dose: 400 unit Documented by: Physical examination: VITAL: 98.7, 74, 16, 101/63, 97% on 3 L GENERAL: Sitting up in bed, breathing better EYES: Pupils equal. Conjunctiva normal. HEENT: External appearance of nose and ears normal, oral cavity grossly normal. NECK: JVD not raised; masses not palpable. HEART: First and second heart sounds are normal; no edema. LUNGS: Respiratory rate increased, diminished breath sounds ABDOMEN: Soft, nontender, liver spleen not palpable, no masses palpable. PSYCH: AO 3, motor affect slightly anxious INVESTIGATIONS, reviewed in the clinical context: White count 8.8 hemoglobin 13.6 potassium 4 creatinine 0.72 Previous testing White count 12.3 hemoglobin 14.4 potassium 4.1 creatinine 0.97 Bilirubin 1.7 AST 68 ALT 303 troponin I 0.068 0.052, 0.057 proBNP 10,500 Chest x-ray film personally reviewed by me-right located effusion from before; infiltrate CT angiogram of the chest for PE-cardiomegaly, emphysema moderate right pleural effusion evidence of right lower lobectomy, mild groundglass bilateral findings, no PE Assessment: -Acute on chronic congestive heart exacerbation from systolic dysfunction EF less than 15%, POA, improving -Acute COPD exacerbation in an ex-smoker, POA, improving -Anterior chest wall pain with some cardiac features and positive troponin suggestive of acute non-Q-wave [place], POA -Moderate mitral and, moderate tricuspid regurgitation, nontraumatic -Chronic loculated right-sided effusion -Left bundle-branch block -AICD -BPH -History of arrhythmia type unknown patient is on amiodarone. -History of Right lower lobe lobectomy, biopsy showing adenocarcinoma.-Early-stage not requiring any chemoradiation treatment. Recent workup and Dr. Eldridge during hospitalization did not show any progression of the same. -generalized anxiety disorder -Chronic insomnia Plan: Patient remains on by mouth Lasix. Cozaar added by cardiology. Care discussed with the patient. If remains well she will be discharged tomorrow.
[2019-11-24] MEDS: FUROSEMIDE 20 MG TAB PO SCH (16:45)
[2019-11-24] MEDS: HEPARIN SOD,PORK IN 0.45% NACL 25,000 UNIT in 0.45% NACL 1 250ML.BAG IV SCH (18:44)
[2019-11-24] MEDS: ATORVASTATIN 40 MG TAB PO SCH (20:32)
[2019-11-25] MEDS: PANTOPRAZOLE 40 MG TABLET PO SCH (05:52)
[2019-11-25] MEDS: LEVOTHYROXINE 25 MCG TAB PO SCH (05:52)
[2019-11-25 06:33] LABS: Basophils % (A) 0 %; Eosinophils # (A) 0.1 k/uL (0-0.7); Eosinophils % (A) 1 %; HCT 39.5 % (39.0-53.0); HGB 12.9 gm/dL (13.0-17.5); Lymphocytes # (A) 0.8 k/uL (1.0-4.8); Lymphocytes % (A) 12 %; MCH 30.6 pg (25.0-35.0); MCHC 32.6 g/dL (31.0-37.0); MCV 93.9 fL (80.0-100.0); Mean Platelet Volume 8.5; Monocytes # (A) 0.2 k/uL (0-1.0); Monocytes % (A) 3 %; Neutrophils # (A) 5.3 k/uL (1.3-7.7); Neutrophils % (A) 79 %; RBC 4.21 m/uL (4.30-5.90); RDW 15.4 % (11.5-15.5); WBC 6.6 k/uL (3.8-10.6)
[2019-11-25 06:40] LABS: Platelet Count 77 k/uL (150-450)
[2019-11-25] MEDS: SYMBICORT 160-4.5 MCG INHALER INHALATION SCH ×2 (07:20→19:47)
[2019-11-25] MEDS: IPRATROPIUM-ALBUTEROL 3 ML NEB INHALATION SCH ×4 (07:20→19:47)
[2019-11-25] MEDS ORDERED: LOSARTAN 25 MG TAB PO SCH ×2 (09:00→21:00)
[2019-11-25] MEDS: MULTIVITAMINS, THERA 1 EACH TAB PO SCH (09:39)
[2019-11-25] MEDS: AMOXIC-POT CLAV 875-125MG 1 EACH TAB PO SCH ×2 (09:39→21:04)
[2019-11-25] MEDS: METOPROLOL TARTRATE 12.5 MG TAB PO SCH (09:39)
[2019-11-25] MEDS: FUROSEMIDE 40 MG TAB PO SCH (09:39)
[2019-11-25] MEDS: HEPARIN SODIUM,PORCINE 5,000 UNIT/ML 1 ML VIAL SQ SCH ×2 (09:39→21:04)
[2019-11-25] MEDS: VITAMIN E (DL,TOCOPHERYL ACET) 400 UNIT CAP PO SCH (09:39)
[2019-11-25] MEDS: ASPIRIN 81 MG PO SCH (09:39)
[2019-11-25 11:16] LABS: African American GFR (CKD) >90 (>60 ml/min/1.73 sqM); Anion Gap 2 mmol/L; Blood Urea Nitrogen 17 mg/dL (9-20); Calcium 8.5 mg/dL (8.4-10.2); Carbon Dioxide 37 mmol/L (22-30); Chloride 94 mmol/L (98-107); Glucose 79 mg/dL (74-99); Magnesium 2.1 mg/dL (1.6-2.3); Non-African American GFR(CKD) >90 (>60 ml/min/1.73 sqM); Potassium 3.9 mmol/L (3.5-5.1); Sodium 133 mmol/L (137-145)
--- NOTE | 2019-11-25 12:45 | PN ---
PROGRESS NOTE Mr. Paniagua has ejection fraction of less than 25%, also has lung CA status post surgery. He is in a sinus rhythm today, hemodynamically stable. I am recommending that we stop his IV heparin, switch him to subcu heparin. Decrease the metoprolol to 12.5 mg in the morning and evening. Vitals are stable. JVD is 1 cm. S1, S2 heard normally, short systolic murmur noted. Lungs reveal diminished air entry. Abdomen and lower extremity exam otherwise is unchanged. MMODL / IJN: [id number] /
[2019-11-25] MEDS: FUROSEMIDE 20 MG TAB PO SCH (15:56)
--- NOTE | 2019-11-25 16:50 | P.PN ---
Progress Note - Text Progress Note Date: 11/25/19 Chief Complaint: Chest pain History of presenting complaint This is a 69-year-old patient of Dr. Salazar. Chronic stable medical conditions include (left bundle branch block, AICD, BPH, right lower lobe lobectomy. Patient stopped smoking in August 2019. 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 Patient has chronic loculated right-sided pneumonia. Patient now presents with significant pain that he had yesterday. Her chest rather severe going to the shoulder arm. Last inguinal practically all morning. Patient also has AICD in a program pacemaker. Does no dizziness no light headedness no perspiration. More short of breath. Patient's did did put a heating pad and resulted is some redness on the skin. Patient does not have a cough no fever. Per cardiology consultation patient recently had a stress test that showed a fixed defect of the inferior wall with no evidence of reversibility. EF less than 15%, [id number] MR, moderate TR Admitted with-acute CHF exacerbation and acute non-Q-wave [place]. Started and IV Lasix. Today-breathing better. Earlier today cardiology to decrease the Lopressor to 12.5 twice a day. By late afternoon his systolic blood pressure was 60- manually. Patient does feel tired. Review of systems: Was done for constitutional, cardiovascular, GI, pulmonary. relevant finding as above Active Medications Acetaminophen (Tylenol Tab) 1,000 mg PO Q6H PRN PRN Reason: Mild Pain Last Admin: 11/23/19 16:20 Dose: 1,000 mg Documented by: Albuterol/Ipratropium (Duoneb 0.5 Mg-3 Mg/3 Ml Soln) 3 ml INHALATION RT-QID [facility] Last Admin: 11/25/19 16:18 Dose: Not Given Documented by: Amoxicillin/Clavulanate Potassium (Augmentin 875-125) 1 each PO BID [facility] Last Admin: 11/25/19 09:39 Dose: 1 each Documented by: Aspirin (Aspirin) 81 mg PO DAILY [facility] Last Admin: 11/25/19 09:39 Dose: 81 mg Documented by: Atorvastatin Calcium (Lipitor) 40 mg PO HS [facility] Last Admin: 11/24/19 20:32 Dose: 40 mg Documented by: Budesonide/Formoterol Fumarate (Symbicort 160-4.5 Mcg Inhaler) 2 puff INHALATION RT-BID [facility] Last Admin: 11/25/19 07:20 Dose: 2 puff Documented by: Diazepam (Valium) 1 mg PO BID PRN PRN Reason: Anxiety Furosemide (Lasix) 40 mg PO DAILY@0800 [facility] Last Admin: 11/25/19 09:39 Dose: 40 mg Documented by: Furosemide (Lasix) 20 mg PO DAILY@1500 [facility] Last Admin: 11/25/19 15:56 Dose: Not Given Documented by: Heparin Sodium (Porcine) (Heparin) 5,000 unit SQ Q12HR [facility] Last Admin: 11/25/19 09:39 Dose: 5,000 unit Documented by: Levothyroxine Sodium (Synthroid) 25 mcg PO DAILY@0630 [facility] Last Admin: 11/25/19 05:52 Dose: 25 mcg Documented by: Metoprolol Tartrate (Lopressor) 12.5 mg PO DAILY [facility] Last Admin: 11/25/19 09:39 Dose: 12.5 mg Documented by: Multivitamins (Theragran) 1 each PO DAILY [facility] Last Admin: 11/25/19 09:39 Dose: 1 each Documented by: Nitroglycerin (Nitrostat) 0.4 mg SUBLINGUAL Q5M PRN PRN Reason: Chest Pain Last Admin: 11/23/19 03:52 Dose: 0.4 mg Documented by: Pantoprazole Sodium (Protonix) 40 mg PO AC-BRKFST [facility] Last Admin: 11/25/19 05:52 Dose: 40 mg Documented by: Vitamin E (Vitamin E) 400 unit PO DAILY [facility] Last Admin: 11/25/19 09:39 Dose: 400 unit Documented by: Physical examination: VITAL: 97.5, 103, 18, 66/48, 96% on 3 L GENERAL: Sitting up in a chair, a bit tired EYES: Pupils equal. Conjunctiva normal. HEENT: External appearance of nose and ears normal, oral cavity grossly normal. NECK: JVD not raised; masses not palpable. HEART: First and second heart sounds are normal; no edema. LUNGS: Respiratory rate increased, diminished breath sounds ABDOMEN: Soft, nontender, liver spleen not palpable, no masses palpable. PSYCH: AO 3, motor affect slightly anxious INVESTIGATIONS, reviewed in the clinical context: Percussion 3.9 and creatinine 0.73 Previous testing White count 12.3 hemoglobin 14.4 potassium 4.1 creatinine 0.97 Bilirubin 1.7 AST 68 ALT 303 troponin I 0.068 0.052, 0.057 proBNP 10,500 Chest x-ray film personally reviewed by me-right located effusion from before; infiltrate CT angiogram of the chest for PE-cardiomegaly, emphysema moderate right pleural effusion evidence of right lower lobectomy, mild groundglass bilateral findings, no PE Assessment: -Acute on chronic congestive heart exacerbation from systolic dysfunction EF less than 15%, POA, improving -Acute COPD exacerbation in an ex-smoker, POA, improving -Anterior chest wall pain with some cardiac features and positive troponin suggestive of acute non-Q-wave [place], POA -Moderate mitral and, moderate tricuspid regurgitation, nontraumatic -Chronic loculated right-sided effusion -Left bundle-branch block -AICD -BPH -History of arrhythmia type unknown patient is on amiodarone. -History of Right lower lobe lobectomy, biopsy showing adenocarcinoma.-Early-stage not requiring any chemoradiation treatment. Recent workup and Dr. Eldridge during hospitalization did not show any progression of the same. -generalized anxiety disorder -Chronic insomnia -New onset hypotension, from combination of antihypertensives and diuretics. Plan: Patient very keen to go home. Did explain to Bertha that his blood pressures running very low. Lactate is 1 for 24 hours otherwise about findings, pass out patient does understand the same. Recheck blood pressure and regular intervals hopefully discharge home tomorrow.
[2019-11-25 19:50] VITALS: RESP 18
[2019-11-25] MEDS: ATORVASTATIN 40 MG TAB PO SCH (21:04)
[2019-11-26] MEDS: LEVOTHYROXINE 25 MCG TAB PO SCH (06:10)
[2019-11-26] MEDS: PANTOPRAZOLE 40 MG TABLET PO SCH (06:10)
[2019-11-26] MEDS: IPRATROPIUM-ALBUTEROL 3 ML NEB INHALATION SCH ×4 (07:30→15:34)
[2019-11-26] MEDS: SYMBICORT 160-4.5 MCG INHALER INHALATION SCH (07:30)
[2019-11-26] MEDS: ASPIRIN 81 MG PO SCH (09:06)
[2019-11-26] MEDS: HEPARIN SODIUM,PORCINE 5,000 UNIT/ML 1 ML VIAL SQ SCH (09:06)
[2019-11-26] MEDS: FUROSEMIDE 40 MG TAB PO SCH (09:06)
[2019-11-26] MEDS: VITAMIN E (DL,TOCOPHERYL ACET) 400 UNIT CAP PO SCH (09:06)
[2019-11-26] MEDS: MULTIVITAMINS, THERA 1 EACH TAB PO SCH (09:06)
[2019-11-26] MEDS: METOPROLOL TARTRATE 12.5 MG TAB PO SCH (09:06)
[2019-11-26] MEDS: AMOXIC-POT CLAV 875-125MG 1 EACH TAB PO SCH (09:06)
[2019-11-26 11:09] VITALS: PULSE 95; TEMP 97.8
--- NOTE | 2019-11-26 14:08 | PN ---
PROGRESS NOTE This gentleman has a significant LV dysfunction, ejection fraction less than 25% with paroxysmal atrial fibrillation and also lung cancer. He is hemodynamically stable, seems to be resting without chest pain and limited functional capacity. Vitals are stable, JVD is 1 cm. No carotid bruit, S1-S2 heard normally, irregular rhythm noted. Short systolic murmur noted. Lungs reveal diminished air entry. Abdomen and lower extremity exam unchanged. Plan is to continue current medical regimen, increase activity and plan for discharge. MMODL / IJN: [id number] /
--- NOTE | 2019-11-26 14:42 | P.PN ---
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 COPD exacerbation 11/25/2019, patient seen and evaluated examined during the rounds labs reviewed medications reviewed remains afebrile no cough and congestion is present patient has been getting diuretics with adequate urine output, white cell count is normal renal functions and electrolytes are stable, patient has been evaluated by cardiovascular services likely will be discharge in next 24-48 hours if remains stable 11/24/2019, patient seen eval examined during the rounds, respiratory status remains stable, denies any chest pain and some shortness of breath activity and exertion is present, patient remains afebrile with fairly stable hemodynamics oxygen saturation is 97% on 3 L Ammann blood cultures no growth 77-year-old male seen and evaluated examined, patient has been short of breath recently hospitalized in October for pneumonia, has been treated and subsequently was discharged, patient is status post right lower lobe resection for pleomorphic carcinoma patient came into the hospital with ongoing shortness of breath, his echocardiogram latest suggests ejection fraction 15% he has small to moderate pleural effusion mostly present in posterior lateral and medial aspect it appears that fluid is not enough to tap, patient has pericardial effusion on arrival he was noted to have BNP over 10,000, patient is being diuresed with some stable condition Objective - Vital Signs Vital signs: Vital Signs Temp 97.8 F Pulse 104 H Resp 18 BP 104/70 Pulse Ox 98 Intake & Output 11/25/19 18:59 Intake Total 476 Output Total 950 Balance -474 Weight Intake: Oral 476 Output: Urine 950 Other: Voiding Method Toilet # Voids 1 # Bowel Movements 1 - Exam - Constitutional General appearance: disheveled, mild distress - EENT Eyes: EOMI, PERRLA ENT: hard of hearing Ears: bilateral: normal - Neck Thyroid: bilateral: normal size - Respiratory Respiratory: right: diminished, negative: rhonchi, wheezing, prolonged expiration - Cardiovascular Rhythm: regular Heart sounds: normal: S1, S2 - Gastrointestinal General gastrointestinal: normal bowel sounds, soft - Neurologic Neurologic: CNII-XII intact - Musculoskeletal Musculoskeletal: gait normal, generalized weakness, strength equal bilaterally - Psychiatric Psychiatric: A&O x's 3, appropriate affect, intact judgment & insight - Labs CBC & Chem 7: 11/25/19 05:27 11/25/19 10:52 Labs: Microbiology - Last 24 Hours (Table) 11/22/19 15:52 Blood Culture - Preliminary Blood No Growth after 72 hours Assessment and Plan Assessment: Acute exacerbation of CHF likely acute on chronic systolic heart failure Right-sided pleural effusion early loculation appears to be combination of postoperative related to right lower lobe resection as well as heart failure Recent pneumonia 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
--- NOTE | 2019-11-26 14:43 | P.PN ---
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 COPD exacerbation 11/26/2019, patient seen eval examined during the rounds labs reviewed medications reviewed has been doing fairly well has been diuresing on Lasix den ies any chest pain cough or sputum production, patient has been evaluated by cardiovascular services no new recommendation 11/25/2019, patient seen and evaluated examined during the rounds labs reviewed medications reviewed remains afebrile no cough and congestion is present patient has been getting diuretics with adequate urine output, white cell count is normal renal functions and electrolytes are stable, patient has been evaluated by cardiovascular services likely will be discharge in next 24-48 hours if remains stable 11/24/2019, patient seen eval examined during the rounds, respiratory status remains stable, denies any chest pain and some shortness of breath activity and exertion is present, patient remains afebrile with fairly stable hemodynamics oxygen saturation is 97% on 3 L Ammann blood cultures no growth 77-year-old male seen and evaluated examined, patient has been short of breath recently hospitalized in October for pneumonia, has been treated and subsequently was discharged, patient is status post right lower lobe resection for pleomorphic carcinoma patient came into the hospital with ongoing shortness of breath, his echocardiogram latest suggests ejection fraction 15% he has small to moderate pleural effusion mostly present in posterior lateral and medial aspect it appears that fluid is not enough to tap, patient has pericardial effusion on arrival he was noted to have BNP over 10,000, patient is being diuresed with some stable condition Objective - Vital Signs Vital signs: Vital Signs Temp 97.8 F 11/26/19 08:00 Pulse 104 H 11/26/19 11:05 Resp 18 11/26/19 05:39 BP 104/70 11/26/19 08:00 Pulse Ox 98 11/26/19 08:00 Intake & Output 11/25/19 11/26/19 11/26/19 18:59 06:59 18:59 Intake Total 476 120 Output Total 950 400 300 Balance -474 -400 -180 Weight 50.6 kg Intake: Oral 476 120 Output: Urine 950 400 300 Other: Voiding Method Toilet # Voids 1 1 0 # Bowel Movements 1 1 0 - Exam - Constitutional General appearance: disheveled, mild distress - EENT Eyes: EOMI, PERRLA ENT: hard of hearing Ears: bilateral: normal - Neck Thyroid: bilateral: normal size - Respiratory Respiratory: right: diminished, negative: rhonchi, wheezing, prolonged expiration - Cardiovascular Rhythm: regular Heart sounds: normal: S1, S2 - Gastrointestinal General gastrointestinal: normal bowel sounds, soft - Neurologic Neurologic: CNII-XII intact - Musculoskeletal Musculoskeletal: gait normal, generalized weakness, strength equal bilaterally - Psychiatric Psychiatric: A&O x's 3, appropriate affect, intact judgment & insight - Labs CBC & Chem 7: 11/25/19 05:27 11/25/19 10:52 Labs: Microbiology - Last 24 Hours (Table) 11/22/19 15:52 Blood Culture - Preliminary Blood No Growth after 72 hours Assessment and Plan Assessment: Acute exacerbation of CHF likely acute on chronic systolic heart failure Right-sided pleural effusion early loculation appears to be combination of postoperative related to right lower lobe resection as well as heart failure Recent pneumonia Right-sided pleomorphic carcinoma of the lung status post right lower lobe rese ction August 2019 COPD exacerbation Plan: Continue diuresis Continue oral antibiotics Continue bronchodilator No plans for thoracentesis If remains stable can be discharged in next 24-48 hours Time with Patient: Greater than 30
[2019-11-26 14:51] VITALS: BP 87/52
--- NOTE | 2019-11-26 18:54 | P.DS ---
Providers Date of admission: 11/22/19 10:50 Expected date of discharge: 11/26/19 Attending physician: Delano Cedeño Consults: 11/22/19 10:30 Consult Physician Urgent Consulting Provider: Brit Edward Consult Reason/Comments: CHF Do you want consulting provider notified?: Yes 11/22/19 10:50 Consult Physician Stat Consulting Provider: Oscar Carroll Consult Reason/Comments: CHF, Pleural effusion, loculation Do you want consulting provider notified?: Yes [facility]: Chief Complaint: Chest pain History of presenting complaint This is a 69-year-old patient of Dr. Salazar. Chronic stable medical conditions include (left bundle branch block, AICD, BPH, right lower lobe lobectomy. Patient stopped smoking in August 2019. 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 Patient has chronic loculated right-sided pneumonia. Patient now presents with significant pain that he had yesterday. Her chest rather severe going to the shoulder arm. Last inguinal practically all morning. Patient also has AICD in a program pacemaker. Does no dizziness no lightheadedness no perspiration. More short of breath. Patient's did did put a heating pad and resulted is some redness on the skin. Patient does not have a cough no fever. Per cardiology consultation patient recently had a stress test that showed a fixed defect of the inferior wall with no evidence of reversibility. EF less than 15%, [id number] MR, moderate TR Admitted with-acute CHF exacerbation, COPD exacerbation and acute non-Q-wave RI. Started and IV Lasix. Today-feeling better. Blood pressures come up to 100 systolic. Cleared by cardiology gone. Discussed with the patient. Consultation: . Dr. Tomas Carroll from pulmonary Dr. ED Edward from cardiology Physical examination: VITAL: 97.8, 95, 16, 104/70, 98% on 3 L GENERAL: Sitting up in a chair, a bit tired EYES: Pupils equal. Conjunctiva normal. HEENT: External appearance of nose and ears normal, oral cavity grossly normal. NECK: JVD not raised; masses not palpable. HEART: First and second heart sounds are normal; no edema. LUNGS: Respiratory rate increased, diminished breath sounds ABDOMEN: Soft, nontender, liver spleen not palpable, no masses palpable. PSYCH: AO 3, motor affect slightly anxious INVESTIGATIONS, reviewed in the clinical context: Percussion 3.9 and creatinine 0.73 Previous testing White count 12.3 hemoglobin 14.4 potassium 4.1 creatinine 0.97 Bilirubin 1.7 AST 68 ALT 303 troponin I 0.068 0.052, 0.057 proBNP 10,500 Chest x-ray film personally reviewed by me-right located effusion from before; infiltrate CT angiogram of the chest for PE-cardiomegaly, emphysema moderate right pleural effusion evidence of right lower lobectomy, mild groundglass bilateral findings, no PE Assessment: -Acute on chronic congestive heart exacerbation from systolic dysfunction EF less than 15%, POA, -Acute COPD exacerbation in an ex-smoker, POA, improving -Anterior chest wall pain with some cardiac features and positive troponin suggestive of acute non-Q-wave RI, POA -Moderate mitral and, moderate tricuspid regurgitation, nontraumatic -Chronic loculated right-sided effusion -Left bundle-branch block -AICD -BPH -History of arrhythmia type unknown patient is on amiodarone. -History of Right lower lobe lobectomy, biopsy showing adenocarcinoma.-Early-stage not requiring any chemoradiation treatment. Recent workup and Dr. Eldridge during hospitalization did not show any progression of the same. -generalized anxiety disorder -Chronic insomnia -New onset hypotension, from combination of antihypertensives and diuretics. Disposition: Home Patient Condition at Discharge: Stable Plan - Discharge Summary Discharge Rx Participant: Yes New Discharge Prescriptions: New Furosemide [Lasix] 40 mg PO DAILY@0800 #30 tab Continue Albuterol Inhaler (Bulk) [Ventolin Hfa Inhaler (Bulk)] 2 puff INHALATION RT- Q6H PRN PRN Reason: Shortness Of Breath Levothyroxine Sodium 25 mcg PO DAILY Atorvastatin [Lipitor] 40 mg PO HS #30 tab Pantoprazole [Protonix] 40 mg PO AC-BRKFST #30 tablet. Ipratropium-Albuterol Nebulize [Duoneb 0.5 mg-3 mg/3 ml Soln] 3 ml INHALATION RT-QID PRN #1 neb PRN Reason: Shortness Of Breath Budesonide-Formot 160-4.5 Mcg [Symbicort 160-4.5 Mcg Inhaler (Bulk)] 2 puff INHALATION RT-BID PRN #1 puff PRN Reason: Shortness Of Breath Potassium Chloride ER [K-Dur 10] 10 meq PO DAILY ALPRAZolam [Xanax] 0.25 mg PO BID PRN PRN Reason: Anxiety Aspirin EC [Ecotrin Low Dose] 81 mg PO DAILY Amoxic-Pot Clav 875-125Mg [Augmentin 875-125] 1 tab PO BID Acetaminophen Tab [Tylenol] 1,000 mg PO Q6H PRN PRN Reason: Pain Changed Furosemide [Lasix] 20 mg PO DAILY@1300 #30 tab Metoprolol Tartrate [Lopressor] 12.5 mg PO DAILY #0 Discontinued Amiodarone [Cordarone] 200 mg PO DAILY predniSONE [Deltasone] See Taper PO DAILY Ibuprofen [Motrin Ib] 800 mg PO Q8H PRN MDD N PRN Reason: Pain Discharge Medication List Albuterol Inhaler (Bulk) [Ventolin Hfa Inhaler (Bulk)] 2 puff INHALATION RT-Q6H PRN 04/22/19 [History] Levothyroxine Sodium 25 mcg PO DAILY 11/04/19 [History] Atorvastatin [Lipitor] 40 mg PO HS #30 tab 11/10/19 [Rx] Budesonide-Formot 160-4.5 Mcg [Symbicort 160-4.5 Mcg Inhaler (Bulk)] 2 puff INHALATION RT-BID PRN #1 puff 11/10/19 [Rx] Ipratropium-Albuterol Nebulize [Duoneb 0.5 mg-3 mg/3 ml Soln] 3 ml INHALATION RT-QID PRN #1 neb 11/10/19 [Rx] Pantoprazole [Protonix] 40 mg PO AC-BRKFST #30 tablet.dr 11/10/19 [Rx] ALPRAZolam [Xanax] 0.25 mg PO BID PRN 11/22/19 [History] Acetaminophen Tab [Tylenol] 1,000 mg PO Q6H PRN 11/22/19 [History] Amoxic-Pot Clav 875-125Mg [Augmentin 875-125] 1 tab PO BID 11/22/19 [History] Aspirin EC [Ecotrin Low Dose] 81 mg PO DAILY 11/22/19 [History] Potassium Chloride ER [K-Dur 10] 10 meq PO DAILY 11/22/19 [History] Furosemide [Lasix] 20 mg PO DAILY@1300 #30 tab 11/26/19 [Rx] Furosemide [Lasix] 40 mg PO DAILY@0800 #30 tab 11/26/19 [Rx] Metoprolol Tartrate [Lopressor] 12.5 mg PO DAILY #0 11/26/19 [Rx] Follow up Appointment(s)/Referral(s): Rahat Waters MD [STAFF PHYSICIAN] - 12/08/19 11:00 am Kashif Salazar MD [Primary Care Provider] - 1-2 days Oscar Carroll MD [STAFF PHYSICIAN] - 1 Week [facility] Visiting Nurse, [NON-STAFF] - 1-2 Days Patient Instructions/Handouts: Heart Failure (DC) Activity/Diet/Wound Care/Special Instructions: bmp - 5 days Discharge Disposition: HOME SELF-CARE
== END 2019-11-26 16:20 | disposition home health service (06) | DRG 280 ==
LOC: EC 06:35 → 3SCARD 10:50
PROVIDERS: ADMIT Hospitalist; ATTEND Hospitalist
DX: I11.0 Hypertensive heart disease with heart failure (principal); I21.4 Non-ST elevation (NSTEMI) myocardial infarction; J18.8 Other pneumonia, unspecified organism; C34.31 Malignant neoplasm of lower lobe, right bronchus or lung; J44.0 Chronic obstructive pulmonary disease with (acute) lower respiratory infection; J44.1 Chronic obstructive pulmonary disease with (acute) exacerbation; I50.23 Acute on chronic systolic (congestive) heart failure; F41.1 Generalized anxiety disorder; F51.04 Psychophysiologic insomnia; I08.1 Rheumatic disorders of both mitral and tricuspid valves; I44.7 Left bundle-branch block, unspecified; E03.9 Hypothyroidism, unspecified; E78.5 Hyperlipidemia, unspecified; F32.9 Major depressive disorder, single episode, unspecified; I25.2 Old myocardial infarction; I27.20 Pulmonary hypertension, unspecified; I42.8 Other cardiomyopathies; I48.0 Paroxysmal atrial fibrillation; Z87.891 Personal history of nicotine dependence; K21.9 Gastro-esophageal reflux disease without esophagitis; N40.0 Benign prostatic hyperplasia without lower urinary tract symptoms; R09.02 Hypoxemia; Z79.51 Long term (current) use of inhaled steroids; Z79.82 Long term (current) use of aspirin; Z79.890 Hormone replacement therapy; Z79.899 Other long term (current) drug therapy; Z82.49 Family history of ischemic heart disease and other diseases of the circulatory system; Z87.01 Personal history of pneumonia (recurrent); Z90.2 Acquired absence of lung [part of]; Z95.810 Presence of automatic (implantable) cardiac defibrillator; I95.2 Hypotension due to drugs; T50.2X5A Adverse effect of carbonic-anhydrase inhibitors, benzothiadiazides and other diuretics, initial encounter; R94.5 Abnormal results of liver function studies
CPT/HCPCS: 36415; 71046; 71275; 76705; 80048; 80053; 80061; 82150; 83605; 83690; 83735; 83880; 84145; 84484; 85025; 85610; 85730; 87040; 93005; 94640; 96361; 96374; 96375; 99285

== ENCOUNTER 2019-11-30 12:09 | Inpatient (IN) | payer MEDICARE ==
[2019-11-30] MEDS ORDERED: IPRATROPIUM-ALBUTEROL 3 ML NEB INHALATION STA (12:32)
--- NOTE | 2019-11-30 12:37 | ED ---
General Adult HPI - General Chief complaint: Shortness of Breath Stated complaint: SOB/sent by Time Seen by Provider: 11/30/19 12:15 Source: patient, RN/MD, RN notes reviewed Mode of arrival: wheelchair Limitations: physical limitation - History of Present Illness Initial comments: Patient is a pleasant 69-year-old male presenting to the emergency Department with complaints of difficulty in breathing. Patient was in the hospital and released a week ago. Patient had pneumonia at that time. Patient also had CHF. Patient has had recent right-sided lung resection in August. Patient has had postoperative effusion with loculated fluid. Patient also has decreased ejection fraction of 25%. No significant cough. No fevers. No chest pain. Patient states right-sided rash was from placing icy hot when he had chest discomfort over a week ago. Patient states rash is secondary to reaction to that. Patient states there is no pain associated. Patient states his blood pressure always once low. Patient states his normal blood pressure is probably 90. Patient states he does sometimes get readings in the 70s and 80s. - Related Data Home Medications Medication Instructions Recorded Confirmed Albuterol Inhaler (Bulk) [Ventolin 2 puff INHALATION RT-Q6H PRN 04/22/19 11/30/19 Hfa Inhaler (Bulk)] Levothyroxine Sodium 25 mcg PO DAILY 11/04/19 11/30/19 ALPRAZolam [Xanax] 0.25 mg PO BID PRN 11/22/19 11/30/19 Acetaminophen Tab [Tylenol] 1,000 mg PO Q6H PRN 11/22/19 11/30/19 Aspirin EC [Ecotrin Low Dose] 81 mg PO DAILY 11/22/19 11/30/19 Potassium Chloride ER [K-Dur 10] 10 meq PO DAILY 11/22/19 11/30/19 Amoxic-Pot Clav 500-125 mg 1 tab PO Q12HR 11/30/19 11/30/19 [Augmentin 500-125 mg] Previous Rx's Medication Instructions Recorded Atorvastatin [Lipitor] 40 mg PO HS #30 tab 11/10/19 Budesonide-Formot 160-4.5 Mcg 2 puff INHALATION RT-BID PRN #1 11/10/19 [Symbicort 160-4.5 Mcg Inhaler puff (Bulk)] Ipratropium-Albuterol Nebulize 3 ml INHALATION RT-QID PRN #1 neb 11/10/19 [Duoneb 0.5 mg-3 mg/3 ml Soln] Pantoprazole [Protonix] 40 mg PO AC-BRKFST #30 tablet. 11/10/19 Furosemide [Lasix] 20 mg PO DAILY@1300 #30 tab 11/26/19 Furosemide [Lasix] 40 mg PO DAILY@0800 #30 tab 11/26/19 Metoprolol Tartrate [Lopressor] 12.5 mg PO DAILY #0 11/26/19 Allergies Allergy/AdvReac Type Severity Reaction Status Date / Time lorazepam [From Ativan] Allergy Anaphylaxis Verified 11/30/19 12:18 Review of Systems ROS Statement: Those systems with pertinent positive or pertinent negative responses have been documented in the HPI. ROS Other: All systems not noted in ROS Statement are negative. Constitutional: Denies: fever, chills Eyes: Denies: eye pain ENT: Denies: ear pain Respiratory: Reports: dyspnea. Denies: cough Cardiovascular: Denies: chest pain Endocrine: Reports: fatigue Gastrointestinal: Denies: abdominal pain Genitourinary: Denies: dysuria Musculoskeletal: Denies: back pain Skin: Denies: rash Neurological: Denies: weakness Past Medical History Past Medical History: Myocardial Infarction ([place]) Additional Past Medical History / Comment(s): right lung mass Last Myocardial Infarction Date:: 2001 History of Any Multi-Drug Resistant Organisms: None Reported Past Surgical History: Heart Catheterization, Hernia Repair, Pacemaker Additional Past Surgical History / Comment(s): reomoval of tumor from right lung, lower lobe removed. defib 2001 Past Anesthesia/Blood Transfusion Reactions: No Reported Reaction Type of Cardiac Device: AICD Device Placement Date:: 2015 Past Psychological History: No Psychological Hx Reported Smoking Status: Former smoker Past Alcohol Use History: None Reported Past Drug Use History: None Reported - Past Family History Father Family Medical History: Congestive Heart Failure (CHF) General Exam Limitations: physical limitation General appearance: alert, in no apparent distress Head exam: Present: normocephalic Eye exam: Present: normal appearance, PERRL ENT exam: Present: normal oropharynx Neck exam: Present: normal inspection Respiratory exam: Present: decreased breath sounds Cardiovascular Exam: Present: regular rate, normal rhythm GI/Abdominal exam: Present: soft. Absent: tenderness Extremities exam: Present: normal inspection Neurological exam: Present: alert Psychiatric exam: Present: normal affect, normal mood Skin exam: Present: rash (Left upper chest and shoulder region with patchy skin discoloration, nontender. There is one small blister present which patient states is from itching.) Course Vital Signs 11/30/19 11/30/19 11/30/19 12:14 12:32 13:28 Pulse Rate 50 L 84 Respiratory 20 20 Rate Blood Pressure 87/66 O2 Sat by Pulse 99 Oximetry 11/30/19 11/30/19 13:38 14:10 Pulse Rate 87 88 Respiratory 18 Rate Blood Pressure 89/62 O2 Sat by Pulse 100 Oximetry EKG Findings - EKG Comments: EKG Findings:: Sinus rhythm and 97. [place] 184. QRS 162. QT 422. QTC 535. Normal axis. Left bundle branch block. Nonspecific T waves. Medical Decision Making - Medical Decision Making Patient again reevaluated and updated. Case also discussed with Dr. Ramey, who will admit covering for Dr. Cedeño, who admits for Dr. Salazar. Case was also earlier discussed with Dr. Carroll who will consult. - Lab Data Result diagrams: 11/30/19 12:40 11/30/19 12:40 Lab Results 11/30/19 11/30/19 11/30/19 Range/Units 12:35 12:40 12:40 WBC 7.0 (3.8-10.6) k/uL RBC 4.41 (4.30-5.90) m/uL Hgb 13.5 (13.0-17.5) gm/dL Hct 41.2 (39.0-53.0) % MCV 93.5 (80.0-100.0) fL MCH 30.6 (25.0-35.0) pg MCHC 32.7 (31.0-37.0) g/dL RDW 15.5 (11.5-15.5) % Plt Count 114 L (150-450) k/uL Neutrophils % 79 % Lymphocytes % 12 % Monocytes % 4 % Eosinophils % 2 % Basophils % 1 % Neutrophils # 5.5 (1.3-7.7) k/uL Lymphocytes # 0.8 L (1.0-4.8) k/uL Monocytes # 0.3 (0-1.0) k/uL Eosinophils # 0.1 (0-0.7) k/uL Basophils # 0.0 (0-0.2) k/uL PT 10.6 (9.0-12.0) sec INR 1.0 (<1.2) APTT 23.2 (22.0-30.0) sec D-Dimer 1.47 H (<0.60) mg/L FEU Sodium (137-145) mmol/L Potassium (3.5-5.1) mmol/L Chloride (98-107) mmol/L Carbon Dioxide (22-30) mmol/L Anion Gap mmol/L BUN (9-20) mg/dL Creatinine (0.66-1.25) mg/dL Est GFR (CKD-EPI)AfAm (>60 ml/min/1.73 sqM) Est GFR (CKD-EPI)NonAf (>60 ml/min/1.73 sqM) Glucose (74-99) mg/dL Plasma Lactic Acid Fly (0.7-2.0) mmol/L Calcium (8.4-10.2) mg/dL Magnesium (1.6-2.3) mg/dL Total Bilirubin (0.2-1.3) mg/dL AST (17-59) U/L ALT (4-49) U/L Alkaline Phosphatase (38-126) U/L Lactate Dehydrogenase (313-618) U/L Troponin I (0.000-0.034) ng/mL C-Reactive Protein (<10.0) mg/L NT-Pro-B Natriuret Pep pg/mL Total Protein (6.3-8.2) g/dL Albumin (3.5-5.0) g/dL Coronavirus (PCR) Not Detected (Not Detectd) 11/30/19 11/30/19 11/30/19 Range/Units 12:40 12:40 12:40 WBC (3.8-10.6) k/uL RBC (4.30-5.90) m/uL Hgb (13.0-17.5) gm/dL Hct (39.0-53.0) % MCV (80.0-100.0) fL MCH (25.0-35.0) pg MCHC (31.0-37.0) g/dL RDW (11.5-15.5) % Plt Count (150-450) k/uL Neutrophils % % Lymphocytes % % Monocytes % % Eosinophils % % Basophils % % Neutrophils # (1.3-7.7) k/uL Lymphocytes # (1.0-4.8) k/uL Monocytes # (0-1.0) k/uL Eosinophils # (0-0.7) k/uL Basophils # (0-0.2) k/uL PT (9.0-12.0) sec INR (<1.2) APTT (22.0-30.0) sec D-Dimer (<0.60) mg/L FEU Sodium 134 L (137-145) mmol/L Potassium 4.4 (3.5-5.1) mmol/L Chloride 96 L (98-107) mmol/L Carbon Dioxide 33 H (22-30) mmol/L Anion Gap 5 mmol/L BUN 15 (9-20) mg/dL Creatinine 0.75 (0.66-1.25) mg/dL Est GFR (CKD-EPI)AfAm >90 (>60 ml/min/1.73 sqM) Est GFR (CKD-EPI)NonAf >90 (>60 ml/min/1.73 sqM) Glucose 81 (74-99) mg/dL Plasma Lactic Acid Fly 2.0 (0.7-2.0) mmol/L Calcium 9.0 (8.4-10.2) mg/dL Magnesium 2.2 (1.6-2.3) mg/dL Total Bilirubin 1.5 H (0.2-1.3) mg/dL AST 56 (17-59) U/L ALT 113 H (4-49) U/L Alkaline Phosphatase 152 H (38-126) U/L Lactate Dehydrogenase 993 H (313-618) U/L Troponin I 0.036 H* (0.000-0.034) ng/mL C-Reactive Protein 24.1 H (<10.0) mg/L NT-Pro-B Natriuret Pep pg/mL Total Protein 6.9 (6.3-8.2) g/dL Albumin 3.9 (3.5-5.0) g/dL Coronavirus (PCR) (Not Detectd) 11/30/19 Range/Units 12:40 WBC (3.8-10.6) k/uL RBC (4.30-5.90) m/uL Hgb (13.0-17.5) gm/dL Hct (39.0-53.0) % MCV (80.0-100.0) fL MCH (25.0-35.0) pg MCHC (31.0-37.0) g/dL RDW (11.5-15.5) % Plt Count (150-450) k/uL Neutrophils % % Lymphocytes % % Monocytes % % Eosinophils % % Basophils % % Neutrophils # (1.3-7.7) k/uL Lymphocytes # (1.0-4.8) k/uL Monocytes # (0-1.0) k/uL Eosinophils # (0-0.7) k/uL Basophils # (0-0.2) k/uL PT (9.0-12.0) sec INR (<1.2) APTT (22.0-30.0) sec D-Dimer (<0.60) mg/L FEU Sodium (137-145) mmol/L Potassium (3.5-5.1) mmol/L Chloride (98-107) mmol/L Carbon Dioxide (22-30) mmol/L Anion Gap mmol/L BUN (9-20) mg/dL Creatinine (0.66-1.25) mg/dL Est GFR (CKD-EPI)AfAm (>60 ml/min/1.73 sqM) Est GFR (CKD-EPI)NonAf (>60 ml/min/1.73 sqM) Glucose (74-99) mg/dL Plasma Lactic Acid Fly (0.7-2.0) mmol/L Calcium (8.4-10.2) mg/dL Magnesium (1.6-2.3) mg/dL Total Bilirubin (0.2-1.3) mg/dL AST (17-59) U/L ALT (4-49) U/L Alkaline Phosphatase (38-126) U/L Lactate Dehydrogenase (313-618) U/L Troponin I (0.000-0.034) ng/mL C-Reactive Protein (<10.0) mg/L NT-Pro-B Natriuret Pep 7490 pg/mL Total Protein (6.3-8.2) g/dL Albumin (3.5-5.0) g/dL Coronavirus (PCR) (Not Detectd) - Radiology Data Radiology results: report reviewed (CT angios of the chest shows no pulmonary embolism. Advanced emphysematous changes. Right surgical clips. Cardiomegaly and left ventricular dilation. Right pleural effusion redemonstrated.) Disposition Clinical Impression: COPD exacerbation, Congestive heart failure, Pleural effusion Disposition: ADMITTED IP TO THIS HOSP Is patient prescribed a controlled substance at d/c from ED?: No Referrals: Kashif Salazar MD [Primary Care Provider] - 1-2 days Decision Time: 15:44
[2019-11-30 13:06] LABS: Basophils % (A) 1 %; Eosinophils # (A) 0.1 k/uL (0-0.7); Eosinophils % (A) 2 %; HCT 41.2 % (39.0-53.0); HGB 13.5 gm/dL (13.0-17.5); Lymphocytes # (A) 0.8 k/uL (1.0-4.8); Lymphocytes % (A) 12 %; MCH 30.6 pg (25.0-35.0); MCHC 32.7 g/dL (31.0-37.0); MCV 93.5 fL (80.0-100.0); Mean Platelet Volume 8.2; Monocytes # (A) 0.3 k/uL (0-1.0); Monocytes % (A) 4 %; Neutrophils # (A) 5.5 k/uL (1.3-7.7); Neutrophils % (A) 79 %; Platelet Count 114 k/uL (150-450); RBC 4.41 m/uL (4.30-5.90); RDW 15.5 % (11.5-15.5)
[2019-11-30] MEDS ORDERED: ALBUTEROL HFA INHALER INHALATION STA (13:10)
[2019-11-30 13:19] LABS: ALT 113 U/L (4-49); AST 56 U/L (17-59); African American GFR (CKD) >90 (>60 ml/min/1.73 sqM); Albumin 3.9 g/dL (3.5-5.0); Alkaline Phosphatase 152 U/L (38-126); Anion Gap 5 mmol/L; Blood Urea Nitrogen 15 mg/dL (9-20); C Reactive Protein 24.1 mg/L (<10.0); Carbon Dioxide 33 mmol/L (22-30); Chloride 96 mmol/L (98-107); Glucose 81 mg/dL (74-99); LDH 993 U/L (313-618); Magnesium 2.2 mg/dL (1.6-2.3); Non-African American GFR(CKD) >90 (>60 ml/min/1.73 sqM); Sodium 134 mmol/L (137-145); Total Bilirubin 1.5 mg/dL (0.2-1.3); Total Protein 6.9 g/dL (6.3-8.2)
[2019-11-30 13:21] LABS: Partial Thromboplastin Time 23.2 sec (22.0-30.0); Prothrombin Time 10.6 sec (9.0-12.0)
[2019-11-30 13:28] LABS: Potassium 4.4 mmol/L (3.5-5.1)
[2019-11-30 13:35] LABS: D-Dimer 1.47 mg/L FEU (<0.60)
--- NOTE | 2019-11-30 15:13 | CT ---
EXAMINATION TYPE: CT angio chest DATE OF EXAM: 11/30/2019 COMPARISON: CTA chest 8 days ago HISTORY: dyspnea, history of lung cancer. CT DLP: 251.8 mGycm. Automated Exposure Control for Dose Reduction was Utilized. CONTRAST: CTA scan of the thorax is performed with IV Contrast, patient injected with 100 mL of Isovue 370, pul monary embolism protocol. MIP Images are created on CT scanner and reviewed. FINDINGS: LUNGS: Redemonstration of background moderate to advanced chronic emphysematous change and right-side d volume loss from partial pneumonectomy changes. Persistent small to moderate size right pleural flu id collection extending into right lung major fissure felt stable or slightly smaller versus recent C T. Left lung remains clear. No new suspicious nodules or masses. No new focal consolidation. MEDIASTINUM: There is satisfactory enhancement of the pulmonary artery and its branches, there is no CT evidence for pulmonary embolism. There are no new greater than 1 cm hilar or mediastinal lymph no hoang. Redemonstration of cardiomegaly with severe left ventricular dilatation. Redemonstration of over lying dual-lead pacemaker/AICD. Mild to moderate right atrial dilatation. Reflux of contrast into the suprahepatic IVC suggests degree of right heart failure. Nonopacified aorta without new aneurysm. OTHER: S-shaped scoliosis. IMPRESSION: No CT evidence for acute pulmonary embolism. Moderate to advanced emphysematous change wi th right lung surgical change along with cardiomegaly and severe left ventricular dilatation and smal l to moderate-sized right pleural effusion are all redemonstrated. No significant change from CT 8 da ys earlier.
[2019-11-30] MEDS ORDERED: IPRATROPIUM-ALBUTEROL 3 ML NEB INHALATION PRN (15:44)
[2019-11-30] MEDS ORDERED: ASPIRIN 325 MG TAB PO STA (15:44)
[2019-11-30] MEDS: IPRATROPIUM-ALBUTEROL 3 ML NEB INHALATION SCH ×2 (16:41→19:21)
[2019-11-30] MEDS: FUROSEMIDE 10 MG/ML 4 ML VIAL IV SCH (17:01)
[2019-11-30 19:03] LABS: Ferritin 387.9 ng/mL (22.0-322.0)
[2019-11-30] MEDS ORDERED: ACETAMINOPHEN TAB 500 MG TAB PO PRN (23:32)
--- NOTE | 2019-12-01 00:04 | P.HPIM ---
History of Present Illness H&P Date: 11/30/19 Chief Complaint: Shortness of breath This is a 69-year-old patient of Dr. Salazar. Chronic stable medical conditions include chronic CHF with systolic dysfunction, ejection fraction 15%, moderate to severe MR, moderate TR, left bundle branch block, AICD, BPH, right lower lobe lobectomy. Patient stopped smoking in August 2019. 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 Patient has chronic loculated right-sided pleural effusion. Patient was recently admitted to hospital due to acute CHF exacerbation and COPD exacerbation and also non-Q-wave LA. Patient currently takes Lasix twice daily at home. Patient was discharged home on 11/26/2019 Patient presents to ER with complaints of worsening shortness of breath. Denied any complaints of cough. No fever no chills. No complaints of chest pain. Patient is also is having low blood pressure with SBP 90s, likely due to his low ejection fraction.. Denied any nausea vomiting or abdominal pain. No diarrhea. Denied any leg swelling. D-dimer 1.47 CT angiogram showed no evidence of pulmonary embolism. Moderate to advanced emphysematous changes in the right lung surgical change with cardiomegaly and severe left ventricular dilatation and small to medium-sized right pleural effusion re dulce demonstrated. No significant change in the CT compared to a few days ago. BNP 7640 ALT 113 AST 152 LDH 993, pro calcitonin 0.11, ferritin 387 Troponin 0.036 EKG showed sinus rhythm with occasional PVCs Covid 19 negative. Review of Systems Constitutional: Patient denies any fever or chills . No generalized weakness or weight loss. Abdomen: Patient denied nausea vomiting and diarrhea and abdominal pain. Cardiovascular: Patient denies any chest pain . Positive for short of breath no palpitations. Respiratory: patient denied any cough is from production. Does have shortness of breath Neurologic: Patient denied any numbness or tingling headache. Musculoskeletal: Patient denies any complaints of joint swelling or deformity. Skin: Negative Psychiatric: Negative Endocrine: No heat or cold intolerance. No recent weight gain. Genitourinary: No dysuria or hematuria. All other 14 point ROS negative except the above Past Medical History Past Medical History: Myocardial Infarction ([place]) Additional Past Medical History / Comment(s): right lung mass Last Myocardial Infarction Date:: 2001 History of Any Multi-Drug Resistant Organisms: None Reported Past Surgical History: Heart Catheterization, Hernia Repair, Pacemaker Additional Past Surgical History / Comment(s): reomoval of tumor from right lung, lower lobe removed. defib 2001 Past Anesthesia/Blood Transfusion Reactions: No Reported Reaction Type of Cardiac Device: AICD Device Placement Date:: 2015 Past Psychological History: No Psychological Hx Reported Smoking Status: Former smoker Past Alcohol Use History: None Reported Past Drug Use History: None Reported - Past Family History Father Family Medical History: Congestive Heart Failure (CHF) Medications and Allergies Home Medications Medication Instructions Recorded Confirmed Type Albuterol Inhaler (Bulk) [Ventolin 2 puff INHALATION RT-Q6H PRN 04/22/19 11/30/19 History Hfa Inhaler (Bulk)] Levothyroxine Sodium 25 mcg PO DAILY 11/04/19 11/30/19 History Atorvastatin [Lipitor] 40 mg PO HS #30 tab 11/10/19 11/30/19 Rx Budesonide-Formot 160-4.5 Mcg 2 puff INHALATION RT-BID PRN #1 11/10/19 11/30/19 Rx [Symbicort 160-4.5 Mcg Inhaler puff (Bulk)] Ipratropium-Albuterol Nebulize 3 ml INHALATION RT-QID PRN #1 neb 11/10/19 11/30/19 Rx [Duoneb 0.5 mg-3 mg/3 ml Soln] Pantoprazole [Protonix] 40 mg PO AC-BRKFST #30 tablet. 11/10/19 11/30/19 Rx ALPRAZolam [Xanax] 0.25 mg PO BID PRN 11/22/19 11/30/19 History Acetaminophen Tab [Tylenol] 1,000 mg PO Q6H PRN 11/22/19 11/30/19 History Aspirin EC [Ecotrin Low Dose] 81 mg PO DAILY 11/22/19 11/30/19 History Potassium Chloride ER [K-Dur 10] 10 meq PO DAILY 11/22/19 11/30/19 History Furosemide [Lasix] 20 mg PO DAILY@1300 #30 tab 11/26/19 11/30/19 Rx Furosemide [Lasix] 40 mg PO DAILY@0800 #30 tab 11/26/19 11/30/19 Rx Metoprolol Tartrate [Lopressor] 12.5 mg PO DAILY #0 11/26/19 11/30/19 Rx Amoxic-Pot Clav 500-125 mg 1 tab PO Q12HR 11/30/19 11/30/19 History [Augmentin 500-125 mg] Allergies Allergy/AdvReac Type Severity Reaction Status Date / Time lorazepam [From Ativan] Allergy Anaphylaxis Verified 11/30/19 12:18 Physical Exam Vitals: Vital Signs Temp Pulse Pulse Resp BP BP Pulse Ox 11/30/19 19:01 97.9 F 83 18 92/57 93 L 11/30/19 18:23 93 16 11/30/19 18:18 78 20 82/62 96 11/30/19 18:16 91 L 11/30/19 18:00 68 18 82/62 90 L 11/30/19 15:56 98 18 85/65 97 11/30/19 14:10 88 18 89/62 100 11/30/19 13:38 87 11/30/19 13:28 84 11/30/19 12:32 20 11/30/19 12:14 50 L 20 87/66 99 Intake and Output 11/30/19 11/30/19 11/30/19 06:59 14:59 22:59 Other: Weight 50.349 kg PHYSICAL EXAMINATION: Patient is lying in the bed comfortably, no acute distress, awake alert and oriented.. HEENT: Normocephalic. Neck is supple. Pupils reactive. Nostrils clear. Oral cavity is moist. Ears reveal no drainage. Neck reveals no JVD, carotid bruits, or thyromegaly. CHEST EXAMINATION: Trachea is central. Symmetrical expansion. Bibasilar diminished air entry and minimal crackles present. No wheezing.. CARDIAC: Normal S1, S2 with no gallops. No murmurs ABDOMEN: Soft. Bowel sounds normal. No organomegaly. No abdominal bruits. Extremities: reveal no edema. No clubbing or cyanosis Neurologically awake, alert, oriented x3 with well-coordinated movements. No focal deficits noted Skin: No rash or skin lesions. Psychiatric: Coperative. Nonsuicidal Musculoskeletal: No joint swelling or deformity. Normal range of motion. Results CBC & Chem 7: 11/30/19 12:40 11/30/19 12:40 Labs: Abnormal Lab Results - Last 24 Hours (Table) 11/30/19 11/30/19 11/30/19 Range/Units 12:40 12:40 12:40 Plt Count 114 L (150-450) k/uL Lymphocytes # 0.8 L (1.0-4.8) k/uL D-Dimer 1.47 H (<0.60) mg/L FEU Sodium 134 L (137-145) mmol/L Chloride 96 L (98-107) mmol/L Carbon Dioxide 33 H (22-30) mmol/L Ferritin 387.9 H (22.0-322.0) ng/mL Total Bilirubin 1.5 H (0.2-1.3) mg/dL ALT 113 H (4-49) U/L Alkaline Phosphatase 152 H (38-126) U/L Lactate Dehydrogenase 993 H (313-618) U/L Troponin I (0.000-0.034) ng/mL C-Reactive Protein 24.1 H (<10.0) mg/L Procalcitonin (0.02-0.09) ng/mL 11/30/19 11/30/19 Range/Units 12:40 12:40 Plt Count (150-450) k/uL Lymphocytes # (1.0-4.8) k/uL D-Dimer (<0.60) mg/L FEU Sodium (137-145) mmol/L Chloride (98-107) mmol/L Carbon Dioxide (22-30) mmol/L Ferritin (22.0-322.0) ng/mL Total Bilirubin (0.2-1.3) mg/dL ALT (4-49) U/L Alkaline Phosphatase (38-126) U/L Lactate Dehydrogenase (313-618) U/L Troponin I 0.036 H* (0.000-0.034) ng/mL C-Reactive Protein (<10.0) mg/L Procalcitonin 0.11 H (0.02-0.09) ng/mL Thrombosis Risk Factor Assmnt - DVT/VTE Prophylaxis DVT/VTE Prophylaxis: Pharmacologic Prophylaxis ordered Assessment and Plan Assessment: -Acute on chronic congestive heart exacerbation from systolic dysfunction EF less than 15%, POA, -Shortness of breath secondary to moderate sized right pleural effusion. Patient does have chronic loculated right pleural effusion. -Elevated liver enzymes likely due to hepatic congestion. -COPD not in exacerbation. -Anterior chest wall pain with some cardiac features and positive troponin suggestive of acute non-Q-wave LA, POA -Moderate mitral and, moderate tricuspid regurgitation, nontraumatic -Left bundle-branch block -AICD -BPH -History of arrhythmia type unknown patient is on amiodarone. -History of Right lower lobe lobectomy, biopsy showing adenocarcinoma.-Early-stage not requiring any chemoradiation treatment. Recent workup and Dr. Eldridge during hospitalization did not show any progression of the same. -generalized anxiety disorder -Chronic insomnia -Hypothyroidism -DVT prophylaxis with heparin subcu. Plan: Patient will be continued on IV Lasix 40 mg twice daily and monitor renal function and blood pressure closely. Cardiology and pulmonary was consulted. Continue with breathing treatments. Ultrasound of abdominal was ordered due to elevated liver enzymes. Acute hepatitis panel was ordered as well. Continue the telemetry monitoring. Further recommendations based on the clinical course. Prognosis is guarded with multiple medical problems and comorbid conditions. Time with Patient: Greater than 30
[2019-12-01] MEDS: HEPARIN SODIUM,PORCINE 5,000 UNIT/ML 1 ML VIAL SQ SCH ×4 (00:58→23:21)
[2019-12-01] MEDS: PANTOPRAZOLE 40 MG TABLET PO SCH (06:02)
[2019-12-01] MEDS: LEVOTHYROXINE 25 MCG TAB PO SCH (06:02)
[2019-12-01] MEDS: FUROSEMIDE 10 MG/ML 4 ML VIAL IV SCH (06:02)
[2019-12-01 06:42] LABS: Basophils % (A) 1 %; Eosinophils # (A) 0.2 k/uL (0-0.7); Eosinophils % (A) 3 %; HGB 13.4 gm/dL (13.0-17.5); Lymphocytes # (A) 0.9 k/uL (1.0-4.8); Lymphocytes % (A) 13 %; MCH 30.7 pg (25.0-35.0); MCHC 32.6 g/dL (31.0-37.0); MCV 94.1 fL (80.0-100.0); Mean Platelet Volume 8.4; Monocytes # (A) 0.4 k/uL (0-1.0); Monocytes % (A) 6 %; Neutrophils # (A) 4.9 k/uL (1.3-7.7); Neutrophils % (A) 73 %; Platelet Count 138 k/uL (150-450); RBC 4.36 m/uL (4.30-5.90); RDW 15.9 % (11.5-15.5); WBC 6.7 k/uL (3.8-10.6)
[2019-12-01 06:52] LABS: African American GFR (CKD) >90 (>60 ml/min/1.73 sqM); Anion Gap 5 mmol/L; Blood Urea Nitrogen 16 mg/dL (9-20); Calcium 9.1 mg/dL (8.4-10.2); Carbon Dioxide 34 mmol/L (22-30); Chloride 99 mmol/L (98-107); Glucose 84 mg/dL (74-99); Non-African American GFR(CKD) 82 (>60 ml/min/1.73 sqM); Potassium 4.1 mmol/L (3.5-5.1); Sodium 138 mmol/L (137-145)
[2019-12-01] MEDS ORDERED: ALBUTEROL HFA INHALER INHALATION PRN (08:29)
[2019-12-01 08:59] VITALS: RESP 18
[2019-12-01] MEDS ORDERED: METOPROLOL TARTRATE 25 MG TAB PO SCH (09:00)
[2019-12-01] MEDS: POTASSIUM CHLORIDE ER 10 MEQ TAB.ER.PRT PO SCH (09:02)
[2019-12-01] MEDS: ASPIRIN 81 MG PO SCH (09:02)
[2019-12-01] MEDS: METOPROLOL TARTRATE 12.5 MG TAB PO SCH ×2 (09:06→21:36)
[2019-12-01] MEDS: IPRATROPIUM-ALBUTEROL 3 ML NEB INHALATION SCH (09:16)
--- NOTE | 2019-12-01 09:56 | P.CNPUL ---
History of Present Illness Consult date: 12/01/19 Reason for consult: dyspnea, cough, COPD, hypoxemia Chief complaint: Increased shortness of breath swelling History of present illness: This is a 69-year-old male who was seen eval reexamined on medical floor patient has been admitted to hospital with one-day history of increasing shortness of breath and increased swelling or sputum production is present patient was evaluated once more than 40 pounds blood pressure patient has been asked to come into the hospital due to acute onset of shortness of breath lesion DTs scan of the chest was negative for pulmonary embolism a small pericardial effusion is seen small right-sided pleural effusion which actually is better than the has been seen as well patient is still short of breath but denies any chest pain denies any cough or sputum production, patient is 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 also has chronic systolic heart failure related baseline ejection fraction about 20% status post AICD, patient has been hospitalized recently with non-Q-wave [place] COPD and CHF exacerbation BNP is 7000 614 with elevated liver enzymes and LDH, Coreg 19 is negative, overall presentation is appeared to be acute on chronic systolic heart failure Review of Systems All systems: negative Past Medical History Past Medical History: Myocardial Infarction ([place]) Additional Past Medical History / Comment(s): right lung mass Last Myocardial Infarction Date:: 2001 History of Any Multi-Drug Resistant Organisms: None Reported Past Surgical History: Heart Catheterization, Hernia Repair, Pacemaker Additional Past Surgical History / Comment(s): reomoval of tumor from right lung, lower lobe removed. defib 2001 Past Anesthesia/Blood Transfusion Reactions: No Reported Reaction Type of Cardiac Device: AICD Device Placement Date:: 2015 Past Psychological History: No Psychological Hx Reported Smoking Status: Former smoker Past Alcohol Use History: None Reported Additional Past Alcohol Use History / Comment(s): 1 pack a day Past Drug Use History: None Reported - Past Family History Father Family Medical History: Congestive Heart Failure (CHF) Medications and Allergies Home Medications Medication Instructions Recorded Confirmed Type Albuterol Inhaler (Bulk) [Ventolin 2 puff INHALATION RT-Q6H PRN 04/22/19 11/30/19 History Hfa Inhaler (Bulk)] Levothyroxine Sodium 25 mcg PO DAILY 11/04/19 11/30/19 History Atorvastatin [Lipitor] 40 mg PO HS #30 tab 11/10/19 11/30/19 Rx Budesonide-Formot 160-4.5 Mcg 2 puff INHALATION RT-BID PRN #1 11/10/19 11/30/19 Rx [Symbicort 160-4.5 Mcg Inhaler puff (Bulk)] Ipratropium-Albuterol Nebulize 3 ml INHALATION RT-QID PRN #1 neb 11/10/19 11/30/19 Rx [Duoneb 0.5 mg-3 mg/3 ml Soln] Pantoprazole [Protonix] 40 mg PO AC-BRKFST #30 tablet.dr 11/10/19 11/30/19 Rx ALPRAZolam [Xanax] 0.25 mg PO BID PRN 11/22/19 11/30/19 History Acetaminophen Tab [Tylenol] 1,000 mg PO Q6H PRN 11/22/19 11/30/19 History Aspirin EC [Ecotrin Low Dose] 81 mg PO DAILY 11/22/19 11/30/19 History Potassium Chloride ER [K-Dur 10] 10 meq PO DAILY 11/22/19 11/30/19 History Furosemide [Lasix] 20 mg PO DAILY@1300 #30 tab 11/26/19 11/30/19 Rx Furosemide [Lasix] 40 mg PO DAILY@0800 #30 tab 11/26/19 11/30/19 Rx Metoprolol Tartrate [Lopressor] 12.5 mg PO DAILY #0 11/26/19 11/30/19 Rx Amoxic-Pot Clav 500-125 mg 1 tab PO Q12HR 11/30/19 11/30/19 History [Augmentin 500-125 mg] Allergies Allergy/AdvReac Type Severity Reaction Status Date / Time lorazepam [From Ativan] Allergy Anaphylaxis Verified 11/30/19 12:18 Physical Exam Vitals: Vital Signs Temp Pulse Pulse Resp BP BP Pulse Ox 12/01/19 08:00 98.7 F 80 18 97/61 98 12/01/19 04:43 97.8 F 66 16 104/67 96 12/01/19 02:26 98.0 F 80 20 90/54 94 L 11/30/19 23:02 98.0 F 86 18 80/51 96 11/30/19 19:01 97.9 F 83 18 92/57 93 L 11/30/19 18:23 93 16 11/30/19 18:18 78 20 82/62 96 11/30/19 18:16 91 L 11/30/19 18:00 68 18 82/62 90 L 11/30/19 15:56 98 18 85/65 97 11/30/19 14:10 88 18 89/62 100 11/30/19 13:38 87 11/30/19 13:28 84 11/30/19 12:32 20 11/30/19 12:14 50 L /66 99 Intake and Output 11/30/19 12/01/19 12/01/19 22:59 06:59 14:59 Intake Total 240 Output Total 950 300 Balance -710 -300 Intake: Oral 240 Output: Urine 950 300 Other: Weight 48.2 kg - Constitutional General appearance: average body habitus, cooperative, disheveled, mild distress - EENT Eyes: EOMI, PERRLA Ears: bilateral: normal - Neck Carotids: bilateral: upstroke normal Thyroid: bilateral: normal size - Respiratory Respiratory: bilateral: diminished (More so on the right side compared to left side) - Cardiovascular Rhythm: regular Heart sounds: normal: S1, S2 - Gastrointestinal General gastrointestinal: normal bowel sounds - Neurologic Neurologic: CNII-XII intact - Musculoskeletal Musculoskeletal: gait normal, generalized weakness - Psychiatric Psychiatric: A&O x's 3, appropriate affect, intact judgment & insight Results - Laboratory Findings CBC and BMP: 12/01/19 06:07 12/01/19 06:07 PT/INR, D-dimer PT 10.6 sec (9.0-12.0) 11/30/19 12:40 INR 1.0 (<1.2) 11/30/19 12:40 D-Dimer 1.47 mg/L FEU (<0.60) H 11/30/19 12:40 Abnormal lab findings: Abnormal Labs 11/30/19 11/30/19 11/30/19 12:40 12:40 12:40 RDW Plt Count 114 L Lymphocytes # 0.8 L D-Dimer 1.47 H Sodium 134 L Chloride 96 L Carbon Dioxide 33 H Ferritin 387.9 H Total Bilirubin 1.5 H ALT 113 H Alkaline Phosphatase 152 H Lactate Dehydrogenase 993 H Troponin I C-Reactive Protein 24.1 H Procalcitonin 11/30/19 11/30/19 12/01/19 12:40 12:40 06:07 RDW 15.9 H Plt Count 138 L Lymphocytes # 0.9 L D-Dimer Sodium Chloride Carbon Dioxide Ferritin Total Bilirubin ALT Alkaline Phosphatase Lactate Dehydrogenase Troponin I 0.036 H* C-Reactive Protein Procalcitonin 0.11 H 12/01/19 06:07 RDW Plt Count Lymphocytes # D-Dimer Sodium Chloride Carbon Dioxide 34 H Ferritin Total Bilirubin ALT Alkaline Phosphatase Lactate Dehydrogenase Troponin I C-Reactive Protein Procalcitonin Assessment and Plan Assessment: Acute on chronic systolic heart failure End-stage severe COPD Chronic hypoxic respiratory failure 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
--- NOTE | 2019-12-01 09:59 | US ---
EXAMINATION TYPE: US abdomen limited DATE OF EXAM: 12/01/2019 COMPARISON: Gallbladder ultrasound 9 days ago. CLINICAL HISTORY: Elevated liver enzymes. ABN LABS EXAM MEASUREMENTS: Liver Length: 12.5 cm Gallbladder Wall: 0.2 cm CBD: 0.4 cm Right Kidney: 8.7 x 4.9 x 4.9 cm Pancreas: wnl Liver: wnl Gallbladder: wnl Evidence for sonographic Blake's sign: neg CBD: wnl Right Kidney: No hydronephrosis or masses seen Visualized pancreas within normal limits. Visualized liver heterogeneously hyperechoic without intrah epatic ductal dilatation. Gallbladder shows no shadowing mobile gallstones. Right kidney shows no hyd ronephrosis. Small to tiny right pleural effusion seen when scanning hepatic dome. IMPRESSION: Persistent heterogeneous hyperechoic appearance of the liver could reflect diffuse fatty infiltration or underlying hepatocellular disease. Small to tiny right pleural effusion noted which c orrelates with CTA chest one day earlier.
[2019-12-01 10:55] VITALS: BMI 17.6
[2019-12-01] MEDS: ALPRAZolam 0.25 MG TAB PO PRN ×2 (11:14→23:21)
[2019-12-01 11:22] LABS: Hepatitis A Antibody IgM Non-Reactive (Non-Reactive); Hepatitis B Core IgM Non-Reactive (Non-Reactive); Hepatitis B Surface Antigen Non-Reactive (Non-Reactive); Hepatitis C IgG Antibody Non-Reactive (Non-Reactive)
[2019-12-01] MEDS ORDERED: ASPIRIN 325 MG TAB PO SCH (12:00)
[2019-12-01] MEDS: SYMBICORT 160-4.5 MCG INHALER INHALATION PRN ×2 (12:05→19:28)
[2019-12-01] MEDS: ALBUTEROL HFA INHALER INHALATION SCH ×3 (12:09→19:27)
--- NOTE | 2019-12-01 13:50 | P.CRDCN ---
History of Present Illness Consult date: 12/01/19 Requesting physician: Carmen Ramey Consult reason: shortness of breath Chief complaint: Shortness of breath History of present illness: This is a pleasant 69-year-old gentleman who was just recently discharged from the hospital after being admitted with an exacerbation of systolic congestive heart failure. 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 Patient is aware that he does have cancer, at this time he treatment plan is uncertain. Patient also has a history of COPD. As occasion with again with symptoms of shortness of breath. A CTA of the chest was performed on arrival here which was negative for pulmonary embolism. It continues to show a moderate-sized right pleural effusion. EKG showed a normal sinus rhythm with a left bundle-branch bl ock pattern. Blood pressure 90/60 with a heart rate in the 90s. 91% on 3 L of oxygen. White blood cell count 6.7, hemoglobin 13.4, platelet count 138. Sodium 138, potassium 4.1, BUN 16, creatinine 0.9, total bilirubin 1.5, AST 56, ALT 113, alk phos 152, these numbers are down from recent admission. Troponin 0.036, BNP level 7490, pro calcitonin 0.11. Past Medical History Past Medical History: Myocardial Infarction (ME) Additional Past Medical History / Comment(s): right lung mass Last Myocardial Infarction Date:: 2001 History of Any Multi-Drug Resistant Organisms: None Reported Past Surgical History: Heart Catheterization, Hernia Repair, Pacemaker Additional Past Surgical History / Comment(s): reomoval of tumor from right lung, lower lobe removed. defib 2001 Past Anesthesia/Blood Transfusion Reactions: No Reported Reaction Type of Cardiac Device: AICD Device Placement Date:: 2015 Past Psychological History: No Psychological Hx Reported Smoking Status: Former smoker Past Alcohol Use History: None Reported Additional Past Alcohol Use History / Comment(s): 1 pack a day Past Drug Use History: None Reported - Past Family History Father Family Medical History: Congestive Heart Failure (CHF) Medications and Allergies Home Medications Medication Instructions Recorded Confirmed Type Albuterol Inhaler (Bulk) [Ventolin 2 puff INHALATION RT-Q6H PRN 04/22/19 11/30/19 History Hfa Inhaler (Bulk)] Levothyroxine Sodium 25 mcg PO DAILY 11/04/19 11/30/19 History Atorvastatin [Lipitor] 40 mg PO HS #30 tab 11/10/19 11/30/19 Rx Budesonide-Formot 160-4.5 Mcg 2 puff INHALATION RT-BID PRN #1 11/10/19 11/30/19 Rx [Symbicort 160-4.5 Mcg Inhaler puff (Bulk)] Ipratropium-Albuterol Nebulize 3 ml INHALATION RT-QID PRN #1 neb 11/10/19 11/30/19 Rx [Duoneb 0.5 mg-3 mg/3 ml Soln] Pantoprazole [Protonix] 40 mg PO AC-BRKFST #30 tablet.dr 11/10/19 11/30/19 Rx ALPRAZolam [Xanax] 0.25 mg PO BID PRN 11/22/19 11/30/19 History Acetaminophen Tab [Tylenol] 1,000 mg PO Q6H PRN 11/22/19 11/30/19 History Aspirin EC [Ecotrin Low Dose] 81 mg PO DAILY 11/22/19 11/30/19 History Potassium Chloride ER [K-Dur 10] 10 meq PO DAILY 11/22/19 11/30/19 History Furosemide [Lasix] 20 mg PO DAILY@1300 #30 tab 11/26/19 11/30/19 Rx Furosemide [Lasix] 40 mg PO DAILY@0800 #30 tab 11/26/19 11/30/19 Rx Metoprolol Tartrate [Lopressor] 12.5 mg PO DAILY #0 11/26/19 11/30/19 Rx Amoxic-Pot Clav 500-125 mg 1 tab PO Q12HR 11/30/19 11/30/19 History [Augmentin 500-125 mg] Allergies Allergy/AdvReac Type Severity Reaction Status Date / Time lorazepam [From Ativan] Allergy Anaphylaxis Verified 11/30/19 12:18 Physical Exam Vitals: Vital Signs Temp Pulse Pulse Resp BP BP Pulse Ox 12/01/19 11:26 98.5 F 93 18 91/63 98 12/01/19 11:02 80 18 12/01/19 08:00 98.7 F 80 18 97/61 98 12/01/19 04:43 97.8 F 66 16 104/67 96 12/01/19 02:26 98.0 F 80 20 90/54 94 L 11/30/19 23:02 98.0 F 86 18 80/51 96 11/30/19 19:01 97.9 F 83 18 92/57 93 L 11/30/19 18:23 93 16 11/30/19 18:18 78 20 82/62 96 11/30/19 18:16 91 L 11/30/19 18:00 68 18 82/62 90 L 11/30/19 15:56 98 18 85/65 97 11/30/19 14:10 88 18 89/62 100 11/30/19 13:38 87 Intake and Output 11/30/19 12/01/19 12/01/19 22:59 06:59 14:59 Intake Total 240 180 Output Total 950 300 Balance -710 -120 Intake: Oral 240 180 Output: Urine 950 300 Other: Weight 48.2 kg 48.2 kg PHYSICAL EXAMINATION: GENERAL: 69-year-old gentleman in no acute distress at the time of my examination HEENT: Head is atraumatic, normocephalic. Pupils equal, round. Sclera anicteric. Conjunctiva are clear. Mucous membranes of the mouth are moist. Neck is supple. There is no elevated jugular venous pressure. No carotid bruit is heard. HEART EXAMINATION: Heart S1 S2 1 systolic ejection murmur is heard CHEST EXAMINATION: Lungs reveal diminished air entry to the bases bilaterally right greater than the left ABDOMEN: Soft, nontender. Bowel sounds are heard. No organomegaly noted. EXTREMITIES: 2+ peripheral pulses with no evidence of peripheral edema and no calf tenderness noted. NEUROLOGIC [patient is awake, alert and oriented 3 . Results 12/01/19 06:07 12/01/19 06:07 Cardiac Enzymes 11/30/19 Range/Units 12:40 Troponin I 0.036 H* (0.000-0.034) ng/mL CBC 12/01/19 Range/Units 06:07 WBC 6.7 (3.8-10.6) k/uL RBC 4.36 (4.30-5.90) m/uL Hgb 13.4 (13.0-17.5) gm/dL Hct 41.0 (39.0-53.0) % Plt Count 138 L (150-450) k/uL Comprehensive Metabolic Panel 12/01/19 Range/Units 06:07 Sodium 138 (137-145) mmol/L Potassium 4.1 (3.5-5.1) mmol/L Chloride 99 (98-107) mmol/L Carbon Dioxide 34 H (22-30) mmol/L BUN 16 (9-20) mg/dL Creatinine 0.94 (0.66-1.25) mg/dL Glucose 84 (74-99) mg/dL Calcium 9.1 (8.4-10.2) mg/dL Current Medications Generic Name Dose Route Start Last Admin Trade Name Freq PRN Reason Stop Dose Admin Albuterol Sulfate 2 puff 12/01/19 12:00 12/01/19 12:09 Ventolin Hfa Inhaler INHALATION Not Given RT-QID LATRICIA Albuterol Sulfate 2 puff 12/01/19 08:29 Ventolin Hfa Inhaler INHALATION RT-Q4H PRN Shortness Of Breath Or Wheezing Alprazolam 0.25 mg 11/30/19 23:32 12/01/19 11:14 Xanax PO 0.25 mg BID PRN Administration Anxiety Aspirin 81 mg 12/01/19 09:00 12/01/19 09:02 Aspirin PO 81 mg DAILY LATRICIA Administration Atorvastatin Calcium 40 mg 12/01/19 21:00 Lipitor PO HS [facility] Budesonide/Formoterol Fumarate 2 puff 11/30/19 23:32 12/01/19 12:05 Symbicort 160-4.5 Mcg Inhaler INHALATION 2 puff RT-BID PRN Administration Shortness Of Breath Furosemide 40 mg 11/30/19 16:00 12/01/19 06:02 Lasix IV 40 mg Q12H LATRICIA Administration Heparin Sodium (Porcine) 5,000 unit 12/01/19 00:00 12/01/19 09:02 Heparin SQ 5,000 unit Q8HR LATRICIA Administration Levothyroxine Sodium 25 mcg 12/01/19 06:30 12/01/19 06:02 Synthroid PO 25 mcg DAILY@0630 LATRICIA Administration Metoprolol Tartrate 12.5 mg 12/01/19 09:00 12/01/19 09:06 Lopressor PO 12.5 mg BID LATRICIA Administration Pantoprazole Sodium 40 mg 12/01/19 07:30 12/01/19 06:02 Protonix PO 40 mg AC-BRKFST LATRICIA Administration Potassium Chloride 10 meq 12/01/19 09:00 12/01/19 09:02 K-Dur 10 PO 10 meq DAILY LATRICIA Administration Sodium Chloride 10 ml 11/30/19 21:00 12/01/19 08:51 Saline Flush IV Not Given BID LATRICIA Tiotropium [place] 1 puff 12/02/19 08:00 Spiriva INHALATION RT-DAILY LATRICIA Intake and Output 11/30/19 12/01/19 12/01/19 22:59 06:59 14:59 Intake Total 240 180 Output Total 950 300 Balance -710 -120 Intake: Oral 240 180 Output: Urine 950 300 Other: Weight 48.2 kg 48.2 kg Patient Weight 12/02/19 06:59 Weight 48.2 kg 12/01/19 06:07 12/01/19 06:07 EKG Interpretations (text) EKG shows a normal sinus rhythm with a left bundle-branch block pattern Assessment and Plan Plan: Assessment and plan #1 symptoms of progressively worsening shortness of breath, likely a combination of patients recent diagnosis of lung cancer with persistent right-sided pleural effusion, along with congestive heart failure, systolic acute on chronic. #2 nonischemic cardiomyopathy with prior AICD implantation #3 chronic loculated right-sided pleural effusion #4 COPD #5 history of nicotine dependence #6 abnormal liver functions, actually improved from recent admission Plan Patient again has been initiated on IV Lasix which we will continue, we'll con tinue to monitor the intake and output along with daily weights and daily lytes BUN and creatinine. Patient is not currently on an SOFIYA inhibitor because of persistent hypotension, if he tolerates we may start a small dose of SOFIYA inhibitor to his medication regime. We will also speak with the mortgage closing clerk regarding oncology consultation and plan for the patient's lung cancer diagnosis. DNP note has been reviewed, I agree with a documented findings and plan of care. Patient was seen and examined.
[2019-12-01] MEDS: FUROSEMIDE 10 MG/ML 2 ML VIAL IV SCH (16:07)
[2019-12-01] MEDS ORDERED: ATORVASTATIN 40 MG TAB PO SCH (21:00)
--- NOTE | 2019-12-01 22:42 | P.PN ---
Subjective Progress Note Date: 12/01/19 Principal diagnosis: Acute CHF exacerbation Loculated right-sided pleural effusion This is a 69-year-old patient of Dr. Salazar. Chronic stable medical conditions include chronic CHF with systolic dysfunction, ejection fraction 15%, moderate to severe MR, moderate TR, left bundle branch block, AICD, BPH, right lower lobe lobectomy. Patient stopped smoking in August 2019. Lung biopsy from August 2019 showed adenocarcinoma was in the hospital not too long ago with COPD exac erbation and pneumonia. Patient has chronic loculated right-sided pleural effusion. Patient was recently admitted to hospital due to acute CHF exacerbation and COPD exacerbation and also non-Q-wave FL. Patient currently takes Lasix twice daily at home. Patient was discharged home on 11/26/2019 Patient presents to ER with complaints of worsening shortness of breath. Denied any complaints of cough. No fever no chills. No complaints of chest pain. Patient is also is having low blood pressure with SBP 90s, likely due to his low ejection fraction.. Denied any nausea vomiting or abdominal pain. No diarrhea. Denied any leg swelling. D-dimer 1.47 CT angiogram showed no evidence of pulmonary embolism. Moderate to advanced emphysematous changes in the right lung surgical change with cardiomegaly and severe left ventricular dilatation and small to medium-sized right pleural effusion re dulce demonstrated. No significant change in the CT compared to a few days ago. BNP 7640 ALT 113 AST 152 LDH 993, pro calcitonin 0.11, ferritin 387 Troponin 0.036 EKG showed sinus rhythm with occasional PVCs Covid 19 negative. 12/01/2019 Patient denied any complaints of chest pain. Shortness of breath is much improved today. Otherwise patient says that he is very anxious about his medical condition. Continue down. Patient is being continued on IV Lasix 40 mg every 12 changed to 20 mg every 12. Beta bryant dose was decreased. Cardiology has seen the patient and is planning to add lisinopril with a blood pressure is better controlled. Patient is still on the lower side. Cardiology and pulmonary is following. Ultrasound of the abdomen showed fatty infiltration and hepatocellular disease. Hepatitis panel is negative. Patient has been afebrile. No nausea vomiting or abdominal pain or diarrhea. Active Medications Albuterol Sulfate (Ventolin Hfa Inhaler) 2 puff INHALATION RT-QID LATRICIA Last Admin: 12/01/19 19:27 Dose: 2 puff Documented by: Albuterol Sulfate (Ventolin Hfa Inhaler) 2 puff INHALATION RT-Q4H PRN PRN Reason: Shortness Of Breath Or Wheezing Alprazolam (Xanax) 0.25 mg PO BID PRN PRN Reason: Anxiety Last Admin: 12/01/19 11:14 Dose: 0.25 mg Documented by: Aspirin (Aspirin) 81 mg PO DAILY [facility] Last Admin: 12/01/19 09:02 Dose: 81 mg Documented by: Atorvastatin Calcium (Lipitor) 40 mg PO HS [facility] Last Admin: 12/01/19 21:35 Dose: 40 mg Documented by: Budesonide/Formoterol Fumarate (Symbicort 160-4.5 Mcg Inhaler) 2 puff INHALATION RT-BID PRN PRN Reason: Shortness Of Breath Last Admin: 12/01/19 19:28 Dose: 2 puff Documented by: Furosemide (Lasix) 20 mg IV Q12H [facility] Last Admin: 12/01/19 16:07 Dose: 20 mg Documented by: Heparin Sodium (Porcine) (Heparin) 5,000 unit SQ Q8HR [facility] Last Admin: 12/01/19 16:08 Dose: 5,000 unit Documented by: Levothyroxine Sodium (Synthroid) 25 mcg PO DAILY@0630 [facility] Last Admin: 12/01/19 06:02 Dose: 25 mcg Documented by: Metoprolol Tartrate (Lopressor) 12.5 mg PO BID [facility] Last Admin: 12/01/19 21:36 Dose: Not Given Documented by: Pantoprazole Sodium (Protonix) 40 mg PO AC-BRKFST [facility] Last Admin: 12/01/19 06:02 Dose: 40 mg Documented by: Potassium Chloride (K-Dur 10) 10 meq PO DAILY [facility] Last Admin: 12/01/19 09:02 Dose: 10 meq Documented by: Sodium Chloride (Saline Flush) 10 ml IV BID [facility] Last Admin: 12/01/19 21:35 Dose: 10 ml Documented by: Tiotropium Bly (Spiriva) 1 puff INHALATION RT-DAILY [facility] Objective - Vital Signs Vital signs: Vital Signs Temp 97.5 F L 12/01/19 20:40 Pulse 71 12/01/19 20:40 Resp 18 12/01/19 20:40 BP 90/64 12/01/19 20:40 Pulse Ox 96 04/23/20 20:40 Intake & Output 12/01/19 12/01/19 12/02/19 06:59 18:59 06:59 Intake Total 240 180 Output Total 950 1700 550 Balance -710 -3110 550 Weight 48.2 kg 48.2 kg Intake: Oral 240 180 Output: Urine 950 1700 550 - Exam PHYSICAL EXAMINATION: Patient is lying in the bed comfortably, no acute distress, awake alert and oriented.. HEENT: Normocephalic. Neck is supple. Pupils reactive. Nostrils clear. Oral cavity is moist. Ears reveal no drainage. Neck reveals no JVD, carotid bruits, or thyromegaly. CHEST EXAMINATION: Trachea is central. Symmetrical expansion. Bibasilar diminished air entry and minimal crackles present. No wheezing.. CARDIAC: Normal S1, S2 with no gallops. No murmurs ABDOMEN: Soft. Bowel sounds normal. No organomegaly. No abdominal bruits. Extremities: reveal no edema. No clubbing or cyanosis Neurologically awake, alert, oriented x3 with well-coordinated movements. No focal deficits noted Skin: No rash or skin lesions. Psychiatric: Coperative. Nonsuicidal Musculoskeletal: No joint swelling or deformity. Normal range of motion. - Labs CBC & Chem 7: 12/01/19 06:07 12/01/19 06:07 Labs: Abnormal Lab Results - Last 24 Hours (Table) 12/01/19 12/01/19 Range/Units 06:07 06:07 RDW 15.9 H (11.5-15.5) % Plt Count 138 L (150-450) k/uL Lymphocytes # 0.9 L (1.0-4.8) k/uL Carbon Dioxide 34 H (22-30) mmol/L Microbiology - Last 24 Hours (Table) 11/30/19 12:40 Blood Culture - Preliminary Blood No Growth after 24 hours Assessment and Plan Assessment: -Acute on chronic congestive heart exacerbation from systolic dysfunction EF less than 15%, POA, -Shortness of breath secondary to moderate sized right pleural effusion. Patient does have chronic loculated right pleural effusion. -Elevated liver enzymes likely due to hepatic congestion. -COPD not in exacerbation. -Anterior chest wall pain with some cardiac features and positive troponin suggestive of acute non-Q-wave FL, POA -Moderate mitral and, moderate tricuspid regurgitation, nontraumatic -Left bundle-branch block -AICD -BPH -History of arrhythmia type unknown patient is on amiodarone. -History of Right lower lobe lobectomy, biopsy showing adenocarcinoma.-Early-stage not requiring any chemoradiation treatment. Recent workup and Dr. Eldridge during hospitalization did not show any progression of the same. -generalized anxiety disorder -Chronic insomnia -Hypothyroidism -DVT prophylaxis with heparin subcu. Plan: Patient will be continued on IV Lasix 40--20 mg twice daily and monitor renal function and blood pressure closely. Cardiology and pulmonary is following. Beta bryant dose decreased due to low blood pressure. Continue with breathing treatments. Acute hepatitis panel is negative ordered due to elevated liver enzymes.. Continue the telemetry monitoring. Further recommendations based on the clinical course. Prognosis is guarded with multiple medical problems and comorbid conditions. Time with Patient: Greater than 30
[2019-12-02 03:57] VITALS: TEMP 97.5
[2019-12-02] MEDS: FUROSEMIDE 10 MG/ML 2 ML VIAL IV SCH (05:30)
[2019-12-02] MEDS: PANTOPRAZOLE 40 MG TABLET PO SCH (06:04)
[2019-12-02] MEDS: LEVOTHYROXINE 25 MCG TAB PO SCH (06:04)
[2019-12-02] MEDS: ALBUTEROL HFA INHALER INHALATION SCH ×2 (07:50→11:38)
[2019-12-02] MEDS: SYMBICORT 160-4.5 MCG INHALER INHALATION PRN (07:50)
[2019-12-02] MEDS ORDERED: TIOTROPIUM 18 MCG/PUFF INHALER INHALATION SCH (08:00)
[2019-12-02 08:25] LABS: African American GFR (CKD) >90 (>60 ml/min/1.73 sqM); Anion Gap 6 mmol/L; Blood Urea Nitrogen 26 mg/dL (9-20); Calcium 9.1 mg/dL (8.4-10.2); Carbon Dioxide 34 mmol/L (22-30); Chloride 95 mmol/L (98-107); Glucose 94 mg/dL (74-99); Non-African American GFR(CKD) 87 (>60 ml/min/1.73 sqM); Potassium 4.8 mmol/L (3.5-5.1); Sodium 135 mmol/L (137-145)
--- NOTE | 2019-12-02 09:21 | P.PN ---
Subjective Progress Note Date: 12/02/19 Principal diagnosis: Acute on chronic systolic heart failure End-stage severe COPD Chronic hypoxic respiratory failure Status post resection of right lower lobe for large pleomorphic carcinoma Small right-sided pleural effusion Small pericardial effusion Generalized weakness and medical debility 12/02/2019, patient is awake and alert, breathing comfortably denies any chest pain respiratory status is slightly better denies any cough or sputum production This is a 69-year-old male who was seen eval reexamined on medical floor patient has been admitted to hospital with one-day history of increasing shortness of breath and increased swelling or sputum production is present patient was evaluated once more than 40 pounds blood pressure patient has been asked to come into the hospital due to acute onset of shortness of breath lesion DTs scan of the chest was negative for pulmonary embolism a small pericardial effusion is seen small right-sided pleural effusion which actually is better than the has been seen as well patient is still short of breath but denies any chest pain denies any cough or sputum production, patient is 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 also has chronic systolic heart failure related baseline ejection fraction about 20% status post AICD, patient has been hospitalized recently with non-Q-wave RI COPD and CHF exacerbation BNP is 7000 614 with elevated liver enzymes and LDH, Coreg 19 is negative, overall presentation is appeared to be acute on chronic systolic heart failure Objective - Vital Signs Vital signs: Vital Signs Temp 97.5 F L 12/02/19 03:53 Pulse 67 12/02/19 03:53 Resp 18 12/02/19 03:53 BP 90/61 12/02/19 03:53 Pulse Ox 94 L 12/02/19 03:53 Intake & Output 12/01/19 12/02/19 12/02/19 18:59 06:59 18:59 Intake Total 180 240 Output Total 1700 1525 Balance -1520 -1285 Weight 48.2 kg 47.5 kg Intake: Oral 180 240 Output: Urine 1700 1525 - Exam - Constitutional General appearance: average body habitus, cooperative, disheveled, mild distress - EENT Eyes: EOMI, PERRLA Ears: bilateral: normal - Neck Carotids: bilateral: upstroke normal Thyroid: bilateral: normal size - Respiratory Respiratory: bilateral: diminished (More so on the right side compared to left side) - Cardiovascular Rhythm: regular Heart sounds: normal: S1, S2 - Gastrointestinal General gastrointestinal: normal bowel sounds - Neurologic Neurologic: CNII-XII intact - Musculoskeletal Musculoskeletal: gait normal, generalized weakness - Psychiatric Psychiatric: A&O x's 3, appropriate affect, intact judgment & insight - Labs CBC & Chem 7: 12/01/19 06:07 12/02/19 06:31 Labs: Abnormal Lab Results - Last 24 Hours (Table) 12/02/19 Range/Units 06:31 Sodium 135 L (137-145) mmol/L Chloride 95 L (98-107) mmol/L Carbon Dioxide 34 H (22-30) mmol/L BUN 26 H (9-20) mg/dL Microbiology - Last 24 Hours (Table) 11/30/19 12:40 Blood Culture - Preliminary Blood No Growth after 24 hours Assessment and Plan Assessment: Acute on chronic systolic heart failure End-stage severe COPD Chronic hypoxic respiratory failure Status post resection of right lower lobe for large pleomorphic carcinoma Small right-sided pleural effusion Small pericardial effusion Generalized weakness and medical debility Plan: Continue diuresis as planned to continue bronchodilators CT angiogram finding reviewed Continue deep breathing exercises incentive spirometry Continue supplemental oxygen If patient stable can be discharged home follow as outpatient Time with Patient: Greater than 30
[2019-12-02] MEDS: HEPARIN SODIUM,PORCINE 5,000 UNIT/ML 1 ML VIAL SQ SCH (09:23)
[2019-12-02] MEDS: POTASSIUM CHLORIDE ER 10 MEQ TAB.ER.PRT PO SCH (09:24)
[2019-12-02] MEDS: ASPIRIN 81 MG PO SCH (09:24)
[2019-12-02] MEDS: METOPROLOL TARTRATE 12.5 MG TAB PO SCH (09:24)
--- NOTE | 2019-12-02 10:05 | P.PN ---
Subjective Progress Note Date: 12/02/19 This is a pleasant 69-year-old gentleman who was just recently discharged from the hospital after being admitted with an exacerbation of systolic congestive heart failure. 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 Patient is aware that he does have cancer, at this time he treatment plan is uncertain. Patient also has a history of COPD. As occasion with again with symptoms of shortness of breath. A CTA of the chest was performed on arrival here which was negative for pulmonary embolism. It continues to show a moderate-sized right pleural effusion. EKG showed a normal sinus rhythm with a left bundle-branch block pattern. Blood pressure 90/60 with a heart rate in the 90s. 91% on 3 L of oxygen. White blood cell count 6.7, hemoglobin 13.4, platelet count 138. Sodium 138, potassium 4.1, BUN 16, creatinine 0.9, total bilirubin 1.5, AST 56, ALT 113, alk phos 152, these numbers are down from recent admission. Troponin 0.036, BNP level 7490, pro calcitonin 0.11. 12/02/2019 Patient was seen and examined this morning, overall feeling better today. He d iuresed well through the night last night, his weight is down today. Blood pressure remains in the 90 systolic range. Sodium 135, potassium 4.8, BUN 26, creatinine 0.8 Objective - Vital Signs Vital signs: Vital Signs Temp 97.5 F L 12/02/19 03:53 Pulse 67 12/02/19 03:53 Resp 18 12/02/19 03:53 BP 90/61 12/02/19 03:53 Pulse Ox 94 L 12/02/19 03:53 Intake & Output 12/01/19 12/02/19 12/02/19 18:59 06:59 18:59 Intake Total 180 240 Output Total 1700 1525 Balance -1520 -1285 Weight 48.2 kg 47.5 kg Intake: Oral 180 240 Output: Urine 1700 1525 - Exam PHYSICAL EXAMINATION: GENERAL: 69-year-old gentleman in no acute distress at the time of my examination HEENT: Head is atraumatic, normocephalic. Pupils equal, round. Sclera anicteric. Conjunctiva are clear. Mucous membranes of the mouth are moist. Neck is supple. There is no elevated jugular venous pressure. No carotid bruit is heard. HEART EXAMINATION: Heart S1 S2 1 systolic ejection murmur is heard CHEST EXAMINATION: Lungs reveal diminished air entry to the bases bilaterally right greater than the left ABDOMEN: Soft, nontender. Bowel sounds are heard. No organomegaly noted. EXTREMITIES: 2+ peripheral pulses with no evidence of peripheral edema and no calf tenderness noted. NEUROLOGIC [patient is awake, alert and oriented 3 . - Labs CBC & Chem 7: 12/01/19 06:07 12/02/19 06:31 Labs: Abnormal Lab Results - Last 24 Hours (Table) 12/02/19 Range/Units 06:31 Sodium 135 L (137-145) mmol/L Chloride 95 L (98-107) mmol/L Carbon Dioxide 34 H (22-30) mmol/L BUN 26 H (9-20) mg/dL Microbiology - Last 24 Hours (Table) 11/30/19 12:40 Blood Culture - Preliminary Blood No Growth after 24 hours Assessment and Plan Plan: Assessment and plan #1 symptoms of progressively worsening shortness of breath, likely a combination of patients recent diagnosis of lung cancer with persistent right-sided pleural effusion, along with congestive heart failure, systolic acute on chronic. #2 nonischemic cardiomyopathy with prior AICD implantation #3 chronic loculated right-sided pleural effusion #4 COPD #5 history of nicotine dependence #6 abnormal liver functions, actually improved from recent admission Plan We will continue the current dose of IV Lasix. We will also consult oncology regarding the patient's overall plan and prognosis. DNP note has been reviewed, I agree with a documented findings and plan of care. Patient was seen and examined.
[2019-12-02 10:30] VITALS: BP 86/62; PULSE 95
--- NOTE | 2019-12-02 11:03 | CDI ---
Documentation Clarification Form Date: 12/02/2019 10:48:15 AM From: Alejandrina DonaldCHELE morse, CCDS Admit Date: 11/30/2019 03:45:00 PM Patient Name: Javier Paniagua Visit Number: [id number] Discharge Date: ATTENTION: The Clinical Documentation Specialists (CDI) and [facility] Coding Staff appreciate your assistance in clarifying documentation. Please respond to the clarification below the line at the bottom and electronically sign. The CDI & [facility] Coding staff will review the response and follow-up if needed. Please note: Queries are made part of the Legal Health Record. If you have any questions, please contact the author of this message via ITS. Dr. Carmen Ramey: Per the 11/29 History & Physical & the subsequent Attending Progress Note on 11/30, the patient is admitted with: "Anterior chest wall pain with some cardiac features and positive troponin suggestive of acute non-Q-wave IN, POA". The patient was recently discharged on 11/26/2019 after being treated for Hypertensive heart disease with heart failure (acute on chronic systolic), Pneumonia, NSTEMI & COPD exacerbation. History/Risk Factors: COPD, Systolic CHF, Hypotension, LBBB, AICD, BPH, recently diagnosed with RUL lung cancer status post lobectomy, former smoker. Clinical Indicators: Presented to the [facility] on 11/29 with SOB, no chest pain. Diagnosed with acute on chronic systolic CHF, COPD not in exacerbation & Non Q Wave IN, POA. VS: T 97.5*, P 66-100, R 18-22, BP 97/56, PO 100 RA-100 2Lc BMI: 18.6 Lab findings: Pl Ct 114*, D Dimer 1.47^, Na 134*, Troponin 0.036^^. BNP: 7490 Radiology findings: 11/29: CT Chest: No acute PE, Moderate to advanced emphysematous change with right lung surgical change with cardiomegaly & severe left ventricular dilatation & small to moderate sized right pleural effusion. EKG 11/29: R 97 sinus rhythm with occasional PVCs & PACs, LBBB, Abnormal. Treatment: IV Lasix, INH Albuterol, po ASA, Telemetry. Consults: Cardiology (IN is not documented), Pulmonary In your professional opinion, please clarify the status of the documented Non Q Wave IN: Non Q Wave IN, new this admission, POA Non Q Wave IN, previously diagnosed on 11/22/19 Other, please specify Unable to determine (Last Revision: November 2017) Non Q Wave IN, [facility]
--- NOTE | 2019-12-02 12:57 | P.CONS ---
<Keyana Simon - Last Filed: 12/02/19 16:01> History of Present Illness - Reason for Consult Consult date: 12/02/19 Hx: PLeomorphic Lung Cancer Requesting physician: Carmen Ramey - Chief Complaint SOB - History of Present Illness Mr Paniagua is a pleasant white male, with multiple medical problems, including a long-standing history of smoking and COPD. He was seen only once in September in office by Dr. Perez. The patient was found to have an abnormality in the right upper lobe of the lung, in 04/28 as he had been having persistent upper respiratory tract symptoms, that had not responded well to outpatient treatment. He had an abnormal chest x-ray leading to a CT scan on 04/22/19. This showed a right lower lobe mass measuring 6.9 x 4.8 x 4.9 cm. The patient had a CT-guided lung biopsy on 04/25/19. This was nondiagnostic revealing mostly necrotic tissue, with necrotic tumor not ruled out. She was then seen by pulmonary medicine, and had a PET scan ordered that was performed on 07/01/19. This showed an increase in the right lower lobe lung mass to 7.8 cm, with hypermetabolic uptake centrally with SUV 9.6. Bulk of the lesion did not show associated uptake. There was no evidence of adenopathy or distant disease. The patient was referred to cardiothoracic surgery, and underwent right lower lobectomy on 08/25/19. 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 Margins were negative. 0/14 lymph nodes were involved. The patient did not have any significant postoperative complications. He was then referred here and seen for his initial consult on 10/03/19 He denied any prior history of cancer. During his visit in September with Dr. 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 The patient was found to have a T4 N0 M0 tumor. He has tolerated surgery quite well with return to baseline in terms of performance status, despite prior history of COPD and smoking. - The pathology and implications were discussed in detail with him. He was advised that this is a very rare tumor, which typically has a more aggressive behavior, with high risk of metastatic recurrence. Given the nature of the tumor, as well as the large size, he would be considered at increased risk of metastatic recurrence, despite node negativity and clean margins. Therefore my recommendations were to proceed with systemic adjuvant therapy. As a standard chemotherapy regimen is not defined for this particular type of tumor, I recommended an opinion at a tertiary center regarding the appropriate regimen. (Case reports have shown effectiveness of carboplatin/Taxol combination, though in case of metastatic disease, on its own, as well as in combination with VEGF or PD1 immunotherapy. this is a reasonable regimen to consider) - The rationale for the above was discussed in detail with him. The patient however is adamant that he would not accept any chemotherapy. It was emphasized that he has a high risk of metastatic recurrence, which once a day course, would not be curable usually. In that case the main stay of treatment would again be systemic therapy (including chemotherapy) though however the intent is most likely to be palliative. Also included in this discussion was a referral to a tertiary institution for another opinion, including availability of trials utilizing targeted agents alone in this setting. The patient however remained very definite that he did not want to do any active treatment or pursue a second opinion at this time, and expressed full understanding of is increase risk of metastatic recurrence and consequences of the same. - At that time the patient was to be placed on observation. He stated that he would be willing to consider active therapy if he does develop metastatic recurrence. He'll was to be seen back in [address] of the chest abdomen and pelvis. S/S of recurrence discussed Although he now presents to [facility] with complaints of shortness of breath. His COVID and PE work-up negative. Mild thrombocytopenia and elevated liver function, Hep panel negative. Ultrasound og the liver consistent with possible underlying liver disease but due to defibrillator unable to obtain MRI, would recommend CT abdomen and pelvis to further evaluate for metastatic cancer picture. He is also hypotensive and requiring 2-4 liters of oxygen to maintain o2 levels greater than 92%. Liver function increase and platelet count decrease likely related to liver congestion from exaccerbation of CHF Review of Systems A 14 point review of system assessed and completed and all negative except HPI Past Medical History Past Medical History: Myocardial Infarction ([place]) Additional Past Medical History / Comment(s): right lung mass Last Myocardial Infarction Date:: 2001 History of Any Multi-Drug Resistant Organisms: None Reported Past Surgical History: Heart Catheterization, Hernia Repair, Pacemaker Additional Past Surgical History / Comment(s): reomoval of tumor from right lung, lower lobe removed. defib 2001 Past Anesthesia/Blood Transfusion Reactions: No Reported Reaction Type of Cardiac Device: AICD Device Placement Date:: 2015 Past Psychological History: No Psychological Hx Reported Smoking Status: Former smoker Past Alcohol Use History: None Reported Additional Past Alcohol Use History / Comment(s): 1 pack a day Past Drug Use History: None Reported - Past Family History Father Family Medical History: Congestive Heart Failure (CHF) Medications and Allergies Home Medications Medication Instructions Recorded Confirmed Type Albuterol Inhaler (Bulk) [Ventolin 2 puff INHALATION RT-Q6H PRN 04/22/19 11/30/19 History Hfa Inhaler (Bulk)] Levothyroxine Sodium 25 mcg PO DAILY 11/04/19 11/30/19 History Atorvastatin [Lipitor] 40 mg PO HS #30 tab 11/10/19 11/30/19 Rx Budesonide-Formot 160-4.5 Mcg 2 puff INHALATION RT-BID PRN #1 11/10/19 11/30/19 Rx [Symbicort 160-4.5 Mcg Inhaler puff (Bulk)] Ipratropium-Albuterol Nebulize 3 ml INHALATION RT-QID PRN #1 neb 11/10/19 11/30/19 Rx [Duoneb 0.5 mg-3 mg/3 ml Soln] Pantoprazole [Protonix] 40 mg PO AC-BRKFST #30 tablet. 11/10/19 11/30/19 Rx ALPRAZolam [Xanax] 0.25 mg PO BID PRN 11/22/19 11/30/19 History Acetaminophen Tab [Tylenol] 1,000 mg PO Q6H PRN 11/22/19 11/30/19 History Aspirin EC [Ecotrin Low Dose] 81 mg PO DAILY 11/22/19 11/30/19 History Potassium Chloride ER [K-Dur 10] 10 meq PO DAILY 11/22/19 11/30/19 History Furosemide [Lasix] 20 mg PO BID 30 Days #60 tab 12/02/19 Rx Metoprolol Tartrate [Lopressor] 12.5 mg PO BID 30 Days #60 tab 12/02/19 Rx Tiotropium 18 Mcg/Puff [Spiriva] 1 puff INHALATION RT-DAILY #1 12/02/19 Rx inhaler Allergies Allergy/AdvReac Type Severity Reaction Status Date / Time lorazepam [From Ativan] Allergy Anaphylaxis Verified 11/30/19 12:18 Physical Exam Vitals: Vital Signs Temp Pulse Resp BP Pulse Ox 12/02/19 08:00 97.5 F L 95 18 86/62 98 12/02/19 03:53 97.5 F L 67 18 90/61 94 L 12/02/19 00:35 97.9 F 66 18 92/64 96 12/01/19 20:40 97.5 F L 71 18 90/64 96 12/01/19 16:00 97.5 F L 99 18 105/59 100 12/01/19 15:00 93 18 Intake and Output 12/01/19 12/02/19 12/02/19 22:59 06:59 14:59 Intake Total 240 240 Output Total 1950 975 Balance -1950 -735 240 Intake: Oral 240 240 Output: Urine 1950 975 Other: Weight 47.5 kg Results CBC & Chem 7: 12/02/19 13:12 12/02/19 06:31 Labs: Abnormal Lab Results - Last 24 Hours (Table) 12/02/19 Range/Units 06:31 Sodium 135 L (137-145) mmol/L Chloride 95 L (98-107) mmol/L Carbon Dioxide 34 H (22-30) mmol/L BUN 26 H (9-20) mg/dL Microbiology - Last 24 Hours (Table) 11/30/19 12:40 Blood Culture - Preliminary Blood No Growth after 24 hours Assessment and Plan Plan: Assessment and Recommendations: Pleomorphic Lung Cancer: - Details per HPI - Patient has refused adjuvant chemotherapy and tertiary center second opinion given the high risk for recurrence and metastatic disease. He states he will consider if cancer returns. - CTA reviewed and no explicit signs of recurrence in lungs Increased LFTS: - Improving - Likely secondary to exacerbation CHF - Reviewed ultrasound of abdomen and difficult to differentiate underlying liver disease versus possible recurrent or metastatic disease - CT abdomen and pelvis prior to discharge if patient is agreeable or prior to follow-up with Dr. Perez in December Thrombocytopenia: Resolved - Mild decrease in platelet count on admission likely from exacerbation CHF on liver resulting in decrease of platelets Plan: - CT imaging of abdomen and pelvis - FOllow-up in office as scheduled on December [address] Perez Thank you for allowing us to participate in the care of this patient will follow along with you Physician Attest: I have completed the full history and physical and developed the full assessment and plan, agree with above dictation by Keyana Simon NP. Dictated as a scribe <Rigo Perez - Last Filed: 12/04/19 16:20> Review of Systems Constitutional: Reports poor appetite, Reports weakness, Reports weight loss Eyes: denies blurred vision, denies pain Ears: deny: decreased hearing, ear discharge, earache, tinnitus Ears, nose, mouth and throat: Denies headache, Denies sore throat Cardiovascular: Reports palpitations, Reports shortness of breath Respiratory: Reports as per HPI, Reports dyspnea Gastrointestinal: Denies abdominal pain, Denies diarrhea, Denies nausea, Denies vomiting Genitourinary: Reports as per HPI Musculoskeletal: Reports muscle weakness Integumentary: Denies pruritus, Denies rash Neurological: Reports weakness Psychiatric: Denies anxiety, Denies depression Endocrine: Reports fatigue, Reports weight change Hematologic/Lymphatic: Reports as per HPI Physical Exam Vitals: Vital Signs Temp Pulse Resp BP Pulse Ox 12/02/19 08:00 97.5 F L 95 18 86/62 98 12/02/19 03:53 97.5 F L 67 18 90/61 94 L 12/02/19 00:35 97.9 F 66 18 92/64 96 12/01/19 20:40 97.5 F L 71 18 90/64 96 12/01/19 16:00 97.5 F L 99 18 105/59 100 Intake and Output 12/02/19 12/02/19 12/02/19 06:59 14:59 22:59 Intake Total 240 240 Output Total 975 Balance -735 240 Intake: Oral 240 240 Output: Urine 975 Other: Weight 47.5 kg - Constitutional General appearance: mild distress - EENT Eyes: EOMI, PERRLA ENT: hearing grossly normal, normal oropharynx - Neck Neck: no lymphadenopathy - Respiratory Respiratory: right: diminished - Cardiovascular Rhythm: regular Heart sounds: normal: S1, S2 - Gastrointestinal General gastrointestinal: decreased bowel sounds, soft - Integumentary Integumentary: normal - Neurologic Neurologic: CNII-XII intact - Musculoskeletal Musculoskeletal: generalized weakness, strength equal bilaterally - Psychiatric Psychiatric: A&O x's 3, appropriate affect Results CBC & Chem 7: 12/02/19 13:12 12/02/19 06:31 Labs: Abnormal Lab Results - Last 24 Hours (Table) 12/02/19 12/02/19 12/02/19 Range/Units 06:31 13:12 13:12 RBC 4.09 L (4.30-5.90) m/uL RDW 16.1 H (11.5-15.5) % Lymphocytes # 0.8 L (1.0-4.8) k/uL Sodium 135 L (137-145) mmol/L Chloride 95 L (98-107) mmol/L Carbon Dioxide 34 H (22-30) mmol/L BUN 26 H (9-20) mg/dL ALT 70 H (4-49) U/L Alkaline Phosphatase 139 H (38-126) U/L Total Protein 6.1 L (6.3-8.2) g/dL Albumin 3.4 L (3.5-5.0) g/dL Microbiology - Last 24 Hours (Table) 11/30/19 12:40 Blood Culture - Preliminary Blood No Growth after [address] scan - chest: report reviewed, image reviewed Assessment and Plan Plan: case d/w admitting service
[2019-12-02 13:33] LABS: INR 1.1 (<1.2); Partial Thromboplastin Time 25.3 sec (22.0-30.0); Prothrombin Time 10.9 sec (9.0-12.0)
[2019-12-02 13:36] LABS: Albumin 3.4 g/dL (3.5-5.0); Bilirubin, Delta 0.1 mg/dL (0.0-0.2); Bilirubin,Unconjugated 0.9 mg/dL (0.0-1.1); Total Protein 6.1 g/dL (6.3-8.2)
[2019-12-02 13:43] LABS: Anisocytosis Slight; Basophils % (A) 0 %; Eosinophils # (A) 0.2 k/uL (0-0.7); Eosinophils % (A) 3 %; HCT 39.7 % (39.0-53.0); Lymphocytes # (A) 0.8 k/uL (1.0-4.8); Lymphocytes % (A) 13 %; MCH 31.9 pg (25.0-35.0); MCHC 32.8 g/dL (31.0-37.0); MCV 97.2 fL (80.0-100.0); Macrocytosis Slight; Mean Platelet Volume 8.5; Monocytes # (A) 0.3 k/uL (0-1.0); Monocytes % (A) 4 %; Neutrophils # (A) 4.8 k/uL (1.3-7.7); Neutrophils % (A) 76 %; Platelet Count 165 k/uL (150-450); RBC 4.09 m/uL (4.30-5.90); RDW 16.1 % (11.5-15.5); WBC 6.3 k/uL (3.8-10.6)
[2019-12-02] MEDS ORDERED: IOPAMIDOL CONTRAST (ORAL USE) VIAL PO PRN (15:11)
--- NOTE | 2019-12-02 16:05 | P.DS ---
Providers Date of admission: 11/30/19 15:45 Expected date of discharge: 12/02/19 Attending physician: Carmen Ramey Consults: 11/30/19 15:44 Consult Physician Routine Consulting Provider: Oscar Carroll Consult Reason/Comments: dyspnea Do you want consulting provider notified?: Already Contacted Consult Physician Routine Consulting Provider: Rahat Waters Consult Reason/Comments: dyspnea,chf Do you want consulting provider notified?: Yes 12/02/19 10:07 Consult Physician Routine Consulting Provider: Rigo Perez Consult Reason/Comments: lung ca Do you want consulting provider notified?: Yes Primary care physician: Kashif Salazar Hospital Course: Final diagnosis -Acute on chronic congestive heart failure exacerbation from systolic dysfunction EF less than 15%, POA, -Shortness of breath secondary to moderate sized right pleural effusion. Patient does have chronic loculated right pleural effusion. -Elevated liver enzymes likely due to hepatic congestion. -COPD not in exacerbation. -Anterior chest wall pain with some cardiac features and positive troponin suggestive of acute non-Q-wave AR as previously documented on 11/22/2019 admission, POA -Moderate mitral and, moderate tricuspid regurgitation, nontraumatic -Left bundle-branch block -AICD -BPH -History of arrhythmia type unknown patient is on amiodarone. -History of Right lower lobe lobectomy, biopsy showing adenocarcinoma.-Early-stage not requiring any chemoradiation treatment. Recent workup and Dr. Eldridge during hospitalization did not show any progression of the same. -generalized anxiety disorder -Chronic insomnia -Hypothyroidism -DVT prophylaxis Discharge disposition Patient is being discharged in a stable condition with guarded prognosis to home and will continue with home care in the outpatient setting. Patient will follow-up with Dr. Salazar upon discharge. Patient will also need to follow-up with cardiology along with pulmonary, and oncology in the outpatient setting. Time taken is 35 minutes. History of present illness This is a 69-year-old male who was recently admitted with acute CHF exacerbation and also COPD exacerbation and was being closely monitored. Multiple medical consultations following. Patient will need to follow-up with cardiology, pulmonary, and oncology in the outpatient setting . Patient states he would really like to go home today. Patient states he lives with his and son at the home and will continue with home care in the outpatient setting. Currently no reports of chest pain, worsening shortness of breath, or palpitations. Patient is afebrile. No reports of nausea or vomiting and patient is tolerating diet. Patient was seen and evaluated by cardiology and is to continue with low- dose of Lasix 20 mg twice daily in the outpatient setting. Beta bryant dose decreased an SOFIYA inhibitor not presently started due to blood pressures been in the 90s systolic. Patient will need to follow-up with primary care provider and cardiology in the outpatient setting. Due to multiple medical problems and comorbid conditions prognosis is guarded. Patient will be discharged today. On exam vital signs are stable. Temp is 97.5 F, pulse is 95, respirations are 18, blood pressure is 90/61, oxygen saturation is 98% on 3 L via nasal cannula. Cardio S1, S2 are present. Respiratory system shows diminished breath sounds bilaterally with some scattered rhonchi noted. Abdomen is soft,thin, and nontender. Nervous system System shows mild diffuse weakness with no focal deficits. Please refer to medication reconciliation sheet for a list of medications. Patient Condition at Discharge: Fair Plan - Discharge Summary Discharge Rx Participant: No New Discharge Prescriptions: New Metoprolol Tartrate [Lopressor] 12.5 mg PO BID 30 Days #60 tab Tiotropium 18 Mcg/Puff [Spiriva] 1 puff INHALATION RT-DAILY #1 inhaler Continue Albuterol Inhaler (Bulk) [Ventolin Hfa Inhaler (Bulk)] 2 puff INHALATION RT- Q6H PRN PRN Reason: Shortness Of Breath Levothyroxine Sodium 25 mcg PO DAILY Atorvastatin [Lipitor] 40 mg PO HS #30 tab Pantoprazole [Protonix] 40 mg PO AC-BRKFST #30 tablet. Ipratropium-Albuterol Nebulize [Duoneb 0.5 mg-3 mg/3 ml Soln] 3 ml INHALATION RT-QID PRN #1 neb PRN Reason: Shortness Of Breath Budesonide-Formot 160-4.5 Mcg [Symbicort 160-4.5 Mcg Inhaler (Bulk)] 2 puff INHALATION RT-BID PRN #1 puff PRN Reason: Shortness Of Breath Potassium Chloride ER [K-Dur 10] 10 meq PO DAILY ALPRAZolam [Xanax] 0.25 mg PO BID PRN PRN Reason: Anxiety Aspirin EC [Ecotrin Low Dose] 81 mg PO DAILY Acetaminophen Tab [Tylenol] 1,000 mg PO Q6H PRN PRN Reason: Pain Changed Furosemide [Lasix] 20 mg PO BID 30 Days #60 tab Discontinued Furosemide [Lasix] 40 mg PO DAILY@0800 #30 tab Metoprolol Tartrate [Lopressor] 12.5 mg PO DAILY #0 Amoxic-Pot Clav 500-125 mg [Augmentin 500-125 mg] 1 tab PO Q12HR Discharge Medication List Albuterol Inhaler (Bulk) [Ventolin Hfa Inhaler (Bulk)] 2 puff INHALATION RT-Q6H PRN 04/22/19 [History] Levothyroxine Sodium 25 mcg PO DAILY 11/04/19 [History] Atorvastatin [Lipitor] 40 mg PO HS #30 tab 11/10/19 [Rx] Budesonide-Formot 160-4.5 Mcg [Symbicort 160-4.5 Mcg Inhaler (Bulk)] 2 puff INHALATION RT-BID PRN #1 puff 11/10/19 [Rx] Ipratropium-Albuterol Nebulize [Duoneb 0.5 mg-3 mg/3 ml Soln] 3 ml INHALATION RT-QID PRN #1 neb 11/10/19 [Rx] Pantoprazole [Protonix] 40 mg PO AC-BRKFST #30 tablet.dr 11/10/19 [Rx] ALPRAZolam [Xanax] 0.25 mg PO BID PRN 11/22/19 [History] Acetaminophen Tab [Tylenol] 1,000 mg PO Q6H PRN 11/22/19 [History] Aspirin EC [Ecotrin Low Dose] 81 mg PO DAILY 11/22/19 [History] Potassium Chloride ER [K-Dur 10] 10 meq PO DAILY 11/22/19 [History] Furosemide [Lasix] 20 mg PO BID 30 Days #60 tab 12/02/19 [Rx] Metoprolol Tartrate [Lopressor] 12.5 mg PO BID 30 Days #60 tab 12/02/19 [Rx] Tiotropium 18 Mcg/Puff [Spiriva] 1 puff INHALATION RT-DAILY #1 inhaler 12/02/19 [Rx] Follow up Appointment(s)/Referral(s): Rigo Perez MD [STAFF PHYSICIAN] - 12/26/19 8:45 am (Ct abdomen and pelvis prior to follow-up) Rojas Weaver MD [STAFF PHYSICIAN] - 12/08/19 11:00 am (with Dr. Waters) Kashif Salazar MD [Primary Care Provider] - 1-2 days (call to make an appointment. Office was closed) Oscar Carroll MD [STAFF PHYSICIAN] - 12/09/19 11:30 am (office will send a video link) [facility] Visiting Nurse, [NON-STAFF] - Patient Instructions/Handouts: Heart Failure (DC), COPD (Chronic Obstructive Pulmonary Disease) (DC) Activity/Diet/Wound Care/Special Instructions: Activity Limited until follow-up Continue current diet Follow-up with primary care provider upon discharge Monitor blood pressures at least twice daily and keep a diary for primary care follow-up Follow-up with pulmonary in the outpatient setting Follow-up with cardiology in the outpatient setting Follow-up with oncology in the outpatient setting Continue with home care Discharge Disposition: HOME WITH HOME HEALTH SERVICES
== END 2019-12-02 15:23 | disposition home health service (06) | DRG 281 ==
LOC: EC 12:09 → 3SCARD 15:45
PROVIDERS: ADMIT Internal Medicine; ATTEND Internal Medicine
DX: I50.23 Acute on chronic systolic (congestive) heart failure (principal); I21.4 Non-ST elevation (NSTEMI) myocardial infarction; J96.11 Chronic respiratory failure with hypoxia; I31.3 Pericardial effusion (noninflammatory); C34.31 Malignant neoplasm of lower lobe, right bronchus or lung; I42.8 Other cardiomyopathies; D69.6 Thrombocytopenia, unspecified; I95.9 Hypotension, unspecified; K76.1 Chronic passive congestion of liver; E03.9 Hypothyroidism, unspecified; I08.1 Rheumatic disorders of both mitral and tricuspid valves; J44.9 Chronic obstructive pulmonary disease, unspecified; I44.7 Left bundle-branch block, unspecified; I25.2 Old myocardial infarction; N40.0 Benign prostatic hyperplasia without lower urinary tract symptoms; F41.1 Generalized anxiety disorder; F51.04 Psychophysiologic insomnia; R53.1 Weakness; Z79.82 Long term (current) use of aspirin; Z79.51 Long term (current) use of inhaled steroids; Z79.890 Hormone replacement therapy; Z79.899 Other long term (current) drug therapy; Z87.01 Personal history of pneumonia (recurrent); Z90.2 Acquired absence of lung [part of]; Z87.891 Personal history of nicotine dependence; Z95.810 Presence of automatic (implantable) cardiac defibrillator; Z88.8 Allergy status to other drugs, medicaments and biological substances; Z82.49 Family history of ischemic heart disease and other diseases of the circulatory system
CPT/HCPCS: 36415; 71275; 76705; 80048; 80053; 80074; 80076; 82728; 83605; 83615; 83735; 83880; 84145; 84484; 85025; 85379; 85610; 85730; 86140; 87040; 87635; 93005; 94640; 96374; 99285

== ENCOUNTER 2019-12-13 13:34 | Inpatient (IN) | payer MEDICARE ==
[2019-12-13] MEDS ORDERED: IPRATROPIUM-ALBUTEROL 3 ML NEB INHALATION STA (13:50)
[2019-12-13 14:29] LABS: Anisocytosis Slight; Basophils # (A) 0.1 k/uL (0-0.2); Basophils % (A) 1 %; Eosinophils % (A) 1 %; HCT 39.1 % (39.0-53.0); HGB 13.1 gm/dL (13.0-17.5); Lymphocytes # (A) 0.8 k/uL (1.0-4.8); Lymphocytes % (A) 10 %; MCH 32.3 pg (25.0-35.0); MCHC 33.4 g/dL (31.0-37.0); MCV 96.5 fL (80.0-100.0); Macrocytosis Slight; Mean Platelet Volume 8.9; Monocytes # (A) 0.6 k/uL (0-1.0); Monocytes % (A) 7 %; Neutrophils # (A) 6.6 k/uL (1.3-7.7); Neutrophils % (A) 80 %; Platelet Count 150 k/uL (150-450); RBC 4.06 m/uL (4.30-5.90); RDW 16.7 % (11.5-15.5); WBC 8.3 k/uL (3.8-10.6)
[2019-12-13 14:36] LABS: INR 1.3 (<1.2); Partial Thromboplastin Time 26.2 sec (22.0-30.0)
--- NOTE | 2019-12-13 14:40 | XR ---
EXAMINATION TYPE: XR chest 2V DATE OF EXAM: 12/13/2019 COMPARISON: Chest CT November 30, 2019. 2 view chest x-ray November 22, 2019. PET/CT July 01, 2019. HISTORY: Difficulty breathing today and weakness. History of treated lung cancer. TECHNIQUE: Frontal and lateral views of the chest are obtained. FINDINGS: Persistent cardiomegaly with multi lead pacemaker/AICD. Background chronic emphysematous c hange with persistent small to moderate size right pleural effusion. Associated right basilar mraibel sive atelectasis redemonstrated. New tiny left pleural effusion.. The osseous structures are intact . IMPRESSION: Chronic emphysematous change and cardiomegaly with fairly stable small to moderate-sized right pleural effusion. New tiny left pleural effusion noted.
[2019-12-13 14:43] LABS: ALT 40 U/L (4-49); AST 42 U/L (17-59); African American GFR (CKD) >90 (>60 ml/min/1.73 sqM); Albumin 3.7 g/dL (3.5-5.0); Alkaline Phosphatase 145 U/L (38-126); Anion Gap 10 mmol/L; Blood Urea Nitrogen 19 mg/dL (9-20); Calcium 8.8 mg/dL (8.4-10.2); Carbon Dioxide 26 mmol/L (22-30); Chloride 96 mmol/L (98-107); Glucose 152 mg/dL (74-99); Magnesium 1.9 mg/dL (1.6-2.3); Non-African American GFR(CKD) 89 (>60 ml/min/1.73 sqM); Potassium 3.6 mmol/L (3.5-5.1); Sodium 132 mmol/L (137-145); Total Bilirubin 1.3 mg/dL (0.2-1.3); Total Protein 6.5 g/dL (6.3-8.2)
[2019-12-13] MEDS ORDERED: FUROSEMIDE 10 MG/ML 4 ML VIAL IV STA (15:39)
--- NOTE | 2019-12-13 15:48 | ED ---
SOB HPI - General Chief Complaint: Shortness of Breath Stated Complaint: sob Time Seen by Provider: 12/13/19 13:46 Source: patient, RN notes reviewed Mode of arrival: wheelchair Limitations: no limitations - History of Present Illness Initial Comments: This is a 79-year-old male with a history of heart failure and partial right lung resection the past also has an AICD who states that he had the onset today shortness of breath with some minor chest pain. He denies any fevers chills nausea vomiting or sweats. He has exertional dyspnea though he was minimal amounts of exertion. No other complaints no leg pain he does have bilateral edema to his feet he states. MD Complaint: shortness of breath, chest pain - Related Data Home Medications Medication Instructions Recorded Confirmed Albuterol Inhaler (Mhu) [Ventolin 2 puff INHALATION RT-Q6H PRN 04/22/19 11/30/19 Hfa Inhaler (Mhu)] Levothyroxine Sodium 25 mcg PO DAILY 11/04/19 11/30/19 ALPRAZolam [Xanax] 0.25 mg PO BID PRN 11/22/19 11/30/19 Acetaminophen Tab [Tylenol] 1,000 mg PO Q6H PRN 11/22/19 11/30/19 Aspirin EC [Ecotrin Low Dose] 81 mg PO DAILY 11/22/19 11/30/19 Potassium Chloride ER [K-Dur 10] 10 meq PO DAILY 11/22/19 11/30/19 Previous Rx's Medication Instructions Recorded Atorvastatin [Lipitor] 40 mg PO HS #30 tab 11/10/19 Budesonide-Formot 160-4.5 Mcg 2 puff INHALATION RT-BID PRN #1 11/10/19 [Symbicort 160-4.5 Mcg Inhaler puff (Mhu)] Ipratropium-Albuterol Nebulize 3 ml INHALATION RT-QID PRN #1 neb 11/10/19 [Duoneb 0.5 mg-3 mg/3 ml Soln] Pantoprazole [Protonix] 40 mg PO AC-BRKFST #30 tablet. 11/10/19 Furosemide [Lasix] 20 mg PO BID 30 Days #60 tab 12/02/19 Metoprolol Tartrate [Lopressor] 12.5 mg PO BID 30 Days #60 tab 12/02/19 Tiotropium 18 Mcg/Puff [Spiriva] 1 puff INHALATION RT-DAILY #1 12/02/19 inhaler Allergies Allergy/AdvReac Type Severity Reaction Status Date / Time lorazepam [From Ativan] Allergy Anaphylaxis Verified 12/13/19 13:43 Review of Systems ROS Statement: Those systems with pertinent positive or pertinent negative responses have been documented in the HPI. ROS Other: All systems not noted in ROS Statement are negative. Past Medical History Past Medical History: Heart Failure, COPD, Myocardial Infarction (HI) Additional Past Medical History / Comment(s): right lung mass Last Myocardial Infarction Date:: 2001 History of Any Multi-Drug Resistant Organisms: None Reported Past Surgical History: Heart Catheterization, Hernia Repair, Pacemaker Additional Past Surgical History / Comment(s): reomoval of tumor from right lung, lower lobe removed. defib 2001 Past Anesthesia/Blood Transfusion Reactions: No Reported Reaction Type of Cardiac Device: AICD Device Placement Date:: 2015 Past Psychological History: No Psychological Hx Reported Smoking Status: Former smoker Past Alcohol Use History: None Reported Past Drug Use History: None Reported - Past Family History Father Family Medical History: Congestive Heart Failure (CHF) General Exam - General Exam Comments Initial Comments: This a well-developed asthenic appearing male who is awake alert oriented 3 Limitations: no limitations General appearance: alert, in no apparent distress Head exam: Present: atraumatic, normocephalic, normal inspection Eye exam: Present: normal appearance, PERRL, EOMI. Absent: scleral icterus, conjunctival injection, periorbital swelling ENT exam: Present: normal exam, mucous membranes moist Neck exam: Present: normal inspection, full ROM, other (No stridor JVD or bruits). Absent: tenderness, meningismus, lymphadenopathy Respiratory exam: Present: rales, decreased breath sounds, other (Some dullness and right base). Absent: respiratory distress, wheezes, rhonchi, stridor Cardiovascular Exam: Present: regular rate, normal rhythm, normal heart sounds. Absent: systolic murmur, diastolic murmur, rubs, gallop, clicks GI/Abdominal exam: Present: soft, normal bowel sounds. Absent: distended, tenderness, guarding, rebound, rigid Extremities exam: Present: full ROM, normal capillary refill, pedal edema. Absent: tenderness, joint swelling, calf tenderness Back exam: Present: normal inspection Neurological exam: Present: alert, oriented X3, CN II-XII intact Psychiatric exam: Present: normal affect, normal mood Skin exam: Present: warm, dry, intact, normal color. Absent: rash Course Vital Signs 12/13/19 12/13/19 12/13/19 13:38 14:32 14:41 Temperature 97.3 F L Pulse Rate 59 L 60 95 Respiratory 20 20 Rate Blood Pressure 100/69 97/76 O2 Sat by Pulse 98 100 Oximetry 12/13/19 14:43 Temperature Pulse Rate 67 Respiratory Rate Blood Pressure O2 Sat by Pulse Oximetry - Reevaluation(s) Reevaluation #1: 12/13/19 15:48 Reevaluation patient reveals some improvement after the nebulizer treatment. Medical Decision Making - Medical Decision Making I did discuss [employer] the patient and with Dr. Klein who did come the emergency department see the patient patient be admitted with cardiology consultation. He is present with CHF and pleural effusion - Lab Data Result diagrams: 12/13/19 14:00 12/13/19 14:00 Lab Results 12/13/19 12/13/19 12/13/19 Range/Units 14:00 14:00 14:00 WBC 8.3 (3.8-10.6) k/uL RBC 4.06 L (4.30-5.90) m/uL Hgb 13.1 (13.0-17.5) gm/dL Hct 39.1 (39.0-53.0) % MCV 96.5 (80.0-100.0) fL MCH 32.3 (25.0-35.0) pg MCHC 33.4 (31.0-37.0) g/dL RDW 16.7 H (11.5-15.5) % Plt Count 150 (150-450) k/uL Neutrophils % 80 % Lymphocytes % 10 % Monocytes % 7 % Eosinophils % 1 % Basophils % 1 % Neutrophils # 6.6 (1.3-7.7) k/uL Lymphocytes # 0.8 L (1.0-4.8) k/uL Monocytes # 0.6 (0-1.0) k/uL Eosinophils # 0.0 (0-0.7) k/uL Basophils # 0.1 (0-0.2) k/uL Anisocytosis Slight Macrocytosis Slight PT 13.0 H (9.0-12.0) sec INR 1.3 H (<1.2) APTT 26.2 (22.0-30.0) sec Sodium 132 L (137-145) mmol/L Potassium 3.6 (3.5-5.1) mmol/L Chloride 96 L (98-107) mmol/L Carbon Dioxide 26 (22-30) mmol/L Anion Gap 10 mmol/L BUN 19 (9-20) mg/dL Creatinine 0.82 (0.66-1.25) mg/dL Est GFR (CKD-EPI)AfAm >90 (>60 ml/min/1.73 sqM) Est GFR (CKD-EPI)NonAf 89 (>60 ml/min/1.73 sqM) Glucose 152 H (74-99) mg/dL Plasma Lactic Acid Fly (0.7-2.0) mmol/L Calcium 8.8 (8.4-10.2) mg/dL Magnesium 1.9 (1.6-2.3) mg/dL Total Bilirubin 1.3 (0.2-1.3) mg/dL AST 42 (17-59) U/L ALT 40 (4-49) U/L Alkaline Phosphatase 145 H (38-126) U/L Troponin I (0.000-0.034) ng/mL NT-Pro-B Natriuret Pep pg/mL Total Protein 6.5 (6.3-8.2) g/dL Albumin 3.7 (3.5-5.0) g/dL 12/13/19 12/13/19 12/13/19 Range/Units 14:00 14:00 14:00 WBC (3.8-10.6) k/uL RBC (4.30-5.90) m/uL Hgb (13.0-17.5) gm/dL Hct (39.0-53.0) % MCV (80.0-100.0) fL MCH (25.0-35.0) pg MCHC (31.0-37.0) g/dL RDW (11.5-15.5) % Plt Count (150-450) k/uL Neutrophils % % Lymphocytes % % Monocytes % % Eosinophils % % Basophils % % Neutrophils # (1.3-7.7) k/uL Lymphocytes # (1.0-4.8) k/uL Monocytes # (0-1.0) k/uL Eosinophils # (0-0.7) k/uL Basophils # (0-0.2) k/uL Anisocytosis Macrocytosis PT (9.0-12.0) sec INR (<1.2) APTT (22.0-30.0) sec Sodium (137-145) mmol/L Potassium (3.5-5.1) mmol/L Chloride (98-107) mmol/L Carbon Dioxide (22-30) mmol/L Anion Gap mmol/L BUN (9-20) mg/dL Creatinine (0.66-1.25) mg/dL Est GFR (CKD-EPI)AfAm (>60 ml/min/1.73 sqM) Est GFR (CKD-EPI)NonAf (>60 ml/min/1.73 sqM) Glucose (74-99) mg/dL Plasma Lactic Acid Fly 2.6 H* (0.7-2.0) mmol/L Calcium (8.4-10.2) mg/dL Magnesium (1.6-2.3) mg/dL Total Bilirubin (0.2-1.3) mg/dL AST (17-59) U/L ALT (4-49) U/L Alkaline Phosphatase (38-126) U/L Troponin I 0.057 H* (0.000-0.034) ng/mL NT-Pro-B Natriuret Pep 9030 pg/mL Total Protein (6.3-8.2) g/dL Albumin (3.5-5.0) g/dL - EKG Data -: EKG Interpreted by Me (Undetermined rhythm rate 95. Interval 148 QRS duration 160 QT since QTC 44) EKG Comments: PG and rhythm rate 95. Interval 148 QRS duration 160 QT since QTC 446/560 (bundle-branch block occasional PVCs - Radiology Data Radiology results: report reviewed (I did review the imaging and report there is evidence of right lower lobe some slight left lower lobe pleural effusion. Also evidence of CHF), image reviewed Critical Care Time Critical Care Time: Yes Critical Care Time: 31 minutes of critical care time which includes initial presentation with history physical labs x-rays multiple reevaluation the patient response to therapy review of old charting discussed with the main physician admission orders and documentation of the above Disposition Clinical Impression: Systolic congestive heart failure, COPD exacerbation, Pleural effusion, Elevated troponin Disposition: ADMITTED IP TO THIS HOSP Condition: Fair Referrals: Kashif Salazar MD [Primary Care Provider] - 1-2 days
[2019-12-13] MEDS ORDERED: IPRATROPIUM-ALBUTEROL 3 ML NEB INHALATION PRN (16:29)
[2019-12-13] MEDS: SYMBICORT 160-4.5 MCG INHALER INHALATION SCH ×2 (17:21→19:58)
[2019-12-13] MEDS: METOPROLOL TARTRATE 12.5 MG TAB PO SCH (21:13)
[2019-12-13] MEDS: ATORVASTATIN 40 MG TAB PO SCH (21:13)
[2019-12-13] MEDS: FUROSEMIDE 10 MG/ML 4 ML VIAL IV SCH (21:13)
[2019-12-13] MEDS ORDERED: DRONABINOL 2.5 MG CAP PO PRN (23:25)
[2019-12-13] MEDS ORDERED: ACETAMINOPHEN TAB 500 MG TAB PO PRN (23:25)
[2019-12-13] MEDS ORDERED: ALBUTEROL NEBULIZED 2.5 MG/3 ML INHALATION PRN (23:25)
[2019-12-13] MEDS: ALPRAZolam 0.25 MG TAB PO PRN (23:38)
[2019-12-14] MEDS: LEVOTHYROXINE 25 MCG TAB PO SCH (05:45)
[2019-12-14] MEDS: PANTOPRAZOLE 40 MG TABLET PO SCH (05:45)
[2019-12-14 06:53] LABS: African American GFR (CKD) >90 (>60 ml/min/1.73 sqM); Anion Gap 7 mmol/L; Blood Urea Nitrogen 17 mg/dL (9-20); Calcium 8.5 mg/dL (8.4-10.2); Carbon Dioxide 32 mmol/L (22-30); Chloride 94 mmol/L (98-107); Glucose 89 mg/dL (74-99); Non-African American GFR(CKD) 87 (>60 ml/min/1.73 sqM); Sodium 133 mmol/L (137-145)
[2019-12-14 07:25] LABS: Potassium 3.2 mmol/L (3.5-5.1)
[2019-12-14] MEDS ORDERED: TIOTROPIUM 18 MCG/PUFF INHALER INHALATION SCH (08:00)
[2019-12-14] MEDS ORDERED: SYMBICORT 160-4.5 MCG INHALER INHALATION SCH (08:00)
[2019-12-14] MEDS: SYMBICORT 160-4.5 MCG INHALER INHALATION SCH ×2 (08:32→20:33)
[2019-12-14] MEDS: IPRATROPIUM 0.5 MG/2.5 ML NEBU INHALATION SCH ×3 (08:34→16:31)
[2019-12-14] MEDS: POTASSIUM CHLORIDE ER 10 MEQ TAB.ER.PRT PO SCH (08:46)
[2019-12-14] MEDS: FUROSEMIDE 10 MG/ML 4 ML VIAL IV SCH ×3 (08:46→22:48)
[2019-12-14] MEDS: METOPROLOL TARTRATE 12.5 MG TAB PO SCH ×2 (08:46→20:47)
[2019-12-14] MEDS: ASPIRIN 81 MG PO SCH (08:46)
[2019-12-14] MEDS: ALPRAZolam 0.25 MG TAB PO PRN ×2 (09:27→20:50)
--- NOTE | 2019-12-14 11:14 | P.HPIM ---
History of Present Illness Patient is a 69-year-old male patient with known history of congestive heart failure severe cardiomyopathy nonischemic edema with EF of around 15% patient has a by V AICD secondary to cardiorespiratory arrest in the past for V. fib and patient is also on amiodarone for that came with complaints of shortness of breath progressively worsening for a week which is exertional, much worse yesterday with orthopnea questionable proximal nocturnal dyspnea.. Patient was also having chest pain on the left side of the chest pressure-like sensation radiating to the left arm because of his left arm pain applied some packs on the shoulder which led to irritation and redness some skin breakdown in that area patient chest pain is constant mild to moderate in severity dull pain not associated with diaphoresis lightheadedness nonpleuritic in nature not associate with food. Patient is found to have highly elevated BNP patient does have JVD on exam no significant pedal edema does have pleural effusion on the right side although patient has some chronic loculated pleural effusion on the right side patient has bilateral pleural effusions on the x-ray, troponin is minimally elevated please refer to cardiology documentation for EKG which is completely paced rhythm irregular. Patient denied any fever chills was having cough without any significant sputum production. Patient had right-sided pulmonary lobectomy after a mass on the right side which turned out to be adenocarcinoma nonmetastatic. Patient quit smoking at that time which is August 2019 Review of Systems REVIEW OF SYSTEMS: CONSTITUTIONAL: No fever, no malaise, no fatigue. HEENT: No recent visual problems or hearing problems. Denied any sore throat. CARDIOVASCULAR: As mentioned in HPI PULMONARY: As mentioned in HPI GASTROINTESTINAL: No diarrhea, no nausea, no vomiting, no abdominal pain. NEUROLOGICAL: No headaches, no weakness, no numbness. HEMATOLOGICAL: Denies any bleeding or petechiae. GENITOURINARY: Denies any burning micturition, frequency, or urgency. MUSCULOSKELETAL/RHEUMATOLOGICAL: Denies any joint pain, swelling, or any muscle pain. ENDOCRINE: Denies any polyuria or polydipsia. The rest of the 14-point review of systems is negative. Past Medical History Past Medical History: Heart Failure, COPD, Myocardial Infarction (HI) Additional Past Medical History / Comment(s): right lung mass Last Myocardial Infarction Date:: 2001 History of Any Multi-Drug Resistant Organisms: None Reported Past Surgical History: Heart Catheterization, Hernia Repair, Pacemaker Additional Past Surgical History / Comment(s): reomoval of tumor from right lung, lower lobe removed. defib 2001 Past Anesthesia/Blood Transfusion Reactions: No Reported Reaction Type of Cardiac Device: AICD Device Placement Date:: 2015 Past Psychological History: No Psychological Hx Reported Smoking Status: Former smoker Past Alcohol Use History: None Reported Past Drug Use History: None Reported - Past Family History Father Family Medical History: Congestive Heart Failure (CHF) Medications and Allergies Home Medications Medication Instructions Recorded Confirmed Type Levothyroxine Sodium 25 mcg PO DAILY 11/04/19 12/13/19 History Atorvastatin [Lipitor] 40 mg PO HS #30 tab 11/10/19 12/13/19 Rx Ipratropium-Albuterol Nebulize 3 ml INHALATION RT-QID PRN #1 neb 11/10/19 12/13/19 Rx [Duoneb 0.5 mg-3 mg/3 ml Soln] Pantoprazole [Protonix] 40 mg PO AC-BRKFST #30 tablet. 11/10/19 12/13/19 Rx ALPRAZolam [Xanax] 0.25 mg PO BID PRN 11/22/19 12/13/19 History Acetaminophen Tab [Tylenol] 1,000 mg PO Q6H PRN 11/22/19 12/13/19 History Aspirin EC [Ecotrin Low Dose] 81 mg PO DAILY 11/22/19 12/13/19 History Potassium Chloride ER [K-Dur 10] 10 meq PO DAILY 11/22/19 12/13/19 History Albuterol Inhaler [Ventolin Hfa 2 puff INHALATION RT-Q4H PRN 12/13/19 12/13/19 History Inhaler] Budesonide/Formoterol Fumarate 2 puff INHALATION RT-BID 12/13/19 12/13/19 History [Symbicort 160-4.5 Mcg Inhaler] Dronabinol [Marinol] 2.5 mg PO AC-BID PRN 12/13/19 12/13/19 History Furosemide [Lasix] 20 mg PO HS 12/13/19 12/13/19 History Furosemide [Lasix] 40 mg PO DAILY 12/13/19 12/13/19 History Metoprolol Tartrate [Lopressor] 12.5 mg PO DAILY 12/13/19 12/13/19 History Tiotropium 18 Mcg/Puff [Spiriva] 1 cap INHALATION RT-DAILY 12/13/19 12/13/19 Hi story Allergies Allergy/AdvReac Type Severity Reaction Status Date / Time lorazepam [From Ativan] Allergy Anaphylaxis Verified 12/13/19 17:26 Physical Exam Vitals: Vital Signs Temp Pulse Resp BP Pulse Ox 12/13/19 15:53 89 18 112/89 98 12/13/19 14:43 67 12/13/19 14:41 95 20 97/76 100 12/13/19 14:32 60 12/13/19 13:38 97.3 F L 59 L 20 100/69 98 Intake and Output 12/13/19 12/13/19 12/13/19 06:59 14:59 22:59 Other: Weight 48.534 kg PHYSICAL EXAMINATION: GENERAL: The patient is alert and oriented x3, not in any acute distress. Well developed, well nourished. HEENT: Pupils are round and equally reacting to light. EOMI. No scleral icterus. No conjunctival pallor. Normocephalic, atraumatic. No pharyngeal erythema. No thyromegaly. CARDIOVASCULAR: S1 and S2 present. No murmurs, rubs, or gallops. Patient has elevated JVD PULMONARY: Chest is clear to auscultation, no wheezing or crackles. ABDOMEN: Soft, nontender, nondistended, normoactive bowel sounds. No palpable organomegaly. MUSCULOSKELETAL: No joint swelling or deformity. EXTREMITIES: No cyanosis, clubbing, or pedal edema. NEUROLOGICAL: Gross neurological examination did not reveal any focal deficits. SKIN: No rashes. Results CBC & Chem 7: 12/13/19 14:00 12/14/19 05:35 Labs: Abnormal Lab Results - Last 24 Hours (Table) 12/13/19 12/13/19 12/13/19 Range/Units 14:00 14:00 14:00 RBC 4.06 L (4.30-5.90) m/uL RDW 16.7 H (11.5-15.5) % Lymphocytes # 0.8 L (1.0-4.8) k/uL PT 13.0 H (9.0-12.0) sec INR 1.3 H (<1.2) Sodium 132 L (137-145) mmol/L Chloride 96 L (98-107) mmol/L Glucose 152 H (74-99) mg/dL Plasma Lactic Acid Fly (0.7-2.0) mmol/L Alkaline Phosphatase 145 H (38-126) U/L Troponin I (0.000-0.034) ng/mL 12/13/19 12/13/19 Range/Units 14:00 14:00 RBC (4.30-5.90) m/uL RDW (11.5-15.5) % Lymphocytes # (1.0-4.8) k/uL PT (9.0-12.0) sec INR (<1.2) Sodium (137-145) mmol/L Chloride (98-107) mmol/L Glucose (74-99) mg/dL Plasma Lactic Acid Fly 2.6 H* (0.7-2.0) mmol/L Alkaline Phosphatase (38-126) U/L Troponin I 0.057 H* (0.000-0.034) ng/mL Assessment and Plan Plan: -Shortness of breath: Probably secondary to congestive heart failure chronic systolic function with acute exacerbation patient will be started on 40 mg twice a day of IV Lasix in spite of elevated lactic acid which is secondary to decreased organ perfusion which is expected to improve with improvement heart f ailure. Close monitoring of kidney function. I's and O's. -Chest pain: We will repeat 2 more sets of troponins cardiology will evaluate the patient we need to rule out acute coronary syndromes. -Nonischemic cardiomyopathy EF of around 15% chronic systolic function with acute exacerbation -Chronic right-sided pleural effusion -Lung cancer adenocarcinoma localized status post pulmonary lobectomy -Hyponatremia, hypervolemic hyponatremia expected to improve with IV Lasix -Lactic acidosis secondary to decreased organ perfusion expected to improve with Lasi-From heart failure. -History of ventricular tachycardia status post by V pacemaker placement patient is on amiodarone which will be continued -COPD without any acute exacerbation -Hypothyroidism: Patient will be resumed on his home medications -Hyperlipidemia
[2019-12-14] MEDS: ENOXAPARIN 40 MG/0.4 ML SYRINGE SQ SCH (13:48)
--- NOTE | 2019-12-14 15:15 | P.CNPUL ---
History of Present Illness Consult date: 12/14/19 Reason for consult: dyspnea, hypoxemia, pleural effusion Chief complaint: Shortness of breath History of present illness: This is a 69-year-old male who was seen eval reexamined patient has a history of congestive heart failure ejection fraction is only 15%, he has AICD, patient has chronic right-sided small pleural effusion which is a residual after resection of right lower lobe, due to progressive shortness of breath and decided to come into the hospital also have problems associated with pericardial effusion in the past, chest x-ray however essentially remains stable BNP is over 9000 Review of Systems All systems: negative Past Medical History Past Medical History: Heart Failure, COPD, Myocardial Infarction (ID) Additional Past Medical History / Comment(s): right lung mass Last Myocardial Infarction Date:: 2001 History of Any Multi-Drug Resistant Organisms: None Reported Past Surgical History: Heart Catheterization, Hernia Repair, Pacemaker Additional Past Surgical History / Comment(s): reomoval of tumor from right lung, lower lobe removed. defib 2001 Past Anesthesia/Blood Transfusion Reactions: No Reported Reaction Type of Cardiac Device: AICD Device Placement Date:: 2015 Past Psychological History: No Psychological Hx Reported Smoking Status: Former smoker Past Alcohol Use History: None Reported Past Drug Use History: None Reported - Past Family History Father Family Medical History: Congestive Heart Failure (CHF) Medications and Allergies Home Medications Medication Instructions Recorded Confirmed Type Levothyroxine Sodium 25 mcg PO DAILY 11/04/19 12/13/19 History Atorvastatin [Lipitor] 40 mg PO HS #30 tab 11/10/19 12/13/19 Rx Ipratropium-Albuterol Nebulize 3 ml INHALATION RT-QID PRN #1 neb 11/10/19 12/13/19 Rx [Duoneb 0.5 mg-3 mg/3 ml Soln] Pantoprazole [Protonix] 40 mg PO AC-BRKFST #30 tablet.dr 11/10/19 12/13/19 Rx ALPRAZolam [Xanax] 0.25 mg PO BID PRN 11/22/19 12/13/19 History Acetaminophen Tab [Tylenol] 1,000 mg PO Q6H PRN 11/22/19 12/13/19 History Aspirin EC [Ecotrin Low Dose] 81 mg PO DAILY 11/22/19 12/13/19 History Potassium Chloride ER [K-Dur 10] 10 meq PO DAILY 11/22/19 12/13/19 History Albuterol Inhaler [Ventolin Hfa 2 puff INHALATION RT-Q4H PRN 12/13/19 12/13/19 History Inhaler] Budesonide/Formoterol Fumarate 2 puff INHALATION RT-BID 12/13/19 12/13/19 History [Symbicort 160-4.5 Mcg Inhaler] Dronabinol [Marinol] 2.5 mg PO AC-BID PRN 12/13/19 12/13/19 History Furosemide [Lasix] 20 mg PO HS 12/13/19 12/13/19 History Furosemide [Lasix] 40 mg PO DAILY 12/13/19 12/13/19 History Metoprolol Tartrate [Lopressor] 12.5 mg PO DAILY 12/13/19 12/13/19 History Tiotropium 18 Mcg/Puff [Spiriva] 1 cap INHALATION RT-DAILY 12/13/19 12/13/19 His tory Allergies Allergy/AdvReac Type Severity Reaction Status Date / Time lorazepam [From Ativan] Allergy Anaphylaxis Verified 12/13/19 17:26 Physical Exam Vitals: Vital Signs Temp Pulse Pulse Resp BP BP Pulse Ox 12/14/19 11:56 84 12/14/19 11:47 97.4 F L 87 18 89/61 96 12/14/19 11:45 84 12/14/19 08:00 97.9 F 85 18 92/69 98 12/14/19 04:00 97.1 F L 87 18 94/71 100 12/13/19 23:58 97.6 F 91 18 85/59 100 12/13/19 20:00 97.5 F L 66 18 92/58 93 L 12/13/19 18:51 97.8 F 94 18 101/71 98 12/13/19 18:45 97.8 F 94 18 101/71 98 12/13/19 17:36 97.6 F 93 18 98/72 98 12/13/19 16:42 66 18 104/72 95 12/13/19 15:53 89 18 112/89 98 Intake and Output 12/14/19 12/14/19 12/14/19 06:59 14:59 22:59 Intake Total 480 Output Total 750 Balance -750 480 Intake: Oral 480 Output: Urine 750 Stool 0 Other: Voiding Method Toilet # Voids 2 1 # Bowel Movements 0 Weight 49.3 kg 49.3 kg - Constitutional General appearance: average body habitus, disheveled, mild distress - EENT Eyes: EOMI, PERRLA - Neck Neck clean up to angle of jaw Carotids: bilateral: upstroke normal Thyroid: bilateral: normal size - Respiratory Respiratory: bilateral: diminished - Cardiovascular Rhythm: regular Heart sounds: normal: S1, S2 - Gastrointestinal General gastrointestinal: normal bowel sounds - Integumentary Integumentary: normal turgor - Neurologic Neurologic: CNII-XII intact - Musculoskeletal Musculoskeletal: gait normal, generalized weakness, strength equal bilaterally - Psychiatric Psychiatric: A&O x's 3, appropriate affect, intact judgment & insight Results - Laboratory Findings CBC and BMP: 12/13/19 14:00 12/14/19 05:35 PT/INR, D-dimer PT 13.0 sec (9.0-12.0) H 12/13/19 14:00 INR 1.3 (<1.2) H 12/13/19 14:00 Abnormal lab findings: Abnormal Labs 12/13/19 12/13/19 12/13/19 14:00 14:00 14:00 RBC 4.06 L RDW 16.7 H Lymphocytes # 0.8 L PT 13.0 H INR 1.3 H Sodium 132 L Potassium Chloride 96 L Carbon Dioxide Glucose 152 H Plasma Lactic Acid Fly Alkaline Phosphatase 145 H Troponin I 12/13/19 12/13/19 12/13/19 14:00 14:00 20:35 RBC RDW Lymphocytes # PT INR Sodium Potassium Chloride Carbon Dioxide Glucose Plasma Lactic Acid Fly 2.6 H* Alkaline Phosphatase Troponin I 0.057 H* 0.065 H* 12/14/19 12/14/19 05:35 05:35 RBC RDW Lymphocytes # PT INR Sodium 133 L Potassium 3.2 L Chloride 94 L Carbon Dioxide 32 H Glucose Plasma Lactic Acid Fly Alkaline Phosphatase Troponin I 0.068 H* - Diagnostic Findings Chest x-ray: report reviewed, image reviewed (Finding as noted above) Assessment and Plan Assessment: Right-sided pleural effusion overall stable Pericardial effusion, Acute on chronic systolic heart failure History of lung cancer status post right lower lobe resection doing well in that regard Plan: Continue gentle diuresis Continue breathing treatments Consider obtaining echocardiogram for pericardial effusion Time with Patient: Greater than 30
[2019-12-14] MEDS: IPRATROPIUM-ALBUTEROL 3 ML NEB INHALATION SCH ×2 (16:26→20:33)
[2019-12-14] MEDS ORDERED: POTASSIUM CHLORIDE ER 20 MEQ TAB.ER PO STA (18:51)
[2019-12-14] MEDS: ATORVASTATIN 40 MG TAB PO SCH (20:48)
--- NOTE | 2019-12-14 23:01 | P.PN ---
Progress Note - Text Progress Note Date: 12/14/19 History of presenting complaint This is a 69-year-old patient of Dr. Salazar. Chronic stable medical conditions include (left bundle branch block, AICD, BPH, right lung- lower lobe lobectomy. Patient stopped smoking in August 2019. 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 Patient has chronic loculated right-sided pneumonia. Admitted 3 weeks ago with with-acute CHF exacerbation, EF less than 15% and acute non-Q-wave SD. 9. Again admitted with CHF exacerbation. Started on IV Lasix. Today-breathing a bit better. Did tolerate some diet. Was up in the chair. Keen to go home. Review of systems: Was done for constitutional, cardiovascular, GI, pulmonary. relevant finding as above Active Medications Acetaminophen (Tylenol Tab) 1,000 mg PO Q6H PRN PRN Reason: Pain Albuterol Sulfate (Ventolin Nebulized) 2.5 mg INHALATION RT-Q4H PRN PRN Reason: Shortness Of Breath Albuterol/Ipratropium (Duoneb 0.5 Mg-3 Mg/3 Ml Soln) 3 ml INHALATION RT-QID PRN PRN Reason: Shortness Of Breath Last Admin: 12/14/19 11:44 Dose: 3 ml Documented by: Albuterol/Ipratropium (Duoneb 0.5 Mg-3 Mg/3 Ml Soln) 3 ml INHALATION RT-QID [facility] Last Admin: 12/14/19 20:33 Dose: 3 ml Documented by: Alprazolam (Xanax) 0.25 mg PO BID PRN PRN Reason: Anxiety Last Admin: 12/14/19 20:50 Dose: 0.25 mg Documented by: Aspirin (Aspirin) 81 mg PO DAILY [facility] Last Admin: 12/14/19 08:46 Dose: 81 mg Documented by: Atorvastatin Calcium (Lipitor) 40 mg PO HS [facility] Last Admin: 12/14/19 20:48 Dose: 40 mg Documented by: Budesonide/Formoterol Fumarate (Symbicort 160-4.5 Mcg Inhaler) 2 puff I NHALATION RT-BID [facility] Last Admin: 12/14/19 20:33 Dose: 2 puff Documented by: Dronabinol (Marinol) 2.5 mg PO AC-BID PRN PRN Reason: APETITE/NAUSEA Enoxaparin Sodium (Lovenox) 40 mg SQ DAILY [facility] Last Admin: 12/14/19 13:48 Dose: 40 mg Documented by: Furosemide (Lasix) 40 mg IV Q8HR [facility] Last Admin: 12/14/19 22:48 Dose: 40 mg Documented by: Levothyroxine Sodium (Synthroid) 25 mcg PO 0630 [facility] Last Admin: 12/14/19 05:45 Dose: 25 mcg Documented by: Metoprolol Tartrate (Lopressor) 12.5 mg PO BID [facility] Last Admin: 12/14/19 20:47 Dose: 12.5 mg Documented by: Pantoprazole Sodium (Protonix) 40 mg PO AC-BRKFST [facility] Last Admin: 12/14/19 05:45 Dose: 40 mg Documented by: Potassium Chloride (K-Dur 10) 10 meq PO DAILY [facility] Last Admin: 12/14/19 08:46 Dose: 10 meq Documented by: Physical examination: VITAL: 97.9, 85, 18, 92/69, 98% on 3 L GENERAL: Propped up in bed, awake, tired EYES: Pupils equal. Conjunctiva normal. HEENT: External appearance of nose and ears normal, oral cavity grossly normal. NECK: JVD unable to assess; masses not palpable. HEART: First and second heart sounds are normal; no edema. LUNGS: Respiratory rate increased, diminished breath sounds ABDOMEN: Soft, nontender, liver spleen not palpable, no masses palpable. PSYCH: AO 3, motor affect slightly anxious INVESTIGATIONS, reviewed in the clinical context: Potassium 3.2. 0.86 Previous testing: White count 8.3 hemoglobin 13.1 INR 1.3 progression 3.6 creatinine 0.82 Troponin I 0.057, proBNP 9030 lactic acid 2.6 Assessment: -Acute on chronic congestive heart exacerbation from systolic dysfunction EF less than 15%, POA, slow to respond -COPD exacerbation in an ex-smoker -On November 21-acute non-Q-wave SD, -Moderate mitral and, moderate tricuspid regurgitation, nontraumatic -Chronic loculated right-sided effusion -Left bundle-branch block -AICD -BPH -History of arrhythmia type unknown patient is on amiodarone. -History of Right lower lobe lobectomy, biopsy showing adenocarcino ma.-Early-stage not requiring any chemoradiation treatment. Recent workup and Dr. Eldridge during hospitalization did not show any progression of the same. -generalized anxiety disorder -Chronic insomnia Plan: Patient does of Lasix was increased to 40 mg daily. For 24 hours. Patient is very keen to go home. Cut back the dose of IV Lasix in the morning. Follow labs.
[2019-12-15] MEDS: LEVOTHYROXINE 25 MCG TAB PO SCH (06:27)
[2019-12-15] MEDS: PANTOPRAZOLE 40 MG TABLET PO SCH (06:27)
[2019-12-15] MEDS: IPRATROPIUM-ALBUTEROL 3 ML NEB INHALATION SCH ×4 (08:33→19:16)
[2019-12-15] MEDS: SYMBICORT 160-4.5 MCG INHALER INHALATION SCH ×2 (08:33→19:16)
[2019-12-15] MEDS: FUROSEMIDE 10 MG/ML 4 ML VIAL IV SCH (08:55)
[2019-12-15] MEDS: METOPROLOL TARTRATE 12.5 MG TAB PO SCH ×2 (08:55→20:36)
[2019-12-15] MEDS: POTASSIUM CHLORIDE ER 10 MEQ TAB.ER.PRT PO SCH (08:56)
[2019-12-15] MEDS: ENOXAPARIN 40 MG/0.4 ML SYRINGE SQ SCH (08:56)
[2019-12-15] MEDS: ASPIRIN 81 MG PO SCH (09:07)
[2019-12-15 09:48] LABS: Calcium 9.4 mg/dL (8.4-10.2); Magnesium 2.1 mg/dL (1.6-2.3); Potassium 5.6 mmol/L (3.5-5.1)
[2019-12-15] MEDS ORDERED: SODIUM CHLORIDE 0.9% 1,000 ML IV SCH ×3 (11:15→15:45)
--- NOTE | 2019-12-15 12:00 | ECHOF ---
Referral Reason:malignant pericardial effusion MEASUREMENTS -------- HEIGHT: 165.1 cm WEIGHT: 49.0 kg BP: 93/59 RVIDd: 3.7 cm (< 3.3) IVSd: 1.3 cm (0.6 - 1.1) LVIDd: 7.8 cm (3.9 - 5.3) LVPWd: 1.1 cm (0.6 - 1.1) IVSs: 1.5 cm LVIDs: 6.7 cm LVPWs: 1.6 cm LA Diam: 3.6 cm (2.7 - 3.8) LAESV Index (A-L): 30.94 ml/m Ao Diam: 2.8 cm (2.0 - 3.7) AV Cusp: 1.8 cm (1.5 - 2.6) MV EXCURSION: 16.659 mm (> 18.000) MV EF SLOPE: 50 mm/s (70 - 150) EPSS: 2.6 cm RAP: 15.00 mmHg RVSP: 66.79 mmHg FINDINGS -------- BBB This was a technically adequate study. The left ventricle is severely dilated. There is mild concentric left ventricular hypertrophy. Ov erall left ventricular systolic function is severely impaired with, an EF < 20%. The right ventricle is mild to moderately enlarged. LA is midly dilated 29-33ml/m2. The right atrium is normal in size. Interatrial and interventricular septum intact. There is mild aortic valve sclerosis. The mitral valve leaflets are mildly thickened. Mild mitral annular calcification present. Modera [id number]-uh-[id number] mitral regurgitation is present. Severe tricuspid regurgitation present. There is severe pulmonary hypertension. The right ventric ular systolic pressure, as measured by Doppler, is 66.79mmHg. Trace/mild (physiologic) pulmonic regurgitation. The aortic root size is normal. Normal inferior vena cava with less than 50% inspiratory collapse consistent with estimated right atr ial pressure of 15 mmHg. There is no pericardial effusion. Moderate Pleural Effusion. CONCLUSIONS -------- 1. BBB 2. This was a technically adequate study. 3. The left ventricle is severely dilated. 4. Overall left ventricular systolic function is severely impaired with, an EF < 20%. 5. The right ventricle is mild to moderately enlarged. 6. LA is midly dilated 29-33ml/m2. 7. The right atrium is normal in size. 8. Interatrial and interventricular septum intact. 9. There is mild aortic valve sclerosis. 10. The mitral valve leaflets are mildly thickened. 11. Mild mitral annular calcification present. 12. Rdjyceaj-la-fmnzfj mitral regurgitation is present. 13. Severe tricuspid regurgitation present. 14. There is severe pulmonary hypertension. 15. The right ventricular systolic pressure, as measured by Doppler, is 66.79mmHg. 16. Trace/mild (physiologic) pulmonic regurgitation. 17. The aortic root size is normal. 18. Normal inferior vena cava with less than 50% inspiratory collapse consistent with estimated right atrial pressure of 15 mmHg. 19. There is no pericardial effusion. 20. Moderate Pleural Effusion. AUDITOR APPRAISER: Laurie Ferrera RDCS
--- NOTE | 2019-12-15 12:33 | P.PN ---
Subjective Progress Note Date: 12/15/19 Principal diagnosis: Right-sided pleural effusion overall stable Pericardial effusion, Acute on chronic systolic heart failure History of lung cancer status post right lower lobe resection doing well in that regard 12/15/2019, patient seen eval examined during the rounds Z reviewed medications reviewed care plan discussed, denies any chest pain sleeping comfortably anxiety is better, echocardiogram failed to reveal any significant pericardial effusion mild to moderate chronic pleural effusion is present which is not much change, hemodynamically stable and afebrile oxygen saturation 100% on 4 L, This is a 69-year-old male who was seen eval reexamined patient has a history of congestive heart failure ejection fraction is only 15%, he has AICD, patient has chronic right-sided small pleural effusion which is a residual after resection of right lower lobe, due to progressive shortness of breath and decided to come into the hospital also have problems associated with pericardial effusion in the past, chest x-ray however essentially remains stable BNP is over 9000 Objective - Vital Signs Vital signs: Vital Signs Temp 97.5 F L 12/15/19 08:00 Pulse 62 12/15/19 08:00 Resp 20 12/15/19 08:00 BP 98/61 12/15/19 08:00 Pulse Ox 100 12/15/19 08:00 Intake & Output 12/14/19 12/15/19 12/15/19 18:59 06:59 18:59 Intake Total 800 480 120 Output Total 600 225 100 Balance 200 255 20 Weight 49.3 kg 49.4 kg 49.6 kg Intake: Oral 800 480 120 Output: Urine 600 225 100 Other: Voiding Method Toilet # Voids 1 2 - Exam - Constitutional General appearance: average body habitus, disheveled, mild distress - EENT Eyes: EOMI, PERRLA - Neck Neck clean up to angle of jaw Carotids: bilateral: upstroke normal Thyroid: bilateral: normal size - Respiratory Respiratory: bilateral: diminished - Cardiovascular Rhythm: regular Heart sounds: normal: S1, S2 - Gastrointestinal General gastrointestinal: normal bowel sounds - Integumentary Integumentary: normal turgor - Neurologic Neurologic: CNII-XII intact - Musculoskeletal Musculoskeletal: gait normal, generalized weakness, strength equal bilaterally - Psychiatric Psychiatric: A&O x's 3, appropriate affect, intact judgment & insight - Labs CBC & Chem 7: 12/13/19 14:00 05/07/20 09:16 Labs: Abnormal Lab Results - Last 24 Hours (Table) 12/15/19 Range/Units 09:16 Sodium 132 L (137-145) mmol/L Potassium 5.6 H (3.5-5.1) mmol/L Chloride 92 L (98-107) mmol/L BUN 34 H (9-20) mg/dL Creatinine 1.46 H (0.66-1.25) mg/dL Glucose 150 H (74-99) mg/dL Assessment and Plan Assessment: Right-sided pleural effusion overall stable chronic Acute on chronic systolic heart failure History of lung cancer status post right lower lobe resection doing well in that regard Generalized anxiety disorder Plan: Continue gentle diuresis Continue breathing treatments Reviewed echocardiogram continue supportive care family is leaning towards hospice Time with Patient: Greater than 30
--- NOTE | 2019-12-15 15:09 | P.CRDCN ---
History of Present Illness History of present illness: This is Zuri Loo PA-C dictating a consult on this patient The patient was interviewed and examined by me as well as by Dr. Hurst Case discussed with Dr. Hurst and he agrees with the plan of care HPI Patient is a 69-year-old male with a history of severe cardiomyopathy status post AICD, right-sided lung neoplasm status post resection, chronic systolic heart failure, COPD who presents with complaints of shortness of breath. He is a patient of Dr. Waters. He was recently discharged after being treated for systolic heart failure exacerbation. This is his fourth hospitalization in the last couple months for similar symptoms. Patient states he became very short of breath again after being discharged therefore he presented again for evaluation and treatment. Denies any chest pain, dizziness, palpitations or syncope. EKG showed sinus mechanism with left bundle branch block, similar to previous EKGs. BMP was over 9000. Troponins borderline abnormal but flat. Ch est x-ray shows stable fairly small to moderate-sized right pleural effusion and new small left pleural effusion. He has been started on IV Lasix. He is feeling better today. States his breathing is better. Denies any chest pain. He occasionally gets a little dizzy when he gets up to use the bathroom. Denies any dizziness currently. ROS: No fevers, chills or rigors, no cough, phlegm or expectoration, no nausea, vomiting or diarrhea, no hematuria, dysuria, no musculoskeletal complaints, no strokes or seizures, no skin lesions. EXAMINATION: Patient is afebrile, pulse in the 60s, respirations 20, blood pressure 98/61, oxygen saturation 100% on 4 L nasal cannula Patient seen and examined sitting at the side of the bed, in no acute distress Lung exam reveal diminished breath sounds on the right, few scattered crackles on the left Heart is regular, systolic murmur audible at the apex Mildly elevated JVD Mild 1+ edema of the lower extremities bilaterally REVIEW OF LABS, ECG & MEDICAL DATA WBC 8.3, hemoglobin 13.1, platelet 150, potassium 5.6, BUN 34, creatinine 1.46 Echocardiogram in October showed EF less than 20%, moderate to severe MR IMPRESSION / ASSESSMENT: #1 shortness of breath secondary to combination of acute on chronic systolic congestive heart failure #2 known severe cardiomyopathy status post ICD, EF less than 20% #3 borderline abnormal troponins, flat, likely secondary to above #4 valvular heart disease, severe MR #5 COPD #6 lung carcinoma status post resection #7 hyperkalemia, was initially hypokalemic and had potassium replaced, now hyperkalemic at 5.6 #8 chronic right-sided pleural effusion, stable Plan: Continue IV Lasix Daily weights I's and O's Monitor BMP and magnesium Repeat echocardiogram has been ordered, awaiting results Continue low-dose beta blockers Unable to add Michael inhibitors/ ARBS secondary to hypotension Past Medical History Past Medical History: Heart Failure, COPD, Myocardial Infarction ([place]) Additional Past Medical History / Comment(s): right lung mass Last Myocardial Infarction Date:: 2001 History of Any Multi-Drug Resistant Organisms: None Reported Past Surgical History: Heart Catheterization, Hernia Repair, Pacemaker Additional Past Surgical History / Comment(s): reomoval of tumor from right lung, lower lobe removed. defib 2001 Past Anesthesia/Blood Transfusion Reactions: No Reported Reaction Type of Cardiac Device: AICD Device Placement Date:: 2015 Past Psychological History: No Psychological Hx Reported Smoking Status: Former smoker Past Alcohol Use History: None Reported Past Drug Use History: None Reported - Past Family History Father Family Medical History: Congestive Heart Failure (CHF) Medications and Allergies Home Medications Medication Instructions Recorded Confirmed Type Levothyroxine Sodium 25 mcg PO DAILY 11/04/19 12/13/19 History Atorvastatin [Lipitor] 40 mg PO HS #30 tab 11/10/19 12/13/19 Rx Ipratropium-Albuterol Nebulize 3 ml INHALATION RT-QID PRN #1 neb 11/10/19 12/13/19 Rx [Duoneb 0.5 mg-3 mg/3 ml Soln] Pantoprazole [Protonix] 40 mg PO AC-BRKFST #30 tablet.dr 11/10/19 12/13/19 Rx ALPRAZolam [Xanax] 0.25 mg PO BID PRN 11/22/19 12/13/19 History Acetaminophen Tab [Tylenol] 1,000 mg PO Q6H PRN 11/22/19 12/13/19 History Aspirin EC [Ecotrin Low Dose] 81 mg PO DAILY 11/22/19 12/13/19 History Potassium Chloride ER [K-Dur 10] 10 meq PO DAILY 11/22/19 12/13/19 History Albuterol Inhaler [Ventolin Hfa 2 puff INHALATION RT-Q4H PRN 12/13/19 12/13/19 History Inhaler] Budesonide/Formoterol Fumarate 2 puff INHALATION RT-BID 12/13/19 12/13/19 History [Symbicort 160-4.5 Mcg Inhaler] Dronabinol [Marinol] 2.5 mg PO AC-BID PRN 12/13/19 12/13/19 History Furosemide [Lasix] 20 mg PO HS 12/13/19 12/13/19 History Furosemide [Lasix] 40 mg PO DAILY 12/13/19 12/13/19 History Metoprolol Tartrate [Lopressor] 12.5 mg PO DAILY 12/13/19 12/13/19 History Tiotropium 18 Mcg/Puff [Spiriva] 1 cap INHALATION RT-DAILY 12/13/19 12/13/19 History Allergies Allergy/AdvReac Type Severity Reaction Status Date / Time lorazepam [From Ativan] Allergy Anaphylaxis Verified 12/13/19 17:26 Physical Exam Vitals: Vital Signs Temp Pulse Pulse Resp BP Pulse Ox 12/15/19 08:00 97.5 F L 62 20 98/61 100 12/15/19 04:00 96.8 F L 84 20 93/59 99 12/14/19 20:45 62 18 12/14/19 20:33 70 18 12/14/19 20:00 96.3 F L 93 22 91/61 97 12/14/19 16:34 68 18 12/14/19 16:28 68 18 12/14/19 15:46 97.4 F L 67 20 92/69 92 L 12/14/19 11:56 84 12/14/19 11:47 97.4 F L 87 18 89/61 96 12/14/19 11:45 84 Intake and Output 12/14/19 12/15/19 12/15/19 22:59 06:59 14:59 Intake Total 560 240 120 Output Total 750 75 100 Balance -190 165 20 Intake: Oral 560 240 120 Output: Urine 750 75 100 Other: # Voids 1 2 Weight 49.4 kg 49.6 kg Results 12/13/19 14:00 12/15/19 09:16 Comprehensive Metabolic Panel 05/07/20 Range/Units 09:16 Sodium 132 L (137-145) mmol/L Potassium 5.6 H (3.5-5.1) mmol/L Chloride 92 L (98-107) mmol/L Carbon Dioxide 27 (22-30) mmol/L BUN 34 H (9-20) mg/dL Creatinine 1.46 H (0.66-1.25) mg/dL Glucose 150 H (74-99) mg/dL Calcium 9.4 (8.4-10.2) mg/dL Current Medications Generic Name Dose Route Start Last Admin Trade Name Freq PRN Reason Stop Dose Admin Acetaminophen 1,000 mg 12/13/19 23:25 Tylenol Tab PO Q6H PRN Pain Albuterol Sulfate 2.5 mg 12/13/19 23:25 Ventolin Nebulized INHALATION RT-Q4H PRN Shortness Of Breath Albuterol/Ipratropium 3 ml 12/13/19 16:29 12/14/19 11:44 Duoneb 0.5 Mg-3 Mg/3 Ml Soln INHALATION 3 ml RT-QID PRN Administration Shortness Of Breath Albuterol/Ipratropium 3 ml 12/14/19 13:02 12/15/19 08:33 Duoneb 0.5 Mg-3 Mg/3 Ml Soln INHALATION Not Given RT-QID [facility] Alprazolam 0.25 mg 12/13/19 23:25 12/14/19 20:50 Xanax PO 0.25 mg BID PRN Administration Anxiety Aspirin 81 mg 12/14/19 09:00 12/15/19 09:07 Aspirin PO 81 mg DAILY [facility] Administration Atorvastatin Calcium 40 mg 12/13/19 21:00 12/14/19 20:48 Lipitor PO 40 mg HS [facility] Administration Budesonide/Formoterol Fumarate 2 puff 12/13/19 16:30 12/15/19 08:33 Symbicort 160-4.5 Mcg Inhaler INHALATION 2 puff RT-BID [facility] Administration Dronabinol 2.5 mg 12/13/19 23:25 Marinol PO AC-BID PRN APETITE/NAUSEA Enoxaparin Sodium 40 mg 12/14/19 13:15 12/15/19 08:56 Lovenox SQ 40 mg DAILY [facility] Administration Furosemide 40 mg 12/16/19 09:00 Lasix IV DAILY [facility] Levothyroxine Sodium 25 mcg 12/14/19 06:30 12/15/19 06:27 Synthroid PO 25 mcg 0630 [facility] Administration Metoprolol Tartrate 12.5 mg 12/13/19 21:00 12/15/19 08:55 Lopressor PO 12.5 mg BID [facility] Administration Pantoprazole Sodium 40 mg 12/14/19 07:30 12/15/19 06:27 Protonix PO 40 mg AC-BRKFST [facility] Administration Potassium Chloride 10 meq 12/14/19 09:00 12/15/19 08:56 K-Dur 10 PO 10 meq DAILY [facility] Administration Intake and Output 12/14/19 12/15/19 12/15/19 22:59 06:59 14:59 Intake Total 560 240 120 Output Total 750 75 100 Balance -190 165 20 Intake: Oral 560 240 120 Output: Urine 750 75 100 Other: # Voids 1 2 Weight 49.4 kg 49.6 kg Patient Weight 12/16/19 06:59 Weight 49.6 kg 12/13/19 14:00 12/15/19 09:16
[2019-12-15] MEDS: ALPRAZolam 0.25 MG TAB PO PRN ×2 (15:53→20:36)
--- NOTE | 2019-12-15 18:19 | P.PN ---
Progress Note - Text Progress Note Date: 12/15/19 History of presenting complaint This is a 69-year-old patient of Dr. Salazar. Chronic stable medical conditions include (left bundle branch block, AICD, BPH, right lung- lower lobe lobectomy. Patient stopped smoking in August 2019. 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 Patient has chronic loculated right-sided pneumonia. Admitted 3 weeks ago with with-acute CHF exacerbation, EF less than 15% and acute non-Q-wave CO. Again admitted with CHF exacerbation. Started on IV Lasix. Today-some improvement in breathing. Creatinine Bumped up. Did receive monitoring does of IV Lasix. For the dose has been held. Tolerating a diet.. Review of systems: Was done for constitutional, cardiovascular, GI, pulmonary. relevant finding as above Active Medications Acetaminophen (Tylenol Tab) 1,000 mg PO Q6H PRN PRN Reason: Pain Albuterol Sulfate (Ventolin Nebulized) 2.5 mg INHALATION RT-Q4H PRN PRN Reason: Shortness Of Breath Albuterol/Ipratropium (Duoneb 0.5 Mg-3 Mg/3 Ml Soln) 3 ml INHALATION RT-QID PRN PRN Reason: Shortness Of Breath Last Admin: 12/14/19 11:44 Dose: 3 ml Documented by: Albuterol/Ipratropium (Duoneb 0.5 Mg-3 Mg/3 Ml Soln) 3 ml INHALATION RT-QID [facility] Last Admin: 12/15/19 15:40 Dose: Not Given Documented by: Alprazolam (Xanax) 0.25 mg PO BID PRN PRN Reason: Anxiety Last Admin: 12/15/19 15:53 Dose: 0.25 mg Documented by: Aspirin (Aspirin) 81 mg PO DAILY [facility] Last Admin: 12/15/19 09:07 Dose: 81 mg Documented by: Atorvastatin Calcium (Lipitor) 40 mg PO HS [facility] Last Admin: 12/14/19 20:48 Dose: 40 mg Documented by: Budesonide/Formoterol Fumarate (Symbicort 160-4.5 Mcg Inhaler) 2 puff INHALATION RT-BID [facility] Last Admin: 12/15/19 08:33 Dose: 2 puff Documented by: Dronabinol (Marinol) 2.5 mg PO AC-BID PRN PRN Reason: APETITE/NAUSEA Enoxaparin Sodium (Lovenox) 40 mg SQ DAILY [facility] Last Admin: 12/15/19 08:56 Dose: 40 mg Documented by: Sodium Chloride (Saline 0.9%) 1,000 mls @ 50 mls/hr IV .Q20H [facility] Stop: 12/16/19 06:00 Last Admin: 12/15/19 11:33 Dose: 50 mls/hr Documented by: Cefazolin Sodium 2 gm/ Sodium (Chloride) 50 mls @ 100 mls/hr IVPB ONCE ONE Stop: 12/19/19 12:29 Cefazolin Sodium 1,000 mg/ (Sodium Chloride) 250 mls @ 500 mls/hr IRRIGATION ONCE ONE Stop: 12/19/19 12:29 Levothyroxine Sodium (Synthroid) 25 mcg PO 0630 [facility] Last Admin: 12/15/19 06:27 Dose: 25 mcg Documented by: Metoprolol Tartrate (Lopressor) 12.5 mg PO BID [facility] Last Admin: 12/15/19 08:55 Dose: 12.5 mg Documented by: Pantoprazole Sodium (Protonix) 40 mg PO AC-BRKFST [facility] Last Admin: 12/15/19 06:27 Dose: 40 mg Documented by: Physical examination: VITAL: 97.2, 82, 18, 91/58, 92% on 4 L GENERAL: Sitting upon a chair, awake EYES: Pupils equal. Conjunctiva normal. HEENT: External appearance of nose and ears normal, oral cavity grossly normal. NECK: JVD unable to assess; masses not palpable. HEART: First and second heart sounds are normal; no edema. LUNGS: Respiratory rate increased, diminished breath sounds ABDOMEN: Soft, nontender, liver spleen not palpable, no masses palpable. PSYCH: AO 3, motor affect slightly anxious INVESTIGATIONS, reviewed in the clinical context: Potassium 5.6 bun 34 creatinine 1.46 Previous testing: White count 8.3 hemoglobin 13.1 INR 1.3 progression 3.6 creatinine 0.82 Troponin I 0.057, proBNP 9030 lactic acid 2.6 2-D co-EF less than 20% Assessment: -Acute on chronic congestive heart exacerbation from systolic dysfunction EF less than 15%, POA, stabilized -Acute kidney injury, prerenal crit has gone from 0.8 up to 1.46, from diuresis -COPD exacerbation in an ex-smoker -On November 21-acute non-Q-wave CO, -Moderate mitral and, moderate tricuspid regurgitation, nontraumatic -Severe secondary pulmonary hypertension -Chronic loculated right-sided effusion -Left bundle-branch block -AICD -BPH -History of arrhythmia type unknown patient is on amiodarone. -History of Right lower lobe lobectomy, biopsy showing adenocarcinoma.-Early-stage not requiring any chemoradiation treatment. Recent workup and Dr. Eldridge during hospitalization did not show any progression of the same. -generalized anxiety disorder -Chronic insomnia -Chronic located right pleural effusion Plan: Patient did receive this morning because of IV Lasix. Expect the creatinine to go further. Hold off further doses of Lasix today. Give gentle hydration today. Repeat creatinine in the morning and depending on clinical status with the side. May be noted that patient's right pleural effusion is primarily loculated. Discussed with the patient.
[2019-12-15] MEDS: ATORVASTATIN 40 MG TAB PO SCH (20:36)
[2019-12-16] MEDS: LEVOTHYROXINE 25 MCG TAB PO SCH (05:47)
[2019-12-16] MEDS: PANTOPRAZOLE 40 MG TABLET PO SCH (05:47)
[2019-12-16 06:01] LABS: Potassium 5.3 mmol/L (3.5-5.1)
[2019-12-16] MEDS: IPRATROPIUM-ALBUTEROL 3 ML NEB INHALATION SCH ×4 (07:54→20:13)
[2019-12-16] MEDS: SYMBICORT 160-4.5 MCG INHALER INHALATION SCH ×2 (07:54→20:13)
[2019-12-16] MEDS: METOPROLOL TARTRATE 12.5 MG TAB PO SCH ×2 (08:04→20:48)
[2019-12-16] MEDS: ENOXAPARIN 40 MG/0.4 ML SYRINGE SQ SCH (08:04)
[2019-12-16] MEDS: ASPIRIN 81 MG PO SCH (08:04)
[2019-12-16] MEDS ORDERED: SODIUM CHLORIDE 0.9% 500 ML 500 ML IV ONE (08:25)
[2019-12-16] MEDS ORDERED: FUROSEMIDE 10 MG/ML 4 ML VIAL IV SCH (09:00)
[2019-12-16] MEDS: DOBUTamine DRIP 500 MG in DEXTROSE/WATER 1 250ML.BAG IV SCH (09:07)
[2019-12-16 09:22] LABS: Albumin 3.2 g/dL (3.5-5.0); Calcium 8.8 mg/dL (8.4-10.2); Potassium 4.9 mmol/L (3.5-5.1); Total Protein 5.8 g/dL (6.3-8.2)
[2019-12-16] MEDS ORDERED: FLUCONAZOLE 100 MG TAB PO ONE (12:22)
--- NOTE | 2019-12-16 13:31 | P.PN ---
Subjective This is Zuri Loo PA-C scribing on behalf of Dr. Hurst The patient was interviewed and examined by Dr. Hurst HPI/interval history Patient is a 69-year-old male with a history of severe cardiomyopathy status post AICD, right-sided lung neoplasm status post resection, chronic systolic heart failure, COPD who presents with complaints of shortness of breath. He was admitted for treatment of CHF exacerbation. Yesterday he was started on Lasix however he has been hypotensive and his BUN and creatinine are rising. Patient seen and examined by Dr. Hurst in follow-up. His breathing has improved somewhat . He remained short of breath. EXAMINATION She was afebrile, pulse in the 80s, respirations 18, blood pressure 88/55, oxyge n saturation 95% on 4 L nasal cannula Patient is in no acute distress Lung exam reveal diminished breath sounds on the right, few scattered crackles on the left Heart is regular, soft systolic murmur Mild 1+ edema of the lower extremities bilaterally REVIEW OF LABS, ECG Sodium 129, potassium 4.9, BUN 44, creatinine 1.44, AST 728, ALT 673 Echocardiogram shows LV severely dilated, EF less than 20%, heart to severe MR IMPRESSION / ASSESSMENT: #1 shortness of breath secondary to combination of acute on chronic systolic congestive heart failure #2 known severe cardiomyopathy status post ICD, EF less than 20% #3 borderline abnormal troponins, flat, likely secondary to above #4 valvular heart disease, severe central MR mild likely secondary to LV dilation #5 COPD #6 lung carcinoma status post resection #7 hyperkalemia resolved #8 chronic right-sided pleural effusion, stable #9 acute kidney injury #10 elevated liver enzymes PLAN: Dr. Hurst spoke with Dr. Perez oncology, he would like a CT of the abdomen and pelvis with contrast to assess for signs of metastases Start dobutamine drip and gentle fluids Planning for venogram today, considering upgrading to a bi-V ICD for [employer] for treatment of heart failure symptoms as well as to help with his mitral regurgitation Objective - Vital Signs Vital signs: Vital Signs Temp 97.3 F L 12/16/19 11:43 Pulse 81 12/16/19 11:43 Resp 18 12/16/19 11:43 BP 88/55 12/16/19 11:43 Pulse Ox 95 12/16/19 11:43 Intake & Output 12/15/19 12/16/19 12/16/19 18:59 06:59 18:59 Intake Total 360 Output Total 500 200 200 Balance -140 -200 -200 Weight 49.6 kg 50.4 kg 50.4 kg Intake: Oral 360 Output: Urine 500 200 200 Stool 0 Other: Voiding Method Toilet # Bowel Movements 1 - Labs CBC & Chem 7: 12/13/19 14:00 12/16/19 08:53 Labs: Abnormal Lab Results - Last 24 Hours (Table) 12/16/19 12/16/19 Range/Units 05:39 08:53 Sodium 128 L 129 L (137-145) mmol/L Potassium 5.3 H (3.5-5.1) mmol/L Chloride 92 L 93 L (98-107) mmol/L BUN 44 H 44 H (9-20) mg/dL Creatinine 1.48 H 1.44 H (0.66-1.25) mg/dL Total Bilirubin 2.0 H (0.2-1.3) mg/dL AST 728 H (17-59) U/L ALT 673 H (4-49) U/L Alkaline Phosphatase 136 H (38-126) U/L Total Protein 5.8 L (6.3-8.2) g/dL Albumin 3.2 L (3.5-5.0) g/dL
--- NOTE | 2019-12-16 14:39 | P.PN ---
Subjective Progress Note Date: 12/16/19 Principal diagnosis: Right-sided pleural effusion overall stable Pericardial effusion, Acute on chronic systolic heart failure History of lung cancer status post right lower lobe resection doing well in that regard 12/16/2019, patient seen and evaluated examined during the rounds labs reviewed medications reviewed care plan discussed, shortness of breath still present patient is being evaluated for AICD placement by EP service, 12/15/2019, patient seen eval examined during the rounds Z reviewed medications reviewed care plan discussed, denies any chest pain sleeping comfortably anxiety is better, echocardiogram failed to reveal any significant pericardial effusion mild to moderate chronic pleural effusion is present which is not much change, hemodynamically stable and afebrile oxygen saturation 100% on 4 L, This is a 69-year-old male who was seen eval reexamined patient has a history of congestive heart failure ejection fraction is only 15%, he has AICD, patient has chronic right-sided small pleural effusion which is a residual after resection of right lower lobe, due to progressive shortness of breath and decided to come into the hospital also have problems associated with pericardial effusion in the past, chest x-ray however essentially remains stable BNP is over 9000 Objective - Vital Signs Vital signs: Vital Signs Temp 97.3 F L 12/16/19 11:43 Pulse 81 12/16/19 11:43 Resp 18 12/16/19 11:43 BP 88/55 12/16/19 11:43 Pulse Ox 95 12/16/19 11:43 Intake & Output 12/15/19 12/16/19 12/16/19 18:59 06:59 18:59 Intake Total 360 Output Total 500 200 200 Balance -140 -200 -200 Weight 49.6 kg 50.4 kg 50.4 kg Intake: Oral 360 Output: Urine 500 200 200 Stool 0 Other: Voiding Method Toilet # Bowel Movements 1 - Exam - Constitutional General appearance: average body habitus, disheveled, mild distress - EENT Eyes: EOMI, PERRLA - Neck Neck clean up to angle of jaw Carotids: bilateral: upstroke normal Thyroid: bilateral: normal size - Respiratory Respiratory: bilateral: diminished - Cardiovascular Rhythm: regular Heart sounds: normal: S1, S2 - Gastrointestinal General gastrointestinal: normal bowel sounds - Integumentary Integumentary: normal turgor - Neurologic Neurologic: CNII-XII intact - Musculoskeletal Musculoskeletal: gait normal, generalized weakness, strength equal bilaterally - Psychiatric Psychiatric: A&O x's 3, appropriate affect, intact judgment & insight - Labs CBC & Chem 7: 12/13/19 14:00 12/16/19 08:53 Labs: Abnormal Lab Results - Last 24 Hours (Table) 12/16/19 12/16/19 Range/Units 05:39 08:53 Sodium 128 L 129 L (137-145) mmol/L Potassium 5.3 H (3.5-5.1) mmol/L Chloride 92 L 93 L (98-107) mmol/L BUN 44 H 44 H (9-20) mg/dL Creatinine 1.48 H 1.44 H (0.66-1.25) mg/dL Total Bilirubin 2.0 H (0.2-1.3) mg/dL AST 728 H (17-59) U/L ALT 673 H (4-49) U/L Alkaline Phosphatase 136 H (38-126) U/L Total Protein 5.8 L (6.3-8.2) g/dL Albumin 3.2 L (3.5-5.0) g/dL Assessment and Plan Assessment: Right-sided pleural effusion overall stable chronic Acute on chronic systolic heart failure History of lung cancer status post right lower lobe resection doing well in that regard Generalized anxiety disorder Plan: Patient is being evaluated for AICD secondary placement by EP service Continue gentle diuresis Continue breathing treatments Reviewed echocardiogram continue supportive care family is leaning towards hospice if AICD secondary cannot be placed Time with Patient: Greater than 30
[2019-12-16] MEDS ORDERED: IOPAMIDOL-370 50ML BTL INJ ONE (14:56)
--- NOTE | 2019-12-16 15:15 | P.PCN ---
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
--- NOTE | 2019-12-16 15:56 | CT ---
EXAMINATION TYPE: CT abdomen pelvis w con DATE OF EXAM: 12/16/2019 COMPARISON: CT chest 11/30/2019 HISTORY: Assess for mets, history of lung ca. CT DLP: 644.3 mGycm Automated exposure control for dose reduction was used. TECHNIQUE: Helical acquisition of images from the lung bases through the pelvis have been completed. CONTRAST: Performed with Oral Contrast and with IV Contrast, patient injected with 80 mL of Isovue 300. FINDINGS: LUNG BASES: Loculated effusion is present at the right lung base, pleural effusion also present on th e left is smaller. The heart is enlarged. There are leads present in the right atrium and ventricle. Left atrium is dilated as is the left ventricle.. AORTA: No significant abnormality is appreciated. LIVER/GB: Dependent high attenuation in the gallbladder may be due to vicarious excretion of contrast or tumefactive sludge. Liver shows no mass. PANCREAS: No significant abnormality is seen. SPLEEN: No significant abnormality is seen. ADRENALS: No significant abnormality is seen. KIDNEYS: No significant abnormality is seen. Some minimal perinephric fluid is noted on the right. REPRODUCTIVE ORGANS: Prostate is mildly enlarged. BOWEL: No significant abnormality is seen. FREE AIR: No Free Air visible. ASCITES: No significant ascites, minimal fluid present along areas of the mesentery. PELVIC ADENOPATHY: None visualized. RETROPERITONEAL ADENOPATHY: No Retroperitoneal Adenopathy visible. URINARY BLADDER: Probable Hutch diverticulum noted posterior lateral aspect of the urinary bladder o n the left.1 urinary bladder is distended. OSSEOUS STRUCTURES: Spine shows a spinal curvature, degenerative disc change present. IMPRESSION: METASTATIC DISEASE IS NOT EVIDENT. ADDITIONAL FINDINGS ABOVE.
--- NOTE | 2019-12-16 16:19 | P.PN ---
Progress Note - Text Progress Note Date: 12/16/19 History of presenting complaint This is a 69-year-old patient of Dr. Salazar. Chronic stable medical conditions include (left bundle branch block, AICD, BPH, right lung- lower lobe lobectomy. Patient stopped smoking in August 2019. 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 Patient has chronic loculated right-sided pneumonia. Admitted 3 weeks ago with with-acute CHF exacerbation, EF less than 15% and acute non-Q-wave IN. Again admitted with CHF exacerbation. Started on IV Lasix.patient went into acute kidney injury. Lasix is discontinued. Gentle hydration started. Today-poor appetite. On gentle hydration. Mouth is a bit sore. Tired Review of systems: Was done for constitutional, cardiovascular, GI, pulmonary. relevant finding as above Active Medications Acetaminophen (Tylenol Tab) 1,000 mg PO Q6H PRN PRN Reason: Pain Albuterol Sulfate (Ventolin Nebulized) 2.5 mg INHALATION RT-Q4H PRN PRN Reason: Shortness Of Breath Albuterol/Ipratropium (Duoneb 0.5 Mg-3 Mg/3 Ml Soln) 3 ml INHALATION RT-QID PRN PRN Reason: Shortness Of Breath Last Admin: 12/14/19 11:44 Dose: 3 ml Documented by: Albuterol/Ipratropium (Duoneb 0.5 Mg-3 Mg/3 Ml Soln) 3 ml INHALATION RT-QID [facility] Last Admin: 12/16/19 15:23 Dose: Not Given Documented by: Alprazolam (Xanax) 0.25 mg PO BID PRN PRN Reason: Anxiety Last Admin: 12/15/19 20:36 Dose: 0.25 mg Documented by: Aspirin (Aspirin) 81 mg PO DAILY [facility] Last Admin: 12/16/19 08:04 Dose: 81 mg Documented by: Atorvastatin Calcium (Lipitor) 40 mg PO HS [facility] Last Admin: 12/15/19 20:36 Dose: 40 mg Documented by: Budesonide/Formoterol Fumarate (Symbicort 160-4.5 Mcg Inhaler) 2 puff INHALATION RT-BID [facility] Last Admin: 12/16/19 07:54 Dose: Not Given Documented by: Dronabinol (Marinol) 2.5 mg PO AC-BID PRN PRN Reason: APETITE/NAUSEA Enoxaparin Sodium (Lovenox) 40 mg SQ DAILY [facility] Last Admin: 12/16/19 08:04 Dose: 40 mg Documented by: Fluconazole (Diflucan) 100 mg PO DAILY [facility] Cefazolin Sodium 2 gm/ Sodium (Chloride) 50 mls @ 100 mls/hr IVPB ONCE ONE Stop: 12/19/19 12:29 Cefazolin Sodium 1,000 mg/ (Sodium Chloride) 250 mls @ 500 mls/hr IRRIGATION ONCE ONE Stop: 12/19/19 12:29 Dobutamine HCl/Dextrose 500 mg (/ IV Solution) 250 mls @ 3.78 mls/hr IV .Q24H [facility] Last Admin: 12/16/19 09:07 Dose: 2.5 mcg/kg/min, 3.78 mls/hr Documented by: Levothyroxine Sodium (Synthroid) 25 mcg PO 0630 [facility] Last Admin: 12/16/19 05:47 Dose: Not Given Documented by: Metoprolol Tartrate (Lopressor) 12.5 mg PO BID [facility] Last Admin: 12/16/19 08:04 Dose: 12.5 mg Documented by: Pantoprazole Sodium (Protonix) 40 mg PO AC-BRKFST [facility] Last Admin: 12/16/19 05:47 Dose: Not Given Documented by: Physical examination: VITAL: 97.3, 81, 18, 80-55, 95% on 4 L GENERAL: Sitting upon a chair, awake EYES: Pupils equal. Conjunctiva normal. HEENT: External appearance of nose and ears normal, oral cavity -white patches NECK: JVD unable to assess; masses not palpable. HEART: First and second heart sounds are normal; no edema. LUNGS: Respiratory rate increased, diminished breath sounds ABDOMEN: Soft, nontender, liver spleen not palpable, no masses palpable. PSYCH: AO 3, motor affect slightly anxious INVESTIGATIONS, reviewed in the clinical context: sodium 129 potassium 4.9 bun 44 creatinine 1.44 AST 728 ALT 673 albumin 3.2 Previous testing: White count 8.3 hemoglobin 13.1 INR 1.3 progression 3.6 creatinine 0.82 Troponin I 0.057, proBNP 9030 lactic acid 2.6 2-D co-EF less than 20% Assessment: -Acute on chronic congestive heart exacerbation from systolic dysfunction EF less than 15%, POA, stabilized -Acute kidney injury, prerenal crit has gone from 0.8 up to 1.46, from diuresis- slow to respond -Oropharyngeal candidiasis causing odynophagia -COPD exacerbation in an ex-smoker -On November 21-acute non-Q-wave IN, -Moderate mitral and, moderate tricuspid regurgitation, nontraumatic -Severe secondary pulmonary hypertension -Chronic loculated right-sided effusion -Left bundle-branch block -AICD -BPH -History of arrhythmia type unknown patient is on amiodarone. -History of Right lower lobe lobectomy, biopsy showing adenocarcinoma.-Early-stage not requiring any chemoradiation treatment. Recent workup and Dr. Eldridge during hospitalization did not show any progression of the same. -generalized anxiety disorder -Chronic insomnia -Chronic located right pleural effusion -Hyponatremia from diuresis -Acute ischemic hepatitis-new diagnosis Plan: Will discontinue patient's Tylenol and Lipitor. Patient was hydrated overnight. Started on a dobutamine drip. By cardiology. Start the patient on Diflucan. Nystatin swish and swallow.also underwent lap upper extremity venogram by Dr. Hurst.-He is contemplating biventricular pacing. Advanced care planning: I met this afternoon with the patient his and also son had him on the phone. Had a lengthy discussion with overall patient's medical problems. Patient is understandable that patient's prognosis guarded. But patient still functional. Hopefully with Diflucan he shouldn't eat a bit better. We'll also await final determination by Dr. Lopez and to see if biventricular pacing he will help improve his quality of life. Even though palliative. At this point hospice not decided.. Will depend upon on next couple of days how things go. Several questions were answered. About 30 minutes was spent with this.
[2019-12-16] MEDS: ALPRAZolam 0.25 MG TAB PO PRN (20:51)
[2019-12-17] MEDS: LEVOTHYROXINE 25 MCG TAB PO SCH (06:37)
[2019-12-17] MEDS: PANTOPRAZOLE 40 MG TABLET PO SCH (06:37)
[2019-12-17] MEDS: LACTATED RINGERS 1,000 ML IV SCH (06:49)
[2019-12-17 07:21] LABS: ALT 491 U/L (4-49); AST 415 U/L (17-59); African American GFR (CKD) >90 (>60 ml/min/1.73 sqM); Albumin 2.6 g/dL (3.5-5.0); Alkaline Phosphatase 118 U/L (38-126); Anion Gap 5 mmol/L; Blood Urea Nitrogen 27 mg/dL (9-20); Calcium 8.2 mg/dL (8.4-10.2); Carbon Dioxide 30 mmol/L (22-30); Chloride 96 mmol/L (98-107); Glucose 63 mg/dL (74-99); Non-African American GFR(CKD) 87 (>60 ml/min/1.73 sqM); Potassium 4.5 mmol/L (3.5-5.1); Sodium 131 mmol/L (137-145); Total Bilirubin 1.2 mg/dL (0.2-1.3); Total Protein 5.1 g/dL (6.3-8.2)
[2019-12-17] MEDS: SYMBICORT 160-4.5 MCG INHALER INHALATION SCH ×3 (08:06→19:26)
[2019-12-17] MEDS: IPRATROPIUM-ALBUTEROL 3 ML NEB INHALATION SCH ×4 (08:06→19:24)
[2019-12-17] MEDS: DOBUTamine DRIP 500 MG in DEXTROSE/WATER 1 250ML.BAG IV SCH (08:50)
[2019-12-17] MEDS: ENOXAPARIN 40 MG/0.4 ML SYRINGE SQ SCH (08:51)
[2019-12-17] MEDS: ASPIRIN 81 MG PO SCH (08:51)
[2019-12-17] MEDS: METOPROLOL TARTRATE 12.5 MG TAB PO SCH ×2 (08:52→20:59)
[2019-12-17] MEDS: FLUCONAZOLE 100 MG TAB PO SCH (08:52)
--- NOTE | 2019-12-17 09:54 | P.PN ---
Subjective This is a pleasant 69-year-old male past medical history significant for severe cardiomyopathy status post AICD, right lung neoplasm status post resection, chronic diastolic heart failure, COPD and valvular heart disease. He follows my office with Dr. Waters. He is currently maintained on dobutamine infusion. He underwent a venogram yesterday with Dr. Hurst revealing occluded left subclavian at 2 separate sites with collateral flow. He plans to attempt ICD upgrade via the subclavian vein centrally. This is scheduled tentatively for Thursday. And examined sitting up in bed. He states he did not have a good night. He complains of ongoing shortness of breath, weakness, poor appetite and feeling cold all over. CT of the abdomen and pelvis was negative for metastasis. Blood pressure 95/53 heart rate 77 afebrile maintaining oxygen saturation on nasal cannula. Laboratory data reviewed, sodium 131, potassium 4.5, creatinine 0.88, AST 415, ALT 491. In the previous 24 hours he has put out 1300 mL of urine. GENERAL: In no acute distress. NECK: Supple without JVD or thyromegaly. LUNGS: Diminished bilaterally, bibasilar rales. No rhonchi. Respiration equal and unlabored. HEART: Regular rate and rhythm with systolic ejection murmur at the left sternal border, no rubs or gallops. S1 and S2 heard. EXTREMITIES: Normal range of motion, bilateral lower extremity edema non- pitting. No clubbing or cyanosis. Peripheral pulses intact. ASSESSMENT Acute on chronic systolic heart failure Severe cardiomyopathy status post AICD Abnormal troponins, flat secondary to exacerbation of heart failure Valvular heart disease COPD Lung cancer status post resection Chronic right-sided pleural effusion Transaminitis this Acute kidney injury PLAN Continue current medical regimen. NPO after midnight Thursday for upgrade with Dr. Hurst. Nurse Practitioner note has been reviewed, I agree with a documented findings and plan of care. Patient was seen and examined. Objective - Vital Signs Vital signs: Vital Signs Temp 97.7 F 12/17/19 08:00 Pulse 77 12/17/19 08:00 Resp 18 12/17/19 08:00 BP 95/53 12/17/19 08:00 Pulse Ox 98 12/17/19 08:00 Intake & Output 12/16/19 12/17/19 12/17/19 18:59 06:59 18:59 Intake Total 89.649 Output Total 200 1100 Balance -200 -1100 89.649 Weight 50.4 kg 111.9 kg Intake: Intake, IV Titration 89.649 Amount DOBUTamine DRIP 500 mg In 89.649 Dextrose/Water 1 250ml. bag @ 2.5 MCG/KG/MIN 3.78 mls/hr IV .Q24H [facility] Rx#: [id number] Output: Urine 200 1100 Stool 0 0 Other: Voiding Method Toilet Toilet # Voids 1 - Labs CBC & Chem 7: 12/13/19 14:00 12/17/19 06:33 Labs: Abnormal Lab Results - Last 24 Hours (Table) 12/17/19 Range/Units 06:33 Sodium 131 L (137-145) mmol/L Chloride 96 L (98-107) mmol/L BUN 27 H (9-20) mg/dL Glucose 63 L (74-99) mg/dL Calcium 8.2 L (8.4-10.2) mg/dL AST 415 H (17-59) U/L ALT 491 H (4-49) U/L Total Protein 5.1 L (6.3-8.2) g/dL Albumin 2.6 L (3.5-5.0) g/dL
[2019-12-17 12:06] LABS: Glucose,Whole Blood 108 mg/dL (75-99)
[2019-12-17] MEDS: ALPRAZolam 0.25 MG TAB PO PRN ×2 (12:57→23:37)
--- NOTE | 2019-12-17 14:04 | P.PN ---
Subjective Progress Note Date: 12/17/19 Principal diagnosis: Right-sided pleural effusion overall stable Pericardial effusion, Acute on chronic systolic heart failure History of lung cancer status post right lower lobe resection doing well in that regard 12/27/2019, patient seen eval examined during the rounds labs reviewed medications reviewed care plan discussed, patient has been scheduled for biventricular pacing on Thursday respiratory status remains marginal stable, denies any cough ongoing shortness of breath 12/16/2019, patient seen and evaluated examined during the rounds labs reviewed medications reviewed care plan discussed, shortness of breath still present patient is being evaluated for AICD placement by EP service, 12/15/2019, patient seen eval examined during the rounds Z reviewed medications reviewed care plan discussed, denies any chest pain sleeping comfortably anxiety is better, echocardiogram failed to reveal any significant pericardial effusion mild to moderate chronic pleural effusion is present which is not much change, hemodynamically stable and afebrile oxygen saturation 100% on 4 L, This is a 69-year-old male who was seen eval reexamined patient has a history of congestive heart failure ejection fraction is only 15%, he has AICD, patient has chronic right-sided small pleural effusion which is a residual after resection of right lower lobe, due to progressive shortness of breath and decided to come into the hospital also have problems associated with pericardial effusion in the past, chest x-ray however essentially remains stable BNP is over 9000 Objective - Vital Signs Vital signs: Vital Signs Temp 97.9 F 12/17/19 12:00 Pulse 79 12/17/19 12:00 Resp 18 12/17/19 12:00 BP 88/62 12/17/19 12:00 Pulse Ox 96 12/17/19 12:00 Intake & Output 12/16/19 12/17/19 12/17/19 18:59 06:59 18:59 Intake Total 569.649 Output Total 200 1100 Balance -200 -1100 569.649 Weight 50.4 kg 111.9 kg Intake: Intake, IV Titration 89.649 Amount DOBUTamine DRIP 500 mg In 89.649 Dextrose/Water 1 250ml. bag @ 2.5 MCG/KG/MIN 3.78 mls/hr IV .Q24H [facility] Rx#: [id number] Oral 480 Output: Urine 200 1100 Stool 0 0 Other: Voiding Method Toilet Toilet Toilet Urinal # Voids 1 - Exam - Constitutional General appearance: average body habitus, disheveled, mild distress - EENT Eyes: EOMI, PERRLA - Neck Neck clean up to angle of jaw Carotids: bilateral: upstroke normal Thyroid: bilateral: normal size - Respiratory Respiratory: bilateral: diminished - Cardiovascular Rhythm: regular Heart sounds: normal: S1, S2 - Gastrointestinal General gastrointestinal: normal bowel sounds - Integumentary Integumentary: normal turgor - Neurologic Neurologic: CNII-XII intact - Musculoskeletal Musculoskeletal: gait normal, generalized weakness, strength equal bilaterally - Psychiatric Psychiatric: A&O x's 3, appropriate affect, intact judgment & insight - Labs CBC & Chem 7: 12/13/19 14:00 12/17/19 06:33 Labs: Abnormal Lab Results - Last 24 Hours (Table) 12/17/19 12/17/19 Range/Units 06:33 12:05 Sodium 131 L (137-145) mmol/L Chloride 96 L (98-107) mmol/L BUN 27 H (9-20) mg/dL Glucose 63 L (74-99) mg/dL POC Glucose (mg/dL) 108 H (75-99) mg/dL Calcium 8.2 L (8.4-10.2) mg/dL AST 415 H (17-59) U/L ALT 491 H (4-49) U/L Total Protein 5.1 L (6.3-8.2) g/dL Albumin 2.6 L (3.5-5.0) g/dL Assessment and Plan Assessment: Right-sided pleural effusion overall stable chronic Acute on chronic systolic heart failure History of lung cancer status post right lower lobe resection doing well in that regard Generalized anxiety disorder Plan: Patient is being evaluated for biventricular pacing Continue gentle diuresis Continue breathing treatments Reviewed echocardiogram continue supportive care family is leaning towards hospice if AICD secondary cannot be placed Time with Patient: Greater than 30
[2019-12-18] MEDS: PANTOPRAZOLE 40 MG TABLET PO SCH (06:32)
[2019-12-18] MEDS: LEVOTHYROXINE 25 MCG TAB PO SCH (06:32)
[2019-12-18] MEDS: LACTATED RINGERS 1,000 ML IV SCH ×2 (06:36→18:28)
[2019-12-18] MEDS: IPRATROPIUM-ALBUTEROL 3 ML NEB INHALATION SCH ×4 (07:18→19:58)
[2019-12-18] MEDS: SYMBICORT 160-4.5 MCG INHALER INHALATION SCH ×2 (07:19→19:58)
[2019-12-18] MEDS: METOPROLOL TARTRATE 12.5 MG TAB PO SCH ×2 (08:25→21:08)
[2019-12-18] MEDS: ASPIRIN 81 MG PO SCH (08:25)
[2019-12-18] MEDS: FLUCONAZOLE 100 MG TAB PO SCH (08:25)
[2019-12-18] MEDS: ENOXAPARIN 40 MG/0.4 ML SYRINGE SQ SCH (08:26)
[2019-12-18] MEDS ORDERED: FUROSEMIDE 10 MG/ML 4 ML VIAL IV STA (09:20)
--- NOTE | 2019-12-18 09:23 | P.PN ---
Subjective This is a pleasant 69-year-old male past medical history significant for severe cardiomyopathy status post AICD, right lung neoplasm status post resection, chronic diastolic heart failure, COPD and valvular heart disease. He follows my office with Dr. Waters. He is seen and examined sitting up in bed. He continues to feel significant shortness of breath with no real improvement. He denies chest pain, dizziness or palpitations. Currently maintained on dobutamine infusion, aspirin 81 mg daily and metoprolol 12.5 mg twice a day. Blood pressure 97/65 heart rate 99 afebrile maintaining oxygen saturation on nasal cannula. Laboratory data pending. GENERAL: In no acute distress. NECK: Supple without JVD or thyromegaly. LUNGS: Diminished bilaterally, diffuse rales and scattered rhonchi. Respiration equal and mildly labored. HEART: Regular rate and rhythm with systolic ejection murmur at the left sternal border, no rubs or gallops. S1 and S2 heard. EXTREMITIES: Normal range of motion, bilateral lower extremity edema non-pitti ng. No clubbing or cyanosis. Peripheral pulses intact. ASSESSMENT Acute on chronic systolic heart failure Severe cardiomyopathy status post AICD Abnormal troponins, flat secondary to exacerbation of heart failure Valvular heart disease COPD Lung cancer status post resection Chronic right-sided pleural effusion Transaminitis this Acute kidney injury PLAN Give one dose of IV lasix 40 mg now. Repeat BMP daily. NPO after midnight for BiV upgrade with Dr. Hurst. Nurse Practitioner note has been reviewed, I agree with a documented findings and plan of care. Patient was seen and examined. Objective - Vital Signs Vital signs: Vital Signs Temp 97.4 F L 12/18/19 03:15 Pulse 99 12/18/19 04:46 Resp 20 12/18/19 03:15 BP 97/65 12/18/19 03:15 Pulse Ox 97 12/18/19 03:15 Intake & Output 12/17/19 12/18/19 12/18/19 18:59 06:59 18:59 Intake Total 999.649 Output Total 400 200 Balance 599.649 -200 Weight 52.3 kg Intake: IV 30 DOBUTamine DRIP 500 mg In 30 Dextrose/Water 1 250ml. bag @ 2.5 MCG/KG/MIN 3.78 mls/hr IV .Q24H [facility] Rx#: [id number] Intake, IV Titration 249.649 Amount DOBUTamine DRIP 500 mg In 89.649 Dextrose/Water 1 250ml. bag @ 2.5 MCG/KG/MIN 3.78 mls/hr IV .Q24H [facility] Rx#: [id number] Lactated Ringers 1,000 ml 160 @ 20 mls/hr IV .Q24H [facility] Rx#:[id number] Oral 720 Output: Urine 400 200 Stool 0 Other: Voiding Method Toilet Bedside Commode Urinal Urinal # Voids 2 1 - Labs CBC & Chem 7: 12/13/19 14:00 12/17/19 06:33 Labs: Abnormal Lab Results - Last 24 Hours (Table) 12/17/19 Range/Units 12:05 POC Glucose (mg/dL) 108 H (75-99) mg/dL
[2019-12-18 09:40] LABS: African American GFR (CKD) >90 (>60 ml/min/1.73 sqM); Anion Gap 10 mmol/L; Blood Urea Nitrogen 19 mg/dL (9-20); Calcium 8.6 mg/dL (8.4-10.2); Carbon Dioxide 26 mmol/L (22-30); Chloride 89 mmol/L (98-107); Glucose 125 mg/dL (74-99); Non-African American GFR(CKD) >90 (>60 ml/min/1.73 sqM); Potassium 4.8 mmol/L (3.5-5.1); Sodium 125 mmol/L (137-145)
[2019-12-18] MEDS ORDERED: POLYETHYLENE GLYCOL 3350 17 GM POWD.PACK PO STA (12:12)
[2019-12-18] MEDS: ALPRAZolam 0.25 MG TAB PO PRN ×2 (12:37→23:15)
[2019-12-18] MEDS: DOBUTamine DRIP 500 MG in DEXTROSE/WATER 1 250ML.BAG IV SCH ×2 (16:52→22:58)
[2019-12-18 22:09] VITALS: RESP 16
--- NOTE | 2019-12-18 22:50 | P.PN ---
Subjective Progress Note Date: 12/17/19 Principal diagnosis: Acute on chronic CHF with systolic dysfunction This is a 69-year-old patient of Dr. Salazar. Chronic stable medical conditions include (left bundle branch block, AICD, BPH, right lung- lower lobe lobectomy. Patient stopped smoking in August 2019. 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 Patient has chronic loculated right-sided pneumonia. Admitted 3 weeks ago with with-acute CHF exacerbation, EF less than 15% and acute non-Q-wave MS. Again admitted with CHF exacerbation. Started on IV Lasix.patient went into acute kidney injury. Lasix is discontinued. Gentle hydration started. 12/17/2019 Patient is currently lying in the bed and seems to be very tired and lethargic. Patient is still hypotensive and is maintained on dobutamine drip. Lasix on hold otherwise renal function is improved. Sodium 131. Cardiology is planning for biventricular pacemaker placement on Thursday. Patient does have decreased oral intake. Was also started on Marinol. No complaints of nausea or vomiting. No worsening leg swelling. Current medications reviewed. Objective - Vital Signs Vital signs: Vital Signs Temp 97.7 F 12/17/19 08:00 Pulse 77 12/17/19 08:00 Resp 18 12/17/19 08:00 BP 95/53 12/17/19 08:00 Pulse Ox 98 12/17/19 08:00 Intake & Output 12/16/19 12/17/19 12/17/19 18:59 06:59 18:59 Intake Total 89.649 Output Total 200 1100 Balance -200 -1100 89.649 Weight 50.4 kg 111.9 kg Intake: Intake, IV Titration 89.649 Amount DOBUTamine DRIP 500 mg In 89.649 Dextrose/Water 1 250ml. bag @ 2.5 MCG/KG/MIN 3.78 mls/hr IV .Q24H [facility] Rx#: [id number] Output: Urine 200 1100 Stool 0 0 Other: Voiding Method Toilet Toilet Toilet # Voids 1 - Exam GENERAL: Sitting upon a chair, awake EYES: Pupils equal. Conjunctiva normal. HEENT: External appearance of nose and ears normal, oral cavity -white patches NECK: JVD unable to assess; masses not palpable. HEART: First and second heart sounds are normal; no edema. LUNGS: Respiratory rate increased, diminished breath sounds ABDOMEN: Soft, nontender, liver spleen not palpable, no masses palpable. PSYCH: AO 3, motor affect slightly anxious - Labs CBC & Chem 7: 12/13/19 14:00 12/18/19 09:08 Labs: Abnormal Lab Results - Last 24 Hours (Table) 12/17/19 Range/Units 06:33 Sodium 131 L (137-145) mmol/L Chloride 96 L (98-107) mmol/L BUN 27 H (9-20) mg/dL Glucose 63 L (74-99) mg/dL Calcium 8.2 L (8.4-10.2) mg/dL AST 415 H (17-59) U/L ALT 491 H (4-49) U/L Total Protein 5.1 L (6.3-8.2) g/dL Albumin 2.6 L (3.5-5.0) g/dL Assessment and Plan Assessment: Assessment: -Acute on chronic congestive heart exacerbation from systolic dysfunction EF less than 15%, POA, stabilized -Acute kidney injury, prerenal crit has gone from 0.8 up to 1.46, from diuresis- slow to respond -Oropharyngeal candidiasis causing odynophagia -COPD exacerbation in an ex-smoker -On November 21-acute non-Q-wave MS, -Moderate mitral and, moderate tricuspid regurgitation, nontraumatic -Severe secondary pulmonary hypertension -Chronic loculated right-sided effusion -Left bundle-branch block -AICD -BPH -History of arrhythmia type unknown patient is on amiodarone. -History of Right lower lobe lobectomy, biopsy showing adenocarcinoma.-Early-stage not requiring any chemoradiation treatment. Recent workup and Dr. Eldridge during hospitalization did not show any progression of the same. -generalized anxiety disorder -Chronic insomnia -Chronic located right pleural effusion -Hyponatremia from diuresis -Acute ischemic hepatitis-new diagnosis Plan: Continue with telemetry monitoring. Patient was hydrated overnight. Lasix is on hold. Continue on a dobutamine drip. Blood pressure is stable. Being followed by cardiology. Patient was started on Diflucan for possible thrush. Nystatin swish and swallow.also underwent lap upper extremity venogram by Dr. Hurst.-He is contemplating biventricular pacing. Time with Patient: Greater than 30
--- NOTE | 2019-12-18 22:54 | P.PN ---
Subjective Progress Note Date: 12/18/19 Principal diagnosis: Acute on chronic CHF with systolic dysfunction This is a 69-year-old patient of Dr. Salazar. Chronic stable medical conditions include (left bundle branch block, AICD, BPH, right lung- lower lobe lobectomy. Patient stopped smoking in August 2019. 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 Patient has chronic loculated right-sided pneumonia. Admitted 3 weeks ago with with-acute CHF exacerbation, EF less than 15% and acute non-Q-wave NH. Again admitted with CHF exacerbation. Started on IV Lasix.patient went into acute kidney injury. Lasix is discontinued. Gentle hydration started. 12/17/2019 Patient is currently lying in the bed and seems to be very tired and lethargic. Patient is still hypotensive and is maintained on dobutamine drip. Lasix on hold otherwise renal function is improved. Sodium 131. Cardiology is planning for biventricular pacemaker placement on Thursday. Patient does have decreased oral intake. Was also started on Marinol. No complaints of nausea or vomiting. No worsening leg swelling. 12/18/2019 Patient is currently lying in the bed. Still having shortness of breath with minimal exertion and also with conversation. Patient was given a dose of IV Lasix today. Continue on dobutamine drip. On low-dose beta bryant as well. Currently saturating well on 2 L oxygen via nasal cannula. Sodium level is at 125. Patient was instructed not to drink plain water and fluid restriction was placed. Repeat BMP tomorrow. Patient was also given a dose of MiraLAX due to constipation, last bowel movement 4 days ago. Cardiology is planning for biventricular pacemaker placement tomorrow. Patient has been afebrile. Able to tolerate right slowly. No nausea vomiting or diarrhea. No headache. No complaints of chest pain. Current medications reviewed. Objective - Vital Signs Vital signs: Vital Signs Temp 97.7 F 12/18/19 20:00 Pulse 60 12/18/19 20:00 Resp 16 12/18/19 20:00 BP 80/40 12/18/19 20:00 Pulse Ox 90 L 12/18/19 20:00 Intake & Output 12/18/19 12/18/19 12/19/19 06:59 18:59 06:59 Intake Total 150 Output Total 200 100 Balance -200 50 Weight 52.3 kg Intake: Oral 150 Output: Urine 200 100 Stool 0 Other: Voiding Method Bedside Commode Bedside Commode Bedside Commode Urinal Urinal Urinal # Voids 1 1 - Labs CBC & Chem 7: 12/13/19 14:00 12/18/19 09:08 Labs: Abnormal Lab Results - Last 24 Hours (Table) 12/18/19 Range/Units 09:08 Sodium 125 L (137-145) mmol/L Chloride 89 L (98-107) mmol/L Creatinine 0.65 L (0.66-1.25) mg/dL Glucose 125 H (74-99) mg/dL Assessment and Plan Assessment: Assessment: -Acute on chronic congestive heart exacerbation from systolic dysfunction EF less than 15%, POA, stabilized -Acute kidney injury, prerenal crit has gone from 0.8 up to 1.46, from diuresis- slow to respond. Improved now -Oropharyngeal candidiasis causing odynophagia -COPD exacerbation in an ex-smoker -Hyponatremia likely due to hypovolemia and also excessive free water intake. -On November 21-acute non-Q-wave NH, -Moderate mitral and, moderate tricuspid regurgitation, nontraumatic -Severe secondary pulmonary hypertension -Chronic loculated right-sided effusion -Left bundle-branch block -AICD -BPH -History of arrhythmia type unknown patient is on amiodarone. -History of Right lower lobe lobectomy, biopsy showing egne nocarcinoma.-Early-stage not requiring any chemoradiation treatment. Recent workup and Dr. Eldridge during hospitalization did not show any progression of the same. -generalized anxiety disorder -Chronic insomnia -Chronic located right pleural effusion -Hyponatremia from diuresis -Acute ischemic hepatitis-new diagnosis Plan: Continue with telemetry monitoring. Patient was given a dose of IV Lasix today. Restrict free water intake.. Continue on a dobutamine drip. Blood pressure is stable. Being followed by cardiology. Patient was started on Diflucan for possible thrush. Nystatin swish and swallow.also underwent lap upper extremity venogram by Dr. Hurst.-He is contemplating biventricular pacing. Time with Patient: Greater than 30
[2019-12-19] MEDS: PANTOPRAZOLE 40 MG TABLET PO SCH (06:24)
[2019-12-19] MEDS: LEVOTHYROXINE 25 MCG TAB PO SCH (06:24)
[2019-12-19] MEDS: IPRATROPIUM-ALBUTEROL 3 ML NEB INHALATION SCH ×2 (06:47→10:46)
[2019-12-19] MEDS: SYMBICORT 160-4.5 MCG INHALER INHALATION SCH (06:47)
[2019-12-19 07:34] LABS: African American GFR (CKD) >90 (>60 ml/min/1.73 sqM); Anion Gap 13 mmol/L; Blood Urea Nitrogen 23 mg/dL (9-20); Calcium 8.6 mg/dL (8.4-10.2); Carbon Dioxide 21 mmol/L (22-30); Chloride 92 mmol/L (98-107); Glucose 101 mg/dL (74-99); Non-African American GFR(CKD) >90 (>60 ml/min/1.73 sqM); Potassium 5.8 mmol/L (3.5-5.1); Sodium 126 mmol/L (137-145)
[2019-12-19 08:29] LABS: Anisocytosis Slight; Basophils % (A) 0 %; Eosinophils % (A) 0 %; HCT 40.7 % (39.0-53.0); HGB 13.1 gm/dL (13.0-17.5); Lymphocytes # (A) 0.8 k/uL (1.0-4.8); Lymphocytes % (A) 6 %; MCH 31.4 pg (25.0-35.0); MCHC 32.1 g/dL (31.0-37.0); MCV 97.7 fL (80.0-100.0); Macrocytosis Slight; Mean Platelet Volume 11.6; Monocytes # (A) 1.1 k/uL (0-1.0); Monocytes % (A) 9 %; Neutrophils # (A) 9.8 k/uL (1.3-7.7); Neutrophils % (A) 81 %; RBC 4.17 m/uL (4.30-5.90); RDW 17.8 % (11.5-15.5); WBC 12.1 k/uL (3.8-10.6)
[2019-12-19] MEDS: METOPROLOL TARTRATE 12.5 MG TAB PO SCH (08:43)
[2019-12-19] MEDS: ENOXAPARIN 40 MG/0.4 ML SYRINGE SQ SCH (08:43)
[2019-12-19] MEDS: ASPIRIN 81 MG PO SCH (08:43)
[2019-12-19] MEDS: FLUCONAZOLE 100 MG TAB PO SCH (08:43)
[2019-12-19 09:12] LABS: Platelet Count 73 k/uL (150-450)
--- NOTE | 2019-12-19 10:23 | P.PN ---
Subjective Principal diagnosis: Right-sided pleural effusion overall stable Pericardial effusion, Acute on chronic systolic heart failure History of lung cancer status post right lower lobe resection doing well in that regard 12/19/2019, patient seen and evaluated examined during the rounds labs reviewed medications reviewed shortness of breath is improved now, patient still gently being diuresed, patient is scheduled for, free water restricted for hyponatremia likely due to CHF 12/17/2019, patient seen eval examined during the rounds labs reviewed medications reviewed care plan discussed, patient has been scheduled for biventricular pacing on Thursday respiratory status remains marginal stable, denies any cough ongoing shortness of breath 12/16/2019, patient seen and evaluated examined during the rounds labs reviewed medications reviewed care plan discussed, shortness of breath still present patient is being evaluated for AICD placement by EP service, 12/15/2019, patient seen eval examined during the rounds Z reviewed medications reviewed care plan discussed, denies any chest pain sleeping comfortably anxiety is better, echocardiogram failed to reveal any significant pericardial effusion mild to moderate chronic pleural effusion is present which is not much change, hemodynamically stable and afebrile oxygen saturation 100% on 4 L, This is a 69-year-old male who was seen eval reexamined patient has a history of congestive heart failure ejection fraction is only 15%, he has AICD, patient has chronic right-sided small pleural effusion which is a residual after resection of right lower lobe, due to progressive shortness of breath and decided to come into the hospital also have problems associated with pericardial effusion in the past, chest x-ray however essentially remains stable BNP is over 9000 Objective - Vital Signs Vital signs: Vital Signs Temp 97.4 F L 12/19/19 00:00 Pulse 72 12/19/19 06:59 Resp 16 12/19/19 00:00 BP 105/75 12/19/19 00:00 Pulse Ox 90 L 12/19/19 00:00 Intake & Output 12/18/19 12/19/19 12/19/19 18:59 06:59 18:59 Intake Total 294.144 Output Total 300 Balance -5.856 Weight 45.5 kg Intake: Intake, IV Titration 144.144 Amount DOBUTamine DRIP 500 mg In 144.144 Dextrose/Water 1 250ml. bag @ 2.5 MCG/KG/MIN 3.78 mls/hr IV .Q24H [facility] Rx#: [id number] Oral 150 Output: Urine 300 Other: Voiding Method Bedside Commode Bedside Commode Urinal Urinal # Voids 1 - Exam - Constitutional General appearance: average body habitus, disheveled, mild distress - EENT Eyes: EOMI, PERRLA - Neck Neck clean up to angle of jaw Carotids: bilateral: upstroke normal Thyroid: bilateral: normal size - Respiratory Respiratory: bilateral: diminished - Cardiovascular Rhythm: regular Heart sounds: normal: S1, S2 - Gastrointestinal General gastrointestinal: normal bowel sounds - Integumentary Integumentary: normal turgor - Neurologic Neurologic: CNII-XII intact - Musculoskeletal Musculoskeletal: gait normal, generalized weakness, strength equal bilaterally - Psychiatric Psychiatric: A&O x's 3, appropriate affect, intact judgment & insight - Labs CBC & Chem 7: 12/19/19 06:48 12/19/19 06:48 Labs: Abnormal Lab Results - Last 24 Hours (Table) 12/19/19 12/19/19 Range/Units 06:48 06:48 WBC 12.1 H (3.8-10.6) k/uL RBC 4.17 L (4.30-5.90) m/uL RDW 17.8 H (11.5-15.5) % Plt Count 73 L D (150-450) k/uL Neutrophils # 9.8 H (1.3-7.7) k/uL Lymphocytes # 0.8 L (1.0-4.8) k/uL Monocytes # 1.1 H (0-1.0) k/uL Sodium 126 L (137-145) mmol/L Potassium 5.8 H (3.5-5.1) mmol/L Chloride 92 L (98-107) mmol/L Carbon Dioxide 21 L (22-30) mmol/L BUN 23 H (9-20) mg/dL Glucose 101 H (74-99) mg/dL Assessment and Plan Assessment: Hyponatremia hypotonic related to heart failure Right-sided pleural effusion overall stable chronic Acute on chronic systolic heart failure History of lung cancer status post right lower lobe resection doing well in that regard Generalized anxiety disorder Plan: Patient is being evaluated for biventricular pacing Continue gentle diuresis Agree with water restriction Continue breathing treatments Reviewed echocardiogram continue supportive care family is leaning towards h ospice if biventricular pacing is unsuccessful in improving symptoms of heart failure Time with Patient: Greater than 30
[2019-12-19 11:07] VITALS: BP 84/67; PULSE 85; TEMP 97.7
[2019-12-19] MEDS ORDERED: SODIUM POLYSTYRENE SULFONATE 15 GM/60 ML BOTTLE PO STA (11:34)
--- NOTE | 2019-12-19 11:38 | P.PN ---
Subjective Progress Note Date: 12/19/19 This is a 69-year-old gentleman with history of severe cardiac myopathy status post AICD, right-sided lung neoplasm status post resection, chronic systolic congestive heart failure, COPD, who initially presented to the hospital with symptoms of progressively worsening shortness of breath. Patient had been seen here in consultation by Dr. Hurst. Patient underwent a venogram on Thursday with Dr. 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 Initially his plans were to attempt ICD upgrade via the subclavian vein centrally, this was tentatively scheduled for today. He did have a lengthy discussion with the patient and his regarding this as well. After a lengthy thought over the weekend, his decision at this point in time was to continue with maximum medical therapy in attempts to keep the patient comfortable. Patient was seen and examined this morning. Blood pressure 95/70 with a heart rate in the 70s to 80s, 92% on 4 L of oxygen. White blood cell count 12.1, hemoglobin 13.1, platelet count 73. Sodium 126, potassium 5.8, BUN 23 and creatinine 0.7. Patient continues to be on IV dobutamine at this time. Objective - Vital Signs Vital signs: Vital Signs Temp 97.7 F 12/19/19 11:04 Pulse 85 12/19/19 11:04 Resp 16 12/19/19 11:04 BP 84/67 12/19/19 11:04 Pulse Ox 99 12/19/19 11:04 Intake & Output 12/18/19 12/19/19 12/19/19 18:59 06:59 18:59 Intake Total 294.144 Output Total 300 0 Balance -5.856 0 Weight 45.5 kg Intake: Intake, IV Titration 144.144 Amount DOBUTamine DRIP 500 mg In 144.144 Dextrose/Water 1 250ml. bag @ 2.5 MCG/KG/MIN 3.78 mls/hr IV .Q24H [facility] Rx#: [id number] Oral 150 Output: Urine 300 Stool 0 Other: Voiding Method Bedside Commode Bedside Commode Bedside Commode Urinal Urinal Urinal # Voids 1 - Exam GENERAL: 69-year-old gentleman in no acute distress at the time of examination. NECK: Supple without JVD or thyromegaly. LUNGS: Diminished bilaterally, diffuse rales and scattered rhonchi. Respiration equal and mildly labored. HEART: Regular rate and rhythm with systolic ejection murmur at the left sternal border, no rubs or gallops. S1 and S2 heard. EXTREMITIES: Normal range of motion, bilateral lower extremity edema non- pitting. No clubbing or cyanosis. Peripheral pulses intact. - Labs CBC & Chem 7: 12/19/19 06:48 12/19/19 06:48 Labs: Abnormal Lab Results - Last 24 Hours (Table) 12/19/19 12/19/19 Range/Units 06:48 06:48 WBC 12.1 H (3.8-10.6) k/uL RBC 4.17 L (4.30-5.90) m/uL RDW 17.8 H (11.5-15.5) % Plt Count 73 L D (150-450) k/uL Neutrophils # 9.8 H (1.3-7.7) k/uL Lymphocytes # 0.8 L (1.0-4.8) k/uL Monocytes # 1.1 H (0-1.0) k/uL Sodium 126 L (137-145) mmol/L Potassium 5.8 H (3.5-5.1) mmol/L Chloride 92 L (98-107) mmol/L Carbon Dioxide 21 L (22-30) mmol/L BUN 23 H (9-20) mg/dL Glucose 101 H (74-99) mg/dL Assessment and Plan Plan: ASSESSMENT and plan #1Acute on chronic systolic heart failure #2Severe non ischemiccardiomyopathy status post AICD #3Valvular heart disease #4COPD #5Lung cancer status post resection #6Chronic right-sided pleural effusion #7Transaminitis this #8Acute kidney injury Plan From cardiology's perspective, at this time, we will hold off on upgrading the patient's device to a bi-V AICD. Continue current maximum medical therapy. Patient is also being made hospice today. Dr. Hurst will be in to speak with the patient and his later today. DNP note has been reviewed, I agree with a documented findings and plan of care. Patient was seen and examined.
[2019-12-19] MEDS ORDERED: ceFAZolin 1,000 MG in SODIUM CHLORIDE 0.9% IRRIGATIO 250 ML IRRIGATION ONE (12:00)
--- NOTE | 2019-12-19 12:41 | P.DS ---
Providers Date of admission: 12/13/19 16:43 Expected date of discharge: 12/19/19 Attending physician: Delano Cedeño Consults: 12/14/19 13:00 Consult Physician Routine Consulting Provider: Oscar Carroll Consult Reason/Comments: sob Do you want consulting provider notified?: Yes Consult Physician Routine Consulting Provider: Bon Hurst Consult Reason/Comments: chf Do you want consulting provider notified?: Yes Primary care physician: Kashif Salazar Hospital Course: Final diagnosis -Acute on chronic congestive heart failure exacerbation from systolic dysfunction EF less than 15%, POA, stabilized -Acute kidney injury, prerenal has gone from 0.8 up to 1.46, from diuresis-slow to respond. Improved now -Oropharyngeal candidiasis causing odynophagia -COPD exacerbation in an ex-smoker -Hyponatremia likely due to hypovolemia and also excessive free water intake. -On November 21-acute non-Q-wave AK, -Moderate mitral and, moderate tricuspid regurgitation, nontraumatic -Severe secondary pulmonary hypertension -Chronic loculated right-sided effusion -Left bundle-branch block -AICD -BPH -History of arrhythmia type unknown -History of Right lower lobe lobectomy, biopsy showing adenocarcinoma.-Early-stage not requiring any chemoradiation treatment -generalized anxiety disorder -Chronic insomnia -Chronic located right pleural effusion -Hyponatremia from diuresis -Acute ischemic hepatitis-new diagnosis Discharge disposition Patient is being discharged in stable condition with guarded and poor prognosis to home. Patient will be following up with visiting nurses and has agreed to hospice. Total time taken is 35 minutes. History of present illness This is a 69-year-old male who was recently admitted with acute on chronic congestive heart failure with systolic dysfunction and was being closely monitored. Cardiology following. Patient's most recent echo showing an EF of less than 15%. Patient was recently admitted with COPD exacerbation and pneumonia. Most recent lung biopsy in August of this year showing adenocarcinoma. Patient was to receive a biventricular AICD with cardiology although patient and family refusing at this time. Patient has met with visiting nurses hospice and will be going home on hospice today per patient and family wishes. Sodium continues to be low at 126 and potassium today was 5.8. Patient will be given a dose of Kayexalate prior to discharge. Currently no reports of chest pain, worsening shortness of breath, or palpitations. Patient is afebrile. No reports of nausea or vomiting and patient is tolerating diet. Patient eats very little and will continue on Marinol as needed. As mentioned previously patient will start hospice today. On exam vital signs are stable. Temp is 97.7F, pulse is 85, respirations are 16, blood pressures 95/70, oxygen saturation is 99% on 4 L via nasal cannula. Cardio S1, S2 are muffled. Respiratory system shows diminished breath sounds with some scattered rhonchi noted. Abdomen is soft, thin, and nontender. Nervous system shows diffuse weakness. Please refer to medication reconciliation sheet for a list of medications. Patient Condition at Discharge: Fair Plan - Discharge Summary Discharge Rx Participant: No New Discharge Prescriptions: Continue Levothyroxine Sodium 25 mcg PO DAILY Atorvastatin [Lipitor] 40 mg PO HS #30 tab Pantoprazole [Protonix] 40 mg PO AC-BRKFST #30 tablet. Ipratropium-Albuterol Nebulize [Duoneb 0.5 mg-3 mg/3 ml Soln] 3 ml INHALATION RT-QID PRN #1 neb PRN Reason: Shortness Of Breath Potassium Chloride ER [K-Dur 10] 10 meq PO DAILY Aspirin EC [Ecotrin Low Dose] 81 mg PO DAILY Acetaminophen Tab [Tylenol] 1,000 mg PO Q6H PRN PRN Reason: Pain Albuterol Inhaler [Ventolin Hfa Inhaler] 2 puff INHALATION RT-Q4H PRN PRN Reason: Shortness Of Breath Budesonide/Formoterol Fumarate [Symbicort 160-4.5 Mcg Inhaler] 2 puff INHALATION RT-BID Dronabinol [Marinol] 2.5 mg PO AC-BID PRN PRN Reason: APETITE/NAUSEA Furosemide [Lasix] 40 mg PO DAILY Furosemide [Lasix] 20 mg PO HS Metoprolol Tartrate [Lopressor] 12.5 mg PO DAILY Tiotropium 18 Mcg/Puff [Spiriva] 1 cap INHALATION RT-DAILY Changed ALPRAZolam [Xanax] 0.25 mg PO TID #12 tab Discharge Medication List Levothyroxine Sodium 25 mcg PO DAILY 11/04/19 [History] Atorvastatin [Lipitor] 40 mg PO HS #30 tab 11/10/19 [Rx] Ipratropium-Albuterol Nebulize [Duoneb 0.5 mg-3 mg/3 ml Soln] 3 ml INHALATION RT-QID PRN #1 neb 11/10/19 [Rx] Pantoprazole [Protonix] 40 mg PO AC-BRKFST #30 tablet.dr 11/10/19 [Rx] Acetaminophen Tab [Tylenol] 1,000 mg PO Q6H PRN 11/22/19 [History] Aspirin EC [Ecotrin Low Dose] 81 mg PO DAILY 11/22/19 [History] Potassium Chloride ER [K-Dur 10] 10 meq PO DAILY 11/22/19 [History] Albuterol Inhaler [Ventolin Hfa Inhaler] 2 puff INHALATION RT-Q4H PRN 12/13/19 [History] Budesonide/Formoterol Fumarate [Symbicort 160-4.5 Mcg Inhaler] 2 puff INHALATION RT-BID 12/13/19 [History] Dronabinol [Marinol] 2.5 mg PO AC-BID PRN 12/13/19 [History] Furosemide [Lasix] 20 mg PO HS 12/13/19 [History] Furosemide [Lasix] 40 mg PO DAILY 12/13/19 [History] Metoprolol Tartrate [Lopressor] 12.5 mg PO DAILY 12/13/19 [History] Tiotropium 18 Mcg/Puff [Spiriva] 1 cap INHALATION RT-DAILY 12/13/19 [History] ALPRAZolam [Xanax] 0.25 mg PO TID #12 tab 12/19/19 [Rx] Follow up Appointment(s)/Referral(s): Kashif Salazar MD [Primary Care Provider] - 1-2 days (To follow up with hospice physician) [facility] Visiting Nurse, [NON-STAFF] - 1-2 Days (Please call when the patient gets home.) Patient Instructions/Handouts: Hospice (DC) Activity/Diet/Wound Care/Special Instructions: Patient is going home with visiting nurses Hospice Continue current diet Follow-up with primary care provider upon discharge Discharge Disposition: HOME WITH HOSPICE
[2019-12-19 13:04] VITALS: BMI 16.7
== END 2019-12-19 13:32 | disposition still patient (30) | DRG 281 ==
LOC: EC 13:34 → 3SCARD 16:43
PROVIDERS: ADMIT Hospitalist; ATTEND Hospitalist
DX: I50.43 Acute on chronic combined systolic (congestive) and diastolic (congestive) heart failure (principal); I21.4 Non-ST elevation (NSTEMI) myocardial infarction; E87.2 Acidosis; E87.1 Hypo-osmolality and hyponatremia; I42.8 Other cardiomyopathies; I31.3 Pericardial effusion (noninflammatory); N17.9 Acute kidney failure, unspecified; J44.1 Chronic obstructive pulmonary disease with (acute) exacerbation; C34.90 Malignant neoplasm of unspecified part of unspecified bronchus or lung; I82.B12 Acute embolism and thrombosis of left subclavian vein; B37.0 Candidal stomatitis; E87.5 Hyperkalemia; N40.0 Benign prostatic hyperplasia without lower urinary tract symptoms; E03.9 Hypothyroidism, unspecified; E78.5 Hyperlipidemia, unspecified; F41.1 Generalized anxiety disorder; I08.1 Rheumatic disorders of both mitral and tricuspid valves; I27.29 Other secondary pulmonary hypertension; F51.04 Psychophysiologic insomnia; E86.1 Hypovolemia; I44.7 Left bundle-branch block, unspecified; K75.89 Other specified inflammatory liver diseases; K59.00 Constipation, unspecified; Z90.2 Acquired absence of lung [part of]; Z11.59 Encounter for screening for other viral diseases; Z95.810 Presence of automatic (implantable) cardiac defibrillator; Z88.8 Allergy status to other drugs, medicaments and biological substances; Z98.890 Other specified postprocedural states; Z87.891 Personal history of nicotine dependence; Z86.79 Personal history of other diseases of the circulatory system; Z86.74 Personal history of sudden cardiac arrest; Z85.118 Personal history of other malignant neoplasm of bronchus and lung; Z82.49 Family history of ischemic heart disease and other diseases of the circulatory system; Z79.899 Other long term (current) drug therapy; Z79.890 Hormone replacement therapy; Z79.82 Long term (current) use of aspirin; Z79.51 Long term (current) use of inhaled steroids
CPT/HCPCS: 36005; 36415; 71046; 74177; 75820; 80048; 80053; 83605; 83735; 83880; 84484; 85025; 85610; 85730; 87635; 93005; 93306; 94640; 96374; 99291